=== PATIENT | male | born 1940 | race Caucasian/White ===

== ENCOUNTER → 2024-04-30 | Outpatient (CLI) | payer MEDICARE, BC, SELFPAY ==
[2024-04-30 11:44] LABS: Creatinine MALB Rnd Ur 122 mg/dL (30-125); Microalbumin, Random Urine < 3 mg/L (0-300)
[2024-04-30 11:44] LABS: Glucose Estimated Average 174 mg/dL (80-131); Hemoglobin A1C 7.7 % Hgb (4.8-6.0)
[2024-04-30 11:46] LABS: Alanine Aminotransferase 30 U/L (10-49); Albumin, Serum 4.1 gm/dL (3.4-4.8); Albumin/Globulin Ratio 1.6 (1.2-2.2); Alkaline Phosphatase 65 U/L (46-116); Anion Gap 7 (7-16); Aspartate Amino Transferase 18 U/L (0-34); BUN/Creatinine Ratio 16 Ratio (12-20); Bilirubin,Total 0.6 mg/dL (0.3-1.2); Blood Urea Nitrogen 18 mg/dL (9-23); Calcium 10.1 mg/dL (8.3-10.6); Calcium (Corrected) 10.1 mg/dL (8.5-10.1); Carbon Dioxide 28.7 mMol/L (20.0-31.0); Cardiac Risk Estimate 3.5 RATIO (4.0-6.7); Chloride 105 mMol/L (98-107); Cholesterol 153 mg/dL (132-200); Creatinine (Component) 1.1 mg/dL (0.6-1.3); Globulin 2.5 gm/dL (2.3-3.5); Glucose 181 mg/dL (74-106); HDL Cholesterol 44 mg/dL (40-60); LDL Cholesterol,Calculated 67 mg/dL (0-130); Osmolality,Calculated 288 (275-295); Potassium 4.1 mMol/L (3.4-5.1); Sodium 141 mMol/L (136-145); Total Protein 6.6 gm/dL (5.7-8.2); Triglycerides 211 mg/dL (30-150); eGFR > 60 See Note
== END | disposition home or self-care (01) ==
LOC: COPL 10:05
PROVIDERS: PCP Specialist; Referring Provider Specialist; Visit Provider Specialist
DX: E11.65 Type 2 diabetes mellitus with hyperglycemia (principal)
CPT/HCPCS: 36415; 80053; 80061; 82043; 82570; 83036

== ENCOUNTER → 2024-07-14 | Outpatient (CLI) | payer MEDICARE, BC, SELFPAY ==
[2024-07-14 13:30] LABS: Glucose Estimated Average 154 mg/dL (80-131)
[2024-07-14 13:36] LABS: B-Type Natriuretic Peptide 35 pg/mL (0-100)
[2024-07-14 13:40] LABS: Creatinine MALB Rnd Ur 156 mg/dL (30-125); Microalbumin Creat Ratio 7 mg/gCrea (<30); Microalbumin, Random Urine 11 mg/L (0-300)
[2024-07-14 13:40] LABS: Alanine Aminotransferase 28 U/L (10-49); Albumin, Serum 4.3 gm/dL (3.4-4.8); Albumin/Globulin Ratio 1.6 (1.2-2.2); Alkaline Phosphatase 100 U/L (46-116); Anion Gap 13 (7-16); Aspartate Amino Transferase 24 U/L (0-34); BUN/Creatinine Ratio 19 Ratio (12-20); Bilirubin,Total 0.7 mg/dL (0.3-1.2); Blood Urea Nitrogen 21 mg/dL (9-23); Calcium 10.1 mg/dL (8.3-10.6); Calcium (Corrected) 10.1 mg/dL (8.5-10.1); Carbon Dioxide 25.3 mMol/L (20.0-31.0); Cardiac Risk Estimate 3.3 RATIO (4.0-6.7); Chloride 104 mMol/L (98-107); Cholesterol 156 mg/dL (132-200); Creatinine (Component) 1.1 mg/dL (0.6-1.3); Globulin 2.7 gm/dL (2.3-3.5); Glucose 216 mg/dL (74-106); HDL Cholesterol 48 mg/dL (40-60); LDL Cholesterol,Calculated 50 mg/dL (0-130); Osmolality,Calculated 293 (275-295); Potassium 4.5 mMol/L (3.4-5.1); Sodium 142 mMol/L (136-145); Thyroid Stimulating Hormone 2.28 uIU/mL (0.55-4.78); Triglycerides 291 mg/dL (30-150); Troponin I < 0.002 ng/mL (0.0-0.045); eGFR > 60 See Note
== END | disposition home or self-care (01) ==
LOC: COPL 12:13
PROVIDERS: PCP Specialist; Referring Provider Specialist; Visit Provider Specialist
DX: E11.65 Type 2 diabetes mellitus with hyperglycemia (principal); E78.2 Mixed hyperlipidemia; I25.9 Chronic ischemic heart disease, unspecified
CPT/HCPCS: 36415; 80053; 80061; 82043; 82570; 83036; 83880; 84443; 84484

== ENCOUNTER → 2024-07-28 | Outpatient (CLI) | payer MEDICARE, BC, SELFPAY ==
[2024-07-28 15:57] LABS: Collection Type, Urine Clean Catch
[2024-07-28 16:29] LABS: Bilirubin,Urine Negative (Negative); Blood,Urine Negative (Negative); Clarity,Urine Clear (Clear/Hazy); Color,Urine Yellow (Lt Yel-Yel); Glucose, Urine Negative (Negative); Ketones,Urine Negative (Negative); Leukocyte Esterase,Urine Negative (Negative); Nitrite,Urine Negative (Negative); Protein,Urine Negative (Neg - Trace); RBC,Urine 6 /hpf (0-3); Specific Gravity,Urine 1.023 (1.001-1.035); Squamous Epithelial Cell,Urine < 1 /hpf (0-5); Urobilinogen,Urine Negative mg/dL (0.0-1.0); WBC,Urine 3 /hpf (0-5)
== END | disposition home or self-care (01) ==
LOC: SLDO 15:53
PROVIDERS: PCP Specialist; Referring Provider Specialist; Visit Provider Specialist
DX: R06.00 Dyspnea, unspecified (principal)
CPT/HCPCS: 81001; 87086

== ENCOUNTER → 2024-07-29 | Outpatient (CLI) | payer MEDICARE, BC, SELFPAY ==
[2024-07-29 13:51] LABS: Basophils % (Auto) 0 % (0-2.5); Eosinophils # (Auto) 0.1 Thou/mm3 (0.0-0.5); Eosinophils % (Auto) 2 % (0-10); Hematocrit 43.7 % (41.0-53.0); Hemoglobin 14.1 g/dL (13.5-16.0); Immature Granulocytes % (Auto) 1 % (0-0); Immature Granulocytes Auto 0.03 Thou/mm3 (0.00-0.00); Lymphocytes # (Auto) 1.6 Thou/mm3 (1.0-4.8); Lymphocytes % (Auto) 27 % (10-50); Mean Corpuscular HGB Conc 32.3 g/dl (31.0-37.0); Mean Corpuscular Hemoglobin 29.3 pg (25.0-35.0); Mean Corpuscular Volume 91 fL (80-100); Monocytes # (Auto) 0.6 Thou/mm3 (0.0-0.8); Monocytes % (Auto) 11 % (0-12); Neutrophils # (Auto) 3.6 Thou/mm3 (1.8-7.7); Neutrophils % (Auto) 59 % (37-80); Nucleated Red Blood Cell % 0 /100 WBC (0); Platelet Count 173 Thou/mm3 (140-440); RDW Standard Deviation 48.8 fL (35.1-43.9); Red Blood Count 4.81 Miln/mm3 (4.50-5.90)
[2024-07-29 14:06] LABS: Alanine Aminotransferase 20 U/L (10-49); Albumin, Serum 3.9 gm/dL (3.4-4.8); Albumin/Globulin Ratio 1.8 (1.2-2.2); Alkaline Phosphatase 60 U/L (46-116); Anion Gap 13 (7-16); Aspartate Amino Transferase 16 U/L (0-34); BUN/Creatinine Ratio 13 Ratio (12-20); Bilirubin,Total 0.7 mg/dL (0.3-1.2); Blood Urea Nitrogen 12 mg/dL (9-23); Calcium 9.5 mg/dL (8.3-10.6); Calcium (Corrected) 9.6 mg/dL (8.5-10.1); Carbon Dioxide 25.6 mMol/L (20.0-31.0); Chloride 105 mMol/L (98-107); Creatinine (Component) 0.9 mg/dL (0.6-1.3); Globulin 2.2 gm/dL (2.3-3.5); Glucose 120 mg/dL (74-106); Osmolality,Calculated 287 (275-295); Potassium 3.6 mMol/L (3.4-5.1); Sodium 144 mMol/L (136-145); Total Protein 6.1 gm/dL (5.7-8.2); Troponin I < 0.002 ng/mL (0.0-0.045); eGFR > 60 See Note
[2024-07-29 14:20] LABS: B-Type Natriuretic Peptide 25 pg/mL (0-100)
[2024-07-29 14:23] LABS: D-Dimer 478 ng/mL (<600)
== END | disposition home or self-care (01) ==
LOC: SLDO 13:11
PROVIDERS: PCP Specialist; Referring Provider Specialist; Visit Provider Specialist
DX: R06.00 Dyspnea, unspecified (principal)
CPT/HCPCS: 36415; 80053; 83880; 84484; 85025; 85379

== ENCOUNTER 2024-08-25 13:56 | Emergency (ER) | payer MEDICARE, BC, SELFPAY ==
[2024-08-25] VITALS (13 sets, daily range): BP systolic 142–192; BP diastolic 83–115; PULSE 59–80; RESP 14–23; TEMP 36.8–37; O2SAT 93–99; BMI 29.2
--- NOTE | 2024-08-25 14:08 | EKG_ITS ---
[facility] Test Date: 2024-08-25 Pat Name: URVASHI RAMSEY Department: Room: - Gender: Male Judicial Clerk: : 1940 Requested By: Ly Hernandez Order Number: [id number] Reading MD: Ly Hernandez Measurements Intervals [place] Rate: 75 P: [place]: QRS: 12 QRSD: 118 T: 90 QT: 365 QTc: 410 Interpretive Statements SUPRAVENTRICULAR RHYTHM MODERATE INTRAVENTRICULAR CONDUCTION DELAY [110+ ms QRS DURATION] NONSPECIFIC ST & T-WAVE ABNORMALITY ABNORMAL RHYTHM ECG Compared to ECG 03/13/2023 08:28:30 Supraventricular rhythm now present Sinus rhythm no longer present Ventricular premature complex(es) no longer present T-wave abnormality still present /store/S0/[id number].pdf
--- NOTE | 2024-08-25 14:56 | XR_ITS ---
Examination: AP chest single view Technique one AP portable semiupright chest single view Date and time: August 25, 2024, 1544 hours Comparison March 12, 2023 INDICATIONS: Chest pain and weakness onset today. FINDINGS: Normal heart size CABG. 19 mm pulmonary nodule right upper lobe, please see the CT chest report October 22, 2023 No interval pneumonia or pulmonary edema. Prominent osteopenia with old right-sided rib fractures Reverse left shoulder arthroplasty IMPRESSION: No interval pneumonia or pulmonary edema Stable 19 mm pulmonary nodule right upper lobe
--- NOTE | 2024-08-25 15:09 | EDNOTE_ITS ---
<Statement entered by Ly Mckeon MD - 09/03/24 19:18> As co-signing physician, I was present and available for consult prn. I concur with the plan and care as documented by the midlevel provider. ED Weakness RME/HPI General Chief complaint: Weakness Stated complaint: GENERAL WEAKNESS Time Seen by Provider: 08/25/24 18:00 Arrival date/time: 08/25/24 13:56 RME / HPI RME / HPI Narrative: 83 year old male with history of CAD s/p CABG, hypertension, diabetes, and BPH presents to the ED BIBA from home for evaluation of generalized weakness that began earlier today. Associated with feeling short of breath, which worsens with talking. Patient states over the past two days, he has noted elevated blood pressures with systolic readings between 180?200 and diastolic pressures in the 100s. Patient also reports a ground-level fall three days ago, during which he heard a ?crack? in his left shoulder followed by localized pain. Denies head trauma or loss of consciousness. The shoulder remains sore but the pain has improved since the fall. Denies fever, chills, sweating. Denies chest pain, cough, shortness of breath. Denies nausea, vomiting, diarrhea, constipation. Denies dysuria, urinary frequency and urgency. Patient mentioned history of vertigo following benign brain tumor resection many years ago. Reports chronic unsteadiness while ambulating with a walker, which he feels is worsened by his current generalized weakness. States this unsteadiness is unchanged from baseline. Related Data Home Medications ?Medication ?Instructions ?Recorded ?Confirmed folic acid 1 mg tablet 1 mg PO QPM #0 tabs 09/03/13 03/13/23 clopidogrel 75 mg tablet (Plavix) 75 mg PO QPM 8 03/13/23 sertraline 25 mg tablet 25 mg PO QDAY 02/10/1803/13 atorvastatin 40 mg tablet 40 mg PO HS 03/12/23 4 hydrocodone 7.5 mg-acetaminophen 1 tab PO Q6H PRN Pain 03/13/23 03/13/23 325 mg tablet lactulose 10 gram/15 mL oral syrup 10 g PO DAILY 03/1303/13/23 pantoprazole 20 mg tablet,delayed 40 mg PO QDAY 03/13/23 release Previous Rx's ?Medication ?Instructions ?Recorded ferrous sulfate 325 mg (65 mg 325 mg PO BID 30 days #6 0 tabs 09/17/22 iron) tablet,delayed release lidocaine 5 % topical patch 3 patch topical QDAY 30 da ys #30 ea 03/14/23 amlodipine 2.5 mg tablet 2.5 mg PO DAILY 30 days #30 tabs 03/17/23 labetalol 100 mg tablet 100 mg PO BID 30 days #60 ta bs 03/17/23 tamsulosin 0.4 mg capsule 0.4 mg PO DAILY 30 days #30 caps 03/17/23 clonidine HCl 0.1 mg tablet 0.1 mg PO Q12H #14 tabs Allergies Allergy/AdvReac Type Severity Reaction Status Date / Time hydrocodone AdvReac Intermediate Nausea Verified 09/01/22 16:51 oxycodone AdvReac Intermediate sedation Verified 09/01/22 16:51 and confusion tramadol AdvReac Unknown may lower Verified 09/01/22 16:51 blaine rosenbaum Review of Systems Review of Systems Systems Reviewed: All systems reviewed, normal except as documented Past Medical History Past Medical History NEUROLOGIC: Positive Neurological Disorders, Cerebrovascular Accident, Brain Tumor and Peripheral Neuropathy CARDIAC: Positive Cardiac Disorders, Cardiac Arrhythmia, Atrial Fibrillation, Coronary Artery Disease, Atherosclerotic Heart Disease, Hypercholesterolemia, Valvular Heart Disease and Hypertension RESPIRATORY: Positive Pneumonia GENITOURINARY: Positive Genitourinary Disorders, Renal Disease, Kidney Stones, Inguinal Hernia and Benign Prostatic Hyperplasia MUSCULOSKELETAL: Positive Musculoskeletal Disorders, Arthritis, Degenerative Disk Disease, Fractures and Degenerative Joint Disease ENT: Positive Cataracts ENDOCRINE: Positive Endocrine Disorders and Diabetes Mellitus Type 2 HEMATOLOGIC: Positive Anemia PSYCHO/SOCIAL: Positive Depression and Anxiety OTHER HISTORY: Positive Hospitalization, Falls and Blood Transfusions Family History FAMILY HISTORY: Positive Family Cardiac Disorders, Family Cancer and Family Surgery Surgical History SURGICAL: Positive Cardiac Surgery (open heart sx , pig valve), Open Heart Surgery, Coronary Artery Bypass Graft, Valve Replacement, Coronary Stent, Cardiac Catheterization, Ear Surgery, Tonsillectomy, Abdominal Surgery, Joint Replacement and Neurologic Surgery; Negative Endocrine Surgery or Vasectomy Social History SMOKING STATUS: Never smoker SECOND HAND EXPOSURE: No SUBSTANCE USE: does not use ED Exam Narrative Physical exam: GENERAL APPEARANCE: alert and oriented x 4, well-developed, well-nourished, no acute distress HEENT: Normocephalic, atraumatic; pupils equal, round, reactive to light; EOMI; mucous membranes pink, moist; oropharynx clear NECK: Supple LUNGS: CTABL; no wheezes, no rales, no rhonchi HEART: Regular rate, regular rhythm; normal S1, S2; no murmurs ABDOMEN: non distended; normal BS; soft, no tenderness, no guarding, no rebound; no masses, no organomegaly, no hernia BACK: no CVA tenderness EXTREMITIES: atraumatic; no edema NEUROLOGIC: awake; alert and oriented x4; cranial nerves II-XII grossly intact; no focal sensory or motor deficits PSYCHIATRIC: appropriate mood and affect SKIN: warm, dry, normal color; no rashes Course Quality Measures none Orders Category Date Time Status Windows Vmware Engineer NOW Care 08/25/24 14:56 Completed EKG (ED ONLY) *Do not use* NOW Care 08/25/24 14:08 Completed MRI Screening NOW Care 08/26/24 00:55 Completed MRI Screening NOW Care 08/26/24 01:[address] head/brain wo con Stat Exams 08/25/24 19:22 Completed EKG (ED Only) Stat Exams 08/25/24 14:08 Draft MR head/brain wo con Stat Exams 08/26/24 Completed XR chest 1V portable Stat Exams 08/25/24 14:56 Completed B-Type Natriuretic Peptide Stat Lab 08/25/24 14:20 Completed Blood Culture (Lab) Stat Lab 08/25/24 15:36 Results CBC Stat Lab 08/25/24 14:20 Completed Comprehensive Metabolic Panel Stat Lab 08/25/24 14:20 Completed Lactate (Lactic Acid) Stat Lab 08/25/24 14:20 Completed Lactic Acid [Lactate (Lactic Acid)] Stat Lab 08/25/24 18:00 Completed Lipase Stat Lab 08/25/24 14:20 Completed Magnesium Stat Lab 08/25/24 14:20 Completed Partial Thromboplastin Time Stat Lab 08/25/24 14:20 Completed Procalcitonin Stat Lab 08/25/24 14:20 Completed Prothrombin Time with INR Stat Lab 08/25/24 14:20 Completed Troponin I Stat Lab 08/25/24 14:20 Completed Troponin I Stat Lab 08/25/24 18:00 Completed UA, C/S IF [Urinalysis, C/S if Indicated] Stat Lab 08/25/24 17:34 Completed Acetaminophen Tab [Tylenol Tab] Med 08/25/24 20:44 Discontinued 650 mg PO X1 ONE HYDROmorphone INJ [Dilaudid Inj] Med 08/26/24 08:55 Discontinued 0.5 mg IVP X1 ONE HYDROmorphone INJ [Dilaudid Inj] Med 08/26/24 14:36 Discontinued 1 mg IVP X1 ONE Ketorolac Inj [Toradol Inj] Med 08/26/24 08:55 Discontinued 15 mg IVP X1 ONE Magnesium Sulfate 2 GM Ivpb [Magnesium Sulfate Ivpb] Med 08/25/24 17:06 Discontinued 2 gm in 50 ml IV X1 Ondansetron Inj [Zofran Inj] Med 08/26/24 08:55 Discontinued 4 mg IVP X1 ONE Ondansetron Inj [Zofran Inj] Med 08/26/24 14:36 Discontinued 4 mg IVP X1 ONE Sodium Chloride 0.9% 1000 ml [Ns] 1,000 ml Med 08/25/24 17:08 Discontinued IV 999 mls/hr cloNIDine HCL [Catapres] Med 08/26/24 08:55 Discontinued 0.1 mg PO X1 ONE hydrALAZINE INJ [Apresoline Inj] Med 08/25/24 20:33 Discontinued 10 mg IVP X1 ONE hydrALAZINE INJ [Apresoline Inj] Med 08/26/24 01:51 Discontinued 10 mg IVP X1 ONE Vital Signs Vital signs: Vital Signs Temperature 98.6 F 08/25/24 13:57 Pulse Rate 76 08/25/24 13:57 Respiratory Rate 17 08/25/24 13:57 Blood Pressure 142/83 H 08/25/24 13:57 Pulse Oximetry (%) 95 08/25/24 13:57 Oxygen Delivery Method Room Air 08/25/24 13:57 Pulse ox is 95% on room air which is adequate. Weakness MDM Narrative MDM Narrative:: Aisha Pang am scribing for and in the presence of Dr. Mckeon. 1800: Patient signed out to Dr. Horne pending UA and final disposition. Patient data External records reviewed:: [facility] previous records (I reviewed ED visit on 08/03/2023 for head injury ) and EMS form Clinical information provided by:: patient and EMS Social determinants that could affect healthcare access:: none Patient has the following chronic illnesses:: CAD s/p CABG, hypertension, diabetes, and BPH How is presenting disease/condition affected by chronic disease/condition?: exacerbated by Evaluation data The following diagnostics were reviewed and interpreted by me:: lab results, radiology exam(s) and EKG tracing(s) Lab and/or radiology exams considered but not ordered:: None Interpretation Summary: Ordering Physician: Ly Mckeon MD Date of Service: 08/25/24 Procedure(s): XR chest 1V portable Accession Number(s): [id number] cc: Edison Mojica; Joshua Harrison MD; Ly Mckeon MD~ Examination: AP chest single view Technique one AP portable semiupright chest single view Date and time: August 25, 2024, 1544 hours Comparison March 12, 2023 INDICATIONS: Chest pain and weakness onset today. FINDINGS: Normal heart size CABG. 19 mm pulmonary nodule right upper lobe, please see the CT chest report October 22, 2023 No interval pneumonia or pulmonary edema. Prominent osteopenia with old right-sided rib fractures Reverse left shoulder arthroplasty IMPRESSION: No interval pneumonia or pulmonary edema Stable 19 mm pulmonary nodule right upper lobe Dictated By: Joshua Harrison MD Signed By: <Electronically signed by Joshua Harrison MD in OV> 08/25/24 1552 Medications / Prescriptions Medications or Prescriptions considered but not ordered:: None Medication administrations:: Medication Administration History Discontinued Medications Acetaminophen (Acetaminophen 325 Mg Tablet) 650 mg PO X1 ONE Stop: 08/25/24 20:45 Last Admin: 08/25/24 20:52 Dose: 650 mg Documented By: DT Clonidine (Clonidine Hcl 0.1 Mg Tablet) 0.1 mg PO X1 ONE Stop: 08/26/24 08:56 Last Admin: 08/26/24 09:15 Dose: 0.1 mg Documented By: CG Hydralazine HCl (Hydralazine Inj 20 Mg/Ml Vial) 10 mg IVP X1 ONE Stop: 08/25/24 20:34 Last Admin: 08/25/24 20:50 Dose: Not Given Documented By: DT Non-Admin Reason: Cancelled by Provider Hydralazine HCl (Hydralazine Inj 20 Mg/Ml Vial) 10 mg IVP X1 ONE Stop: 08/26/24 01:52 Last Admin: 08/26/24 02:11 Dose: 10 mg Documented By: JOSUE Hydromorphone HCl (Hydromorphone Inj 2 Mg/Ml Vial) 0.5 mg IVP X1 ONE Stop: 08/26/24 08:56 Last Admin: 08/26/24 09:27 Dose: 0.5 mg Documented By: ROSY Hydromorphone HCl (Hydromorphone Inj 2 Mg/Ml Vial) 1 mg IVP X1 ONE Stop: 08/26/24 14:37 Last Admin: 08/26/24 15:10 Dose: 1 mg Documented By: ROSY Magnesium Sulfate (Magnesium Sulfate Ivpb) 2 gm in 50 mls @ 25 mls/hr IV X1 ONE Stop: 08/25/24 19:05 Last Infusion: 08/25/24 21:18 Dose: Infused Documented By: Admin: 08/25/24 19:03 Dose: 25 mls/hr Documented By: DARWIN Sodium Chloride (Ns) 1,000 mls @ 999 mls/hr IV .Q1H1M ONE Stop: 08/25/24 18:08 Last Infusion: 08/25/24 20:49 Dose: Infused Documented By: Admin: 08/25/24 19:00 Dose: 999 mls/hr Documented By: DARWIN Ketorolac Tromethamine (Ketorolac Inj 30 Mg/Ml Vial) 15 mg IVP X1 ONE Stop: 08/26/24 08:56 Last Admin: 08/26/24 09:14 Dose: 15 mg Documented By: ROSY Ondansetron HCl (Ondansetron Inj 2 Mg/Ml Inj 2 Ml) 4 mg IVP X1 ONE; Protocol Stop: 08/26/24 08:56 Last Admin: 08/26/24 09:15 Dose: 4 mg Documented By: ROSY Ondansetron HCl (Ondansetron Inj 2 Mg/Ml Inj 2 Ml) 4 mg IVP X1 ONE; Protocol Stop: 08/26/24 14:37 Last Admin: 08/26/24 15:10 Dose: 4 mg Documented By: ROSY See above Consultations Consultation(s) initiated? (list below): No Diagnosis Weakness Differential Diagnosis: anemia, rhabdomyolysis, sepsis and dehydration Most likely diagnosis given after review of the tests above:: Weakness Admission Indicated Admission indicated?: not indicated Explain why admission is indicated or not indicated:: Patient signed out to Dr. Horne pending final disposition. Admission Request Was there a request for admission?: No Disposition Plan Disposition Plan: other (specify) (Signed out to Dr. Horne pending UA and final disposition ) Discharge Plan Plan Patient Disposition: HOME (Self Care) Patient condition on transfer: Stable Prescriptions/Referrals Prescriptions/Med Rec: New clonidine HCl 0.1 mg tablet 0.1 mg PO Q12H Qty: 14 0RF Rx Instructions: Take twice daily if needed for systolic BP > 160, diastolic BP > 95. Continue your other usual medications. No Action folic acid 1 MG tablet 1 mg PO QPM Qty: 0 clopidogrel [Plavix] 75 mg Tablet 75 mg PO QPM sertraline 25 mg Tablet 25 mg PO QDAY ferrous sulfate 325 mg (65 mg iron) Tablet,Delayed Release (Dr/Ec) 325 mg PO BID 30 Days Qty: 60 3RF Rx Instructions: Must take with Vitamin C atorvastatin 40 mg tablet 40 mg PO HS lactulose 10 gram/15 mL Syrup 10 g PO DAILY hydrocodone-acetaminophen 7.5-325 mg Tablet 1 tab PO Q6H PRN (Reason: Pain) pantoprazole 20 mg tablet,delayed release (DR/EC) 40 mg PO QDAY lidocaine 5 % adhesive patch,medicated 3 patch topical QDAY 30 Days Qty: 30 1RF Rx Instructions: leave on most painful area for up to 12 hrs tamsulosin 0.4 mg Capsule 0.4 mg PO DAILY 30 Days Qty: 30 1RF labetalol 100 mg Tablet 100 mg PO BID 30 Days Qty: 60 1RF amlodipine 2.5 mg Tablet 2.5 mg PO DAILY 30 Days Qty: 30 1RF Referrals: Edison Mojica FNP [Primary Care Provider] - In 1 week Problem List Clinical Impression: Meningioma, Hypertension, Headache, Parkinson's disease Impression comment: Posterior right para falcine meningioma Patient/Caregiver Discharge Instructions Additional Instructions: Take Tylenol 500 mg 2 tabs every 6 hours PLUS Advil 200 mg gel 2 tablets as needed for pain. Please follow-up with your primary care physician within 2-3 days. Return to the Emergency Department as needed. Print Language: Luxembourgish Stand Alone Forms: Edith Award Info., Patient Portal Info Letter
[2024-08-25 15:51] LABS: Basophils # (Auto) 0.0 Thou/mm3 (0.0-0.2); Basophils % (Auto) 0 % (0-2.5); Eosinophils # (Auto) 0.1 Thou/mm3 (0.0-0.5); Eosinophils % (Auto) 2 % (0-10); Hematocrit 41.5 % (41.0-53.0); Hemoglobin 13.8 g/dL (13.5-16.0); Immature Granulocytes Auto 0.03 Thou/mm3 (0.00-0.00); Lymphocytes # (Auto) 2.0 Thou/mm3 (1.0-4.8); Lymphocytes % (Auto) 27 % (10-50); Mean Corpuscular HGB Conc 33.3 g/dl (31.0-37.0); Mean Corpuscular Hemoglobin 29.2 pg (25.0-35.0); Mean Corpuscular Volume 88 fL (80-100); Monocytes # (Auto) 0.5 Thou/mm3 (0.0-0.8); Monocytes % (Auto) 8 % (0-12); Neutrophils # (Auto) 4.5 Thou/mm3 (1.8-7.7); Neutrophils % (Auto) 63 % (37-80); Nucleated Red Blood Cell # 0.00 Thou/mm3 (0.00-0.00); Nucleated Red Blood Cell % 0 /100 WBC (0); Platelet Count 232 Thou/mm3 (140-440); RDW Standard Deviation 47.2 fL (35.1-43.9); Red Blood Count 4.73 Miln/mm3 (4.50-5.90); White Blood Count 7.2 Thou/mm3 (3.8-10.6)
[2024-08-25 15:53] LABS: Lactate (Lactic Acid) 4.3 mMol/L (0.4-2.0)
[2024-08-25 16:14] LABS: INR 1.1 (0.9-1.3); Partial Thromboplastin Time 25.9 Seconds (22.0-36.0); Prothrombin Time 11.9 Seconds (9.0-12.2)
[2024-08-25 16:17] LABS: Alanine Aminotransferase 21 U/L (10-49); Albumin, Serum 4.2 gm/dL (3.4-4.8); Albumin/Globulin Ratio 1.8 (1.2-2.2); Alkaline Phosphatase 60 U/L (46-116); Anion Gap 8 (7-16); Aspartate Amino Transferase 21 U/L (0-34); BUN/Creatinine Ratio 20 Ratio (12-20); Bilirubin,Total 0.6 mg/dL (0.3-1.2); Blood Urea Nitrogen 18 mg/dL (9-23); Calcium 9.9 mg/dL (8.3-10.6); Calcium (Corrected) 9.9 mg/dL (8.5-10.1); Carbon Dioxide 27.9 mMol/L (20.0-31.0); Chloride 110 mMol/L (98-107); Creatinine (Component) 0.9 mg/dL (0.6-1.3); Estimated Creatinine Clearance 65.9 mL/min (>60); Globulin 2.3 gm/dL (2.3-3.5); Glucose 175 mg/dL (74-106); Lipase 53 U/L (12-53); Magnesium 1.6 mg/dL (1.6-2.6); Osmolality,Calculated 296 (275-295); Potassium 3.8 mMol/L (3.4-5.1); Procalcitonin 0.04 ng/ml (0.0-0.49); Sodium 146 mMol/L (136-145); Total Protein 6.5 gm/dL (5.7-8.2); Troponin I < 0.020 ng/mL (0.0-0.045); eGFR > 60 See Note
[2024-08-25 16:23] LABS: B-Type Natriuretic Peptide 42 pg/mL (0-100)
[2024-08-25 17:43] LABS: Collection Type, Urine Clean Catch
[2024-08-25 17:52] LABS: Bilirubin,Urine Negative (Negative); Blood,Urine Negative (Negative); Clarity,Urine Clear (Clear/Hazy); Color,Urine Lt-Yellow (Lt Yel-Yel); Culture Indicated,Urine Not Indicated; Glucose, Urine Negative (Negative); Ketones,Urine Negative (Negative); Leukocyte Esterase,Urine Negative (Negative); Nitrite,Urine Negative (Negative); PH,Urine 5.5 (5.0-7.0); Protein,Urine Negative (Neg - Trace); RBC,Urine 3 /hpf (0-3); Specific Gravity,Urine 1.023 (1.001-1.035); Squamous Epithelial Cell,Urine < 1 /hpf (0-5); Urobilinogen,Urine Negative mg/dL (0.0-1.0); WBC,Urine 2 /hpf (0-5)
--- NOTE | 2024-08-25 18:01 | PD.EDADDENDU ---
Emergency Room Addendum <Evette Horne MD - Last Filed: 08/25/24 19:26> Addendum Narrative: 1800: Care assumed from Dr. Mckeon (emergency physician). Past medical, surgical, social and family history reviewed. Vitals and home medications reviewed. Results and treatment plan discussed. I will assume the care of the patient at this time and will follow the patient, pending Trop and re-evaluation. . Please refer to the emergency department record for history and examination from initial visit. Summary: the presents that the last few days his blood pressure is been elevated. She has talked to his doctor but his blood pressure has been elevated. The patient also uses a walker and a wheelchair and then the last few days with his elevated blood pressure he has been having trouble walking on his own. He went to physical therapy today and they sent him in because they did not like the way he looked. Physical exam In the emergency department the patient has blood pressure of 207/90. Motor 5 out of 5 upper extremity lower extremity Normal sensation of soft touch face arms and legs bilaterally Heart is regular without murmurs. Lungs are clear bilaterally. White count is normal at 7. Otherwise BUN/creatinine is normal, no hypertensive emergency, sodium is 146, creatinine otherwise is normal, Pro-Trevor is normal. Plan: Will check head CT. If the patient cannot ambulate he will need to be admitted and reevaluation for possible MRI in the morning. Plan to recheck blood pressure. If needed given his normal dose that includes amlodipine, and labetalol. <Jo-Ann Brooks - Last Filed: 08/25/24 21:27> Addendum Narrative: [address] Mckeon (emergency physician). Past medical, surgical, social and family history reviewed. Vitals and home medications reviewed. Results and treatment plan discussed. I will assume the care of the patient at this time and will follow the patient, pending UA and re-evaluation. Please refer to the emergency department record for history and examination from initial visit. Re-evaluation: Patient was signed out to me for continued evaluation of elevated blood pressure and new-onset functional decline. Per his , the patient has had consistently elevated blood pressure readings at home over the past several days. She reports that she has already contacted his primary care physician, but despite this, his blood pressure has remained elevated. In addition, she notes that the patient, who typically uses a walker and wheelchair, has had increasing difficulty ambulating independently over the last few days, which appears to coincide with the period of elevated blood pressure. Earlier today, he attended physical therapy, where staff expressed concern about his appearance and functional status and recommended ED evaluation. #Physical Exam: Vital Signs: BP elevated at 207/90 on arrival; other vitals stable. Neurologic: Motor strength 5/5 in bilateral upper and lower extremities Cardiovascular: Regular heart rate and rhythm; no murmurs. Respiratory: Lungs clear to auscultation bilaterally. No acute distress noted during exam. #Diagnostic Data: White count is normal at 7. Otherwise BUN/creatinine is normal, no hypertensive emergency, sodium is 146, creatinine otherwise is normal, Pro-Trevor is normal. #Plan: Will order Head CT. Monitor ambulation closely; if the patient is unable to ambulate safely, he will require hospital admission for further evaluation, with consideration for MRI brain in the morning if clinically indicated. Blood pressure will be closely monitored in the ED. If elevated persistently, will administer patient's usual antihypertensive medications (amlodipine and labetalol) as appropriate, with adjustments based on response and stability. Patient and updated regarding the plan of care and ongoing evaluation. <Anna Lucio - Last Filed: 08/26/24 00:44> Addendum Narrative: [address] Mckeon (emergency physician). Past medical, surgical, social and family history reviewed. Vitals and home medications reviewed. Results and treatment plan discussed. I will assume the care of the patient at this time and will follow the patient, pending UA and re-evaluation. Please refer to the emergency department record for history and examination from initial visit. Re-evaluation: Patient was signed out to me for continued evaluation of elevated blood pressure and new-onset functional decline. Per his , the patient has had consistently elevated blood pressure readings at home over the past several days. She reports that she has already contacted his primary care physician, but despite this, his blood pressure has remained elevated. In addition, she notes that the patient, who typically uses a walker and wheelchair, has had increasing difficulty ambulating independently over the last few days, which appears to coincide with the period of elevated blood pressure. Earlier today, he attended physical therapy, where staff expressed concern about his appearance and functional status and recommended ED evaluation. #Physical Exam: Vital Signs: BP elevated at 207/90 on arrival; other vitals stable. Neurologic: Motor strength 5/5 in bilateral upper and lower extremities Cardiovascular: Regular heart rate and rhythm; no murmurs. Respiratory: Lungs clear to auscultation bilaterally. No acute distress noted during exam. #Diagnostic Data: White count is normal at 7. Otherwise BUN/creatinine is normal, no hypertensive emergency, sodium is 146, creatinine otherwise is normal, Pro-Trevor is normal. #Plan: Will order Head CT. Monitor ambulation closely; if the patient is unable to ambulate safely, he will require hospital admission for further evaluation, with consideration for MRI brain in the morning if clinically indicated. Blood pressure will be closely monitored in the ED. If elevated persistently, will administer patient's usual antihypertensive medications (amlodipine and labetalol) as appropriate, with adjustments based on response and stability. Patient and updated regarding the plan of care and ongoing evaluation. 0038: Discussed case with Dr. Helder Gomes from neurosurgery at [facility] regarding transfer. Discussed patients ED course, exam findings, labs, and radiology results. States the patient does not need to be transferred because it is not a neurosurgical operative problem. Recommends MRI and admission here. <Yahir Valdes MD - Last Filed: 08/26/24 01:53> Addendum Narrative: [address] Mckeon (emergency physician). Past medical, surgical, social and family history reviewed. Vitals and home medications reviewed. Results and treatment plan discussed. I will assume the care of the patient at this time and will follow the patient, pending UA and re-evaluation. Please refer to the emergency department record for history and examination from initial visit. Re-evaluation: Patient was signed out to me for continued evaluation of elevated blood pressure and new-onset functional decline. Per his , the patient has had consistently elevated blood pressure readings at home over the past several days. She reports that she has already contacted his primary care physician, but despite this, his blood pressure has remained elevated. In addition, she notes that the patient, who typically uses a walker and wheelchair, has had increasing difficulty ambulating independently over the last few days, which appears to coincide with the period of elevated blood pressure. Earlier today, he attended physical therapy, where staff expressed concern about his appearance and functional status and recommended ED evaluation. #Physical Exam: Vital Signs: BP elevated at 207/90 on arrival; other vitals stable. Neurologic: Motor strength 5/5 in bilateral upper and lower extremities Cardiovascular: Regular heart rate and rhythm; no murmurs. Respiratory: Lungs clear to auscultation bilaterally. No acute distress noted during exam. #Diagnostic Data: White count is normal at 7. Otherwise BUN/creatinine is normal, no hypertensive emergency, sodium is 146, creatinine otherwise is normal, Pro-Trevor is normal. #Plan: Will order Head CT. Monitor ambulation closely; if the patient is unable to ambulate safely, he will require hospital admission for further evaluation, with consideration for MRI brain in the morning if clinically indicated. Blood pressure will be closely monitored in the ED. If elevated persistently, will administer patient's usual antihypertensive medications (amlodipine and labetalol) as appropriate, with adjustments based on response and stability. Patient and updated regarding the plan of care and ongoing evaluation. 0038: Discussed case with Dr. Helder Gomes from neurosurgery at [facility] regarding transfer. Discussed patients ED course, exam findings, labs, and radiology results. States the patient does not need to be transferred because it is not a neurosurgical operative problem. Recommends MRI and admission here. 0100: MRI ordered and will signout to Dr. Espinoza in the am. 0152: BP 196/115 HR 66, hydralazine 10mg IV x1 ordered Attestation <Jo-Ann Brooks - Last Filed: 08/25/24 21:27> Attestation Scribe Attestation: I, Sandy Brooks, am scribing for and in the presence of Dr. Horne. Provider Notation: Although this document has been carefully reviewed, there may still be some phonetic and other typographical errors. These errors are purely grammatical due to imperfections in the software program and should not be construed in any way to compromise the substance of the patient's medical care during this visit.
[2024-08-25 18:26] LABS: Lactate (Lactic Acid) 1.8 mMol/L (0.4-2.0)
[2024-08-25 18:43] LABS: Reflex Lactate? Y
[2024-08-25] MEDS: SODIUM CHLORIDE 0.9% 1000 ML 1,000 ML 999 ML IV (19:00)
[2024-08-25] MEDS: Magnesium Sulfate 2 GM Ivpb 2 GM/50 ML BAG IV (19:03)
--- NOTE | 2024-08-25 19:22 | XR_ITS ---
Examination: CT brain head without contrast. 2-D sagittal coronal reconstructions Date and time of exam:August 25, 2024 at 1941 hours Comparison August 03, 2023 INDICATIONS: Patient fell last week with injury and, head pain and dizziness CTDI: vol (mGy):50.5 DLP: (mGycm):1099 Technique: Multiple CT axial sections of the brain have been obtained, 5 mm slice thickness. Contrast has not been administered. 2-D sagittal, coronal reconstructions have been obtained Low dose protocols were performed. One or more of the following dose reduction techniques were used; automated exposure control, adjustment of the mA and/or KV according to patient size, use of iterative reconstruction technique. Findings: Again noted right parafalcine partially calcified meningioma, now measuring 24 mm compared to 18 mm on August 03, 2023 This meningioma is impinging upon the right lateral ventricle The ventricles are mildly enlarged There is depression of the right lateral ventricle on the coronal images 35 secondary to the meningioma No midline shift Fourth ventricle midline IMPRESSION: Enlarging right parafalcine meningioma compared to the August 03, 2023 exam Recommend MRI brain follow-up pre and postcontrast
[2024-08-25 20:13] LABS: Troponin I < 0.020 ng/mL (0.0-0.045)
--- NOTE | 2024-08-25 20:36 | PC.NURSE ---
RESIDENT JANELLE INFORMED OF PATINETS HIGH BLOOD PRESSURE. NO ORDERS RECIEVED.
[2024-08-25] MEDS: ACETAMINOPHEN 325 MG TABLET 650 MG PO (20:52)
[2024-08-26] VITALS (63 sets, daily range): BP systolic 108–210; BP diastolic 70–119; PULSE 56–90; RESP 6–23; TEMP 36.2–37; O2SAT 85–99
--- NOTE | 2024-08-26 | XR_ITS ---
Examination: MRI brain without intravenous contrast. 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 Siemens high-resolution 1.5 Nadja short bore scanners utilized. Sagittal sections, T1-weighted, TR 500, TE 14, are performed. Axial sections proton-density and T2-weighted have been obtained. Inversion recovery axial images, TR 9, 260, TE 111, TI 2500. Diffusion weighted images, axial sections, TR 4800, TE 128, B value 1000 Axial sections, ADC map, TR 4800, TE 128 Findings: Enlargement of the sella turcica is not present. The optic chiasm and infundibular are not remarkable. Prepontine and interpeduncular cisterns are not enlarged. There is no localized enlargement of the medulla or edie. Fourth ventricle and cerebellar tonsils appear normal in position. No subacute area of hemorrhage density is seen. Mass in the cerebellopontine angle region is not evident. Globes symmetrical. Orbital musculature including medial lateral rectus muscles do not exhibit abnormality. Diffusion-weighted images demonstrate no focus of restricted diffusion. Increased white matter signal significant 27 x 15 x 24 mm posterior right parafalcine meningioma without significant surrounding edema There is mass effect upon the posterior corpus callosum and posterior right lateral ventricle axial image 19 Mass effect upon the ventricular system is not identified. Impression: Enlarging posterior right para falcine meningioma, follow-up postcontrast images would be very helpful
--- NOTE | 2024-08-26 00:42 | PC.NURSE ---
FAXED PT INFORMATION TO JEAN ELLEN. [facility] CALLED AND TALKED TO DR. VILLAGOMEZ.
--- NOTE | 2024-08-26 00:43 | PC.NURSE ---
CALLED [facility] ALSO AND GAVE PT INFORMATION. TRANSFER NURSE LARRY CARLSON REQUESTING TO PUSH IMAGE.
--- NOTE | 2024-08-26 00:46 | PC.NURSE ---
DR. GRANGER SAID DR. STOLL FROM [facility] SAID THAT PT DOES NOT NEED TRANSFER , TO DO MRI AND ADMIT.
[2024-08-26] MEDS: hydrALAZINE INJ 20 MG/ML VIAL 10 MG IVP (02:11)
--- NOTE | 2024-08-26 02:34 | PC.NURSE ---
family contact- karen Masters [phone]
--- NOTE | 2024-08-26 06:28 | EDNOTE_ITS ---
Emergency Room Addendum Addendum Narrative: 0600: Care assumed from Dr. Horne the previous shift emergency physician. Past medical, surgical, social and family history reviewed. Vitals and home medications reviewed. I will assume the care of the patient at this time, pending MRI and final disposition. Please refer to the emergency department record for history and examination from initial visit.? Physical exam by me shows patient under no acute distress at this time. Diagnoses: - Posterior right para falcine meningioma - Hypertension - Headache - Parkinson's disease Results Objective Laboratory: Laboratory Last Values WBC 7.2 Thou/mm3 (3.8-10.6) 08/25/24 14:20 RBC 4.73 Miln/mm3 (4.50-5.90) 08/25/24 14:20 Hgb 13.8 g/dL (13.5-16.0) 08/25/24 14:20 Hct 41.5 % (41.0-53.0) 08/25/24 14:20 MCV 88 fL (80-100) 08/25/24 14:20 MCH 29.2 pg (25.0-35.0) 08/25/24 14:20 MCHC 33.3 g/dl (31.0-37.0) 08/25/24 14:20 RDW Std Deviation 47.2 fL (35.1-43.9) H 08/25/24 14:20 Plt Count 232 Thou/mm3 (140-440) D 08/25/24 14:20 Neut % (Auto) 63 % (37-80) 08/25/24 14:20 Lymph % (Auto) 27 % (10-50) 08/25/24 14:20 Tyrrell % (Auto) 8 % (0-12) 08/25/24 14:20 Eos % (Auto) 2 % (0-10) 08/25/24 14:20 Baso % (Auto) 0 % (0-2.5) 08/25/24 14:20 Neut # (Auto) 4.5 Thou/mm3 (1.8-7.7) 08/25/24 14:20 Lymph # (Auto) 2.0 Thou/mm3 (1.0-4.8) 08/25/24 14:20 Tyrrell # (Auto) 0.5 Thou/mm3 (0.0-0.8) 08/25/24 14:20 Eos # (Auto) 0.1 Thou/mm3 (0.0-0.5) 08/25/24 14:20 Baso # (Auto) 0.0 Thou/mm3 (0.0-0.2) 08/25/24 14:20 Immature Gran # (Auto) 0.03 Thou/mm3 (0.00-0.00) H 08/25/24 14:20 Absolute Nucleated RBC 0.00 Thou/mm3 (0.00-0.00) 08/25/24 14:20 Immature Gran % 0 % (0-0) 08/25/24 14:20 Nucleated RBC % 0 /100 WBC (0) 08/25/24 14:20 PT 11.9 Seconds (9.0-12.2) 08/25/24 14:20 INR 1.1 (0.9-1.3) 08/25/24 14:20 APTT 25.9 Seconds (22.0-36.0) 08/25/24 14:20 Sodium 146 mMol/L (136-145) H 08/25/24 14:20 Potassium 3.8 mMol/L (3.4-5.1) 08/25/24 14:20 Chloride 110 mMol/L (98-107) H 08/25/24 14:20 Carbon Dioxide 27.9 mMol/L (20.0-31.0) 08/25/24 14:20 Anion Gap 8 (7-16) 08/25/24 14:20 BUN 18 mg/dL (9-23) 08/25/24 14:20 Creatinine 0.9 mg/dL (0.6-1.3) 08/25/24 14:20 Estim Creat Clear Calc 65.9 mL/min (>60) 08/25/24 14:20 eGFR > 60 See Note (60-) 08/25/24 14:20 BUN/Creatinine Ratio 20 Ratio (12-20) 08/25/24 14:20 Glucose 175 mg/dL (74-106) H 08/25/24 14:20 Calculated Osmolality 296 (275-295) H 08/25/24 14:20 Lactic Acid 1.8 mMol/L (0.4-2.0) 08/25/24 18:00 Calcium 9.9 mg/dL (8.3-10.6) 08/25/24 14:20 Corrected Calcium 9.9 mg/dL (8.5-10.1) 08/25/24 14:20 Magnesium 1.6 mg/dL (1.6-2.6) 08/25/24 14:20 Total Bilirubin 0.6 mg/dL (0.3-1.2) 08/25/24 14:20 AST 21 U/L (0-34) 08/25/24 14:20 ALT 21 U/L (10-49) 08/25/24 14:20 Alkaline Phosphatase 60 U/L (46-116) 08/25/24 14:20 Troponin I < 0.020 ng/mL (0.0-0.045) 08/25/24 18:00 B-Natriuretic Peptide 42 pg/mL (0-100) 08/25/24 14:20 Total Protein 6.5 gm/dL (5.7-8.2) 08/25/24 14:20 Albumin 4.2 gm/dL (3.4-4.8) 08/25/24 14:20 Globulin 2.3 gm/dL (2.3-3.5) 08/25/24 14:20 Albumin/Globulin Ratio 1.8 (1.2-2.2) 08/25/24 14:20 Lipase 53 U/L (12-53) 08/25/24 14:20 Procalcitonin 0.04 ng/ml (0.0-0.49) 08/25/24 14:20 Ur Collection Type Clean Catch 08/25/24 17:34 Urine Color Lt-Yellow (Lt Yel-Yel) 08/25/24 17:34 Urine Clarity Clear (Clear/Hazy) 08/25/24 17:34 Urine pH 5.5 (5.0-7.0) 08/25/24 17:34 Ur Specific [place] 1.023 (1.001-1.035) 08/25/24 17:34 Urine Protein Negative (Neg - Trace) 08/25/24 17:34 Urine Glucose (UA) Negative (Negative) 08/25/24 17:34 Urine Ketones Negative (Negative) 08/25/24 17:34 Urine Blood Negative (Negative) 08/25/24 17:34 Urine Nitrite Negative (Negative) 08/25/24 17:34 Urine Bilirubin Negative (Negative) 08/25/24 17:34 Urine Urobilinogen (Auto) Negative mg/dL (0.0-1.0) 08/25/24 17:34 Ur Leukocyte Esterase Negative (Negative) 08/25/24 17:34 Urine RBC 3 /hpf (0-3) 08/25/24 17:34 Urine WBC 2 /hpf (0-5) 08/25/24 17:34 Ur Squamous Epith Cells < 1 /hpf (0-5) 08/25/24 17:34 Urine Bacteria None (None) 08/25/24 17:34 Ur Culture Indicated? Not Indicated 08/25/24 17:34 Imaging: Procedure(s): MR head/brain wo con Accession Number(s): [id number] cc: Edison Mojica; Joshua Harrison MD; Evette Horne MD~ Examination: MRI brain without intravenous contrast. 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 Siemens high-resolution 1.5 Nadja short bore scanners utilized. Sagittal sections, T1-weighted, TR 500, TE 14, are performed. Axial sections proton-density and T2-weighted have been obtained. Inversion recovery axial images, TR 9, 260, TE 111, TI 2500. Diffusion weighted images, axial sections, TR 4800, TE 128, B value 1000 Axial sections, ADC map, TR 4800, TE 128 Findings: Enlargement of the sella turcica is not present. The optic chiasm and infundibular are not remarkable. Prepontine and interpeduncular cisterns are not enlarged. There is no localized enlargement of the medulla or edie. Fourth ventricle and cerebellar tonsils appear normal in position. No subacute area of hemorrhage density is seen. Mass in the cerebellopontine angle region is not evident. Globes symmetrical. Orbital musculature including medial lateral rectus muscles do not exhibit abnormality. Diffusion-weighted images demonstrate no focus of restricted diffusion. Increased white matter signal significant 27 x 15 x 24 mm posterior right parafalcine meningioma without significant surrounding edema There is mass effect upon the posterior corpus callosum and posterior right lateral ventricle axial image 19 Mass effect upon the ventricular system is not identified. Impression: Enlarging posterior right para falcine meningioma, follow-up postcontrast images would be very helpful Dictated By: Joshua Harrison MD
[2024-08-26] MEDS: KETOROLAC INJ 30 MG/ML VIAL 15 MG IVP (09:14)
[2024-08-26] MEDS: ONDANSETRON INJ 2 MG/ML INJ 2 ML 4 MG IVP ×2 (09:15→15:10)
[2024-08-26] MEDS: HYDROmorphone INJ 2 MG/ML VIAL 0.5 MG IVP (09:27)
[2024-08-26] MEDS: HYDROmorphone INJ 2 MG/ML VIAL 1 MG IVP (15:10)
--- NOTE | 2024-08-26 16:13 | PC.CC ---
[employer] received an SS referral for Pt in regard to possible candidate for Home Health. [employer] met with Pt and introduced self and levels of confidentiality. Pt reported is currently receiving services from [facility] which include, OT/PT, Home Health, Meals and Wheels, and DME. [employer] reviewed information received from Pt with attending physician Dr. Espinoza.
--- NOTE | 2024-08-26 17:05 | PC.CC ---
ASW, was consulted by bedside RN Hakan regarding patient and sister, Dea wanted to speak to social psychologist regarding d/c plan. ASWAntonietta introduced self, role, and reason for visit to patient and sister who was at bedside. Patient provided verbal consent for sister to remain in the room. ASW explained limits of confidentiality. Patient and sister both report that they are concerned about the patient being discharged as initially they were under the impression the patient was being transferred to [facility] or [facility] for neurology. The patient and sister are concerned regarding patient's blood pressure being elevated and not being a safe discharge. ASW validated the patient and sister's concerns and inform them that this financial underwriter would bring their concerns up to Dr. Espinoza. ASW consulted with Dr. Espinoza regarding the patient and sister's concerns.
--- NOTE | 2024-08-26 17:31 | PC.CC ---
Antonietta NAVAS information regarding patient from Dr. Espinoza. Per Dr. Espinoza, he consulted with the hospitalist who reported he has no reason to admit and [facility] reported patient did not need to be transferred for neurology nothing new presenting in his images.
== END 2024-08-26 17:15 | disposition home or self-care (01) ==
PROVIDERS: Emergency Medicine; Emergency Provider Family Medicine; PCP Family Medicine
DX: D32.0 Benign neoplasm of cerebral meninges (principal); I10 Essential (primary) hypertension; R51.9 Headache, unspecified; R91.1 Solitary pulmonary nodule; R94.31 Abnormal electrocardiogram [ECG] [EKG]; G20.A1 Parkinson's disease without dyskinesia, without mention of fluctuations
CPT/HCPCS: 36415; 70450; 70551; 71045; 80053; 81001; 83605; 83690; 83735; 83880; 84145; 84484; 85025; 85610; 85730; 87040; 93005; 96365; 96366; 96375; 99284; J0360; J1171; J1885; J2405; J3475; J7030; A9270

== ENCOUNTER → 2024-09-01 | Outpatient (CLI) | payer MEDICARE, BC, SELFPAY ==
--- NOTE | 2024-09-01 13:30 | XR_ITS ---
Examination: MRI brain with intravenous contrast TECHNIQUE: Axial sagittal coronal brain MRI images post intravenous administration 16 cc gadolinium Date and time: September 01, 2024 1420 hours Comparison August 26, 2024 noncontrast study INDICATIONS: History meningioma FINDINGS: Mild ventricular enlargement Right posterior parafalcine meningioma, with prominent enhancement, 26 x 18 x 21 mm compared to 9 x 13 x 10 mm on 10/25/2016 There is mass effect upon the posterior corpus callosum IMPRESSION: Enlarging posterior right parafalcine meningioma compared to brain MRI 10/25/2016
== END | disposition home or self-care (01) ==
LOC: SMRI 13:13
PROVIDERS: PCP Specialist; Referring Provider Specialist; Visit Provider Specialist
DX: D32.9 Benign neoplasm of meninges, unspecified (principal)
CPT/HCPCS: 70552; A9579

== ENCOUNTER → 2024-11-03 | Outpatient (CLI) | payer MEDICARE, BC, SELFPAY ==
[2024-11-03 08:21] LABS: Collection Type, Urine Clean Catch
[2024-11-03 10:05] LABS: Bilirubin,Urine Negative (Negative); Blood,Urine Negative (Negative); Clarity,Urine Clear (Clear/Hazy); Color,Urine Yellow (Lt Yel-Yel); Glucose, Urine Negative (Negative); Ketones,Urine Negative (Negative); Leukocyte Esterase,Urine Negative (Negative); Nitrite,Urine Negative (Negative); PH,Urine 5.5 (5.0-7.0); Protein,Urine Negative (Neg - Trace); RBC,Urine 3 /hpf (0-3); Specific Gravity,Urine 1.026 (1.001-1.035); Squamous Epithelial Cell,Urine < 1 /hpf (0-5); Urobilinogen,Urine Negative mg/dL (0.0-1.0); WBC,Urine 2 /hpf (0-5)
== END | disposition home or self-care (01) ==
LOC: SLDO 08:12
PROVIDERS: Referring Provider Specialist; Visit Provider Specialist
DX: M62.81 Muscle weakness (generalized) (principal)
CPT/HCPCS: 81001; 87077; 87086; 87186

== ENCOUNTER 2024-11-04 12:06 | Emergency (ER) | payer MEDICARE, BC, SELFPAY ==
[2024-11-04] VITALS (8 sets, daily range): BP systolic 168–187; BP diastolic 75–93; PULSE 57–66; RESP 16–20; TEMP 36.7–36.8; O2SAT 95–100; BMI 27.8
--- NOTE | 2024-11-04 12:10 | XR_ITS ---
Examination: CT brain head without contrast. 2-D sagittal coronal reconstructions Date and time of exam:November 04, 2024 1339 hours, comparison August 25, 2024 INDICATIONS: Ground-level fall today with head pain CTDI: vol (mGy):54.7 DLP: (mGycm):1089 Technique: Multiple CT axial sections of the brain have been obtained, 5 mm slice thickness. Contrast has not been administered. 2-D sagittal, coronal reconstructions have been obtained Low dose protocols were performed. One or more of the following dose reduction techniques were used; automated exposure control, adjustment of the mA and/or KV according to patient size, use of iterative reconstruction technique. Findings: No significant ventricular enlargement. Stable 24 mm right parafalcine meningioma Intra-axial or extra-axial hemorrhage density is not seen. No mass effect or midline shift Basal cisterns are not remarkable. Fourth ventricle is midline. Cranial vault intact. Left frontal and bilateral ethmoid chronic sinusitis Impression: Negative for acute hemorrhage, mass effect or midline shift
--- NOTE | 2024-11-04 12:10 | XR_ITS ---
Examination: AP chest single view Technique one AP portable upright chest single view Date and time: November 04, 2024 1320 hours, comparison August 25, 2024 INDICATIONS: Altered mental status lethargy today. FINDINGS: Normal heart size. CABG. No aspiration pneumonia. Prominent osteopenia. Reversal shoulder arthroplasty IMPRESSION: Negative for aspiration pneumonia
--- NOTE | 2024-11-04 12:14 | EKG_ITS ---
[facility] Test Date: 2024-11-04 Pat Name: URVASHI RAMSEY Department: Room: - Gender: Male Children'S Author: : 1940 Requested By: Alia Kaur Order Number: [id number] Reading MD: Alia Kaur Measurements Intervals [place] Rate: 60 P: 36 WA: 226 QRS: -3 QRSD: 105 T: 68 QT: 390 QTc: 391 Interpretive Statements SINUS RHYTHM WITH FIRST DEGREE AV BLOCK NONSPECIFIC T-WAVE ABNORMALITY Compared to ECG 08/25/2024 14:08:20 First degree AV block now present Supraventricular rhythm no longer present Intraventricular conduction delay no longer present T-wave abnormality still present /store/[id number]
--- NOTE | 2024-11-04 12:15 | PD.EDADULT ---
ED General RME/HPI General Chief complaint: Weakness Stated complaint: LETHARGY Time Seen by Provider: 11/04/24 12:09 Arrival date/time: 11/04/24 12:06 RME / HPI RME / HPI narrative: 84-year-old male patient with significant history of hypertension diabetes mellitus, Parkinson disease, meningioma status post recent radiation therapy, about 2 weeks ago, on Plavix, was brought in by EMS for evaluation regarding lethargy. According to the EMS, patient was noted to be more lethargic than usual, for the last few days, few days ago patient sustained a ground-level fall. Patient currently is not having any headache. Patient denies any chest pain denies any abdominal pain denies any pelvic pain. Patient is ambulatory with assistance. Related Data Home Medications ?Medication ?Instructions ?Recorded ?Confirmed folic acid 1 mg tablet 1 mg PO QPM #0 tabs 09/03/13 03/13/23 clopidogrel 75 mg tablet (Plavix) 75 mg PO QPM 02/10/18 03/13/23 sertraline 25 mg tablet 25 mg PO QDAY 02/10/18 03/13/23 atorvastatin 40 mg tablet 40 mg PO HS 03/12/23 03/13/23 hydrocodone 7.5 mg-acetaminophen 1 tab PO Q6H PRN Pain 03/13/23 03/13/23 325 mg tablet lactulose 10 gram/15 mL oral syrup 10 g PO DAILY 03/13/23 03/13/23 pantoprazole 20 mg tablet,delayed 40 mg PO QDAY 03/13/23 03/13/23 release Previous Rx's ?Medication ?Instructions ?Recorded ferrous sulfate 325 mg (65 mg 325 mg PO BID 30 days #60 tabs 09/17/22 iron) tablet,delayed release lidocaine 5 % topical patch 3 patch topical QDAY 30 days #30 ea 03/14/23 amlodipine 2.5 mg tablet 2.5 mg PO DAILY 30 days #30 tabs 03/17/23 labetalol 100 mg tablet 100 mg PO BID 30 days #60 tabs 03/17/23 tamsulosin 0.4 mg capsule 0.4 mg PO DAILY 30 days #30 caps 03/17/23 clonidine HCl 0.1 mg tablet 0.1 mg PO Q12H #14 tabs 08/26/24 Allergies Allergy/AdvReac Type Severity Reaction Status Date / Time hydrocodone AdvReac Intermediate Nausea Verified 09/01/22 16:51 oxycodone AdvReac Intermediate sedation Verified 09/01/22 16:51 and confusion tramadol AdvReac Unknown may lower Verified 09/01/22 16:51 blaine rosenbaum Review of Systems Review of Systems Narrative Review of Systems: Review of system reviewed and within normal limits except mentioned in HPI ED Exam Narrative Physical exam: VITAL SIGNS: Reviewed. GENERAL APPEARANCE: Alert and interactive, follows commands, no acute distress, HEAD AND FACE: Non-traumatic. ENT: PERRL, pink conjunctivitis, eyelid no trauma, Mucous membrane moist. NECK: Supple, nontender, no nuchal rigidity. CHEST: No tenderness, no crepitus, no paradoxical movement, no retractions. LUNGS: Clear, well ventilated, symmetric, no rales, no wheezing, no ronchi, no stridor, good breath sounds bilaterally. HEART: Regular rate, regular rhythm, no murmur, no gallops. ABDOMEN: Soft, positive bowel sounds, nondistended, no guarding, nontender, no rebound, no masses, RECTAL: Deferred. GENITAL: Deferred. NEUROLOGICAL: Gross motor function intact sensory function intact, Appropriate for age. MUSCULOSKELETAL: low back nontender, full range of motion. EXTREMITIES: Nontender, full range of motion. SKIN: Color pink, dry, no rash, no lacerations, no abrasions, no contusions. LYMPHATICS: Deferred. Course Quality Measures none Orders Category Date Time Status Bedside COVID-19 Antigen Test NOW Care 11/04/24 12:10 Active Bedside Influenza A&B Antigen Test NOW Care 11/04/24 12:13 Completed EKG (ED ONLY) *Do not use* NOW Care 11/04/24 12:[address] head/brain wo con Stat Exams 11/04/24 12:10 Completed EKG (ED Only) Stat Exams 11/04/24 12:11 Ordered EKG (ED Only) Stat Exams 11/04/24 12:14 Draft XR chest 1V Stat Exams 11/04/24 12:10 Completed BNP [B-Type Natriuretic Peptide] Stat Lab 11/04/24 01:23 Completed CBC Stat Lab 11/04/24 01:23 Completed Comprehensive Metabolic Panel Stat Lab 11/04/24 01:23 Completed Partial Thromboplastin Time Stat Lab 11/04/24 01:23 Completed Prothrombin Time with INR Stat Lab 11/04/24 01:23 Completed UA, C/S IF [Urinalysis, C/S if Indicated] Stat Lab 11/04/24 17:50 Completed Labetalol Tab [Trandate Tab] Med 11/04/24 18:58 Discontinued 100 mg PO X1 ONE Ringers Lactated 1000 ml [Lactated Ringers] 1,000 ml Med 11/04/24 14:42 Discontinued IV 999 mls/hr Vital Signs Vital signs: Vital Signs Temperature 98.1 F 11/04/24 12:10 Pulse Rate 61 11/04/24 12:10 Respiratory Rate 19 11/04/24 12:10 Blood Pressure 168/84 H 11/04/24 12:10 Pulse Oximetry (%) 98 11/04/24 12:10 Oxygen Delivery Method Nasal Cannula 11/04/24 12:10 Oxygen Flow Rate 4 11/04/24 12:10 Discharge Plan Plan Patient Disposition: HOME (Self Care) Discharge Disposition comment: stable Prescriptions/Referrals Prescriptions/Med Rec: No Action folic acid 1 MG tablet 1 mg PO QPM Qty: 0 clopidogrel [Plavix] 75 mg Tablet 75 mg PO QPM sertraline 25 mg Tablet 25 mg PO QDAY ferrous sulfate 325 mg (65 mg iron) Tablet,Delayed Release (Dr/Ec) 325 mg PO BID 30 Days Qty: 60 3RF Rx Instructions: Must take with Vitamin C atorvastatin 40 mg tablet 40 mg PO HS lactulose 10 gram/15 mL Syrup 10 g PO DAILY hydrocodone-acetaminophen 7.5-325 mg Tablet 1 tab PO Q6H PRN (Reason: Pain) pantoprazole 20 mg tablet,delayed release (DR/EC) 40 mg PO QDAY lidocaine 5 % adhesive patch,medicated 3 patch topical QDAY 30 Days Qty: 30 1RF Rx Instructions: leave on most painful area for up to 12 hrs tamsulosin 0.4 mg Capsule 0.4 mg PO DAILY 30 Days Qty: 30 1RF labetalol 100 mg Tablet 100 mg PO BID 30 Days Qty: 60 1RF amlodipine 2.5 mg Tablet 2.5 mg PO DAILY 30 Days Qty: 30 1RF clonidine HCl 0.1 mg tablet 0.1 mg PO Q12H Qty: 14 0RF Rx Instructions: Take twice daily if needed for systolic BP > 160, diastolic BP > 95. Continue your other usual medications. Referrals: Damon Ann MD [Primary Care Provider, Family Practice] - In 1 week Problem List Clinical Impression: HTN (hypertension), benign, Weakness generalized Patient/Caregiver Discharge Instructions Discharge Activity: activity as tolerated Education Materials: ED Hypertension, Established Additional Instructions: Thank you for the opportunity for serving you today. You are stable for discharged . You are advised to: Follow-up with your PCP in 1 to 2 days Return to ED for worsening of symptoms Increase oral fluids Take your medication for blood pressure as prescribed by your PCP Print Language: Guinean Stand Alone Forms: Chat& (ChatAnd) Award Info., Patient Portal Info Letter PA/TOAN Supervising Physician PA/TOAN Supervising Physician: MD Clark [facility] Narrative [facility] hospital course: 84-year-old male patient with significant history of hypertension diabetes mellitus, Parkinson disease, meningioma status post recent radiation therapy, about 2 weeks ago, on Plavix, was brought in by EMS for evaluation regarding lethargy. According to the EMS, patient was noted to be more lethargic than usual, for the last few days, few days ago patient sustained a ground-level fall. Patient currently is not having any headache. Patient denies any chest pain denies any abdominal pain denies any pelvic pain. Patient is ambulatory with assistance. EKG showed sinus rhythm, ventricular rate of 60 bpm, no ST segment elevation or depression noted. Patient's laboratory workup all came back unremarkable urinalysis no UTI. CT scan of the abdomen pelvis showed No significant ventricular enlargement. Stable 24 mm right parafalcine meningioma Intra-axial or extra-axial hemorrhage density is not seen. No mass effect or midline shift Basal cisterns are not remarkable. Fourth ventricle is midline. Cranial vault intact. Left frontal and bilateral ethmoid chronic sinusitis Impression: Negative for acute hemorrhage, mass effect or midline shift I personally reviewed and interpreted the x-ray of this patient. There is no acute abnormalities found, no infiltrates no pneumothorax no hemothorax normal chest x-ray. Review of other structures was without significant abnormal findings also. I additionally reviewed the radiologist report and agree with the interpretation. Patient blood pressure was noted to be elevated, patient was given his dose of labetalol p.o. in the emergency room. Medication Administration(s) Medication Administration History Discontinued Medications Lactated Ringer's (Lactated Ringers) 1,000 mls @ 999 mls/hr IV .Q1H1M ONE Stop: 11/04/24 15:42 Last Infusion: 11/04/24 16:15 Dose: Infused Documented By: Admin: 11/04/24 14:54 Dose: 999 mls/hr Documented By: ER Labetalol HCl (Labetalol 100 Mg Tablet) 100 mg PO X1 ONE Stop: 11/04/24 18:59 Last Admin: 11/04/24 19:38 Dose: 100 mg Documented By: KALYANI
--- NOTE | 2024-11-04 12:32 | PC.NURSE ---
BIBA due to lethargy X4 days and weakness, from home, per family patient has had to use w/c instead of walker X4 days. Patient has had falls X2. Patient on blood thinners, and states he hit his head. Patient c/o SOB X6 weeks as well. Patient placed in room 4. A&O X4, POC updated.
[2024-11-04 12:40] LABS: Basophils # (Auto) 0.0 Thou/mm3 (0.0-0.2); Basophils % (Auto) 0 % (0-2.5); Eosinophils # (Auto) 0.2 Thou/mm3 (0.0-0.5); Eosinophils % (Auto) 3 % (0-10); Hematocrit 42.8 % (41.0-53.0); Hemoglobin 13.6 g/dL (13.5-16.0); Immature Granulocytes Auto 0.02 Thou/mm3 (0.00-0.00); Lymphocytes # (Auto) 2.0 Thou/mm3 (1.0-4.8); Lymphocytes % (Auto) 25 % (10-50); Mean Corpuscular HGB Conc 31.8 g/dl (31.0-37.0); Mean Corpuscular Hemoglobin 28.6 pg (25.0-35.0); Mean Corpuscular Volume 90 fL (80-100); Monocytes # (Auto) 0.7 Thou/mm3 (0.0-0.8); Monocytes % (Auto) 9 % (0-12); Neutrophils # (Auto) 5.1 Thou/mm3 (1.8-7.7); Neutrophils % (Auto) 63 % (37-80); Nucleated Red Blood Cell # 0.00 Thou/mm3 (0.00-0.00); Nucleated Red Blood Cell % 0 /100 WBC (0); Platelet Count 202 Thou/mm3 (140-440); RDW Standard Deviation 45.2 fL (35.1-43.9); Red Blood Count 4.76 Miln/mm3 (4.50-5.90); White Blood Count 8.0 Thou/mm3 (3.8-10.6)
[2024-11-04 12:56] LABS: INR 1.1 (0.9-1.3); Partial Thromboplastin Time 24.5 Seconds (22.0-36.0); Prothrombin Time 11.8 Seconds (9.0-12.2)
[2024-11-04 12:58] LABS: Alanine Aminotransferase 27 U/L (10-49); Albumin, Serum 4.2 gm/dL (3.4-4.8); Anion Gap 9 (7-16); Aspartate Amino Transferase 19 U/L (0-34); BUN/Creatinine Ratio 19 Ratio (12-20); Bilirubin,Total 0.6 mg/dL (0.3-1.2); Blood Urea Nitrogen 15 mg/dL (9-23); Calcium 10.4 mg/dL (8.3-10.6); Calcium (Corrected) 10.4 mg/dL (8.5-10.1); Carbon Dioxide 28.6 mMol/L (20.0-31.0); Chloride 105 mMol/L (98-107); Creatinine (Component) 0.8 mg/dL (0.6-1.3); Estimated Creatinine Clearance 71.2 mL/min (>60); Globulin 2.2 gm/dL (2.3-3.5); Glucose 176 mg/dL (74-106); Osmolality,Calculated 289 (275-295); Potassium 4.1 mMol/L (3.4-5.1); Sodium 143 mMol/L (136-145); Total Protein 6.4 gm/dL (5.7-8.2); eGFR > 60 See Note
[2024-11-04 12:59] LABS: Albumin/Globulin Ratio 1.9 (1.2-2.2); Alkaline Phosphatase 56 U/L (46-116)
[2024-11-04 13:02] LABS: B-Type Natriuretic Peptide 120 pg/mL (0-100)
[2024-11-04] MEDS: RINGERS LACTATED 1000 ML 1,000 ML 999 ML IV (14:54)
[2024-11-04 17:57] LABS: Collection Type, Urine Clean Catch; Squamous Epithelial Cell,Urine 0 /hpf (0-5)
[2024-11-04 18:10] LABS: Bilirubin,Urine Negative (Negative); Blood,Urine Negative (Negative); Clarity,Urine Clear (Clear/Hazy); Color,Urine Lt-Yellow (Lt Yel-Yel); Culture Indicated,Urine Not Indicated; Glucose, Urine Negative (Negative); Ketones,Urine Negative (Negative); Leukocyte Esterase,Urine Negative (Negative); Nitrite,Urine Negative (Negative); PH,Urine 6.0 (5.0-7.0); Protein,Urine Negative (Neg - Trace); RBC,Urine 3 /hpf (0-3); Specific Gravity,Urine 1.018 (1.001-1.035); Urobilinogen,Urine Negative mg/dL (0.0-1.0); WBC,Urine < 1 /hpf (0-5)
[2024-11-04] MEDS: LABETALOL 100 MG TABLET PO (19:38)
== END 2024-11-04 20:23 | disposition home or self-care (01) ==
PROVIDERS: Nurse Practitioner Family; Emergency Provider Family Medicine; PCP Specialist
DX: R53.1 Weakness (principal); I10 Essential (primary) hypertension; E11.9 Type 2 diabetes mellitus without complications; G20.A1 Parkinson's disease without dyskinesia, without mention of fluctuations; Z86.011 Personal history of benign neoplasm of the brain; J32.1 Chronic frontal sinusitis; J32.2 Chronic ethmoidal sinusitis
CPT/HCPCS: 36415; 70450; 71045; 80053; 81001; 83880; 85025; 85610; 85730; 87400; 87811; 93005; 96360; 99283; J7120; A9270

== ENCOUNTER 2024-11-05 17:41 | Inpatient (IN) | payer MEDICARE, BC, SELFPAY ==
[2024-11-05 17:43] VITALS: BP 133/86; PULSE 64; RESP 18; TEMP 36.6; O2SAT 95
[2024-11-05 17:55] VITALS: PULSE 67; O2SAT 94
--- NOTE | 2024-11-05 18:27 | PD.EDADULT ---
ED General RME/HPI General Chief complaint: General Adult/Misc Complain Stated complaint: HYPERTENSION Time Seen by Provider: 11/05/24 18:24 Arrival date/time: 11/05/24 17:41 RME / HPI RME / HPI narrative: DR. MORALES MAIN ED EVALUATION: Patient seen 2 days [facility] for labile bloop pressure presents via EMS with reported consistent spikes in blood pressure prior to both AM and PM meds. Patient also notes chronic intermittent bladder incontinence, ongoing Parkinsonian tremor/episodic vertigo leading to disequilibrium and occasional falls. 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 SHx includes CABG and aortic valve replacement. Social history, patient is a nondrinker, nonsmoker, and denies illicit drug abuse. Related Data Home Medications ?Medication ?Instructions ?Recorded ?Confirmed folic acid 1 mg tablet 1 mg PO QPM #0 tabs 09/03/13 03/13/23 clopidogrel 75 mg tablet (Plavix) 75 mg PO QPM 02/10/18 03/13/23 sertraline 25 mg tablet 25 mg PO QDAY 02/10/18 03/13/23 atorvastatin 40 mg tablet 40 mg PO HS 03/12/23 03/13/23 hydrocodone 7.5 mg-acetaminophen 1 tab PO Q6H PRN Pain 03/13/23 03/13/23 325 mg tablet lactulose 10 gram/15 mL oral syrup 10 g PO DAILY 03/13/23 03/13/23 pantoprazole 20 mg tablet,delayed 40 mg PO QDAY 03/13/23 03/13/23 release Previous Rx's ?Medication ?Instructions ?Recorded ferrous sulfate 325 mg (65 mg 325 mg PO BID 30 days #60 tabs 09/17/22 iron) tablet,delayed release lidocaine 5 % topical patch 3 patch topical QDAY 30 days #30 ea 03/14/23 amlodipine 2.5 mg tablet 2.5 mg PO DAILY 30 days #30 tabs 03/17/23 labetalol 100 mg tablet 100 mg PO BID 30 days #60 tabs 03/17/23 tamsulosin 0.4 mg capsule 0.4 mg PO DAILY 30 days #30 caps 03/17/23 clonidine HCl 0.1 mg tablet 0.1 mg PO Q12H #14 tabs 08/26/24 clonidine 0.2 mg/24 hr weekly 0.2 mg topical .WEEKLY htn #4 ea 11/05/24 transdermal patch ([id number]) Allergies Allergy/AdvReac Type Severity Reaction Status Date / Time hydrocodone AdvReac Intermediate Nausea Verified 09/01/22 16:51 oxycodone AdvReac Intermediate sedation Verified 09/01/22 16:51 and confusion tramadol AdvReac Unknown may lower Verified 09/01/22 16:51 blaine rosenbaum Review of Systems Review of Systems Systems Reviewed: All systems reviewed, normal except as documented Past Medical History Past Medical History NEUROLOGIC: Positive Cerebrovascular Accident, Brain Tumor and Peripheral Neuropathy CARDIAC: Positive Cardiac Disorders, Cardiac Arrhythmia, Atrial Fibrillation, Coronary Artery Disease, Atherosclerotic Heart Disease, Hypercholesterolemia, Valvular Heart Disease and Hypertension RESPIRATORY: Positive Pneumonia GENITOURINARY: Positive Renal Disease, Kidney Stones, Inguinal Hernia and Benign Prostatic Hyperplasia MUSCULOSKELETAL: Positive Arthritis, Degenerative Disk Disease, Fractures and Degenerative Joint Disease ENT: Positive Cataracts ENDOCRINE: Positive Diabetes Mellitus Type 2 HEMATOLOGIC: Positive Anemia PSYCHO/SOCIAL: Positive Depression and Anxiety OTHER HISTORY: Positive Hospitalization, Falls and Blood Transfusions Family History FAMILY HISTORY: Positive Family Cardiac Disorders, Family Cancer and Family Surgery Surgical History SURGICAL: Positive Cardiac Surgery, Open Heart Surgery, Coronary Artery Bypass Graft, Valve Replacement, Coronary Stent, Cardiac Catheterization, Ear Surgery, Tonsillectomy, Abdominal Surgery, Joint Replacement and Neurologic Surgery ED Exam Narrative Physical exam: GEN. APPEARANCE: The patient is alert awake oriented X-3 in n acute distress, lying down comfortably, chronically ill appearing, somewhat feeble with baseline resting tremor. Patient has good eye contact. Patient is cooperative. VITALS: All vitals were reviewed and the pulse ox is 95% on room air which is normal according to my interpretation. HEENT: Normocephalic, atraumatic. Pupils are equal and reactive, Nop niastagmus. Oral mucosa is moist. Patent Nares NECK: Supple, nontender, no thyromegaly, no meningismus, no JVD, no step offs CHEST: Symmetrical, atraumatic, and with equal expansion , Nontender on palpation no deformity and no crepitus. CARDIOVASCULAR: Heart regular rhythm no obvious murmur or gallop rub or extra beats. LUNGS: Clear to auscultation bilaterally with symmetrical chest rise. No laboring tachypnea or wheezing. No intercostal subcostal retraction. No rales and no rhonchi. ABDOMEN: Soft, flat, nontender to palpation, no guarding or rebound tenderness. There are no abnormal masses palpated. Active and normal bowel sounds. EXTREMITIES: Nontender. No edema. No cyanosis. Patient is able to move all 4 extremities well, with full ROM and good CSM. SKIN: Warm and dry, no jaundice or rashes noted. MUSCULOSKELETAL: No lubar or midline bony tenderness. There is no CVA tenderness. No paraspinal muscle spasm or tenderness. NEURO: Patient is BAER x 4, Cranial nerves II through XII grossly intact. There is no focal neurologic deficits noted. GCS is 15, PNS and [employer]OR [employer] EVENTS appear grossly intact. Gait not observed. Normal finger to nose. PSYCHIATRIC: Patient is in normal mood and affect, cooperative, no SI or HI or hallucinations. Course Course Course Narrative: CXR was ordered for determining the etiology of shortness of breath. Quality Measures none Orders Category Date Time Status EKG (ED ONLY) *Do not use* NOW Care 11/05/24 18:49 Completed EKG (ED Only) Stat Exams 11/05/24 18:48 Draft XR chest 1V portable Stat Exams 11/05/24 18:48 Completed CBC [CBC] Stat Lab 11/05/24 19:03 Completed CMP [Comprehensive Metabolic Panel] Stat Lab 11/05/24 19:03 Completed Troponin I Stat Lab 11/05/24 19:03 Completed Urinalysis, C/S if Indicated Stat Lab 11/05/24 18:48 Ordered Sodium Chloride 0.9% 500 ml [Ns] 500 ml Med 11/05/24 18:49 Active IV 250 mls/hr Vital Signs Vital signs: Vital Signs Temperature 97.8 F 11/05/24 17:43 Pulse Rate 64 11/05/24 17:43 Respiratory Rate 18 11/05/24 17:43 Blood Pressure 133/86 H 11/05/24 17:43 Pulse Oximetry (%) 95 11/05/24 17:43 Oxygen Delivery Method Room Air 11/05/24 17:43 Discharge Plan Plan Patient Disposition: Admit Acute Care w/in Hospital Discharge Disposition comment: STABLE Prescriptions/Referrals Prescriptions/Med Rec: New clonidine [[id number]] 0.2 mg/24 hr patch weekly 0.2 mg topical .WEEKLY Qty: 4 1RF No Action folic acid 1 MG tablet 1 mg PO QPM Qty: 0 clopidogrel [Plavix] 75 mg Tablet 75 mg PO QPM sertraline 25 mg Tablet 25 mg PO QDAY ferrous sulfate 325 mg (65 mg iron) Tablet,Delayed Release (Dr/Ec) 325 mg PO BID 30 Days Qty: 60 3RF Rx Instructions: Must take with Vitamin C atorvastatin 40 mg tablet 40 mg PO HS lactulose 10 gram/15 mL Syrup 10 g PO DAILY hydrocodone-acetaminophen 7.5-325 mg Tablet 1 tab PO Q6H PRN (Reason: Pain) pantoprazole 20 mg tablet,delayed release (DR/EC) 40 mg PO QDAY lidocaine 5 % adhesive patch,medicated 3 patch topical QDAY 30 Days Qty: 30 1RF Rx Instructions: leave on most painful area for up to 12 hrs tamsulosin 0.4 mg Capsule 0.4 mg PO DAILY 30 Days Qty: 30 1RF labetalol 100 mg Tablet 100 mg PO BID 30 Days Qty: 60 1RF amlodipine 2.5 mg Tablet 2.5 mg PO DAILY 30 Days Qty: 30 1RF clonidine HCl 0.1 mg tablet 0.1 mg PO Q12H Qty: 14 0RF Rx Instructions: Take twice daily if needed for systolic BP > 160, diastolic BP > 95. Continue your other usual medications. Referrals: Damon Ann MD [Primary Care Provider, Family Practice] - In 1 week Problem List Clinical Impression: Labile blood pressure Patient/Caregiver Discharge Instructions Print Language: Micronesian Stand Alone Forms: Edith Award Info., Patient Portal Info Letter MDM Narrative [facility] hospital course: Scribe Attestation: Dorothy Pang am scribing for and in the presence of Dr. Morales. Provider Notation: Although this document has been carefully reviewed, there may still be some phonetic and other typographical errors. These errors are purely grammatical due to imperfections in the software program and should not be construed in any way to compromise the substance of the patient's medical care during this visit. Patient seen 2 days [facility] for labile bloop pressure presents via EMS with reported consistent spikes in blood pressure prior to both AM and PM meds. Patient also notes chronic intermittent bladder incontinence, ongoing Parkinsonian tremor/episodic vertigo leading to disequilibrium and occasional falls. Please see PE findings. Laboratory markers, including CBC, serum chemistries, Triponin I, and UA were unremarkable. Patient was placed on cardiac technologist, underwent EKG analysis, which was without evidence of ischemia or infarction, remained nerurologically unchanged, hemodynamically stable. Primary physician contacted ED directly due patient's declining course. PMD has decided to admit for observation and possible neurological evaluation. Will consider Catapres to stabilize blood pressure. Patient will be admitted to primary care physician. Dr. Mojica to admit. Clinical Information Provided by patient and EMS Medical Records Reviewed [facility] and EMS Reviewed prior ED records from 11/04/24. Patient was seen for HTN (hypertension), benign. Meds/Rx Considered, not Ordered None Labs/Rad/Tests considered, not Ordered None Chronic Illness/Social Conditions which may negatively complicate care or outcome(s)-explain: CHF/CAD/Cardiac illness EKG Interpretation EKG #1: Date/time of EK11/05/24 6:53 pm EKG interpretation: EKG at 18:53 shows normal sinus rhythm at 62, normal axis, no ventricular ectopy, no signs of acute ischemia, axis leftward, per my interpretation. Lab Interpretation Labs: interpreted by me and see narrative above Imaging Imaging interpretation: interpreted by me and see narrative above Radiology reports / interpretation(s): RADIOLOGY Chest X-Ray: Findings: Normal heart size. CABG. No pneumonia or pulmonary edema Prominent osteopenia with old bilateral rib fractures Impression: No active disease Medication Administration(s) Medication Administration History Sodium Chloride (Ns) 500 mls @ 250 mls/hr IV .Q2H PORFIRIO Stop: 12/05/24 18:48 See above if any. Consultations/Discussions re: Management Consult #1: Date/time: 11/05/24 9:43 pm Physician, specialty, service, details: Dr. Mojica, patient's PMD called in stating they will admit patient for observation and possible neurological evaluation. Diagnosis Differential diagnosis: Hypertensive urgency vs emergency, Medication Non-compliant Most likely dx, and/or detailed dx discussion: Labile blood pressure Dispositon Disposition: Admit
--- NOTE | 2024-11-05 18:48 | XR_ITS ---
Examination: AP chest single view Technique: AP portable semiupright chest single view Date and time: November 05, 2024, 1912 hrs. Indications: High blood pressure today shortness of breath Findings: Normal heart size. CABG. No pneumonia or pulmonary edema Prominent osteopenia with old bilateral rib fractures Impression: No active disease
--- NOTE | 2024-11-05 18:48 | EKG_ITS ---
[facility] Test Date: 2024-11-05 Pat Name: URVASHI RAMSEY Department: Room: - Gender: Male [employer]: : 1940 Requested By: Navjot Troy Order Number: [id number] Reading MD: Navjot Troy Measurements Intervals [place] Rate: 62 P: 45 [place]: 215 QRS: 13 QRSD: 113 T: 68 QT: 386 QTc: 393 Interpretive Statements SINUS RHYTHM WITH FIRST DEGREE AV BLOCK MODERATE INTRAVENTRICULAR CONDUCTION DELAY [110+ ms QRS DURATION] NONSPECIFIC T-WAVE ABNORMALITY Compared to ECG 11/04/2024 12:31:14 Intraventricular conduction delay now present T-wave abnormality still present /store/S0/[id number]/ecg/[id number].pdf
--- NOTE | 2024-11-05 18:55 | PC.NURSE ---
Pt BIBA do to reporting that his BP gets high an hour- three hours prior to his next medication dose. Pt currently not hypertensive and showing no signs of distress
[2024-11-05 19:33] LABS: Basophils # (Auto) 0.0 Thou/mm3 (0.0-0.2); Basophils % (Auto) 0 % (0-2.5); Eosinophils # (Auto) 0.1 Thou/mm3 (0.0-0.5); Eosinophils % (Auto) 2 % (0-10); Hematocrit 39.9 % (41.0-53.0); Hemoglobin 13.0 g/dL (13.5-16.0); Immature Granulocytes Auto 0.03 Thou/mm3 (0.00-0.00); Lymphocytes # (Auto) 1.9 Thou/mm3 (1.0-4.8); Lymphocytes % (Auto) 24 % (10-50); Mean Corpuscular HGB Conc 32.6 g/dl (31.0-37.0); Mean Corpuscular Hemoglobin 29.2 pg (25.0-35.0); Mean Corpuscular Volume 90 fL (80-100); Monocytes # (Auto) 0.8 Thou/mm3 (0.0-0.8); Monocytes % (Auto) 11 % (0-12); Neutrophils # (Auto) 4.8 Thou/mm3 (1.8-7.7); Neutrophils % (Auto) 63 % (37-80); Nucleated Red Blood Cell # 0.00 Thou/mm3 (0.00-0.00); Nucleated Red Blood Cell % 0 /100 WBC (0); Platelet Count 199 Thou/mm3 (140-440); RDW Standard Deviation 44.8 fL (35.1-43.9); Red Blood Count 4.45 Miln/mm3 (4.50-5.90); White Blood Count 7.7 Thou/mm3 (3.8-10.6)
[2024-11-05 19:54] LABS: Alanine Aminotransferase 23 U/L (10-49); Albumin, Serum 4.2 gm/dL (3.4-4.8); Albumin/Globulin Ratio 2.2 (1.2-2.2); Alkaline Phosphatase 67 U/L (46-116); Anion Gap 10 (7-16); Aspartate Amino Transferase 20 U/L (0-34); BUN/Creatinine Ratio 16 Ratio (12-20); Bilirubin,Total 0.7 mg/dL (0.3-1.2); Blood Urea Nitrogen 13 mg/dL (9-23); Calcium 10.4 mg/dL (8.3-10.6); Calcium (Corrected) 10.4 mg/dL (8.5-10.1); Carbon Dioxide 26.2 mMol/L (20.0-31.0); Chloride 104 mMol/L (98-107); Creatinine (Component) 0.8 mg/dL (0.6-1.3); Globulin 1.9 gm/dL (2.3-3.5); Glucose 200 mg/dL (74-106); Osmolality,Calculated 285 (275-295); Potassium 3.8 mMol/L (3.4-5.1); Sodium 140 mMol/L (136-145); Total Protein 6.1 gm/dL (5.7-8.2); Troponin I < 0.020 ng/mL (0.0-0.045); eGFR > 60 See Note
[2024-11-05 23:08] VITALS: BP 179/99; PULSE 61; RESP 20; TEMP 36.9; O2SAT 95
[2024-11-06] VITALS (15 sets, daily range): BP systolic 115–220; BP diastolic 64–117; PULSE 57–95; RESP 15–29; TEMP 36.3–36.7; O2SAT 92–99; BMI 27.8; BMI 29.9
[2024-11-06] MEDS: DEXTROSE 5%-0.45% NS 1,000 ML 80 ML IV ×2 (02:04→17:01)
--- NOTE | 2024-11-06 02:14 | XR_ITS ---
Examination: MRI brain without intravenous contrast. Date and time of exam: November 12, 2024 1832 hrs., Comparison September 01, 2024 Indications: Diagnosis enlarging meningioma, July 2024, delirium one week, and Radiation therapy, also confusion and weakness one week, right posterior parafalcine meningioma 26 x 18 x 21 mm on brain MRI September 01, 2024 Technique: Multiple axial and sagittal images of the brain obtained. Siemens high-resolution 1.5 Nadja short bore scanners utilized. Sagittal sections, T1-weighted, TR 500, TE 14, are performed. Axial sections proton-density and T2-weighted have been obtained. Inversion recovery axial images, TR 9, 260, TE 111, TI 2500. Diffusion weighted images, axial sections, TR 4800, TE 128, B value 1000 Axial sections, ADC map, TR 4800, TE 128 Findings: Enlargement of the sella turcica is not present. The optic chiasm and infundibular are not remarkable. Prepontine and interpeduncular cisterns are not enlarged. There is no localized enlargement of the medulla or edie. Fourth ventricle and cerebellar tonsils appear normal in position. No subacute area of hemorrhage density is seen. Mass in the cerebellopontine angle region is not evident. Globes symmetrical. Orbital musculature including medial lateral rectus muscles do not exhibit abnormality. Diffusion-weighted images demonstrate no focus of restricted diffusion with matching signal deficit on the ADC map. Increased white matter signal moderate Right posterior parafalcine mass, 22 x 18 x 24 mm Mass effect upon the ventricular system is not identified. Impression: No acute mass or acute hemorrhage Right posterior parafalcine mass, measuring 22 x 18 x 24 mm compared to 26 x 18 x 21 mm on MRI September 01, 2024
[2024-11-06] MEDS: cloNIDine HCL (Patch) 0.1 MG/24 HR TDSY TOP (04:13)
--- NOTE | 2024-11-06 05:36 | PC.NURSE ---
Report received from ED RN, pt arrived to room 369 via gurney transferred to bed and placed on monitor, oriented to room call light placed within reach. Nursing care began at this time.
--- NOTE | 2024-11-06 06:00 | PC.NURSE ---
Rapid response called pt c/o FERNANDEZ 07/03, blood pressure elevated 208/97 HR 59, pt is alert/oriented.
--- NOTE | 2024-11-06 06:45 | PC.NURSE ---
Received call from Dr. Ann order to give Hydralzine 5mg IV x1, and call her back in thirty minutes with updated blood pressure.
[2024-11-06] MEDS: hydrALAZINE INJ 20 MG/ML VIAL 5 MG IVP (07:09)
--- NOTE | 2024-11-06 07:09 | PC.NURSE ---
Hydralazine 5mg IV given current blood pressure 220/96 HR 57, report given to Lina blood pressure to be rechecked in 30 min and provided to Dr[address] Ann
--- NOTE | 2024-11-06 07:16 | PD.FPHP ---
Documentation for date of: 11/05/24 [facility] History of Present Illness Chief complaint: hypertensive urgency, failure to thrive, dehydration, delirium,major depres History of present illness: 84 yr old with diabetes type 2, coronary artery disease, history of CABG and aorticvalve replacement. His daughter called me on 11/05/2024 that over the last week patient has become more confused with periods of confusion and other times not responding to them appropriately. He has lost his appetite and is not drinking fluids. And over the last week he has become urine and stool incontinence. He was seen in the emergency room yesterday and was discharged after normal CT without contrast and normal labs. His urine was normal. So he was sent home with his daughter who does not live with him. Patient was unable to assist in transfer or bearing weight without significant assistance. He has been weak and frail but over the last week has gotten worse. He also has started having very labile hypertension with extremes and systolic blood pressure in the 200s and other times blood pressures have gone down to the 120s or less. His heart rate has been between 55 and 75. He denies any chest pain but does feel some shortness of breath with elevated BPs. No headache. He has been severely depressed after his passed on in April. He he is showing signs of involuntary movement particularly head and hand tremors. He was evaluated in the far past by the neurologist and thought to have an essential tremor. However there is now a question as to whether he has Parkinson's disease. 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 He is very fragile. He did have dehydration but he did receive IV fluids in yesterday's admission and today. He has multiple health problems and has led to his failure to thrive and delirium. The cause of his new onset of hypertensive urgency has been going on for a months but getting worse over the last week to period of hypertensive emergency with SBP in 200s. I have admitted him under observation to see if we can control his hypertension and determine the cause of his altered mental status that is intermittent. His confusion and delirium may be due to major depression without psychosis or hallucinations. His daughter works full-time but prepares his meals and stays with him part of the day. But he is no longer able to care for himself and over the last week he has started to become urine and stool incontinence. This is new. He does have a history of lumbar disc disease and required steroid injections in the past. These have helped some. I will request Dr. Lubin, neurologist to consult and the comb tender to consult on his labile hypertension that is getting worse. Systolic pressures have gone up to 220/100s and unpredictably dropped down to 110/70 without a good explanation. I also will request social media campaign manager and discharge planning to help in transferring the patient to a rehab center or care home facility since he appears to need 24/7 assistance for his ADLs. Review of Systems Constitutional Comments: He is alert and knows that he is at [facility]. But does not have the strength or intention to give a good history or review of system comes. Most of this has been through his daughter and sister. He denies any chest pain but does have shortness of breath with any exertion. He denies any leg swelling but he has difficulty walking or supporting his weight for transfer. Cardiovascular Cardiovascular: Reports as per HPI, Reports chest pain (No chest pain with her severe hypertension or headache. But he does feel s), Reports chest pain at rest (no), Reports chest pain with activity (no), Reports claudication (no), Reports diaphoresis (yes with exertion), Reports dyspnea (Yes , when his blood pressure is extremely high.), Reports dyspnea on exertion, Reports edema (no) and Reports syncope (Yes when he tries to walk especially when his vertigo is more severe. ) Comments: When he was in the emergency room, his systolic blood pressure was in the 200s but his heart rate was in the 70s. Respiratory Respiratory: Reports dyspnea (Yes , when his blood pressure is extremely high.) and Reports dyspnea on exertion Comments: Shortness of breath with activity or when his blood pressure is excessively high Gastrointestinal Gastrointestinal: Reports system reviewed and no additional complaints, except as documented Genitourinary Genitourinary: Reports system reviewed and no additional complaints, except as documented Musculoskeletal Musculoskeletal: Reports abnormal gait, Reports atrophy, Reports back pain and Reports muscle weakness Comments: He is unable to assist and transfer or carry his weight to ambulate. Neurologic Neurologic: Reports abnormal gait and Reports syncope (Yes when he tries to walk especially when his vertigo is more severe. ) Comments: He does have a tremor of hands and head. Neurological consult in the past told him he had essential tremor and has been on primidone for this. It has not helped him very much. Psychiatric Comments: He appears severely depressed. I we will do a depression screen for severity. Endocrine Comments: His diabetes has been in good control and has used metformin occasionally but most the time he is diet controlled Past Medical History Past Medical History NEUROLOGIC: Positive Cerebrovascular Accident, Brain Tumor and Peripheral Neuropathy CARDIAC: Positive Cardiac Disorders, Cardiac Arrhythmia, Atrial Fibrillation, Coronary Artery Disease, Atherosclerotic Heart Disease, Hypercholesterolemia, Valvular Heart Disease and Hypertension RESPIRATORY: Positive Pneumonia GENITOURINARY: Positive Renal Disease, Kidney Stones, Inguinal Hernia and Benign Prostatic Hyperplasia MUSCULOSKELETAL: Positive Arthritis, Degenerative Disk Disease, Fractures and Degenerative Joint Disease ENT: Positive Cataracts ENDOCRINE: Positive Diabetes Mellitus Type 2 HEMATOLOGIC: Positive Anemia PSYCHO/SOCIAL: Positive Depression and Anxiety OTHER HISTORY: Positive Hospitalization, Falls and Blood Transfusions Family History FAMILY HISTORY: Positive Family Cardiac Disorders, Family Cancer and Family Surgery Surgical History SURGICAL: Positive Cardiac Surgery, Open Heart Surgery, Coronary Artery Bypass Graft, Valve Replacement, Coronary Stent, Cardiac Catheterization, Ear Surgery, Tonsillectomy, Abdominal Surgery, Joint Replacement and Neurologic Surgery Meds Home Medications and Allergies Home Medications ?Medication ?Instructions ?Recorded ?Confirmed ?Type folic acid 1 mg tablet 1 mg PO QPM #0 tabs 09/03/13 11/06/24 History clopidogrel 75 mg tablet (Plavix) 75 mg PO QPM 02/10/18 11/06/24 History sertraline 25 mg tablet 50 mg PO QPM 02/10/18 11/06/24 History atorvastatin 40 mg tablet 40 mg PO HS 03/12/23 11/06/24 History hydrocodone 7.5 mg-acetaminophen 1 tab PO Q6H PRN Pain 03/13/23 11/06/24 History 325 mg tablet lactulose 10 gram/15 mL oral syrup 10 g PO DAILY 03/13/23 11/06/24 History ascorbic acid (vitamin C) 1,000 mg 1,000 mg PO QPM 11/06/24 11/06/24 History tablet,extended release (C Complex) aspirin 81 mg tablet,delayed 81 mg PO QDAY 11/06/24 11/06/24 History release (Ecotrin Low Strength) clonidine HCl 0.1 mg tablet 0.1 mg PO QPM 11/06/24 11/06/24 History losartan 50 mg tablet 50 mg PO QPM 11/06/24 11/06/24 History meclizine 12.5 mg tablet 25 mg PO QAM 11/06/24 11/06/24 History metformin 500 mg tablet 500 mg PO BID 11/06/24 11/06/24 History metoprolol succinate 50 mg 50 mg PO QAM 11/06/24 11/06/24 History tablet,extended release 24 hr nitroglycerin 0.4 mg sublingual 0.4 mg buccal [id number] PRN chest 11/06/24 11/06/24 History tablet pain pantoprazole 40 mg tablet,delayed 40 mg PO QDAY 11/06/24 11/06/24 History release primidone 50 mg tablet 50 mg PO .q1300 11/06/24 11/06/24 History Allergies Allergy/AdvReac Type Severity Reaction Status Date / Time hydrocodone AdvReac Intermediate Nausea Verified 11/06/24 02:25 oxycodone AdvReac Intermediate sedation Verified 11/06/24 02:25 and confusion scopolamine (From AdvReac Intermediate Dizziness Verified 11/06/24 02:25 Transderm-Scop) tramadol AdvReac Unknown may lower Verified 11/06/24 02:25 sz threhold Exam Vital Signs Temp Pulse Resp BP Pulse Ox O2 Del Method 98.0 F 57 L 15 220/96 H 95 Room Air 11/06/24 02:09 11/06/24 07:09 11/06/24 04:35 11/06/24 07:09 11/06/24 04:35 11/05/24 17:43 Constitutional Comments: Exam completed on 11/06/2024 since he was in the ER after midnight and brought to med surg until after 3 am on 11/07/24 but history taken on 11/05/2024 from daughter Stephanie Detailed Head Exam Comments: bald with old fall scars and actinic keratosis Routine Neck Exam Neck: Present supple and full ROM Routine Chest/Breast/Axilla Exam Comments: scar mid chest over sternum where he had oped heart surgery Routine Respiratory Exam Respiratory: Present chest non-tender, lungs clear, normal breath sounds and no resp distress Routine Cardiovascular Exam Cardiovascular: Present RRR Routine Abdominal Exam Abdominal: Present soft Routine Extremities Exam Extremities: Present full ROM (but slow to move, deminished strength in all extremities) and pulses intact Routine Back/Spine/Pelvis Exam Back/Spine: Present vertebral tenderness (unable to stand or sit to get full exam) Routine Skin Exam Skin: Present dry Routine Psychiatric Exam Psychiatric: Present unable to assess Results: Labs 11/08/24 05:14 11/08/24 05:14 Labs: Short CBC 11/05/24 Range/Units 19:03 WBC 7.7 (3.8-10.6) Thou/mm3 Hgb 13.0 L (13.5-16.0) g/dL Hct 39.9 L (41.0-53.0) % Plt Count 199 (140-440) Thou/mm3 BMP 11/05/24 19:03 Sodium 140 Potassium 3.8 Chloride 104 Carbon Dioxide 26.2 BUN 13 Creatinine 0.8 Glucose 200 H Calcium 10.4 Cardiac Enzymes 11/05/24 Range/Units 19:03 Troponin I < 0.020 (0.0-0.045) ng/mL Liver Function 11/05/24 Range/Units 19:03 Total Bilirubin 0.7 (0.3-1.2) mg/dL AST 20 (0-34) U/L ALT 23 (10-49) U/L Alkaline Phosphatase 67 (46-116) U/L Albumin 4.2 (3.4-4.8) gm/dL A&P - Family Practice Assessment & plan (1) Hypertensive urgency, malignant: Status: Acute Assessment and plan: uncontrolled, currently requiring hydralazine for control (2) Dehydration: Status: Acute Assessment and plan: Encouraged PO water and IV fluids, resolving. (3) Hypertensive crisis without congestive heart failure: Status: Acute Assessment and plan: very labile and at times becoming hypertensive emergency with mild chest pain and increased SDOB with blood pressure in the 190s-210 SBP. I have request consult from his comb tender, Dr. Araiza (4) Anticoagulant long-term use: Status: Chronic Assessment and plan: stable, Patient recently had radiation treatment for increasing size of a menigioma in posterior fossa. MRI ordered and is pending (5) Other abnormal involuntary movements: Status: Chronic Assessment and plan: Patient has been diagnosed with essential tremor over 5 yrs ago. This may be causing increase in weakness and stool incontinence. I have requested consult from Dr. Thiagargian to r/o Parkinson's disease which could also give a labile BP. (6) Complete immobility due to severe physical disability or frailty: Status: Acute Assessment and plan: His weakness and failure to thrive has led to to increase mobility and stool incontinence that has being going on for 2 weeks. It is also complicated by fact his not to long ago. He has declined to increase the Zoloft but the depression may also be leading to increased depression, loss of appettite and poor fluid intake, as well as intermittent delirium or altered mental status. He will need to be in rehab center for increasing ADLs or he may not recover or have a new baseline requiring 24/7 care and supervision. I will await neurology consult. (7) Failure to thrive in adult: Status: Acute Assessment and plan: . This led to his severe generalized weakness and inability to ambulate. His chronic vertigo and tremor became worse which has led to further incapacitation and inability to ambulate and fragility.Over the last 1-2 weeks his fragility has gotten worse. He continued to do poorly so I admitted him because his blood pressure was very labile and difficult to control in spite of aggressive treatment. He was not able to do any of his ADLs. He has lost his appetite, and his mobility which has led to bed confinement. He slleps most of the day and his conjusion is getting worse. All these factors have led to hypertensive crisis. It is my hope to stabilize his blood pressure and request cardiac consultation to best control his BP. He is also complaining of shortness of breath when his BP goes up but no chest pain or cardiac related symptoms. He is high risk for DVT and for an acute cardio-cerebral vascular event. I will place him on telemetry monitoring. I will place him on observation and if unable to control his blood pressure or improve his medical status I will make him a full admit for further evaluation. So he does well with rehabilitation and occupational therapy, which I will start RICHARD. Currently he can not care for his own ADLs or administer his medication for himself. (8) Major depressive disorder, recurrent severe without psychotic features: Status: Acute Assessment and plan: getting worse. I will stabilize BP and then increase Zoloft. (9) Diabetes mellitus type 2, controlled, with complications: Status: Chronic Assessment and plan: Hold metformin since he is not eating well. His hgbAIC has been between 5-6. (10) Hyperlipidemia associated with type 2 diabetes mellitus: Status: Chronic Assessment and plan: controlled (11) Cerebral atherosclerosis: Status: Chronic Assessment and plan: No sign of TIA or acute cerebral event.\ on CT but I have requested MRI brain to ruleout mass effect from posterior fossa menigioma, for which he had radiation therapy September 2024 at [facility]. (12) Coronary arteriosclerosis: Status: Chronic Assessment and plan: angina with dyspnea with SBP 200s (13) Loss of appetite: Status: Acute Assessment and plan: Many causes. But will start by controlling BP and increase fluids and nourishment. (14) BPH (benign prostatic hypertrophy) with urinary obstruction: Status: Chronic Assessment and plan: Pt says his BPH is better after he had a procedure which has improved flow. But he still has nocturia (15) Vertigo: Status: Chronic Assessment and plan: Increased due to hypertension, loss of sleep, and anorexia. This was a result of menigioma removal and presence over 10 yrs ago. I will check MRI brain for any new ischemia (16) Frequent falls: Status: Chronic Assessment and plan: Start physical therapy [facility]ARD for rehabilitation, he is a good candidate. He has done well in the past. (17) Urine incontinence: Status: Acute Assessment and plan: May be due to Lumbar stenosis but I do not believe he has urine and stool incontinence from back injury, followed by pain specialist for steroid injection of epidura (18) DXT (radiotherapy): Status: Acute Assessment and plan: Patient has f/u with Pain specialist following his back. Pain seems to be adequately controlled for now (19) Stool incontinence: Status: Acute Assessment and plan: Likely neurological from spinall stenosis or Parkinson's disease (20) Meningioma, cerebral: Status: Acute Assessment and plan: 09/2024 patient had radiation treatment to decrese size of meningioma. (21) Weakness generalized: Status: Acute Assessment and plan: Multifactorial but I do believe he will benefit from physical rehab. But he will need to be pushed a little (22) Aortic valve disorder: Status: Chronic Assessment and plan: Stable followed by Dr. Araiza. Quality Measures Quality Measures VTE prophylaxis Advance care planning discussed with:: legal surragate (daughter, Sonam) (17) Urine incontinence Qualifiers: Urinary Incontinence type: urinary incontinence without sensory awareness Qualified Code(s): N39.42 - Incontinence without sensory awareness (19) Stool incontinence Qualifiers: Fecal incontinence type: full incontinence of feces Qualified Code(s): R15.9 - Full incontinence of feces
[2024-11-06] MEDS: PANTOPRAZOLE 20 MG TABLET 40 MG PO (08:23)
[2024-11-06] MEDS: TAMSULOSIN HCL 0.4 MG CAPSULE PO (08:23)
[2024-11-06] MEDS: LOSARTAN POTASSIUM 25 MG TABLET PO (08:24)
[2024-11-06] MEDS: ASPIRIN EC 81 MG TABEC PO (08:25)
[2024-11-06] MEDS: SERTRALINE HCL 25 MG TABLET PO (08:25)
[2024-11-06 08:32] LABS: Collection Type, Urine Clean Catch; Squamous Epithelial Cell,Urine 0 /hpf (0-5)
[2024-11-06 09:48] LABS: Bilirubin,Urine Negative (Negative); Blood,Urine Negative (Negative); Clarity,Urine Clear (Clear/Hazy); Color,Urine Lt-Yellow (Lt Yel-Yel); Culture Indicated,Urine Not Indicated; Glucose, Urine Negative (Negative); Ketones,Urine Negative (Negative); Leukocyte Esterase,Urine Negative (Negative); Nitrite,Urine Negative (Negative); PH,Urine 6.0 (5.0-7.0); Protein,Urine Negative (Neg - Trace); RBC,Urine 1 /hpf (0-3); Specific Gravity,Urine 1.011 (1.001-1.035); Urobilinogen,Urine Negative mg/dL (0.0-1.0); WBC,Urine 1 /hpf (0-5)
--- NOTE | 2024-11-06 12:38 | PC.SS ---
Addendum entered by Kathryn Hanson 11/07/24 11:17: Late entry for 11/06/24: Received call from Dr. Ann who explained patient is needing SNF placement and IN OBS status was to be changed to inpatient. PT eval needed. Original Note: 84YO White Male, reason for visit: HYPERTENSIVE URGENCY ?? SS met with patient, daughter Sonam, and patient?s sibling Dea at bedside. Role, and purpose of today?s contact was explained. Patient?s daughter, Sonam confirmed patient?s demographic information. Patient?s primary medical surrogate decisionmaker is his daughter, Sonam Huynh [phone]. As of 2 weeks ago since his fall, patient requires maximum assistance with ADLs and ambulation. Patient is transported/transferred by wheelchair. Patient was approved ?for oxygen (nightly) by PCP, 11/05/24. ?Sonam explained patient was previously connected with [facility] for Home Health. [facility] ?PCP: Damon Ann, last telehealth appt. was 11/05/24. Discharge plan discussed with patient?s family, they are requesting patient to discharge to a SNF. Sonam and Dea prefer patient discharge to SNF or [facility] SNF. Both have declined [facility], [facility], and [facility] SNFs. Next of kin: Daughter, Sonam Huynh [phone]. Discharge plan: SNF, transportation needed.
[2024-11-06] MEDS: METOPROLOL SUCCINATE XL 25 MG TABCR PO (17:01)
[2024-11-06] MEDS: CLOPIDOGREL BISULFATE 75 MG TABLET PO (20:12)
--- NOTE | 2024-11-06 22:25 | PC.NURSE ---
Patient alert and oriented x3. Instructed to press the call light when he needs anything. Attempted to get up in bed without calling or pressing the call light.Explained to him that he needs tele sitter monitoring to prevent possible risk for fall.Patient verbalized understanding and agreed for tele sitter monitoring.
[2024-11-07] VITALS (19 sets, daily range): BP systolic 116–176; BP diastolic 61–108; PULSE 60–88; RESP 16–93; TEMP 36.1–36.3; O2SAT 91–97
[2024-11-07] MEDS: hydrALAZINE INJ 20 MG/ML VIAL 5 MG IVP (01:43)
[2024-11-07] MEDS: DEXTROSE 5%-0.45% NS 1,000 ML 80 ML IV (06:12)
[2024-11-07] MEDS: LOSARTAN POTASSIUM 25 MG TABLET PO ×2 (08:26→17:03)
[2024-11-07] MEDS: PANTOPRAZOLE 20 MG TABLET 40 MG PO (08:26)
[2024-11-07] MEDS: TAMSULOSIN HCL 0.4 MG CAPSULE PO (08:26)
[2024-11-07] MEDS: ASPIRIN EC 81 MG TABEC PO (08:26)
[2024-11-07] MEDS: METOPROLOL SUCCINATE XL 25 MG TABCR PO (08:26)
[2024-11-07] MEDS: SERTRALINE HCL 25 MG TABLET PO (08:27)
--- NOTE | 2024-11-07 11:13 | PC.SS ---
PASRR level2 clearance needed. SNF referrals submitted. SNFs made aware patient is still IN OBS, may need 3MN stay, and PT eval.
--- NOTE | 2024-11-07 14:13 | XR_ITS ---
Examination: Carotid arterial duplex scan, ultrasound. Date and time of exam: November 07, 2024, 1541 hrs. Indications: Hypertensive emergency with dizziness severe vertigo beginning 3 months ago Technique: Multiple sonographic images have been obtained of the carotid arteries and vertebral arteries, B-mode/grayscale imaging and Doppler spectral analysis and color flow Peak systolic and diastolic velocities have been recorded. Systolic diastolic ratios have been calculated. Findings: Right peak systolic velocities: Distal internal carotid artery peak systolic velocity is 0.5 M/sec Proximal internal carotid artery peak systolic velocity is 0.8 M/sec Carotid bifurcation peak systolic velocity is 0.5 M/sec External carotid artery peak systolic velocity is 1.0 M/sec Vertebral artery flow is antegrade. Left peak systolic velocities: Distal internal carotid artery peak systolic velocity is 0.5 M/sec Proximal internal carotid artery peak systolic velocity is 0.9 M/sec Carotid bifurcation peak systolic velocity is 0.7 M/sec External carotid artery peak systolic velocity is 1.0 M/sec Vertebral artery flow is antegrade Doppler waveform analysis demonstrates no spectral broadening Impression: Right internal carotid artery demonstrates 0-10% stenosis. Left internal carotid artery demonstrates 0-10% stenosis.
--- NOTE | 2024-11-07 15:15 | PD.RESCONSUL ---
HPI Data of Consult Requesting Physician: Damon Ann MD Admitting Provider: Damon Ann MD Attending Provider: Damon Ann MD Primary Care Provider: Damon Ann MD Consult Narrative Reason for consult: Labile blood pressure History of present illness: HPI: An 84-year-old male patient with past medical history of CAD status post CABG 2010, aortic stenosis status post surgical aortic valve replacement 2010, persistent vertigo, diabetes mellitus type 2, hypertension, Parkinson's, meningioma s/p surgical intervention in 2013, followed by radiation 2 weeks ago at [facility], BPH status post surgical resection 7 years ago who was brought to the ED on 04 November 2024 after he was found to have severe lethargy. He also had ground-level fall?CT scan was done and was negative for any hemorrhage or mass effect. On 05 November 2024 patient return to the ED due to generalized weakness, and labile blood pressure. Patient reported that he has been taking his medications regularly and he reported that whenever his blood pressure increased he feels that he is sick and has some headache. As per the primary team note the daughter informed that the patient become confused whenever his blood pressure is increased. He reported that he still has control on his bladder and bowel movements however due to the decline of his mobility he was unable to get off the bed to his wheelchair to go to the restroom. On further questioning he reported that he has some episodes of vertigo especially when he moves Patient denied any chest pain however he reported mild shortness of breath with activity, denied any palpitation, cough, orthopnea, paroxysmal nocturnal dyspnea or lower extremity swelling. On review of the patient's chart it was noted that the patient on presentation blood pressure was 191/88 and increased to 219/100, and after 12 hours his blood pressure drops suddenly to 166/79 and then continued to drop over 6 hours to 115/78 after that his blood pressure increased to 167/103 after 6 hours. At the ED his CBC was significant for hemoglobin of 13.0, CMP was significant for potassium of 3.8, blood sugar of 200, calcium of 10.4, troponin was normal. EKG showed first-degree heart block with conduction delay. Chest x-ray was normal MRI was done showed only Right posterior parafalcine mass, measuring 22 x 18 x 24 mm compared to 26 x 18 x 21 mm on MRI September 01, 2024. There was no hemorrhage or mass effect. patient was given losartan 25 mg, tamsulosin 0.4, hydralazine 5 mg IV push x 1, amlodipine, clonidine patch 0.1 mg topical, metoprolol 25 mg p.o. daily PMH: As above PSX: Lives alone, his daughter assist him with his daily activities however not always available non-smoker, no alcohol use disorder, no drug use PFX: few months ago, Allergies: Hydrocodone, oxycodone, scopolamine, tramadol cc:: cc: Damon Ann MD Review of Systems Review of Systems Systems Reviewed: All systems reviewed, normal except as documented Exam Vital Signs Temp Pulse Resp BP Pulse Ox O2 Del Method 97.1 F 88 18 116/80 96 Room Air 11/07/24 12:00 11/07/24 12:00 11/07/24 12:11/07/24 12:11/07/24 12:11/07/24 12:00 Narrative Exam GEN: AOx3, lying in bed comfortably, on room air, able to speak full sentences HEENT: NC/AC, PERRLA, oral mucosa moist, neck supple CVS: RRR, S1-S2 present, no murmurs appreciated RESP: CTAB GI: soft, mildly distended, non tender, NBS MSK: Wearing compression socks, able to move all 4 limbs, no lower extremity edema SKIN: warm and dry [employer] COUNSEL[employer]: CN II-XII and Sensation grossly intact. Results Labs 11/08/24 13:42 11/08/24 13:42 Quality Measures Quality Measures VTE prophylaxis Advance care planning discussed with:: patient Medications Home Medications and Allergies Home Medications ?Medication ?Instructions ?Recorded ?Confirmed ?Type folic acid 1 mg tablet 1 mg PO QPM #0 tabs 09/03/13 11/06/24 History clopidogrel 75 mg tablet (Plavix) 75 mg PO QPM 02/10/18 11/06/24 History sertraline 25 mg tablet 50 mg PO QPM 02/10/18 11/06/24 History atorvastatin 40 mg tablet 40 mg PO HS 03/12/23 11/06/24 History hydrocodone 7.5 mg-acetaminophen 1 tab PO Q6H PRN Pain 03/13/23 11/06/24 History 325 mg tablet lactulose 10 gram/15 mL oral syrup 10 g PO DAILY 03/13/23 11/06/24 History ascorbic acid (vitamin C) 1,000 mg 1,000 mg PO QPM 11/06/24 11/06/24 History tablet,extended release (C Complex) aspirin 81 mg tablet,delayed 81 mg PO QDAY 11/06/24 11/06/24 History release (Ecotrin Low Strength) clonidine HCl 0.1 mg tablet 0.1 mg PO QPM 11/06/24 11/06/24 History losartan 50 mg tablet 50 mg PO QPM 11/06/24 11/06/24 History meclizine 12.5 mg tablet 25 mg PO QAM 11/06/24 11/06/24 History metformin 500 mg tablet 500 mg PO BID 11/06/24 11/06/24 History metoprolol succinate 50 mg 50 mg PO QAM 11/06/24 11/06/24 History tablet,extended release 24 hr nitroglycerin 0.4 mg sublingual 0.4 mg buccal [id number] PRN chest 11/06/24 11/06/24 History tablet pain pantoprazole 40 mg tablet,delayed 40 mg PO QDAY 11/06/24 11/06/24 History release primidone 50 mg tablet 50 mg PO .q1300 11/06/24 11/06/24 History Allergies Allergy/AdvReac Type Severity Reaction Status Date / Time hydrocodone AdvReac Intermediate Nausea Verified 11/06/24 02:25 oxycodone AdvReac Intermediate sedation Verified 11/06/24 02:25 and confusion scopolamine (From AdvReac Intermediate Dizziness Verified 11/06/24 02:25 Transderm-Scop) tramadol AdvReac Unknown may lower Verified 11/06/24 02:25 sz threhold Visit Medications Acetaminophen (Acetaminophen 325 Mg Tablet) 650 mg PO Q6H PRN PRN Reason: Fever >101.5 Stop: 12/07/24 13:42 Aspirin (Aspirin Ec 81 Mg Tabec) 81 mg PO DAILY PORFIRIO Stop: 12/06/24 08:59 Last Admin: 11/07/24 08:26 Dose: 81 mg Bisacodyl (Bisacodyl 5 Mg Tabec) 10 mg PO QDAY PRN PRN Reason: CONSTIPATION Stop: 12/07/24 13:42 Bisacodyl (Bisacodyl 10 Mg Supp) 10 mg SC QDAY PRN PRN Reason: CONSTIPATION Stop: 12/07/24 13:42 Cephalexin HCl (Cephalexin 250 Mg Capsule) 500 mg PO QID PORFIRIO Stop: 11/14/24 16:59 Clopidogrel Bisulfate (Clopidogrel Bisulfate 75 Mg Tablet) 75 mg PO QPM PORFIRIO Stop: 12/06/24 20:59 Last Admin: 11/06/24 20:12 Dose: 75 mg Famotidine (Famotidine 20 Mg Tablet) 20 mg PO BID PRN PRN Reason: HEARTBURN Stop: 12/07/24 14:06 Glucagon (Glucagon Inj 1 Mg Vial) 1 mg IM Q15MIN PRN PRN Reason: BG <70, and no IV access Hydralazine HCl (Hydralazine Hcl 25 Mg Tablet) 25 mg PO TID PRN PRN Reason: SBP > 190mmHg Stop: 12/07/24 15:14 Losartan Potassium (Losartan Potassium 25 Mg Tablet) 25 mg PO DAILY PORFIIRO Stop: 12/06/24 08:59 Last Admin: 11/07/24 08:26 Dose: 25 mg Metoprolol Tartrate (Metoprolol Tartrate 25 Mg Tablet) 12.5 mg PO BID PORFIRIO Stop: 12/07/24 20:59 Ondansetron HCl (Ondansetron Inj 2 Mg/Ml Inj 2 Ml) 4 mg IVP Q6H PRN PRN Reason: NAUSEA OR VOMITING Stop: 12/07/24 13:42 Pantoprazole Sodium (Pantoprazole 40 Mg Tablet) 40 mg PO QDAY PORFIRIO Stop: 12/08/24 08:59 Sertraline HCl (Sertraline Hcl 25 Mg Tablet) 25 mg PO QDAY PORFIRIO Stop: 12/06/24 08:59 Last Admin: 11/07/24 08:27 Dose: 25 mg Discontinued Medications Amlodipine Besylate (Amlodipine Besylate 2.5 Mg Tablet) 2.5 mg PO DAILY PORFIRIO Stop: 12/06/24 08:59 Amlodipine Besylate (Amlodipine Besylate 2.5 Mg Tablet) 2.5 mg PO X1 ONE Stop: 11/06/24 02:51 Last Admin: 11/06/24 06:19 Dose: 2.5 mg Amlodipine Besylate (Amlodipine Besylate 2.5 Mg Tablet) 2.5 mg PO BID PORFIRIO Stop: 12/06/24 20:59 Last Admin: 11/07/24 08:25 Dose: 2.5 mg Clonidine HCl (Clonidine Hcl (Patch) 0.1 Mg/24 Hr Tdsy) 0.1 mg TOP Q7D PORFIRIO Stop: 12/06/24 01:44 Last Admin: 11/06/24 04:13 Dose: 0.1 mg Famotidine (Famotidine 20 Mg Tablet) 20 mg PO BID PORFIRIO Stop: 12/07/24 20:59 Hydralazine HCl (Hydralazine Inj 20 Mg/Ml Vial) 5 mg IVP X1 ONE Stop: 11/06/24 06:46 Last Admin: 11/06/24 07:09 Dose: 5 mg Hydralazine HCl (Hydralazine Inj 20 Mg/Ml Vial) 5 mg IVP X1 ONE Stop: 11/07/24 01:20 Last Admin: 11/07/24 01:43 Dose: 5 mg Hydralazine HCl (Hydralazine Inj 20 Mg/Ml Vial) 5 mg IV X1 PRN PRN Reason: SBP > 190 Sodium Chloride (Ns) 500 mls @ 250 mls/hr IV .Q2H PORFIRIO Stop: 12/05/24 18:48 Last Admin: 11/06/24 07:37 Dose: Not Given Dextrose/Sodium Chloride (D5-1/2ns) 1,000 mls @ 80 mls/hr IV .[id number] [facility] Stop: 11/09/24 01:29 Last Admin: 11/07/24 06:12 Dose: 80 mls/hr Meclizine HCl (Meclizine Hcl 25 Mg Tablet) 12.5 mg PO 0900 [facility] Stop: 12/06/24 08:59 Meclizine HCl (Meclizine Hcl 25 Mg Tablet) 25 mg PO 1500 [facility] Stop: 12/06/24 14:59 Metoprolol Succinate (Metoprolol Succinate Xl 25 Mg Tabcr) 25 mg PO QDAY PORFIRIO Stop: 12/06/24 15:59 Last Admin: 11/07/24 08:26 Dose: 25 mg Metoprolol Succinate (Metoprolol Succinate Xl 25 Mg Tabcr) 50 mg PO QAM [facility] Stop: 12/08/24 08:59 Nitroglycerin (Nitroglycerin 0.4 Mg Subl Btl #25) 0.4 mg SL Q5MIN PRN PRN Reason: CHEST PAIN Nitroglycerin (Nitroglycerin 0.4 Mg Subl Btl #25) 0.4 mg SL [id number] PRN PRN Reason: CHEST PAIN Stop: 12/07/24 14:13 Pantoprazole Sodium (Pantoprazole 20 Mg Tablet) 40 mg PO QDAY PORFIRIO Stop: 12/06/24 08:59 Last Admin: 11/07/24 08:26 Dose: 40 mg Tamsulosin HCl (Tamsulosin Hcl 0.4 Mg Capsule) 0.4 mg PO DAILY PORFIRIO Stop: 12/06/24 08:59 Last Admin: 11/07/24 08:26 Dose: 0.4 mg Assessment & Plan Plan Summary:An 84-year-old male patient with past medical history of CAD status post CABG 2010, aortic stenosis status post surgical aortic valve replacement 2010, HFrEF with ejection fraction of 40 to 45% in February 2023 persistent vertigo, diabetes mellitus type 2, hypertension, Parkinson's, meningioma s/p surgical intervention in 2013, followed by radiation 2 weeks ago at [facility], BPH status post surgical resection 7 years ago who was brought to the ED on 04 November 2024 after he was found to have severe lethargy. Found to have emergency hypertension, however associated with labile blood pressure. 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 I took the blood pressure manually on the left upper extremity, there was auscultatory gap noted. First Korotkoff sounds appeared at 180 mmHg, then disappeared at 150 and reappeared at 140 mmHg and finally disappeared at 90 mmHg. It was confirmed by the palpatory method. So the patient's actual blood pressure at the time of examination is 180/90. EKG showed conduction delay, first-degree heart block. Plan - Continue metoprolol XL 25 mg once daily and continue to uptitrate to metoprolol XL 50 mg once daily as patient does have history of mild systolic congestive heart failure. If heart rate is low and the blood pressure is elevated then patient can be changed to Coreg - Change losartan to Entresto 24-26 mg twice daily as patient does have mild systolic congestive heart failure as well as elevated blood pressure and Entresto dose can continue to be increased to 49-51 mg tablets twice daily if the blood pressure continues to be elevated - Hold amlodipine for now as patient does have history of labile blood pressure and patient needs to be on beta-haydee as well as ARB or DALLAS or Entresto for systolic congestive heart failure. Repeat echo ordered. - Stop clonidine completely as there is increased risk of rebound hypertension with the clonidine and none of the regular antihypertensive medications have been maximized ? IV hydralazine prn as needed if SBP > 180 mm hg ? Nursing order to only measure blood pressure on the left arm using manual sphygmomanometer to avoid artifact and the auscultatory gap ? Continue compression socks -30 to 40 mmHg thigh length compression ? Orthostatic vitals daily for now ? Echocardiogram ordered for further evaluation of LV function RV function diastolic function as well to evaluate the aortic valve. ? Consider Holding tamsulosin, patient reported that he does not have any urinary bladder symptoms. Will do bladder scan every 6 hours with straight cath if needed ? Vital signs every 4 hours #History of CAD status post CABG 2010 #Aortic stenosis status post surgical aortic valve replacement 2010 #HFrEF with ejection fraction of 40 to 45% in February 2023 Patient has extensive cardiac history, his follow-up with the substation manager Dr. Tavarez however he was unavailable at this time. His last echo showed in February 2023 normal LV size. Mild systolic dysfunction. Hypokinesis septal wall. Estimated EF 40-45%. Patient on aspirin and Plavix at home, however he is not on any diuretics. Plan: ? Strict in and out ? Continue home medication aspirin 81 mg p.o. daily ? Continue Plavix 75 mg p.o. daily -Patient needs to be on goal-directed medical therapy if patient has systolic dysfunction with the low ejection fraction and will need to be on ARB or DALLAS inhibitors or Entresto and beta-haydee. Ideally prefer Entresto and beta-haydee and eventually needs to be on spironolactone if BP permissible. ? Echocardiogram ordered for further evaluation of the EF and also to evaluate the aortic valve ? Troponin and BNP was ordered, will follow-up on the results ? Upgrade patient to telemetry #UTI Urine culture from his previous visit on 04 November 2024 grew Proteus Mirabella's. Plan ? Patient was started on cephalexin 500 mg 3 times daily p.o. #History of Parkinson's disease #History of vertigo #History of meningioma status post radiation Patient was recently diagnosed with Parkinson's disease. Could play a role in his labile blood pressure Plan ? Follow-up with the neurologist recommendations #History of type 2 diabetes mellitus Plan ? A1c was ordered, insulin sliding scale is in place #History of BPH status post surgical resection Plan ? We will hold his tamsulosin due to the labile blood pressure, will do bladder scan every 4-6 hours, with straight cath if needed - Patient's plan and care discussed with my attending, Dr. Chanelle Benavidez MD Internal Medicine PGY-3 Attending Provider Attestation/Addendum I have personally seen and examined the patient separately on the above date of service and discussed the plan of care with the resident. I reviewed the resident Dr. Benavidez consultation progress note and agree with the resident findings and plan in the note above and have also edited the documentation to reflect my findings and plan. Clint Roca M.D. Interventional Cardiology
[2024-11-07 15:20] LABS: Glucose Estimated Average 151 mg/dL (80-131); Hemoglobin A1C 6.9 % Hgb (4.8-6.0)
[2024-11-07 15:41] LABS: Free T4 (Free Thyroxine) 1.36 ng/dL (0.89-1.76); Thyroid Stimulating Hormone 1.58 uIU/mL (0.55-4.78); Troponin I < 0.020 ng/mL (0.0-0.045)
[2024-11-07 15:47] LABS: B-Type Natriuretic Peptide 48 pg/mL (0-100)
--- NOTE | 2024-11-07 15:50 | ECHO_ITS ---
Transthoracic Echo Report Ht (in): 67 Wt (lb): 191 Exam Location: Echo Lab Status: Inpatient Home Office Claims Examiner: Joyce Conroy Indications: Procedure Performed: BP: 179 / 97 HR: 67 MEASUREMENTS (Male / Female) Normal Values 2D ECHO LV Diastolic Diameter PLAX 3.6 cm 4.2 - 5.9 / 3.9 - 5.3 cm LV Systolic Diameter PLAX 2.6 cm IVS Diastolic Thickness 1.2 cm 0.6 - 1.0 / 0.6 - 0.9 cm LVPW Diastolic Thickness 1.8 cm 0.6 - 1.0 / 0.6 - 0.9 cm LV Relative Wall Thickness 0.8 LVOT Diameter 2.0 cm Ascending Aorta Diameter 3.5 cm DOPPLER AV Peak Velocity 201.0 cm/s AV Peak Gradient 16.2 mmHg AV Mean Gradient 9.0 mmHg AV Velocity Time Integral 42.1 cm LVOT Peak Velocity 68.9 cm/s LVOT Peak Gradient 1.9 mmHg LVOT Velocity Time Integral 15.9 cm LVOT Cardiac Index 1633.9 cm?/min?m? AV Area Cont Eq vti 1.2 cm? AV Area Cont Eq pk 1.1 cm? MV Area PHT 3.7 cm? Mitral E Point Velocity 55.9 cm/s Mitral A Point Velocity 76.8 cm/s Mitral E to A Ratio 0.7 LV E' Lateral Velocity 11.7 cm/s Mitral E to LV E' Lateral Ratio 4.8 LV E' Septal Velocity 6.7 cm/s Mitral E to LV E' Septal Ratio 8.3 PV Peak Velocity 77.4 cm/s PV Peak Gradient 2.4 mmHg FINDINGS Left Ventricle Normal left ventricular size, wall thickness, systolic function with no obvious regional wall motion abnormalities. There is grade I diastolic dysfunction of the left ventricle (impaired relaxation pattern). The ejection fraction is visually estimated at 50-55%. Right Ventricle The right ventricle is normal in size and systolic function. Left Atrium The left atrium is normal by two-dimensional, color flow and Doppler imaging with no structural abnormalities, no thrombus formation present. Right Atrium The right atrium is normal by two-dimensional imaging, color flow and Doppler imaging with no structural abnormalities, no thrombus formation present. Atrial Septum The interatrial septum appears normal with no evidence of a shunt. Aorta The aortic annulus is normal. Mitral Valve The mitral valve is normal by two-dimensional, color flow and Doppler interrogation.trace to mild mitral regurgitation. Aortic Valve Aortic valve sclerosis without stenosis Tricuspid Valve The tricuspid valve is normal by two-dimensional, color flow and Doppler interrogation. There is trace tricuspid valve regurgitation. Pulmonic Valve The pulmonic valve is not well visualized. There is no significant pulmonic valve regurgitation. Vessels The pulmonary artery appears normal. The inferior vena cava pulmonary and hepatic veins appear normal. Pericardium The pericardium is normal by two-dimensional imaging. There is no significant pericardial effusion. CONCLUSIONS Indication Hypertension emergency, history of HFrEF Technical difficult study due to patient not able to lie on left side due to crack ribs Normal left ventricular size and function.Grade I diastolic dysfunction. Approximate ejection fraction is 50- 55%. The right ventricle is normal in size and systolic function. Aortic valve sclerosis without stenosis Normal AV bioprosthesis Trace mitral and trace tricuspid regurgitation Rosita Martínez (Electronically Signed) Final Date: 08 November 2024 18:12
[2024-11-07 15:57] LABS: Syphilis Nonreactive (Nonreactive)
[2024-11-07] MEDS: INSULIN LISPRO (AdmeLOG) 1 UNIT/0.01 ML UNIT SC (16:58)
[2024-11-07 19:58] LABS: Vitamin B12 256 pg/mL (211-911)
[2024-11-07] MEDS: METOPROLOL TARTRATE 25 MG TABLET 12.5 MG PO (21:33)
[2024-11-07] MEDS: CLOPIDOGREL BISULFATE 75 MG TABLET PO (21:33)
--- NOTE | 2024-11-07 22:13 | PD.FPPROG ---
Documentation for date of: 11/06/24 Exam Vital Signs Temp Pulse Resp BP Pulse Ox O2 Del Method O2 Flow Rate 97.0 F 84 18 150/100 H 92 L Nasal Cannula 2 11/07/24 20:00 11/07/24 21:33 11/07/24 20:00 11/07/24 21:33 11/07/24 20:00 11/07/24 20:00 11/07/24 20:00 Objective Labs 11/05/24 19:03 11/05/24 19:03 Labs: Laboratory Results - last 24 hr 11/07/24 14:[address] Glu mg/dL 151 H Hemoglobin A1c 6.9 H Troponin I < 0.020 B-Natriuretic Peptide 48 Vitamin B12 256 TSH 1.58 Free T4 1.36 Syphilis Serology Nonreactive Assessment & Plan Time Spent With Patient Time: Total time spent is greater than 50% in coordination of care (as documented) at patient's floor/unit and/or counseling patient:
[2024-11-08] VITALS (15 sets, daily range): BP systolic 150–183; BP diastolic 86–102; PULSE 61–103; RESP 17–93; TEMP 35.7–36.2; O2SAT 94–97; BMI 11.0
[2024-11-08 05:33] LABS: Basophils # (Auto) 0.0 Thou/mm3 (0.0-0.2); Basophils % (Auto) 0 % (0-2.5); Eosinophils # (Auto) 0.2 Thou/mm3 (0.0-0.5); Eosinophils % (Auto) 3 % (0-10); Hematocrit 42.1 % (41.0-53.0); Hemoglobin 13.6 g/dL (13.5-16.0); Immature Granulocytes Auto 0.04 Thou/mm3 (0.00-0.00); Lymphocytes # (Auto) 1.5 Thou/mm3 (1.0-4.8); Lymphocytes % (Auto) 20 % (10-50); Mean Corpuscular HGB Conc 32.3 g/dl (31.0-37.0); Mean Corpuscular Hemoglobin 29.2 pg (25.0-35.0); Mean Corpuscular Volume 90 fL (80-100); Monocytes # (Auto) 1.0 Thou/mm3 (0.0-0.8); Monocytes % (Auto) 13 % (0-12); Neutrophils # (Auto) 5.0 Thou/mm3 (1.8-7.7); Neutrophils % (Auto) 64 % (37-80); Nucleated Red Blood Cell # 0.00 Thou/mm3 (0.00-0.00); Nucleated Red Blood Cell % 0 /100 WBC (0); Platelet Count 209 Thou/mm3 (140-440); RDW Standard Deviation 45.7 fL (35.1-43.9); Red Blood Count 4.66 Miln/mm3 (4.50-5.90); White Blood Count 7.8 Thou/mm3 (3.8-10.6)
[2024-11-08 05:55] LABS: Alanine Aminotransferase 24 U/L (10-49); Albumin, Serum 3.9 gm/dL (3.4-4.8); Albumin/Globulin Ratio 1.7 (1.2-2.2); Alkaline Phosphatase 57 U/L (46-116); Anion Gap 8 (7-16); Aspartate Amino Transferase 14 U/L (0-34); BUN/Creatinine Ratio 13 Ratio (12-20); Bilirubin,Total 0.6 mg/dL (0.3-1.2); Blood Urea Nitrogen 9 mg/dL (9-23); Calcium 10.1 mg/dL (8.3-10.6); Calcium (Corrected) 10.2 mg/dL (8.5-10.1); Carbon Dioxide 28.3 mMol/L (20.0-31.0); Chloride 104 mMol/L (98-107); Creatinine (Component) 0.7 mg/dL (0.6-1.3); Estimated Creatinine Clearance 84.2 mL/min (>60); Globulin 2.3 gm/dL (2.3-3.5); Glucose 175 mg/dL (74-106); Magnesium 1.8 mg/dL (1.6-2.6); Osmolality,Calculated 282 (275-295); Phosphorous 2.9 mg/dL (2.4-5.1); Potassium 3.8 mMol/L (3.4-5.1); Sodium 140 mMol/L (136-145); Total Protein 6.2 gm/dL (5.7-8.2); eGFR > 60 See Note
[2024-11-08] MEDS: PANTOPRAZOLE 40 MG TABLET PO (08:51)
[2024-11-08] MEDS: METOPROLOL SUCCINATE XL 25 MG TABCR 50 MG PO ×2 (08:51→18:27)
[2024-11-08] MEDS: INSULIN LISPRO (AdmeLOG) 1 UNIT/0.01 ML UNIT SC ×3 (08:52→17:09)
[2024-11-08] MEDS: SERTRALINE HCL 25 MG TABLET PO (08:52)
[2024-11-08] MEDS: ASPIRIN EC 81 MG TABEC PO (08:52)
[2024-11-08] MEDS: TAMSULOSIN HCL 0.4 MG CAPSULE PO (09:07)
[2024-11-08] MEDS: Magnesium Sulfate 4 GM Ivpb 4 GM/50 ML BAG IV (09:07)
[2024-11-08 11:00] LABS: D-Dimer 438 ng/mL (<600)
[2024-11-08 14:02] LABS: Basophils # (Auto) 0.0 Thou/mm3 (0.0-0.2); Basophils % (Auto) 0 % (0-2.5); Eosinophils # (Auto) 0.2 Thou/mm3 (0.0-0.5); Eosinophils % (Auto) 3 % (0-10); Hematocrit 44.1 % (41.0-53.0); Hemoglobin 14.1 g/dL (13.5-16.0); Immature Granulocytes Auto 0.01 Thou/mm3 (0.00-0.00); Lymphocytes # (Auto) 1.2 Thou/mm3 (1.0-4.8); Lymphocytes % (Auto) 15 % (10-50); Mean Corpuscular HGB Conc 32.0 g/dl (31.0-37.0); Mean Corpuscular Hemoglobin 28.6 pg (25.0-35.0); Mean Corpuscular Volume 90 fL (80-100); Monocytes # (Auto) 0.9 Thou/mm3 (0.0-0.8); Monocytes % (Auto) 11 % (0-12); Neutrophils # (Auto) 5.7 Thou/mm3 (1.8-7.7); Neutrophils % (Auto) 71 % (37-80); Nucleated Red Blood Cell # 0.00 Thou/mm3 (0.00-0.00); Nucleated Red Blood Cell % 0 /100 WBC (0); Platelet Count 226 Thou/mm3 (140-440); RDW Standard Deviation 46.0 fL (35.1-43.9); Red Blood Count 4.93 Miln/mm3 (4.50-5.90); White Blood Count 8.1 Thou/mm3 (3.8-10.6)
--- NOTE | 2024-11-08 14:09 | XR_ITS ---
Examination: Renal arterial Doppler sonography, renal sonography Date and time: 09/07/2024 0759 hours INDICATIONS: Hypertensive emergency today technique and findings: TECHNIQUE AND FINDINGS: Right kidney 9.6 cm cortex 1.8 cm Left kidney 10.2 cm cortex 1.4 cm No bilateral elevation of peak systolic velocities. Normal resistive indices. Normal renal aortic ratios IMPRESSION: No Doppler sonographic findings of renal artery stenosis
[2024-11-08 14:22] LABS: INR 1.0 (0.9-1.3); Partial Thromboplastin Time 27.1 Seconds (22.0-36.0); Prothrombin Time 11.3 Seconds (9.0-12.2)
[2024-11-08 14:26] LABS: Alanine Aminotransferase 29 U/L (10-49); Albumin, Serum 4.0 gm/dL (3.4-4.8); Albumin/Globulin Ratio 1.7 (1.2-2.2); Alkaline Phosphatase 57 U/L (46-116); Anion Gap 9 (7-16); Aspartate Amino Transferase 26 U/L (0-34); BUN/Creatinine Ratio 13 Ratio (12-20); Bilirubin,Total 0.6 mg/dL (0.3-1.2); Blood Urea Nitrogen 10 mg/dL (9-23); Calcium 10.0 mg/dL (8.3-10.6); Calcium (Corrected) 10.0 mg/dL (8.5-10.1); Carbon Dioxide 29.4 mMol/L (20.0-31.0); Chloride 103 mMol/L (98-107); Creatinine (Component) 0.8 mg/dL (0.6-1.3); Estimated Creatinine Clearance 73.6 mL/min (>60); Globulin 2.4 gm/dL (2.3-3.5); Glucose 223 mg/dL (74-106); Magnesium 2.8 mg/dL (1.6-2.6); Osmolality,Calculated 287 (275-295); Phosphorous 2.4 mg/dL (2.4-5.1); Potassium 3.8 mMol/L (3.4-5.1); Sodium 141 mMol/L (136-145); Total Protein 6.4 gm/dL (5.7-8.2); eGFR > 60 See Note
--- NOTE | 2024-11-08 15:23 | ESCONSULT_ITS ---
HPI Data of Consult Requesting Physician: Damon Ann MD Admitting Provider: Damon Ann MD Attending Provider: Damon Ann MD Primary Care Provider: Damon Ann MD Consult Narrative History of present illness: 84-year-old male patient with past medical history of CAD s/p quadruple vessel bypass (2010), aortic stenosis s/p surgical aortic valve replacement (2010), persistent vertigo, diabetes mellitus type 2, hypertension, Parkinson's, meningioma s/p surgical intervention in 2013, followed by radiation 2 weeks ago at [facility], BPH status post surgical resection 7 years ago who comes in for an evaluation of elevated blood pressure. It was reported that patient was measuring his blood pressure at home and it was noticed that it was markedly elevated which prompted them to come to the emergency room. He notes that he was recently at [facility] about 2 weeks ago for radiation therapy for his meningioma after Dr Bowen, neurologist, had referred him to. Patient denies any history of seizures. He does note taking aspirin and Plavix for a long time and he has been taking it ever since his surgery. He says that his canceling and cutting control clerk is Dr. Araiza and that his bypass surgery was done in [place] years ago. He also says that he is unsure if he has a diagnosis of Parkinson's, however is not taking any medicine for it at this time. He does notice that he also has a resting tremor, however he is unsure if it is from Parkinson's and remembers having it for a long time. He says he is able to use a walker and a wheelchair to get around, however the past 2 weeks he has not been able to walk. He has no other complaints at this time. ED course: On review of the patient's chart it was noted that the patient on presentation blood pressure was 191/88 and increased to 219/100, and after 12 hours his blood pressure drops suddenly to 166/79 and then continued to drop over 6 hours to 115/78 after that his blood pressure increased to 167/103 after 6 hours. At the ED his CBC was significant for hemoglobin of 13.0, CMP was significant for potassium of 3.8, blood sugar of 200, calcium of 10.4, troponin was normal. EKG showed first-degree heart block with conduction delay. Chest x-ray was normal MRI was done showed only Right posterior parafalcine mass, measuring 22 x 18 x 24 mm compared to 26 x 18 x 21 mm on MRI September 01, 2024. There was no hemorrhage or mass effect. patient was given losartan 25 mg, tamsulosin 0.4, hydralazine 5 mg IV push x 1, amlodipine, clonidine patch 0.1 mg topical, metoprolol 25 mg p.o. daily PMH: As above PSX: Lives alone, his daughter assist him with his daily activities however not always available non-smoker, no alcohol use disorder, no drug use PFX: few months ago, Allergies: Hydrocodone, oxycodone, scopolamine, tramadol cc:: cc: Damon Ann MD Review of Systems Review of Systems Narrative Review of Systems: 12 point ROS reviewed and is otherwise negative unless stated directly in the HPI Exam Vital Signs Temp Pulse Resp BP Pulse Ox O2 Del Method O2 Flow Rate 97 F 87 24 H 158/92 H 95 Nasal Cannula 1 11/08/24 12:00 11/08/24 12:55 11/08/24 12:55 11/08/24 12:00 11/08/24 12:55 11/08/24 12:00 11/08/24 12:55 Narrative Exam General: AAOx3, NAD, elderly male HEENT: Moist mucous membranes, conjunctiva clear, EOMI, PERRLA, Cardiovascular: S1, S2, radial pulses +2 bilat, RRR Pulmonary: CTAB bilat no cough, no wheezing GI: No tenderness to light or deep palpitation, no guarding, rigidity, rebound tenderness or distension Extremities: No presence of trace or pitting edema in lower extremities bilaterally, dorsalis pedis pulses +2 bilaterally Neuro: AAOx3, strength in upper extremities and lower extremities 5 out of 5, resting tremor noted in both hands bilaterally Psych: Good judgement, thought and behavior Results Labs 11/09/24 04:20 11/09/24 04:20 Labs: Short CBC 11/08/24 11/08/24 Range/Units 05:14 13:42 WBC 7.8 8.1 (3.8-10.6) Thou/mm3 Hgb 13.6 14.1 (13.5-16.0) g/dL Hct 42.1 44.1 (41.0-53.0) % Plt Count 209 226 (140-440) Thou/mm3 BMP 11/08/24 11/08/24 05:14 13:42 Sodium 140 141 Potassium 3.8 3.8 Chloride 104 103 Carbon Dioxide 28.3 29.4 BUN 9 10 Creatinine 0.7 0.8 Glucose 175 H 223 H Calcium 10.1 10.0 Cardiac Enzymes 11/07/24 Range/Units 14:52 Troponin I < 0.020 (0.0-0.045) ng/mL Liver Function 11/08/24 11/08/24 Range/Units 05:14 13:42 Total Bilirubin 0.6 0.6 (0.3-1.2) mg/dL AST 14 26 (0-34) U/L ALT 24 29 (10-49) U/L Alkaline Phosphatase 57 57 (46-116) U/L Albumin 3.9 4.0 (3.4-4.8) gm/dL Quality Measures Quality Measures VTE prophylaxis Advance care planning discussed with:: patient and child Medications Home Medications and Allergies Home Medications ?Medication ?Instructions ?Recorded ?Confirmed ?Type folic acid 1 mg tablet 1 mg PO QPM #0 tabs 09/03/13 11/06/24 History clopidogrel 75 mg tablet (Plavix) 75 mg PO QPM 8 11/06/24 History sertraline 25 mg tablet 50 mg PO QPM 02/10/18 History atorvastatin 40 mg tablet 40 mg PO HS 03/12/23 5 History hydrocodone 7.5 mg-acetaminophen 1 tab PO Q6H PRN Pain 03/13/23 11/06/24 History 325 mg tablet lactulose 10 gram/15 mL oral syrup 10 g PO DAILY 03/1311/06/24 History ascorbic acid (vitamin C) 1,000 mg 1,000 mg PO QPM 11/06/24 History tablet,extended release (C Complex) aspirin 81 mg tablet,delayed 81 mg PO QDAY 11/06/24 History release (Ecotrin Low Strength) clonidine HCl 0.1 mg tablet 0.1 mg PO QPM 11/06/24 History losartan 50 mg tablet 50 mg PO QPM 11/06/24 History meclizine 12.5 mg tablet 25 mg PO QAM 11/06/24 History metformin 500 mg tablet 500 mg PO BID 11/06/2411/06 History metoprolol succinate 50 mg 50 mg PO QAM 11/06/2411/06 History tablet,extended release 24 hr nitroglycerin 0.4 mg sublingual 0.4 mg buccal [id number] PRN chest 11/06/24 11/06/24 History tablet pain pantoprazole 40 mg tablet,delayed 40 mg PO QDAY 11/06/24 History release primidone 50 mg tablet 50 mg PO .q1300 11/06/24 History Allergies Allergy/AdvReac Type Severity Reaction Status Date / Time hydrocodone AdvReac Intermediate Nausea Verified 11/06/24 02:25 oxycodone AdvReac Intermediate sedation Verified 11/06/24 02:25 and confusion scopolamine (From AdvReac Intermediate Dizziness Verified 11/06/24 02:25 Transderm-Scop) tramadol AdvReac Unknown may lower Verified 11/06/24 02:25 sz threhold Visit Medications Acetaminophen (Acetaminophen 325 Mg Tablet) 650 mg PO Q6H PRN PRN Reason: Fever >101.5 Stop: 12/07/24 13:42 Aspirin (Aspirin Ec 81 Mg Tabec) 81 mg PO DAILY PORFIRIO Stop: 12/06/24 08:59 Last Admin: 11/08/24 08:52 Dose: 81 mg Atorvastatin Calcium (Atorvastatin Calcium 20 Mg Tablet) 20 mg PO HS PORFIRIO Stop: 12/08/24 20:59 Bisacodyl (Bisacodyl 5 Mg Tabec) 10 mg PO QDAY PRN PRN Reason: CONSTIPATION Stop: 12/07/24 13:42 Bisacodyl (Bisacodyl 10 Mg Supp) 10 mg RI QDAY PRN PRN Reason: CONSTIPATION Stop: 12/07/24 13:42 Cephalexin HCl (Cephalexin 250 Mg Capsule) 500 mg PO QID PORFIRIO Stop: 11/14/24 16:59 Last Admin: 11/08/24 12:21 Dose: 500 mg Clopidogrel Bisulfate (Clopidogrel Bisulfate 75 Mg Tablet) 75 mg PO QPM PORFIRIO Stop: 12/06/24 20:59 Last Admin: 11/07/24 21:33 Dose: 75 mg Dextrose (Dextrose 50%-Water Inj 50 Ml Syringe) 25 ml IV Q15MIN PRN PRN Reason: BG 50-70 responsive npo pt Stop: 12/07/24 15:52 Dextrose (Dextrose 50%-Water Inj 50 Ml Syringe) 50 ml IV Q15MIN PRN PRN Reason: BG <50 OR BG <70 & pt unresponsive Stop: 12/07/24 15:52 Famotidine (Famotidine 20 Mg Tablet) 20 mg PO BID PRN PRN Reason: HEARTBURN Stop: 12/07/24 14:06 Glucagon (Glucagon Inj 1 Mg Vial) 1 mg IM Q15MIN PRN PRN Reason: BG <70, and no IV access Hydralazine HCl (Hydralazine Hcl 25 Mg Tablet) 25 mg PO TID PRN PRN Reason: SBP > 190mmHg Stop: 12/07/24 15:14 Insulin Human Lispro (Insulin Lispro (Admelog) 1 Unit/0.01 Ml Unit) 0 unit SC AC [facility]; Protocol Stop: 12/07/24 16:59 Last Admin: 11/08/24 12:21 Dose: 1 unit Metoprolol Succinate (Metoprolol Succinate Xl 25 Mg Tabcr) 50 mg PO QDAY [facility] Stop: 12/08/24 08:59 Last Admin: 11/08/24 08:51 Dose: 50 mg Ondansetron HCl (Ondansetron Inj 2 Mg/Ml Inj 2 Ml) 4 mg IVP Q6H PRN PRN Reason: NAUSEA OR VOMITING Stop: 12/07/24 13:42 Pantoprazole Sodium (Pantoprazole 40 Mg Tablet) 40 mg PO QDAY [facility] Stop: 12/08/24 08:59 Last Admin: 11/08/24 08:51 Dose: 40 mg Sacubitril/Valsartan (Sacubitril 24 Mg/Valsartan 26 Mg Tablet) 1 tab PO BID [facility] Stop: 12/08/24 08:59 Last Admin: 11/08/24 08:52 Dose: 1 tab Sertraline HCl (Sertraline Hcl 25 Mg Tablet) 25 mg PO QDAY [facility] Stop: 12/06/24 08:59 Last Admin: 11/08/24 08:52 Dose: 25 mg Tamsulosin HCl (Tamsulosin Hcl 0.4 Mg Capsule) 0.4 mg PO QDAY [facility] Stop: 12/08/24 08:49 Last Admin: 11/08/24 09:07 Dose: 0.4 mg Discontinued Medications Amlodipine Besylate (Amlodipine Besylate 2.5 Mg Tablet) 2.5 mg PO DAILY PORFIRIO Stop: 12/06/24 08:59 Amlodipine Besylate (Amlodipine Besylate 2.5 Mg Tablet) 2.5 mg PO X1 ONE Stop: 11/06/24 02:51 Last Admin: 11/06/24 06:19 Dose: 2.5 mg Amlodipine Besylate (Amlodipine Besylate 2.5 Mg Tablet) 2.5 mg PO BID PORFIRIO Stop: 12/06/24 20:59 Last Admin: 11/07/24 08:25 Dose: 2.5 mg Clonidine HCl (Clonidine Hcl (Patch) 0.1 Mg/24 Hr Tdsy) 0.1 mg TOP Q7D PORFIRIO Stop: 12/06/24 01:44 Last Admin: 11/06/24 04:13 Dose: 0.1 mg Famotidine (Famotidine 20 Mg Tablet) 20 mg PO BID PORFIRIO Stop: 12/07/24 20:59 Hydralazine HCl (Hydralazine Inj 20 Mg/Ml Vial) 5 mg IVP X1 ONE Stop: 11/06/24 06:46 Last Admin: 11/06/24 07:09 Dose: 5 mg Hydralazine HCl (Hydralazine Inj 20 Mg/Ml Vial) 5 mg IVP X1 ONE Stop: 11/07/24 01:20 Last Admin: 11/07/24 01:43 Dose: 5 mg Hydralazine HCl (Hydralazine Inj 20 Mg/Ml Vial) 5 mg IV X1 PRN PRN Reason: SBP > 190 Sodium Chloride (Ns) 500 mls @ 250 mls/hr IV .Q2H PORFIRIO Stop: 12/05/24 18:48 Last Admin: 11/06/24 07:37 Dose: Not Given Dextrose/Sodium Chloride (D5-1/2ns) 1,000 mls @ 80 mls/hr IV .[id number] PORFIRIO Stop: 11/09/24 01:29 Last Admin: 11/07/24 06:12 Dose: 80 mls/hr Magnesium Sulfate (Magnesium Sulfate Ivpb) 4 gm in 50 mls @ 12.5 mls/hr IV X1 ONE Stop: 11/08/24 12:14 Last Admin: 11/08/24 09:07 Dose: 12.5 mls/hr Losartan Potassium (Losartan Potassium 25 Mg Tablet) 25 mg PO DAILY PORFIRIO Stop: 12/06/24 08:59 Last Admin: 11/07/24 08:26 Dose: 25 mg Losartan Potassium (Losartan Potassium 25 Mg Tablet) 50 mg PO DAILY PORFIRIO Stop: 12/08/24 08:59 Losartan Potassium (Losartan Potassium 25 Mg Tablet) 25 mg PO X1 ONE Stop: 11/07/24 16:24 Last Admin: 11/07/24 17:03 Dose: 25 mg Meclizine HCl (Meclizine Hcl 25 Mg Tablet) 12.5 mg PO 0900 PORFIRIO Stop: 12/06/24 08:59 Meclizine HCl (Meclizine Hcl 25 Mg Tablet) 25 mg PO 1500 PORFIRIO Stop: 12/06/24 14:59 Metoprolol Succinate (Metoprolol Succinate Xl 25 Mg Tabcr) 25 mg PO QDAY PORFIRIO Stop: 12/06/24 15:59 Last Admin: 11/07/24 08:26 Dose: 25 mg Metoprolol Succinate (Metoprolol Succinate Xl 25 Mg Tabcr) 50 mg PO QAM PORFIRIO Stop: 12/08/24 08:59 Metoprolol Tartrate (Metoprolol Tartrate 25 Mg Tablet) 12.5 mg PO BID PORFIRIO Stop: 12/07/24 20:59 Last Admin: 11/07/24 21:33 Dose: 12.5 mg Nitroglycerin (Nitroglycerin 0.4 Mg Subl Btl #25) 0.4 mg SL Q5MIN PRN PRN Reason: CHEST PAIN Nitroglycerin (Nitroglycerin 0.4 Mg Subl Btl #25) 0.4 mg SL [id number] PRN PRN Reason: CHEST PAIN Stop: 12/07/24 14:13 Pantoprazole Sodium (Pantoprazole 20 Mg Tablet) 40 mg PO QDAY PORFIRIO Stop: 12/06/24 08:59 Last Admin: 11/07/24 08:26 Dose: 40 mg Potassium Chloride (Potassium Chloride 20 Meq Tabcr) 40 meq PO X1 ONE Stop: 11/08/24 08:15 Last Admin: 11/08/24 09:07 Dose: 40 meq Tamsulosin HCl (Tamsulosin Hcl 0.4 Mg Capsule) 0.4 mg PO DAILY PORFIRIO Stop: 12/06/24 08:59 Last Admin: 11/07/24 08:26 Dose: 0.4 mg Assessment & Plan Plan Assessment: Julio is a 84-year-old male patient with past medical history of CAD status post CABG 2010, aortic stenosis status post surgical aortic valve replacement 2010, HFrEF with ejection fraction of 40 to 45% in February 2023 persistent vertigo, diabetes mellitus type 2, hypertension, Parkinson's, meningioma s/p surgical intervention in 2013, followed by radiation 2 weeks ago at [facility], BPH status post surgical resection 7 years ago who was brought to the ED on 04 November 2024 after he was found to have severe lethargy. Found to have emergency hypertension, however associated with labile blood pressure. #Acute encephalopathy #Essential tremors #History of vertigo #History of meningioma status post radiation Patient's mentation could have been altered due to infectious source or hypertensive encephalopathy Patient at this time does not meet requirements for clinical diagnosis of Parkinson's, rather has diagnosis of essential tremors Patient seems to be back to baseline at this time Patient is not taking any steroids for meningioma and recently had radiation done Plan: ? Treat underlying urine infection ? Correct patient's blood pressure to normotensive ? Primidone 125 mg by mouth twice daily ? Continue with physical therapy #History of type 2 diabetes mellitus #History of BPH status post surgical resection #Hypertensive urgency #First-degree heart block #History of CAD status post CABG 2010 #Aortic stenosis status post surgical aortic valve replacement 2010 #HFrEF with ejection fraction of 40 to 45% in February 2023 #UTI Above handled by primary hospitalist team Patient seen and care discussed with my attending physician, Dr. Jessi Gonzales, PGY-2 Attending Provider Attestation/Addendum I personally have seen and examined the patient at the bedside and agree with resident's findings, assessment and plan of care. He is status post meningioma management with the gamma knife. Now with generalized weakness, will benefit from intense physical therapy. Will increase the dose of primidone 225 mg twice a day as he tolerates for essential tremor, reassurance given to the patient that he does not have Parkinson's in my opinion. He was seen by neurosurgery at [facility], not a candidate for focused ultrasound therapy.
--- NOTE | 2024-11-08 17:04 | PD.RESPRO ---
Documentation for date of: 11/08/24 Subjective Subjective Interval history: Patient was seen and examined at bedside. Denied any new symptoms. He denied any urinary retention. His blood pressure has been stable since yesterday night ranging systolic between 150 mmHg and 160 mmHg. Heart rate trending between 80 and 95 bpm denied any dizziness, palpitation, or shortness of breath. Neurology team to see the patient today. Exam Vital Signs Temp Pulse Resp BP Pulse Ox O2 Del Method O2 Flow Rate 96.3 F L 95 20 160/98 H 95 Nasal Cannula 1 11/08/24 16:00 11/08/24 16:00 11/08/24 16:00 11/08/24 16:00 11/08/24 16:00 11/08/24 16:00 11/08/24 16:00 Narrative Exam GEN: AOx3, lying in bed comfortably, on room air, able to speak full sentences HEENT: NC/AC, PERRLA, oral mucosa moist, neck supple CVS: RRR, S1-S2 present, no murmurs appreciated RESP: CTAB GI: soft, mildly distended, non tender, NBS MSK: Wearing compression socks, able to move all 4 limbs, no lower extremity edema SKIN: warm and dry INPATIENT PHARMACIST: CN II-XII and Sensation grossly intact. Objective Labs 11/08/24 13:42 11/08/24 13:42 Labs: Laboratory Results - last 24 hr 11/07/24 11/08/24 11/08/24 14:52 05:14 13:42 WBC 7.8 8.1 RBC 4.66 4.93 Hgb 13.6 14.1 Hct 42.1 44.1 MCV 90 90 MCH 29.2 28.6 MCHC 32.3 32.0 RDW Std Deviation 45.7 H 46.0 H Plt Count 209 226 Neut % (Auto) 64 71 Lymph % (Auto) 20 15 Greenlee % (Auto) 13 H 11 Eos % (Auto) 3 3 Baso % (Auto) 0 0 Neut # (Auto) 5.0 5.7 Lymph # (Auto) 1.5 1.2 Greenlee # (Auto) 1.0 H 0.9 H Eos # (Auto) 0.2 0.2 Baso # (Auto) 0.0 0.0 Immature Gran # (Auto) 0.04 H 0.01 H Absolute Nucleated RBC 0.00 0.00 Immature Gran % 1 H 0 Nucleated RBC % 0 0 PT 11.3 INR 1.0 APTT 27.1 D-Dimer 438 Sodium 140 141 Potassium 3.8 3.8 Chloride 104 103 Carbon Dioxide 28.3 29.4 Anion Gap 8 9 BUN 9 10 Creatinine 0.7 0.8 Estim Creat Clear Calc 84.2 73.6 eGFR > 60 > 60 BUN/Creatinine Ratio 13 13 Glucose 175 H 223 H Calculated Osmolality 282 287 Calcium 10.1 10.0 Corrected Calcium 10.2 H 10.0 Phosphorus 2.9 2.4 Magnesium 1.8 2.8 H Total Bilirubin 0.6 0.6 AST 14 26 ALT 24 29 Alkaline Phosphatase 57 57 Total Protein 6.2 6.4 Albumin 3.9 4.0 Globulin 2.3 2.4 Albumin/Globulin Ratio 1.7 1.7 Vitamin B12 256 Quality Measures Quality Measures VTE prophylaxis Advance care planning discussed with:: patient and child Assessment & Plan Assessment Current Active Medications: Generic Name Dose Route Start Last Admin Trade Name Freq PRN Reason Stop Dose Admin Acetaminophen 650 mg 11/07/24 13:43 Acetaminophen 325 Mg Tablet PO 12/07/24 13:42 Q6H PRN Fever >101.5 Aspirin 81 mg 11/06/24 09:00 11/08/24 08:52 Aspirin Ec 81 Mg Tabec PO 12/06/24 08:59 81 mg DAILY PORFIRIO Administration Atorvastatin Calcium 20 mg 11/08/24 21:00 Atorvastatin Calcium 20 Mg Tablet PO 12/08/24 20:59 HS PORFIRIO Bisacodyl 10 mg 11/07/24 13:43 Bisacodyl 5 Mg Tabec PO 12/07/24 13:42 QDAY PRN CONSTIPATION Bisacodyl 10 mg 11/07/24 13:43 Bisacodyl 10 Mg Supp MA 12/07/24 13:42 QDAY PRN CONSTIPATION Cephalexin HCl 500 mg 11/07/24 17:00 11/08/24 12:21 Cephalexin 250 Mg Capsule PO 11/14/24 16:59 500 mg QID PORFIRIO Administration Clopidogrel Bisulfate 75 mg 11/06/24 21:00 11/07/24 21:33 Clopidogrel Bisulfate 75 Mg Tablet PO 12/06/24 20:59 75 mg QPM PORFIRIO Administration Dextrose 25 ml 11/07/24 15:53 Dextrose 50%-Water Inj 50 Ml Syringe IV 12/07/24 15:52 Q15MIN PRN BG 50-70 responsive npo pt Dextrose 50 ml 11/07/24 15:53 Dextrose 50%-Water Inj 50 Ml Syringe IV 12/07/24 15:52 Q15MIN PRN BG <50 OR BG <70 & pt unresponsive Famotidine 20 mg 11/07/24 14:07 Famotidine 20 Mg Tablet PO 12/07/24 14:06 BID PRN HEARTBURN Glucagon 1 mg 11/07/24 14:29 Glucagon Inj 1 Mg Vial IM Q15MIN PRN BG <70, and no IV access Hydralazine HCl 25 mg 11/07/24 15:06 Hydralazine Hcl 25 Mg Tablet PO 12/07/24 15:14 TID PRN SBP > 190mmHg Insulin Human Lispro 0 unit 11/07/24 17:00 11/08/24 12:21 Insulin Lispro (Admelog) 1 Unit/0.01 Ml Unit SC 12/07/24 16:59 1 unit AC PORFIRIO Administration Protocol Metoprolol Succinate 50 mg 11/08/24 09:00 11/08/24 08:51 Metoprolol Succinate Xl 25 Mg Tabcr PO 12/08/24 08:59 50 mg QDAY PORFIRIO Administration Ondansetron HCl 4 mg 11/07/24 13:43 Ondansetron Inj 2 Mg/Ml Inj 2 Ml IVP 12/07/24 13:42 Q6H PRN NAUSEA OR VOMITING Pantoprazole Sodium 40 mg 11/08/24 09:00 11/08/24 08:51 Pantoprazole 40 Mg Tablet PO 12/08/24 08:59 40 mg QDAY PORFIRIO Administration Sacubitril/Valsartan 1 tab 11/08/24 09:00 11/08/24 08:52 Sacubitril 24 Mg/Valsartan 26 Mg Tablet PO 12/08/24 08:59 1 tab BID PORFIRIO Administration Sertraline HCl 25 mg 11/06/24 09:00 11/08/24 08:52 Sertraline Hcl 25 Mg Tablet PO 12/06/24 08:59 25 mg QDAY PORFIRIO Administration Tamsulosin HCl 0.4 mg 11/08/24 08:50 11/08/24 09:07 Tamsulosin Hcl 0.4 Mg Capsule PO 12/08/24 08:49 0.4 mg QDAY PORFIRIO Administration Plan Summary:An 84-year-old male patient with past medical history of CAD status post CABG 2010, aortic stenosis status post surgical aortic valve replacement 2010, HFrEF with ejection fraction of 40 to 45% in February 2023 persistent vertigo, diabetes mellitus type 2, hypertension, Parkinson's, meningioma s/p surgical intervention in 2013, followed by radiation 2 weeks ago at [facility], BPH status post surgical resection 7 years ago who was brought to the ED on 04 November 2024 after he was found to have severe lethargy. Found to have emergency hypertension, however associated with labile blood pressure. 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 I took the blood pressure manually on the left upper extremity, there was auscultatory gap noted. First Korotkoff sounds appeared at 180 mmHg, then disappeared at 150 and reappeared at 140 mmHg and finally disappeared at 90 mmHg. It was confirmed by the palpatory method. So the patient's actual blood pressure at the time of examination is 180/90. EKG showed conduction delay, first-degree heart block. Plan - Uptitrate to metoprolol XL 50 mg once daily as patient does have history of mild systolic congestive heart failure. If heart rate is low and the blood pressure is elevated then patient can be changed to Coreg - Continue Entresto 24-26 mg twice daily as patient does have mild systolic congestive heart failure as well as elevated blood pressure and Entresto dose can continue to be increased to 49-51 mg tablets twice daily tomorro if the blood pressure continues to be elevated - Hold amlodipine for now as patient does have history of labile blood pressure and patient needs to be on beta-haydee as well as ARB or DALLAS or Entresto for systolic congestive heart failure. Repeat echo ordered. - Stop clonidine completely as there is increased risk of rebound hypertension with the clonidine and none of the regular antihypertensive medications have been maximized ? IV hydralazine prn as needed if SBP > 180 mm hg ? Nursing order to only measure blood pressure on the left arm using manual sphygmomanometer to avoid artifact and the auscultatory gap ? Continue compression socks -30 to 40 mmHg thigh length compression ? Orthostatic vitals daily for now ? Echocardiogram ordered for further evaluation of LV function RV function diastolic function as well to evaluate the aortic valve. ? Consider Holding tamsulosin, patient reported that he does not have any urinary bladder symptoms. Will do bladder scan every 8 hours with straight cath if needed ? Vital signs every 4 hours #History of CAD status post CABG 2010 #Aortic stenosis status post surgical aortic valve replacement 2010 #HFrEF with ejection fraction of 40 to 45% in February 2023 Patient has extensive cardiac history, his follow-up with the group social worker Dr. Tavarez however he was unavailable at this time. His last echo showed in February 2023 normal LV size. Mild systolic dysfunction. Hypokinesis septal wall. Estimated EF 40-45%. Patient on aspirin and Plavix at home, however he is not on any diuretics. Plan: ? Strict in and out ? Continue home medication aspirin 81 mg p.o. daily ? Continue Plavix 75 mg p.o. daily -Patient needs to be on goal-directed medical therapy if patient has systolic dysfunction with the low ejection fraction and will need to be on ARB or DALLAS inhibitors or Entresto and beta-haydee. Ideally prefer Entresto and beta-haydee and eventually needs to be on spironolactone if BP permissible. ? Echocardiogram ordered for further evaluation of the EF and also to evaluate the aortic valve ? Troponin and BNP was ordered, will follow-up on the results ? Upgrade patient to telemetry #UTI Urine culture from his previous visit on 04 November 2024 grew Proteus Mirabella's. Plan ? Patient was started on cephalexin 500 mg 3 times daily p.o. #History of Parkinson's disease #History of vertigo #History of meningioma status post radiation Patient was recently diagnosed with Parkinson's disease. Could play a role in his labile blood pressure Plan ? Follow-up with the neurologist recommendations #History of type 2 diabetes mellitus Plan ? A1c was ordered, insulin sliding scale is in place #History of BPH status post surgical resection Plan ? We will hold his tamsulosin due to the labile blood pressure, will do bladder scan every 4-6 hours, with straight cath if needed - Patient's plan and care discussed with my attending, Dr. Chanelle Benavidez MD Internal Medicine PGY-3
--- NOTE | 2024-11-08 17:38 | ESPR_ITS ---
Documentation for date of: 11/08/24 Subjective Subjective Interval history: Patient seen and examined at bedside. Telemetry reviewed showing sinus rhythm rate 60 to 70s. Patient is feeling well today, denies shortness of breath, chest pain, chest pressure, lightheadedness, dizziness, palpitations or nausea vomiting. Per , patient has been suffering from multiple falls due to loss of coordination as well as new urinary incontinence with occasional fecal incontinence. Reports has been previously diagnosed with Parkinson's versus essential tremor awaiting neurologist recommendation. Blood pressure 150/90, ranges 130-170s over 80-100s. Potassium 3.8, BUN 9, creatinine 0.7, A1c 6.9, calcium 10.2, magnesium 1.8, troponins negative, BNP 48 Exam Vital Signs Temp Pulse Resp BP Pulse Ox O2 Del Method O2 Flow Rate 96.3 F L 95 20 160/98 H 95 Nasal Cannula 1 11/08/24 16:00 11/08/24 16:00 11/08/24 16:00 11/08/24 16:00 11/08/24 16:00 11/08/24 16:00 11/08/24 16:00 Narrative Exam GENERAL: AOx3, no acute distress, lying comfortably HEENT: NC/AT, mucous membranes moist, bilateral sclera anicteric CARDIOVASCULAR: regular rate and rhythm, S1/S2 present, 2/6 systolic murmur PULMONARY: clear to auscultation bilaterally, no rales/rhonchi/wheezes ABDOMINAL: soft, non-tender, non-distended, no rebound/guarding, bowel sounds present EXTREMITIES: no peripheral edema SKIN: warm and dry, intact, no rashes, +actinic keratoses on head with scab NEURO: CN II-XII grossly intact, no focal deficits, alert, following commands Objective Labs 11/08/24 13:42 11/08/24 13:42 Labs: Laboratory Results - last 24 hr 11/07/24 11/08/24 11/08/24 14:52 05:14 13:42 WBC 7.8 8.1 RBC 4.66 4.93 Hgb 13.6 14.1 Hct 42.1 44.1 MCV 90 90 MCH 29.2 28.6 MCHC 32.3 32.0 RDW Std Deviation 45.7 H 46.0 H Plt Count 209 226 Neut % (Auto) 64 71 Lymph % (Auto) 20 15 [place] % (Auto) 13 H 11 Eos % (Auto) 3 3 Baso % (Auto) 0 0 Neut # (Auto) 5.0 5.7 Lymph # (Auto) 1.5 1.2 [place] # (Auto) 1.0 H 0.9 H Eos # (Auto) 0.2 0.2 Baso # (Auto) 0.0 0.0 Immature Gran # (Auto) 0.04 H 0.01 H Absolute Nucleated RBC 0.00 0.00 Immature Gran % 1 H 0 Nucleated RBC % 0 0 PT 11.3 INR 1.0 APTT 27.1 D-Dimer 438 Sodium 140 141 Potassium 3.8 3.8 Chloride 104 103 Carbon Dioxide 28.3 29.4 Anion Gap 8 9 BUN 9 10 Creatinine 0.7 0.8 Estim Creat Clear Calc 84.2 73.6 eGFR > 60 > 60 BUN/Creatinine Ratio 13 13 Glucose 175 H 223 H Calculated Osmolality 282 287 Calcium 10.1 10.0 Corrected Calcium 10.2 H 10.0 Phosphorus 2.9 2.4 Magnesium 1.8 2.8 H Total Bilirubin 0.6 0.6 AST 14 26 ALT 24 29 Alkaline Phosphatase 57 57 Total Protein 6.2 6.4 Albumin 3.9 4.0 Globulin 2.3 2.4 Albumin/Globulin Ratio 1.7 1.7 Vitamin B12 256 Quality Measures Quality Measures VTE prophylaxis Advance care planning discussed with:: patient Assessment & Plan Assessment Current Active Medications: Generic Name Dose Route Start Last Admin Trade Name Freq PRN Reason Stop Dose Admin Acetaminophen 650 mg 11/07/24 13:43 Acetaminophen 325 Mg Tablet PO 12/07/24 13:42 Q6H PRN Fever >101.5 Aspirin 81 mg 11/06/24 09:00 11/08/24 08:52 Aspirin Ec 81 Mg Tabec PO 12/06/24 08:59 81 mg DAILY PORFIRIO Administration Atorvastatin Calcium 20 mg 11/08/24 21:00 Atorvastatin Calcium 20 Mg Tablet PO 12/08/24 20:59 HS PORFIRIO Bisacodyl 10 mg 11/07/24 13:43 Bisacodyl 5 Mg Tabec PO 12/07/24 13:42 QDAY PRN CONSTIPATION Bisacodyl 10 mg 11/07/24 13:43 Bisacodyl 10 Mg Supp ND 12/07/24 13:42 QDAY PRN CONSTIPATION Cephalexin HCl 500 mg 11/07/24 17:00 11/08/24 17:09 Cephalexin 250 Mg Capsule PO 11/14/24 16:59 500 mg QID PORFIRIO Administration Clopidogrel Bisulfate 75 mg 11/06/24 21:00 11/07/24 21:33 Clopidogrel Bisulfate 75 Mg Tablet PO 12/06/24 20:59 75 mg QPM PORFIRIO Administration Dextrose 25 ml 11/07/24 15:53 Dextrose 50%-Water Inj 50 Ml Syringe IV 12/07/24 15:52 Q15MIN PRN BG 50-70 responsive npo pt Dextrose 50 ml 11/07/24 15:53 Dextrose 50%-Water Inj 50 Ml Syringe IV 12/07/24 15:52 Q15MIN PRN BG <50 OR BG <70 & pt unresponsive Famotidine 20 mg 11/07/24 14:07 Famotidine 20 Mg Tablet PO 12/07/24 14:06 BID PRN HEARTBURN Glucagon 1 mg 11/07/24 14:29 Glucagon Inj 1 Mg Vial IM Q15MIN PRN BG <70, and no IV access Hydralazine HCl 25 mg 11/07/24 15:06 Hydralazine Hcl 25 Mg Tablet PO 12/07/24 15:14 TID PRN SBP > 190mmHg Insulin Human Lispro 0 unit 11/07/24 17:00 11/08/24 17:09 Insulin Lispro (Admelog) 1 Unit/0.01 Ml Unit SC 12/07/24 16:59 2 unit AC PORFIRIO Administration Protocol Metoprolol Succinate 50 mg 11/08/24 09:00 11/08/24 08:51 Metoprolol Succinate Xl 25 Mg Tabcr PO 12/08/24 08:59 50 mg QDAY PORFIRIO Administration Ondansetron HCl 4 mg 11/07/24 13:43 Ondansetron Inj 2 Mg/Ml Inj 2 Ml IVP 12/07/24 13:42 Q6H PRN NAUSEA OR VOMITING Pantoprazole Sodium 40 mg 11/08/24 09:00 11/08/24 08:51 Pantoprazole 40 Mg Tablet PO 12/08/24 08:59 40 mg QDAY PORFIRIO Administration Sacubitril/Valsartan 1 tab 11/08/24 09:00 11/08/24 08:52 Sacubitril 24 Mg/Valsartan 26 Mg Tablet PO 12/08/24 08:59 1 tab BID PORFIRIO Administration Sertraline HCl 25 mg 11/06/24 09:00 11/08/24 08:52 Sertraline Hcl 25 Mg Tablet PO 12/06/24 08:59 25 mg QDAY PORFIRIO Administration Tamsulosin HCl 0.4 mg 11/08/24 08:50 11/08/24 09:07 Tamsulosin Hcl 0.4 Mg Capsule PO 12/08/24 08:49 0.4 mg QDAY PORFIRIO Administration Plan Summary:An 84-year-old male patient with past medical history of CAD status post CABG 2010, aortic stenosis status post surgical aortic valve replacement 2010, HFrEF with ejection fraction of 40 to 45% in February 2023 persistent vertigo, diabetes mellitus type 2, hypertension, Parkinson's, meningioma s/p surgical intervention in 2013, followed by radiation 2 weeks ago at [facility], BPH status post surgical resection 7 years ago who was brought to the ED on 04 November 2024 after he was found to have severe lethargy. Found to have emergency hypertension, however associated with labile blood pressure. 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 I took the blood pressure manually on the left upper extremity, there was auscultatory gap noted. First Korotkoff sounds appeared at 180 mmHg, then disappeared at 150 and reappeared at 140 mmHg and finally disappeared at 90 mmHg. It was confirmed by the palpatory method. So the patient's actual blood pressure at the time of examination is 180/90. EKG showed conduction delay, first-degree heart block. Plan - Uptitrate from metoprolol XL 50 to metoprolol XL 100 mg once daily as patient does have history of mild systolic congestive heart failure. If heart rate is low and the blood pressure is elevated then patient can be changed to Coreg - Continue Entresto 24-26 mg twice daily as patient does have mild systolic congestive heart failure as well as elevated blood pressure and Entresto dose can continue to be increased to 49-51 mg tablets twice daily tomorrow if the blood pressure continues to be elevated - Hold amlodipine for now as patient does have history of labile blood pressure and patient needs to be on beta-haydee as well as ARB or DALLAS or Entresto for systolic congestive heart failure. Repeat echo ordered. - Stop clonidine completely as there is increased risk of rebound hypertension with the clonidine and none of the regular antihypertensive medications have been maximized ? IV hydralazine prn as needed if SBP > 180 mm hg ? Nursing order to only measure blood pressure on the left arm using manual sphygmomanometer to avoid artifact and the auscultatory gap ? Continue compression socks -30 to 40 mmHg thigh length compression ? Orthostatic vitals daily for now ? Echocardiogram ordered for further evaluation of LV function RV function diastolic function as well to evaluate the aortic valve. ? Consider Holding tamsulosin, patient reported that he does not have any urinary bladder symptoms. Will do bladder scan every 8 hours with straight cath if needed ? 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 Tavarez however he was unavailable at this time. His last echo showed in February 2023 normal LV size. Mild systolic dysfunction. Hypokinesis septal wall. Estimated EF 40-45%. Patient on aspirin and Plavix at home, however he is not on any diuretics. Plan: ? Strict in and out ? Continue home medication aspirin 81 mg p.o. daily ? Continue Plavix 75 mg p.o. daily -Patient needs to be on goal-directed medical therapy if patient has systolic dysfunction with the low ejection fraction and will need to be on ARB or DALLAS inhibitors or Entresto and beta-haydee. Ideally prefer Entresto and beta- haydee and eventually needs to be on spironolactone if BP permissible. ? Echocardiogram ordered for further evaluation of the EF and also to evaluate the aortic valve ? Troponin and BNP was ordered, will follow-up on the results ? Upgrade patient to telemetry #UTI Urine culture from his previous visit on 04 November 2024 grew Proteus Mirabella's. Plan ? Patient was started on cephalexin 500 mg 3 times daily p.o. #History of Parkinson's disease #History of vertigo #History of meningioma status post radiation Patient was recently diagnosed with Parkinson's disease. Could play a role in his labile blood pressure Plan ? Follow-up with the neurologist recommendations #History of type 2 diabetes mellitus 11/08/2024 A1c 6.9. Is on metformin 500 mg BID at home. Plan ? SSI in place #History of BPH status post surgical resection Plan ? We will hold his tamsulosin due to the labile blood pressure, will do bladder scan every 4-6 hours, with straight cath if needed Patient's plan and care discussed with my attending, Dr. Chanelle Quick, DO Internal Medicine PGY-1 Attending Provider Attestation/Addendum I have personally seen and examined the patient separately on the above date of service and discussed the plan of care with the resident. I reviewed the resident Dr. Zully Quick consultation progress note and agree with the resident findings and plan in the note above and have also edited the documentation to reflect my findings and plan. Clint Roca M.D. Interventional Cardiology
--- NOTE | 2024-11-08 19:54 | ESPR_ITS ---
Documentation for date of: 11/08/24 Exam Vital Signs Temp Pulse Resp BP Pulse Ox O2 Del Method O2 Flow Rate 96.3 F L 91 20 160/98 H 95 Nasal Cannula 1 11/08/24 16:00 11/08/24 18:45 11/08/24 18:45 11/08/24 18:27 11/08/24 18:45 11/08/24 16:00 11/08/24 18:45 Objective Labs 11/08/24 13:42 11/08/24 13:42 Labs: Laboratory Results - last 24 hr 11/07/24 11/08/24 11/08/24 14:52 05:14 13:42 WBC 7.8 8.1 RBC 4.66 4.93 Hgb 13.6 14.1 Hct 42.1 44.1 MCV 90 90 MCH 29.2 28.6 MCHC 32.3 32.0 RDW Std Deviation 45.7 H 46.0 H Plt Count 209 226 Neut % (Auto) 64 71 Lymph % (Auto) 20 15 [place] % (Auto) 13 H 11 Eos % (Auto) 3 3 Baso % (Auto) 0 0 Neut # (Auto) 5.0 5.7 Lymph # (Auto) 1.5 1.2 [place] # (Auto) 1.0 H 0.9 H Eos # (Auto) 0.2 0.2 Baso # (Auto) 0.0 0.0 Immature Gran # (Auto) 0.04 H 0.01 H Absolute Nucleated RBC 0.00 0.00 Immature Gran % 1 H 0 Nucleated RBC % 0 0 PT 11.3 INR 1.0 APTT 27.1 D-Dimer 438 Sodium 140 141 Potassium 3.8 3.8 Chloride 104 103 Carbon Dioxide 28.3 29.4 Anion Gap 8 9 BUN 9 10 Creatinine 0.7 0.8 Estim Creat Clear Calc 84.2 73.6 eGFR > 60 > 60 BUN/Creatinine Ratio 13 13 Glucose 175 H 223 H Calculated Osmolality 282 287 Calcium 10.1 10.0 Corrected Calcium 10.2 H 10.0 Phosphorus 2.9 2.4 Magnesium 1.8 2.8 H Total Bilirubin 0.6 0.6 AST 14 26 ALT 24 29 Alkaline Phosphatase 57 57 Total Protein 6.2 6.4 Albumin 3.9 4.0 Globulin 2.3 2.4 Albumin/Globulin Ratio 1.7 1.7 Vitamin B12 256 Assessment & Plan Time Spent With Patient Time: Total time spent is greater than 50% in coordination of care (as documented) at patient's floor/unit and/or counseling patient:
[2024-11-08] MEDS: CLOPIDOGREL BISULFATE 75 MG TABLET PO (21:10)
[2024-11-08] MEDS: ATORVASTATIN CALCIUM 20 MG TABLET PO (21:10)
[2024-11-08] MEDS: PRIMIDONE 50 MG TABLET 125 MG PO (21:11)
[2024-11-09] VITALS (14 sets, daily range): BP systolic 130–181; BP diastolic 79–101; PULSE 60–81; RESP 18–95; TEMP 35.9–36.7; O2SAT 94–96
[2024-11-09] MEDS: hydrALAZINE INJ 20 MG/ML VIAL 5 MG IVP (00:17)
[2024-11-09 05:21] LABS: Basophils # (Auto) 0.0 Thou/mm3 (0.0-0.2); Basophils % (Auto) 0 % (0-2.5); Eosinophils # (Auto) 0.3 Thou/mm3 (0.0-0.5); Eosinophils % (Auto) 3 % (0-10); Hematocrit 46.2 % (41.0-53.0); Hemoglobin 14.8 g/dL (13.5-16.0); Immature Granulocytes Auto 0.02 Thou/mm3 (0.00-0.00); Lymphocytes # (Auto) 1.5 Thou/mm3 (1.0-4.8); Lymphocytes % (Auto) 16 % (10-50); Mean Corpuscular HGB Conc 32.0 g/dl (31.0-37.0); Mean Corpuscular Hemoglobin 28.9 pg (25.0-35.0); Mean Corpuscular Volume 90 fL (80-100); Monocytes # (Auto) 1.2 Thou/mm3 (0.0-0.8); Monocytes % (Auto) 13 % (0-12); Neutrophils # (Auto) 6.2 Thou/mm3 (1.8-7.7); Neutrophils % (Auto) 68 % (37-80); Nucleated Red Blood Cell # 0.00 Thou/mm3 (0.00-0.00); Nucleated Red Blood Cell % 0 /100 WBC (0); Platelet Count 210 Thou/mm3 (140-440); RDW Standard Deviation 46.4 fL (35.1-43.9); Red Blood Count 5.12 Miln/mm3 (4.50-5.90); White Blood Count 9.2 Thou/mm3 (3.8-10.6)
[2024-11-09] MEDS: METOPROLOL SUCCINATE XL 25 MG TABCR 100 MG PO (05:48)
[2024-11-09 05:54] LABS: Alanine Aminotransferase 33 U/L (10-49); Albumin, Serum 4.1 gm/dL (3.4-4.8); Albumin/Globulin Ratio 1.5 (1.2-2.2); Alkaline Phosphatase 64 U/L (46-116); Anion Gap 8 (7-16); Aspartate Amino Transferase 29 U/L (0-34); BUN/Creatinine Ratio 13 Ratio (12-20); Bilirubin,Total 0.4 mg/dL (0.3-1.2); Blood Urea Nitrogen 10 mg/dL (9-23); Calcium 10.0 mg/dL (8.3-10.6); Calcium (Corrected) 10.0 mg/dL (8.5-10.1); Carbon Dioxide 26.7 mMol/L (20.0-31.0); Chloride 105 mMol/L (98-107); Creatinine (Component) 0.8 mg/dL (0.6-1.3); Estimated Creatinine Clearance 73.6 mL/min (>60); Globulin 2.8 gm/dL (2.3-3.5); Glucose 200 mg/dL (74-106); Magnesium 2.2 mg/dL (1.6-2.6); Osmolality,Calculated 284 (275-295); Phosphorous 2.2 mg/dL (2.4-5.1); Potassium 4.3 mMol/L (3.4-5.1); Sodium 140 mMol/L (136-145); Total Protein 6.9 gm/dL (5.7-8.2); eGFR > 60 See Note
[2024-11-09] MEDS: INSULIN LISPRO (AdmeLOG) 1 UNIT/0.01 ML UNIT SC ×2 (07:58→16:42)
[2024-11-09] MEDS: SERTRALINE HCL 25 MG TABLET PO (07:59)
[2024-11-09] MEDS: ASPIRIN EC 81 MG TABEC PO (07:59)
[2024-11-09] MEDS: TAMSULOSIN HCL 0.4 MG CAPSULE PO (07:59)
[2024-11-09] MEDS: PRIMIDONE 50 MG TABLET 125 MG PO (07:59)
[2024-11-09] MEDS: PANTOPRAZOLE 40 MG TABLET PO (07:59)
--- NOTE | 2024-11-09 10:43 | ESPR_ITS ---
Documentation for date of: 11/09/24 Subjective Subjective Interval history: Patient seen and examined at bedside. Telemetry reviewed, no arrhythmias noted. Vitals labs reviewed. Blood pressure ranges from 150-180/80 to 100s. Heart rate 60s to 70s. Patient saturating at 96% on 1 L. Patient endorses some baseline shortness of breath although saturating well 1 L O2. Patient denies chest pain, chest pressure, lightheadedness, dizziness, headache or palpitations. Potassium 4.3, creatinine 0.8, glucose 200, phosphorus low 2.2, magnesium 2.2. Exam Vital Signs Temp Pulse Resp BP Pulse Ox O2 Del Method O2 Flow Rate 96.7 F L 74 18 152/81 H 96 Nasal Cannula 1 11/09/24 08:00 11/09/24 08:18 11/09/24 08:18 11/09/24 08:00 11/09/24 08:18 11/09/24 08:00 11/09/24 08:18 Narrative Exam GENERAL: AOx3, no acute distress, lying comfortably HEENT: NC/AT, mucous membranes moist, bilateral sclera anicteric CARDIOVASCULAR: regular rate and rhythm, S1/S2 present, 2/6 systolic murmur PULMONARY: clear to auscultation bilaterally, no rales/rhonchi/wheezes ABDOMINAL: soft, non-tender, non-distended, no rebound/guarding, bowel sounds present EXTREMITIES: no peripheral edema SKIN: warm and dry, intact, no rashes, +actinic keratoses on head with scab NEURO: CN II-XII grossly intact, no focal deficits, alert, following commands Objective Labs 11/09/24 04:20 11/09/24 04:20 Labs: Laboratory Results - last 24 hr 11/08/24 11/08/24 11/09/24 05:14 13:42 04:20 WBC 8.1 9.2 RBC 4.93 5.12 Hgb 14.1 14.8 Hct 44.1 46.2 MCV 90 90 MCH 28.6 28.9 MCHC 32.0 32.0 RDW Std Deviation 46.0 H 46.4 H Plt Count 226 210 Neut % (Auto) 71 68 Lymph % (Auto) 15 16 [place] % (Auto) 11 13 H Eos % (Auto) 3 3 Baso % (Auto) 0 0 Neut # (Auto) 5.7 6.2 Lymph # (Auto) 1.2 1.5 [place] # (Auto) 0.9 H 1.2 H Eos # (Auto) 0.2 0.3 Baso # (Auto) 0.0 0.0 Immature Gran # (Auto) 0.01 H 0.02 H Absolute Nucleated RBC 0.00 0.00 Immature Gran % 0 0 Nucleated RBC % 0 0 PT 11.3 INR 1.0 APTT 27.1 D-Dimer 438 Sodium 141 140 Potassium 3.8 4.3 D Chloride 103 105 Carbon Dioxide 29.4 26.7 Anion Gap 9 8 BUN 10 10 Creatinine 0.8 0.8 Estim Creat Clear Calc 73.6 73.6 eGFR > 60 > 60 BUN/Creatinine Ratio 13 13 Glucose 223 H 200 H Calculated Osmolality 287 284 Calcium 10.0 10.0 Corrected Calcium 10.0 10.0 Phosphorus 2.4 2.2 L Magnesium 2.8 H 2.2 Total Bilirubin 0.6 0.4 AST 26 29 ALT 29 33 Alkaline Phosphatase 57 64 Total Protein 6.4 6.9 Albumin 4.0 4.1 Globulin 2.4 2.8 Albumin/Globulin Ratio 1.7 1.5 Quality Measures Quality Measures VTE prophylaxis Advance care planning discussed with:: patient Assessment & Plan Assessment Current Active Medications: Generic Name Dose Route Start Last Admin Trade Name Freq PRN Reason Stop Dose Admin Acetaminophen 650 mg 11/07/24 13:43 Acetaminophen 325 Mg Tablet PO 12/07/24 13:42 Q6H PRN Fever >101.5 Aspirin 81 mg 11/06/24 09:00 11/09/24 07:59 Aspirin Ec 81 Mg Tabec PO 12/06/24 08:59 81 mg DAILY PORFIRIO Administration Atorvastatin Calcium 20 mg 11/08/24 21:00 11/08/24 21:10 Atorvastatin Calcium 20 Mg Tablet PO 12/08/24 20:59 20 mg HS PORFIRIO Administration Bisacodyl 10 mg 11/07/24 13:43 Bisacodyl 5 Mg Tabec PO 12/07/24 13:42 QDAY PRN CONSTIPATION Bisacodyl 10 mg 11/07/24 13:43 Bisacodyl 10 Mg Supp [place] 12/07/24 13:42 QDAY PRN CONSTIPATION Cephalexin HCl 500 mg 11/07/24 17:00 11/09/24 05:09 Cephalexin 250 Mg Capsule PO 11/14/24 16:59 500 mg QID PORFIRIO Administration Clopidogrel Bisulfate 75 mg 11/06/24 21:00 11/08/24 21:10 Clopidogrel Bisulfate 75 Mg Tablet PO 12/06/24 20:59 75 mg QPM PORFIRIO Administration Dextrose 25 ml 11/07/24 15:53 Dextrose 50%-Water Inj 50 Ml Syringe IV 12/07/24 15:52 Q15MIN PRN BG 50-70 responsive npo pt Dextrose 50 ml 11/07/24 15:53 Dextrose 50%-Water Inj 50 Ml Syringe IV 12/07/24 15:52 Q15MIN PRN BG <50 OR BG <70 & pt unresponsive Famotidine 20 mg 11/07/24 14:07 Famotidine 20 Mg Tablet PO 12/07/24 14:06 BID PRN HEARTBURN Glucagon 1 mg 11/07/24 14:29 Glucagon Inj 1 Mg Vial IM Q15MIN PRN BG <70, and no IV access Hydralazine HCl 25 mg 11/07/24 15:06 Hydralazine Hcl 25 Mg Tablet PO 12/07/24 15:14 TID PRN SBP > 190mmHg Insulin Human Lispro 0 unit 11/07/24 17:00 11/09/24 07:58 Insulin Lispro (Admelog) 1 Unit/0.01 Ml Unit SC 12/07/24 16:59 1 unit AC PORFIRIO Administration Protocol Metformin HCl 500 mg 11/09/24 07:30 11/09/24 07:59 Metformin 500 Mg Tablet PO 12/09/24 07:29 500 mg BIDAC PORFIRIO Administration Metoprolol Succinate 100 mg 11/09/24 05:20 11/09/24 05:48 Metoprolol Succinate Xl 25 Mg Tabcr PO 12/09/24 05:19 100 mg QDAY PORFIRIO Administration Ondansetron HCl 4 mg 11/07/24 13:43 Ondansetron Inj 2 Mg/Ml Inj 2 Ml IVP 12/07/24 13:42 Q6H PRN NAUSEA OR VOMITING Pantoprazole Sodium 40 mg 11/08/24 09:00 11/09/24 07:59 Pantoprazole 40 Mg Tablet PO 12/08/24 08:59 40 mg QDAY PORFIRIO Administration Primidone 125 mg 11/08/24 21:00 11/09/24 07:59 Primidone 50 Mg Tablet PO 11/13/24 20:59 125 mg BID PORFIRIO Administration Sacubitril/Valsartan 1 tab 11/08/24 09:00 11/09/24 07:59 Sacubitril 24 Mg/Valsartan 26 Mg Tablet PO 12/08/24 08:59 1 tab BID PORFIRIO Administration Sertraline HCl 25 mg 11/06/24 09:00 11/09/24 07:59 Sertraline Hcl 25 Mg Tablet PO 12/06/24 08:59 25 mg QDAY PORFIRIO Administration Tamsulosin HCl 0.4 mg 11/08/24 08:50 11/09/24 07:59 Tamsulosin Hcl 0.4 Mg Capsule PO 12/08/24 08:49 0.4 mg QDAY PORFIRIO Administration Plan Summary:An 84-year-old male patient with past medical history of CAD status post CABG 2010, aortic stenosis status post surgical aortic valve replacement 2010, HFrEF with ejection fraction of 40 to 45% in February 2023 persistent vertigo, diabetes mellitus type 2, hypertension, Parkinson's, meningioma s/p surgical intervention in 2013, followed by radiation 2 weeks ago at [facility], BPH status post surgical resection 7 years ago who was brought to the ED on 04 November 2024 after he was found to have severe lethargy. Found to have emergency hypertension, however associated with labile blood pressure. 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 Blood pressure manually taken on the left upper extremity, there was auscultatory gap noted. First Korotkoff sounds appeared at 180 mmHg, then disappeared at 150 and reappeared at 140 mmHg and finally disappeared at 90 mmHg. It was confirmed by the palpatory method. So the patient's actual blood pressure at the time of examination is 180/90. EKG showed conduction delay, first-degree heart block. 11/08/24 renal artery duplex showed no sonographic findings of renal artery stenosis Plan - Continue metoprolol XL 100 mg once daily as patient does have history of mild systolic congestive heart failure. If heart rate is low and the blood pressure is elevated then patient can be changed to Coreg - Start Entresto 49/51 mg BID as patient does have mild systolic congestive heart failure as well as BP continues to be elevated - Hold amlodipine for now as patient does have history of labile blood pressure and patient needs to be on beta-haydee as well as ARB or DALLAS or Entresto for systolic congestive heart failure. Repeat echo ordered. - Stop clonidine completely as there is increased risk of rebound hypertension with the clonidine and none of the regular antihypertensive medications have been maximized ? IV hydralazine prn as needed if SBP > 180 mmhg ? Nursing order to only measure blood pressure on the left arm using manual sphygmomanometer to avoid artifact and the auscultatory gap ? Continue compression socks -30 to 40 mmHg thigh length compression ? Orthostatic vitals daily for now ? Consider Holding tamsulosin, patient reported that he does not have any urinary bladder symptoms. Will do bladder scan every 8 hours with straight cath if needed ? Vital signs every 4 hours #History of CAD status post CABG 2010 #Aortic stenosis status post surgical aortic valve replacement 2010 #HFpEF (50-55%, 10/2024) Patient has extensive cardiac history, his follow-up with the privacy specialist Dr. Tavarez however he was unavailable at this time. Patient on aspirin and Plavix at home, however he is not on any diuretics. BNP 48, troponins negative. 03/14/23 TTE showed normal LV size, mild systolic dysfunction, hypokinesis of the wall, estimated EF 40 to 45%, normal RV size, mild systolic dysfunction, normal AV bioprosthesis, mild MR 11/08/24 TTE showed technically difficult study due to patient not be able to lie on left side due to fractured ribs. Normal left ventricular size and function. Grade 1 diastolic dysfunction, approximate EF is 50 to 55%. Right ventricle normal in size and systolic function. Aortic valve sclerosis without stenosis. Normal AV bioprosthesis, trace mitral and trace tricuspid regurgitation Plan: ? Strict in and out ? Continue home medication aspirin 81 mg p.o. daily ? Continue Plavix 75 mg p.o. daily - Patient needs to be on goal-directed medical therapy if patient has systolic dysfunction with the low ejection fraction and will need to be on ARB or DALLAS inhibitors or Entresto and beta-haydee. Ideally prefer Entresto and beta- haydee and eventually needs to be on spironolactone if BP permissible. ? Telemetry for cardiac monitoring #UTI Urine culture from his previous visit on 04 November 2024 grew Proteus Mirabella's. Plan ? Patient was started on cephalexin 500 mg 3 times daily p.o. #History of Parkinson's disease #History of vertigo #History of meningioma status post radiation Patient was recently diagnosed with Parkinson's disease. Could play a role in his labile blood pressure Plan ? Follow-up with the neurologist recommendations #History of type 2 diabetes mellitus 11/08/2024 A1c 6.9. Is on metformin 500 mg BID at home. Plan ? SSI in place #History of BPH status post surgical resection Plan ? We will hold his tamsulosin due to the labile blood pressure, will do bladder scan every 4-6 hours, with straight cath if needed Patient's plan and care discussed with my attending, Dr. Chanelle Quick, DO Internal Medicine PGY-1 Attending Provider Attestation/Addendum I have personally seen and examined the patient separately on the above date of service and discussed the plan of care with the resident. I reviewed the resident Dr. Zully Quick consultation progress note and agree with the resident findings and plan in the note above and have also edited the documentation to reflect my findings and plan. Clint Roca M.D. Interventional Cardiology
[2024-11-09] MEDS: ONDANSETRON INJ 2 MG/ML INJ 2 ML 4 MG IVP (11:25)
[2024-11-09] MEDS: SODIUM CHLORIDE 0.45 % 1,000 ML 80 ML IV (12:26)
--- NOTE | 2024-11-09 14:32 | PD.RESPRO ---
Documentation for date of: 11/09/24 Subjective Subjective Interval history: Patient examined at bedside today. No acute overnight events. Patient reports that he is feeling a bit tired more than usual, and has been sleeping all day. He says that he had tried to primidone at an increased dose yesterday, however he woke up very nauseous today. He says that his primary doctor had wanted him to stay on the primidone 50 mg at that time. No other complaints at this time. Exam Vital Signs Temp Pulse Resp BP Pulse Ox O2 Del Method O2 Flow Rate 96.9 F 63 20 130/79 94 L Nasal Cannula 1 11/09/24 12:00 11/09/24 12:00 11/09/24 12:00 11/09/24 12:00 11/09/24 12:00 11/09/24 12:00 11/09/24 12:00 Narrative Exam General: AAOx3, NAD, elderly male HEENT: Moist mucous membranes, conjunctiva clear, EOMI, PERRLA, Cardiovascular: S1, S2, radial pulses +2 bilat, RRR Pulmonary: CTAB bilat no cough, no wheezing GI: No tenderness to light or deep palpitation, no guarding, rigidity, rebound tenderness or distension Extremities: No presence of trace or pitting edema in lower extremities bilaterally, dorsalis pedis pulses +2 bilaterally Neuro: AAOx3, strength in upper extremities and lower extremities 5 out of 5, resting tremor noted in both hands bilaterally Psych: Good judgement, thought and behavior Objective Labs 11/12/24 08:26 11/12/24 08:26 Labs: Laboratory Results - last 24 hr 11/09/24 04:20 WBC 9.2 RBC 5.12 Hgb 14.8 Hct 46.2 MCV 90 MCH 28.9 MCHC 32.0 RDW Std Deviation 46.4 H Plt Count 210 Neut % (Auto) 68 Lymph % (Auto) 16 Jenkins % (Auto) 13 H Eos % (Auto) 3 Baso % (Auto) 0 Neut # (Auto) 6.2 Lymph # (Auto) 1.5 Jenkins # (Auto) 1.2 H Eos # (Auto) 0.3 Baso # (Auto) 0.0 Immature Gran # (Auto) 0.02 H Absolute Nucleated RBC 0.00 Immature Gran % 0 Nucleated RBC % 0 Sodium 140 Potassium 4.3 D Chloride 105 Carbon Dioxide 26.7 Anion Gap 8 BUN 10 Creatinine 0.8 Estim Creat Clear Calc 73.6 eGFR > 60 BUN/Creatinine Ratio 13 Glucose 200 H Calculated Osmolality 284 Calcium 10.0 Corrected Calcium 10.0 Phosphorus 2.2 L Magnesium 2.2 Total Bilirubin 0.4 AST 29 ALT 33 Alkaline Phosphatase 64 Total Protein 6.9 Albumin 4.1 Globulin 2.8 Albumin/Globulin Ratio 1.5 Quality Measures Quality Measures VTE prophylaxis Advance care planning discussed with:: patient Assessment & Plan Assessment Current Active Medications: Generic Name Dose Route Start Last Admin Trade Name Freq PRN Reason Stop Dose Admin Acetaminophen 650 mg 11/07/24 13:43 Acetaminophen 325 Mg Tablet PO 12/07/24 13:42 Q6H PRN Fever >101.5 Aspirin 81 mg 11/06/24 09:00 11/09/24 07:59 Aspirin Ec 81 Mg Tabec PO 12/06/24 08:59 81 mg DAILY PORFIRIO Administration Atorvastatin Calcium 20 mg 11/08/24 21:00 11/08/24 21:10 Atorvastatin Calcium 20 Mg Tablet PO 12/08/24 20:59 20 mg HS PORFIRIO Administration Bisacodyl 10 mg 11/07/24 13:43 11/09/24 13:33 Bisacodyl 5 Mg Tabec PO 12/07/24 13:42 10 mg QDAY PRN Administration CONSTIPATION Bisacodyl 10 mg 11/07/24 13:43 Bisacodyl 10 Mg Supp CA 12/07/24 13:42 QDAY PRN CONSTIPATION Cephalexin HCl 500 mg 11/07/24 17:00 11/09/24 11:14 Cephalexin 250 Mg Capsule PO 11/14/24 16:59 500 mg QID PORFIRIO Administration Clopidogrel Bisulfate 75 mg 11/06/24 21:00 11/08/24 21:10 Clopidogrel Bisulfate 75 Mg Tablet PO 12/06/24 20:59 75 mg QPM PORFIRIO Administration Dextrose 25 ml 11/07/24 15:53 Dextrose 50%-Water Inj 50 Ml Syringe IV 12/07/24 15:52 Q15MIN PRN BG 50-70 responsive npo pt Dextrose 50 ml 11/07/24 15:53 Dextrose 50%-Water Inj 50 Ml Syringe IV 12/07/24 15:52 Q15MIN PRN BG <50 OR BG <70 & pt unresponsive Famotidine 20 mg 11/07/24 14:07 Famotidine 20 Mg Tablet PO 12/07/24 14:06 BID PRN HEARTBURN Glucagon 1 mg 11/07/24 14:29 Glucagon Inj 1 Mg Vial IM Q15MIN PRN BG <70, and no IV access Hydralazine HCl 25 mg 11/07/24 15:06 Hydralazine Hcl 25 Mg Tablet PO 12/07/24 15:14 TID PRN SBP > 190mmHg Sodium Chloride 1,000 mls @ 80 mls/hr 11/09/24 11:20 11/09/24 12:26 Ns 0.45% IV 12/09/24 11:19 80 mls/hr .[id number] PORFIRIO Administration Insulin Human Lispro 0 unit 11/07/24 17:00 11/09/24 11:16 Insulin Lispro (Admelog) 1 Unit/0.01 Ml Unit SC 12/07/24 16:59 Not Given AC [facility] Protocol Metformin HCl 500 mg 11/09/24 07:30 11/09/24 07:59 Metformin 500 Mg Tablet PO 12/09/24 07:29 500 mg BIDAC PORFIRIO Administration Metoprolol Succinate 100 mg 11/09/24 05:20 11/09/24 05:48 Metoprolol Succinate Xl 25 Mg Tabcr PO 12/09/24 05:19 100 mg QDAY PORFIRIO Administration Ondansetron HCl 4 mg 11/07/24 13:43 11/09/24 11:25 Ondansetron Inj 2 Mg/Ml Inj 2 Ml IVP 12/07/24 13:42 4 mg Q6H PRN Administration NAUSEA OR VOMITING Pantoprazole Sodium 40 mg 11/08/24 09:00 11/09/24 07:59 Pantoprazole 40 Mg Tablet PO 12/08/24 08:59 40 mg QDAY PORFIRIO Administration Primidone 50 mg 11/10/24 09:00 Primidone 50 Mg Tablet PO 11/15/24 08:59 QDAY PORFIRIO Sacubitril/Valsartan 2 tab 11/09/24 21:00 Sacubitril 24 Mg/Valsartan 26 Mg Tablet PO 12/09/24 20:59 BID PORFIRIO Sertraline HCl 25 mg 11/06/24 09:00 11/09/24 07:59 Sertraline Hcl 25 Mg Tablet PO 12/06/24 08:59 25 mg QDAY PORFIRIO Administration Tamsulosin HCl 0.4 mg 11/08/24 08:50 11/09/24 07:59 Tamsulosin Hcl 0.4 Mg Capsule PO 12/08/24 08:49 0.4 mg QDAY PORFIRIO Administration Plan Assessment: Julio is a 84-year-old male patient with past medical history of CAD status post CABG 2010, aortic stenosis status post surgical aortic valve replacement 2010, HFrEF with ejection fraction of 40 to 45% in February 2023 persistent vertigo, diabetes mellitus type 2, hypertension, Parkinson's, meningioma s/p surgical intervention in 2013, followed by radiation 2 weeks ago at [facility], BPH status post surgical resection 7 years ago who was brought to the ED on 04 November 2024 after he was found to have severe lethargy. Found to have emergency hypertension, however associated with labile blood pressure. #Acute encephalopathy #Essential tremors #History of vertigo #History of meningioma status post radiation Patient's mentation could have been altered due to infectious source or hypertensive encephalopathy Patient at this time does not meet requirements for clinical diagnosis of Parkinson's, rather has diagnosis of essential tremors Patient seems to be back to baseline at this time Patient is not taking any steroids for meningioma and recently had radiation done Plan: ? Treat underlying urine infection ? Correct patient's blood pressure to normotensive ? Recommend Primidone 125 mg by mouth twice daily ? Continue with physical therapy #History of type 2 diabetes mellitus #History of BPH status post surgical resection #Hypertensive urgency #First-degree heart block #History of CAD status post CABG 2010 #Aortic stenosis status post surgical aortic valve replacement 2010 #HFrEF with ejection fraction of 40 to 45% in February 2023 #UTI Above handled by primary hospitalist team Patient seen and care discussed with my attending physician, Dr. Jessi Gonzales, PGY-2 This document was transcribed using voice recognition technology. Minor inaccuracies may be present. Attending Provider Attestation/Addendum I personally have seen and examined the patient at the bedside and agree with resident's findings, assessment and plan of care. Patient is neurologically stable with exception of generalized weakness and persistent essential tremor. Patient is advised to try primidone 50 mg x 1 or 2 at night to prevent the side effects of somnolence in the daytime. See him back in 1 to 2 weeks after discharge from [facility].
--- NOTE | 2024-11-09 15:22 | PC.SS ---
Dr. Ann contacted , addressing the discharge plan. SS updated Dr. Ann and informed her that the patient can be discharged tomorrow, 11/10/2024, after three midnights. Dr. Ann verbalized understanding. SS contacted the patient's sister, Sonam, to provide her with a list of accepting SNFs. Per Sonam, she prefers [facility]. SS completed the [facility] booking process and verified with Amelia that the patient has been accepted to their facility. Discharge plan: [facility]
--- NOTE | 2024-11-09 15:48 | PC.NURSE ---
Called Dr. Olson and made aware of pt. manual BP 145/82. aware pt. reports pain with urination and dark urine. orders UA with C/S
[2024-11-09 16:51] LABS: Collection Type, Urine Clean Catch
[2024-11-09 17:38] LABS: Bacteria,Urine Rare; Bilirubin,Urine Negative (Negative); Blood,Urine Negative (Negative); Clarity,Urine Clear (Clear/Hazy); Color,Urine Yellow (Lt Yel-Yel); Culture Indicated,Urine Not Indicated; Glucose, Urine Negative (Negative); Hyaline Casts,Urine < 1 /hpf (0-1); Ketones,Urine Negative (Negative); Leukocyte Esterase,Urine Negative (Negative); Nitrite,Urine Negative (Negative); PH,Urine 5.5 (5.0-7.0); Protein,Urine Trace (Neg - Trace); RBC,Urine 1 /hpf (0-3); Specific Gravity,Urine 1.024 (1.001-1.035); Squamous Epithelial Cell,Urine 1 /hpf (0-5); Urobilinogen,Urine 2.0 mg/dL (0.0-1.0); WBC,Urine 2 /hpf (0-5)
[2024-11-09] MEDS: ATORVASTATIN CALCIUM 20 MG TABLET PO (21:08)
[2024-11-09] MEDS: CLOPIDOGREL BISULFATE 75 MG TABLET PO (21:08)
[2024-11-09] MEDS: PRIMIDONE 50 MG TABLET 75 MG PO (22:53)
[2024-11-10] VITALS (15 sets, daily range): BP systolic 116–146; BP diastolic 72–86; PULSE 65–95; RESP 15–20; TEMP 35.9–36.6; O2SAT 91–97; BMI 28.5; BMI 11.0
[2024-11-10] MEDS: SODIUM CHLORIDE 0.45 % 1,000 ML 80 ML IV (00:47)
[2024-11-10 06:00] LABS: Basophils # (Auto) 0.0 Thou/mm3 (0.0-0.2); Basophils % (Auto) 0 % (0-2.5); Eosinophils # (Auto) 0.2 Thou/mm3 (0.0-0.5); Eosinophils % (Auto) 3 % (0-10); Hematocrit 45.4 % (41.0-53.0); Hemoglobin 14.2 g/dL (13.5-16.0); Immature Granulocytes Auto 0.02 Thou/mm3 (0.00-0.00); Lymphocytes # (Auto) 1.5 Thou/mm3 (1.0-4.8); Lymphocytes % (Auto) 16 % (10-50); Mean Corpuscular HGB Conc 31.3 g/dl (31.0-37.0); Mean Corpuscular Hemoglobin 28.3 pg (25.0-35.0); Mean Corpuscular Volume 90 fL (80-100); Monocytes # (Auto) 1.1 Thou/mm3 (0.0-0.8); Monocytes % (Auto) 12 % (0-12); Neutrophils # (Auto) 6.1 Thou/mm3 (1.8-7.7); Neutrophils % (Auto) 69 % (37-80); Nucleated Red Blood Cell # 0.00 Thou/mm3 (0.00-0.00); Nucleated Red Blood Cell % 0 /100 WBC (0); Platelet Count 231 Thou/mm3 (140-440); RDW Standard Deviation 46.1 fL (35.1-43.9); Red Blood Count 5.02 Miln/mm3 (4.50-5.90); White Blood Count 8.9 Thou/mm3 (3.8-10.6)
[2024-11-10 06:47] LABS: Alanine Aminotransferase 27 U/L (10-49); Albumin, Serum 3.8 gm/dL (3.4-4.8); Albumin/Globulin Ratio 1.5 (1.2-2.2); Alkaline Phosphatase 54 U/L (46-116); Anion Gap 8 (7-16); Aspartate Amino Transferase 18 U/L (0-34); BUN/Creatinine Ratio 13 Ratio (12-20); Bilirubin,Total 0.9 mg/dL (0.3-1.2); Blood Urea Nitrogen 12 mg/dL (9-23); Calcium 10.1 mg/dL (8.3-10.6); Calcium (Corrected) 10.3 mg/dL (8.5-10.1); Carbon Dioxide 27.9 mMol/L (20.0-31.0); Chloride 102 mMol/L (98-107); Creatinine (Component) 0.9 mg/dL (0.6-1.3); Estimated Creatinine Clearance 63.9 mL/min (>60); Globulin 2.5 gm/dL (2.3-3.5); Glucose 139 mg/dL (74-106); Magnesium 1.7 mg/dL (1.6-2.6); Osmolality,Calculated 277 (275-295); Phosphorous 3.2 mg/dL (2.4-5.1); Potassium 4.7 mMol/L (3.4-5.1); Sodium 138 mMol/L (136-145); Total Protein 6.3 gm/dL (5.7-8.2); eGFR > 60 See Note
[2024-11-10] MEDS: INSULIN LISPRO (AdmeLOG) 1 UNIT/0.01 ML UNIT SC (07:45)
--- NOTE | 2024-11-10 09:20 | PD.RESPRO ---
Documentation for date of: 11/10/24 Subjective Subjective Interval history: Patient seen examined at bedside. Telemetry reviewed, no arrhythmias noted. Patient's blood pressure is currently 141/72, ranges 130-140 over 80s. Heart rate 70s. Patient is feeling extremely fatigued and weak today however per at bedside this is patient's baseline. Patient still endorses baseline shortness of breath although saturating 96% on 1 L. Trial of room air done, patient saturated 90 to 94%. Per , has been recently approved for home oxygen at night. Patient is to be discharged to rehab. Patient denies chest pain, chest pressure, dizziness or palpitations. Potassium 4.7, creatinine 0.5, calcium 10.3. Magnesium 1.7 and repleted with 4 g IV. Exam Vital Signs Temp Pulse Resp BP Pulse Ox O2 Del Method O2 Flow Rate 97.0 F 68 16 141/72 H 93 L Nasal Cannula 1 11/10/24 08:00 11/10/24 08:00 11/10/24 08:00 11/10/24 08:00 11/10/24 08:00 11/10/24 08:00 11/10/24 08:00 Narrative Exam GENERAL: AOx3, no acute distress, lying comfortably HEENT: NC/AT, mucous membranes moist, bilateral sclera anicteric CARDIOVASCULAR: regular rate and rhythm, S1/S2 present, 2/6 systolic murmur PULMONARY: clear to auscultation bilaterally, no rales/rhonchi/wheezes ABDOMINAL: soft, non-tender, non-distended, no rebound/guarding, bowel sounds present EXTREMITIES: no peripheral edema SKIN: warm and dry, intact, no rashes, +actinic keratoses on head with scab NEURO: CN II-XII grossly intact, no focal deficits, alert, following commands Objective Labs 11/10/24 05:15 11/10/24 05:15 Labs: Laboratory Results - last 24 hr 11/09/24 11/10/24 15:41 05:15 WBC 8.9 RBC 5.02 Hgb 14.2 Hct 45.4 MCV 90 MCH 28.3 MCHC 31.3 RDW Std Deviation 46.1 H Plt Count 231 Neut % (Auto) 69 Lymph % (Auto) 16 Parker % (Auto) 12 Eos % (Auto) 3 Baso % (Auto) 0 Neut # (Auto) 6.1 Lymph # (Auto) 1.5 Parker # (Auto) 1.1 H Eos # (Auto) 0.2 Baso # (Auto) 0.0 Immature Gran # (Auto) 0.02 H Absolute Nucleated RBC 0.00 Immature Gran % 0 Nucleated RBC % 0 Sodium 138 Potassium 4.7 Chloride 102 Carbon Dioxide 27.9 Anion Gap 8 BUN 12 Creatinine 0.9 Estim Creat Clear Calc 63.9 eGFR > 60 BUN/Creatinine Ratio 13 Glucose 139 H D Calculated Osmolality 277 Calcium 10.1 Corrected Calcium 10.3 H Phosphorus 3.2 Magnesium 1.7 Total Bilirubin 0.9 D AST 18 ALT 27 Alkaline Phosphatase 54 Total Protein 6.3 Albumin 3.8 Globulin 2.5 Albumin/Globulin Ratio 1.5 Ur Collection Type Clean Catch Urine Color Yellow Urine Clarity Clear Urine pH 5.5 Ur Specific [place] 1.024 Urine Protein Trace Urine Glucose (UA) Negative Urine Ketones Negative Urine Blood Negative Urine Nitrite Negative Urine Bilirubin Negative Urine Urobilinogen (Auto) 2.0 Ur Leukocyte Esterase Negative Urine RBC 1 Urine WBC 2 Ur Squamous Epith Cells 1 Urine Bacteria Rare Hyaline Casts < 1 Ur Culture Indicated? Not Indicated Quality Measures Quality Measures VTE prophylaxis Advance care planning discussed with:: patient Assessment & Plan Assessment Current Active Medications: Generic Name Dose Route Start Last Admin Trade Name Freq PRN Reason Stop Dose Admin Acetaminophen 650 mg 11/07/24 13:43 Acetaminophen 325 Mg Tablet PO 12/07/24 13:42 Q6H PRN Fever >101.5 Aspirin 81 mg 11/06/24 09:00 11/09/24 07:59 Aspirin Ec 81 Mg Tabec PO 12/06/24 08:59 81 mg DAILY PORFIRIO Administration Atorvastatin Calcium 20 mg 11/08/24 21:00 11/09/24 21:08 Atorvastatin Calcium 20 Mg Tablet PO 12/08/24 20:59 20 mg HS PORFRIIO Administration Bisacodyl 10 mg 11/07/24 13:43 11/09/24 13:33 Bisacodyl 5 Mg Tabec PO 12/07/24 13:42 10 mg QDAY PRN Administration CONSTIPATION Bisacodyl 10 mg 11/07/24 13:43 Bisacodyl 10 Mg Supp PA 12/07/24 13:42 QDAY PRN CONSTIPATION Cephalexin HCl 500 mg 11/07/24 17:00 11/10/24 06:00 Cephalexin 250 Mg Capsule PO 11/14/24 16:59 500 mg QID PORFIRIO Administration Clopidogrel Bisulfate 75 mg 11/06/24 21:00 11/09/24 21:08 Clopidogrel Bisulfate 75 Mg Tablet PO 12/06/24 20:59 75 mg QPM PORFIRIO Administration Dextrose 25 ml 11/07/24 15:53 Dextrose 50%-Water Inj 50 Ml Syringe IV 12/07/24 15:52 Q15MIN PRN BG 50-70 responsive npo pt Dextrose 50 ml 11/07/24 15:53 Dextrose 50%-Water Inj 50 Ml Syringe IV 12/07/24 15:52 Q15MIN PRN BG <50 OR BG <70 & pt unresponsive Famotidine 20 mg 11/07/24 14:07 Famotidine 20 Mg Tablet PO 12/07/24 14:06 BID PRN HEARTBURN Glucagon 1 mg 11/07/24 14:29 Glucagon Inj 1 Mg Vial IM Q15MIN PRN BG <70, and no IV access Hydralazine HCl 25 mg 11/07/24 15:06 Hydralazine Hcl 25 Mg Tablet PO 12/07/24 15:14 TID PRN SBP > 190mmHg Sodium Chloride 1,000 mls @ 80 mls/hr 11/09/24 11:20 11/10/24 00:47 Ns 0.45% IV 12/09/24 11:19 80 mls/hr .[id number] PORFIRIO Administration Magnesium Sulfate 4 gm in 50 mls @ 12.5 mls/hr 11/10/24 08:10 Magnesium Sulfate Ivpb IV 11/10/24 12:09 X1 ONE Insulin Human Lispro 0 unit 11/07/24 17:00 11/10/24 07:45 Insulin Lispro (Admelog) 1 Unit/0.01 Ml Unit SC 12/07/24 16:59 1 unit AC PORFIRIO Administration Protocol Metformin HCl 500 mg 11/09/24 07:30 11/10/24 07:46 Metformin 500 Mg Tablet PO 12/09/24 07:29 500 mg BIDAC PORFIRIO Administration Metoprolol Succinate 100 mg 11/09/24 05:20 11/09/24 05:48 Metoprolol Succinate Xl 25 Mg Tabcr PO 12/09/24 05:19 100 mg QDAY PORFIRIO Administration Ondansetron HCl 4 mg 11/07/24 13:43 11/09/24 11:25 Ondansetron Inj 2 Mg/Ml Inj 2 Ml IVP 12/07/24 13:42 4 mg Q6H PRN Administration NAUSEA OR VOMITING Pantoprazole Sodium 40 mg 11/08/24 09:00 11/09/24 07:59 Pantoprazole 40 Mg Tablet PO 12/08/24 08:59 40 mg QDAY PORFIRIO Administration Primidone 75 mg 11/09/24 22:03 11/09/24 22:53 Primidone 50 Mg Tablet PO 11/10/24 21:00 75 mg QDAY PORFIRIO Administration Sacubitril/Valsartan 2 tab 11/09/24 21:00 11/09/24 21:08 Sacubitril 24 Mg/Valsartan 26 Mg Tablet PO 12/09/24 20:59 2 tab BID PORFIRIO Administration Sertraline HCl 25 mg 11/06/24 09:00 11/09/24 07:59 Sertraline Hcl 25 Mg Tablet PO 12/06/24 08:59 25 mg QDAY PORFIRIO Administration Tamsulosin HCl 0.4 mg 11/08/24 08:50 11/09/24 07:59 Tamsulosin Hcl 0.4 Mg Capsule PO 12/08/24 08:49 0.4 mg QDAY PORFIRIO Administration Plan Summary:An 84-year-old male patient with past medical history of CAD status post CABG 2010, aortic stenosis status post surgical aortic valve replacement 2010, HFrEF with ejection fraction of 40 to 45% in February 2023 persistent vertigo, diabetes mellitus type 2, hypertension, Parkinson's, meningioma s/p surgical intervention in 2013, followed by radiation 2 weeks ago at [facility], BPH status post surgical resection 7 years ago who was brought to the ED on 04 November 2024 after he was found to have severe lethargy. Found to have emergency hypertension, however associated with labile blood pressure. 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 Blood pressure manually taken on the left upper extremity, there was auscultatory gap noted. First Korotkoff sounds appeared at 180 mmHg, then disappeared at 150 and reappeared at 140 mmHg and finally disappeared at 90 mmHg. It was confirmed by the palpatory method. So the patient's actual blood pressure at the time of examination is 180/90. EKG showed conduction delay, first-degree heart block. 11/08/24 renal artery duplex showed no sonographic findings of renal artery stenosis Plan - Continue metoprolol XL 100 mg once daily as patient does have history of mild systolic congestive heart failure. If heart rate is low and the blood pressure is elevated then patient can be changed to Coreg - Continue Entresto 49/51 mg BID as patient does have mild systolic congestive heart failure - Hold amlodipine for now as patient does have history of labile blood pressure and patient needs to be on beta-haydee as well as ARB or DALLAS or Entresto for systolic congestive heart failure. - Stop clonidine completely as there is increased risk of rebound hypertension with the clonidine and none of the regular antihypertensive medications have been maximized ? IV hydralazine prn as needed if SBP > 180 mmhg ? Nursing order to only measure blood pressure on the left arm using manual sphygmomanometer to avoid artifact and the auscultatory gap ? Continue compression socks -30 to 40 mmHg thigh length compression ? Orthostatic vitals daily for now ? Consider Holding tamsulosin, patient reported that he does not have any urinary bladder symptoms. Will do bladder scan every 8 hours with straight cath if needed ? Vital signs every 4 hours - Patient cleared from cardiology perspective as BP is now under control on current medication regimen #History of CAD status post CABG 2010 #Aortic stenosis status post surgical aortic valve replacement 2010 #HFpEF (50-55%, 10/2024) Patient has extensive cardiac history, his follow-up with the [facility] intern Dr. Tavarez however he was unavailable at this time. Patient on aspirin and Plavix at home, however he is not on any diuretics. BNP 48, troponins negative. 03/14/23 TTE showed normal LV size, mild systolic dysfunction, hypokinesis of the wall, estimated EF 40 to 45%, normal RV size, mild systolic dysfunction, normal AV bioprosthesis, mild MR 11/08/24 TTE showed technically difficult study due to patient not be able to lie on left side due to fractured ribs. Normal left ventricular size and function. Grade 1 diastolic dysfunction, approximate EF is 50 to 55%. Right ventricle normal in size and systolic function. Aortic valve sclerosis without stenosis. Normal AV bioprosthesis, trace mitral and trace tricuspid regurgitation Plan: ? Strict in and out ? Continue home medication aspirin 81 mg p.o. daily ? Continue Plavix 75 mg p.o. daily - Patient needs to be on goal-directed medical therapy if patient has systolic dysfunction with the low ejection fraction and will need to be on ARB or DALLAS inhibitors or Entresto and beta-haydee. Ideally prefer Entresto and beta-haydee and eventually needs to be on spironolactone if BP permissible. ? Telemetry for cardiac monitoring #UTI, Proteus mirabilis Urine culture from his previous visit on 04 November 2024 grew Proteus mirabilis Plan ? Patient was started on cephalexin 500 mg 3 times daily p.o. #History of Parkinson's disease #History of vertigo #History of meningioma status post radiation Patient was recently diagnosed with Parkinson's disease. Could play a role in his labile blood pressure Plan ? Follow-up with the neurologist recommendations #History of type 2 diabetes mellitus 11/08/2024 A1c 6.9. Is on metformin 500 mg BID at home. Plan ? SSI in place #History of BPH status post surgical resection Plan ? Continue tamsulosin Patient's plan and care discussed with my attending, Dr. Chanelle Quick, DO Internal Medicine PGY-1 Attending Provider Attestation/Addendum I have personally seen and examined the patient separately on the above date of service and discussed the plan of care with the resident. I reviewed the resident Dr. Benavidez consultation progress note and agree with the resident findings and plan in the note above and have also edited the documentation to reflect my findings and plan. Clint Roca M.D. Interventional Cardiology
--- NOTE | 2024-11-10 09:39 | PC.SS ---
PASSR closed online. Submitted PASSR on file exchange to [facility].
[2024-11-10] MEDS: METOPROLOL SUCCINATE XL 25 MG TABCR 100 MG PO (09:40)
[2024-11-10] MEDS: Magnesium Sulfate 4 GM Ivpb 4 GM/50 ML BAG IV (09:41)
[2024-11-10] MEDS: TAMSULOSIN HCL 0.4 MG CAPSULE PO (09:41)
[2024-11-10] MEDS: ASPIRIN EC 81 MG TABEC PO (09:41)
[2024-11-10] MEDS: PANTOPRAZOLE 40 MG TABLET PO (09:41)
[2024-11-10] MEDS: SERTRALINE HCL 25 MG TABLET PO (09:41)
[2024-11-10] MEDS: PRIMIDONE 50 MG TABLET 75 MG PO (09:43)
--- NOTE | 2024-11-10 11:16 | PD.RESPRO ---
Documentation for date of: 11/10/24 Subjective Subjective Interval history: Pt examined at bedside today. No acute overnight events. Patient reports his tremors are the same at this point. He is wondering when to go home. He says that he is going to work with physical therapy today. No other complaints at this time. Exam Vital Signs Temp Pulse Resp BP Pulse Ox O2 Del Method O2 Flow Rate 97.0 F 68 16 141/72 H 93 L Nasal Cannula 1 11/10/24 08:00 11/10/24 09:40 11/10/24 08:00 11/10/24 09:40 11/10/24 08:00 11/10/24 08:00 11/10/24 08:00 Narrative Exam General: AAOx3, NAD, elderly male HEENT: Moist mucous membranes, conjunctiva clear, EOMI, PERRLA, Cardiovascular: S1, S2, radial pulses +2 bilat, RRR Pulmonary: CTAB bilat no cough, no wheezing GI: No tenderness to light or deep palpitation, no guarding, rigidity, rebound tenderness or distension Extremities: No presence of trace or pitting edema in lower extremities bilaterally, dorsalis pedis pulses +2 bilaterally Neuro: AAOx3, strength in upper extremities and lower extremities 5 out of 5, resting tremor noted in both hands bilaterally Psych: Good judgement, thought and behavior Objective Labs 11/11/24 04:35 11/11/24 04:35 Labs: Laboratory Results - last 24 hr 11/09/24 11/10/24 15:41 05:15 WBC 8.9 RBC 5.02 Hgb 14.2 Hct 45.4 MCV 90 MCH 28.3 MCHC 31.3 RDW Std Deviation 46.1 H Plt Count 231 Neut % (Auto) 69 Lymph % (Auto) 16 [place] % (Auto) 12 Eos % (Auto) 3 Baso % (Auto) 0 Neut # (Auto) 6.1 Lymph # (Auto) 1.5 [place] # (Auto) 1.1 H Eos # (Auto) 0.2 Baso # (Auto) 0.0 Immature Gran # (Auto) 0.02 H Absolute Nucleated RBC 0.00 Immature Gran % 0 Nucleated RBC % 0 Sodium 138 Potassium 4.7 Chloride 102 Carbon Dioxide 27.9 Anion Gap 8 BUN 12 Creatinine 0.9 Estim Creat Clear Calc 63.9 eGFR > 60 BUN/Creatinine Ratio 13 Glucose 139 H D Calculated Osmolality 277 Calcium 10.1 Corrected Calcium 10.3 H Phosphorus 3.2 Magnesium 1.7 Total Bilirubin 0.9 D AST 18 ALT 27 Alkaline Phosphatase 54 Total Protein 6.3 Albumin 3.8 Globulin 2.5 Albumin/Globulin Ratio 1.5 Ur Collection Type Clean Catch Urine Color Yellow Urine Clarity Clear Urine pH 5.5 Ur Specific [place] 1.024 Urine Protein Trace Urine Glucose (UA) Negative Urine Ketones Negative Urine Blood Negative Urine Nitrite Negative Urine Bilirubin Negative Urine Urobilinogen (Auto) 2.0 Ur Leukocyte Esterase Negative Urine RBC 1 Urine WBC 2 Ur Squamous Epith Cells 1 Urine Bacteria Rare Hyaline Casts < 1 Ur Culture Indicated? Not Indicated Quality Measures Quality Measures VTE prophylaxis Advance care planning discussed with:: patient Assessment & Plan Assessment Current Active Medications: Generic Name Dose Route Start Last Admin Trade Name Freq PRN Reason Stop Dose Admin Acetaminophen 650 mg 11/07/24 13:43 Acetaminophen 325 Mg Tablet PO 12/07/24 13:42 Q6H PRN Fever >101.5 Aspirin 81 mg 11/06/24 09:00 11/10/24 09:41 Aspirin Ec 81 Mg Tabec PO 12/06/24 08:59 81 mg DAILY PORFIRIO Administration Atorvastatin Calcium 20 mg 11/08/24 21:00 11/09/24 21:08 Atorvastatin Calcium 20 Mg Tablet PO 12/08/24 20:59 20 mg HS PORFIRIO Administration Bisacodyl 10 mg 11/07/24 13:43 11/09/24 13:33 Bisacodyl 5 Mg Tabec PO 12/07/24 13:42 10 mg QDAY PRN Administration CONSTIPATION Bisacodyl 10 mg 11/07/24 13:43 Bisacodyl 10 Mg Supp [place] 12/07/24 13:42 QDAY PRN CONSTIPATION Cephalexin HCl 500 mg 11/07/24 17:00 11/10/24 06:00 Cephalexin 250 Mg Capsule PO 11/14/24 16:59 500 mg QID PORFIRIO Administration Clopidogrel Bisulfate 75 mg 11/06/24 21:00 11/09/24 21:08 Clopidogrel Bisulfate 75 Mg Tablet PO 12/06/24 20:59 75 mg QPM PORFIRIO Administration Dextrose 25 ml 11/07/24 15:53 Dextrose 50%-Water Inj 50 Ml Syringe IV 12/07/24 15:52 Q15MIN PRN BG 50-70 responsive npo pt Dextrose 50 ml 11/07/24 15:53 Dextrose 50%-Water Inj 50 Ml Syringe IV 12/07/24 15:52 Q15MIN PRN BG <50 OR BG <70 & pt unresponsive Famotidine 20 mg 11/07/24 14:07 Famotidine 20 Mg Tablet PO 12/07/24 14:06 BID PRN HEARTBURN Glucagon 1 mg 11/07/24 14:29 Glucagon Inj 1 Mg Vial IM Q15MIN PRN BG <70, and no IV access Hydralazine HCl 25 mg 11/07/24 15:06 Hydralazine Hcl 25 Mg Tablet PO 12/07/24 15:14 TID PRN SBP > 190mmHg Magnesium Sulfate 4 gm in 50 mls @ 12.5 mls/hr 11/10/24 08:10 11/10/24 09:41 Magnesium Sulfate Ivpb IV 11/10/24 12:09 12.5 mls/hr X1 ONE Administration Insulin Human Lispro 0 unit 11/07/24 17:00 11/10/24 07:45 Insulin Lispro (Admelog) 1 Unit/0.01 Ml Unit SC 12/07/24 16:59 1 unit AC PORFIRIO Administration Protocol Metformin HCl 500 mg 11/09/24 07:30 11/10/24 07:46 Metformin 500 Mg Tablet PO 12/09/24 07:29 500 mg BIDAC PORFIRIO Administration Metoprolol Succinate 100 mg 11/09/24 05:20 11/10/24 09:40 Metoprolol Succinate Xl 25 Mg Tabcr PO 12/09/24 05:19 100 mg QDAY PORFIRIO Administration Ondansetron HCl 4 mg 11/07/24 13:43 11/09/24 11:25 Ondansetron Inj 2 Mg/Ml Inj 2 Ml IVP 12/07/24 13:42 4 mg Q6H PRN Administration NAUSEA OR VOMITING Pantoprazole Sodium 40 mg 11/08/24 09:00 11/10/24 09:41 Pantoprazole 40 Mg Tablet PO 12/08/24 08:59 40 mg QDAY PORFIRIO Administration Primidone 75 mg 11/09/24 22:03 11/10/24 09:43 Primidone 50 Mg Tablet PO 11/10/24 21:00 75 mg QDAY PORFIRIO Administration Sacubitril/Valsartan 2 tab 11/09/24 21:00 11/10/24 09:40 Sacubitril 24 Mg/Valsartan 26 Mg Tablet PO 12/09/24 20:59 2 tab BID PORFIRIO Administration Sertraline HCl 25 mg 11/06/24 09:00 11/10/24 09:41 Sertraline Hcl 25 Mg Tablet PO 12/06/24 08:59 25 mg QDAY PORFIRIO Administration Tamsulosin HCl 0.4 mg 11/08/24 08:50 11/10/24 09:41 Tamsulosin Hcl 0.4 Mg Capsule PO 12/08/24 08:49 0.4 mg QDAY PORFIRIO Administration Plan Assessment: Julio is a 84-year-old male patient with past medical history of CAD status post CABG 2010, aortic stenosis status post surgical aortic valve replacement 2010, HFrEF with ejection fraction of 40 to 45% in February 2023 persistent vertigo, diabetes mellitus type 2, hypertension, Parkinson's, meningioma s/p surgical intervention in 2013, followed by radiation 2 weeks ago at [facility], BPH status post surgical resection 7 years ago who was brought to the ED on 04 November 2024 after he was found to have severe lethargy. Found to have emergency hypertension, however associated with labile blood pressure. #Acute encephalopathy #Essential tremors #History of vertigo #History of meningioma status post radiation Patient's mentation could have been altered due to infectious source or hypertensive encephalopathy Patient at this time does not meet requirements for clinical diagnosis of Parkinson's, rather has diagnosis of essential tremors Patient seems to be back to baseline at this time Patient is not taking any steroids for meningioma and recently had radiation done Plan: ? Treat underlying urine infection ? Correct patient's blood pressure to normotensive ? Will increase primidone outpatient ? Continue with physical therapy #History of type 2 diabetes mellitus #History of BPH status post surgical resection #Hypertensive urgency #First-degree heart block #History of CAD status post CABG 2010 #Aortic stenosis status post surgical aortic valve replacement 2010 #HFrEF with ejection fraction of 40 to 45% in February 2023 #UTI Above handled by primary hospitalist team Patient seen and care discussed with my attending physician, Dr. Jessi Gonzales, PGY-2 This document was transcribed using voice recognition technology. Minor inaccuracies may be present. Attending Provider Attestation/Addendum I personally have seen and examined the patient at the bedside and agreed with resident's findings, assessment and plan of care. As the patient could not tolerate higher dose of primidone we will keep him on 50 mg twice a day for now. Reassurance given to the patient that he does not have Parkinson's but will manage his essential tremor with slow titration of the medication as he tolerates as an outpatient. Patient is waiting for physical therapy inpatient approval from his insurance.
[2024-11-10 11:48] LABS: Calcium, Ionized 5.1 mg/dL (4.6-5.6)
[2024-11-10 12:28] LABS: Vitamin D 25 Hydroxy Total 15.6 ng/mL (7.3-40.2)
[2024-11-10 12:36] LABS: Parathyroid Hormone Intact 86.2 pg/ml (18.5-88.0)
--- NOTE | 2024-11-10 14:01 | PC.NURSE ---
Notified Dr Covington that patient had finished physical therapy as requested. stated she will put in DC orders today.
[2024-11-10] MEDS: CLOPIDOGREL BISULFATE 75 MG TABLET PO (20:17)
[2024-11-10] MEDS: ATORVASTATIN CALCIUM 20 MG TABLET PO (20:17)
--- NOTE | 2024-11-10 23:00 | PC.NURSE ---
Dr. Ann at bedside to assess patient, mentioned that patient's oxygen on room air was around 89-91, per doctor wants O2 above 92%, patient currently on 1L NC, no c/o SOB, difficulty breathing. per doctor will add oxygen to what patient needs for discharge.
[2024-11-11] VITALS (10 sets, daily range): BP systolic 104–144; BP diastolic 68–95; PULSE 63–78; RESP 16–29; TEMP 36–36.4; O2SAT 93–97; BMI 11.0
[2024-11-11 05:09] LABS: Basophils # (Auto) 0.0 Thou/mm3 (0.0-0.2); Basophils % (Auto) 0 % (0-2.5); Eosinophils # (Auto) 0.2 Thou/mm3 (0.0-0.5); Eosinophils % (Auto) 2 % (0-10); Hematocrit 44.5 % (41.0-53.0); Hemoglobin 14.1 g/dL (13.5-16.0); Immature Granulocytes Auto 0.03 Thou/mm3 (0.00-0.00); Lymphocytes # (Auto) 1.6 Thou/mm3 (1.0-4.8); Lymphocytes % (Auto) 18 % (10-50); Mean Corpuscular HGB Conc 31.7 g/dl (31.0-37.0); Mean Corpuscular Hemoglobin 28.5 pg (25.0-35.0); Mean Corpuscular Volume 90 fL (80-100); Monocytes # (Auto) 1.0 Thou/mm3 (0.0-0.8); Monocytes % (Auto) 12 % (0-12); Neutrophils # (Auto) 5.9 Thou/mm3 (1.8-7.7); Neutrophils % (Auto) 67 % (37-80); Nucleated Red Blood Cell # 0.00 Thou/mm3 (0.00-0.00); Nucleated Red Blood Cell % 0 /100 WBC (0); Platelet Count 255 Thou/mm3 (140-440); RDW Standard Deviation 45.3 fL (35.1-43.9); Red Blood Count 4.95 Miln/mm3 (4.50-5.90); White Blood Count 8.8 Thou/mm3 (3.8-10.6)
[2024-11-11 05:34] LABS: Alanine Aminotransferase 25 U/L (10-49); Albumin, Serum 3.8 gm/dL (3.4-4.8); Albumin/Globulin Ratio 1.5 (1.2-2.2); Alkaline Phosphatase 59 U/L (46-116); Anion Gap 8 (7-16); Aspartate Amino Transferase 17 U/L (0-34); BUN/Creatinine Ratio 20 Ratio (12-20); Bilirubin,Total 0.6 mg/dL (0.3-1.2); Blood Urea Nitrogen 18 mg/dL (9-23); Calcium 10.0 mg/dL (8.3-10.6); Calcium (Corrected) 10.2 mg/dL (8.5-10.1); Carbon Dioxide 28.7 mMol/L (20.0-31.0); Chloride 102 mMol/L (98-107); Creatinine (Component) 0.9 mg/dL (0.6-1.3); Estimated Creatinine Clearance 62.7 mL/min (>60); Globulin 2.5 gm/dL (2.3-3.5); Glucose 150 mg/dL (74-106); Magnesium 1.7 mg/dL (1.6-2.6); Osmolality,Calculated 282 (275-295); Phosphorous 2.8 mg/dL (2.4-5.1); Potassium 4.6 mMol/L (3.4-5.1); Sodium 139 mMol/L (136-145); Total Protein 6.3 gm/dL (5.7-8.2); eGFR > 60 See Note
[2024-11-11] MEDS: METOPROLOL SUCCINATE XL 25 MG TABCR 100 MG PO (08:10)
[2024-11-11] MEDS: Magnesium Sulfate 4 GM Ivpb 4 GM/50 ML BAG IV (08:10)
[2024-11-11] MEDS: PANTOPRAZOLE 40 MG TABLET PO (08:11)
[2024-11-11] MEDS: TAMSULOSIN HCL 0.4 MG CAPSULE PO (08:11)
[2024-11-11] MEDS: ASPIRIN EC 81 MG TABEC PO (08:12)
[2024-11-11] MEDS: SERTRALINE HCL 25 MG TABLET PO (08:12)
--- NOTE | 2024-11-11 09:31 | ESPR_ITS ---
Documentation for date of: 11/11/24 Subjective Subjective Interval history: Patient was seen and examined at bedside. Telemetry reviewed, no arrhythmias noted. BP 130-140/80s. HR 60-70s. Patient is less tired today, but still short of breath which he reports is his baseline. Satting at 93-95% on 1L O2. Denies chest pain, chest pressure, lightheadedness or palpitations. K 4.6, Cr 0.9. Mg 1.7, repleted 4g IV. Exam Vital Signs Temp Pulse Resp BP Pulse Ox O2 Del Method O2 Flow Rate 97.5 F 63 17 144/95 H 93 L Nasal Cannula 1 11/11/24 08:00 11/11/24 08:10 11/11/24 08:00 11/11/24 08:10 11/11/24 08:00 11/11/24 08:00 11/11/24 08:00 Narrative Exam GENERAL: AOx3, no acute distress, lying comfortably HEENT: NC/AT, mucous membranes moist, bilateral sclera anicteric CARDIOVASCULAR: regular rate and rhythm, S1/S2 present, 2/6 systolic murmur PULMONARY: clear to auscultation bilaterally, no rales/rhonchi/wheezes ABDOMINAL: soft, non-tender, non-distended, no rebound/guarding, bowel sounds present EXTREMITIES: no peripheral edema SKIN: warm and dry, intact, no rashes, +actinic keratoses on head with scab NEURO: CN II-XII grossly intact, no focal deficits, alert, following commands Objective Labs 11/12/24 08:26 11/12/24 08:26 Labs: Laboratory Results - last 24 hr 11/10/24 11/10/24 11/11/24 11:15 Unknown 04:35 WBC 8.8 RBC 4.95 Hgb 14.1 Hct 44.5 MCV 90 MCH 28.5 MCHC 31.7 RDW Std Deviation 45.3 H Plt Count 255 Neut % (Auto) 67 Lymph % (Auto) 18 [place] % (Auto) 12 Eos % (Auto) 2 Baso % (Auto) 0 Neut # (Auto) 5.9 Lymph # (Auto) 1.6 [place] # (Auto) 1.0 H Eos # (Auto) 0.2 Baso # (Auto) 0.0 Immature Gran # (Auto) 0.03 H Absolute Nucleated RBC 0.00 Immature Gran % 0 Nucleated RBC % 0 Sodium 139 Potassium 4.6 Chloride 102 Carbon Dioxide 28.7 Anion Gap 8 BUN 18 Creatinine 0.9 Estim Creat Clear Calc 62.7 eGFR > 60 BUN/Creatinine Ratio 20 Glucose 150 H Calculated Osmolality 282 Calcium 10.0 Corrected Calcium 10.2 H Ionized Calcium 5.1 Phosphorus 2.8 Magnesium 1.7 Total Bilirubin 0.6 AST 17 ALT 25 Alkaline Phosphatase 59 Total Protein 6.3 Albumin 3.8 Globulin 2.5 Albumin/Globulin Ratio 1.5 25-OH Vitamin D Total 15.6 PTH Intact 86.2 Quality Measures Quality Measures VTE prophylaxis Advance care planning discussed with:: patient Assessment & Plan Assessment Current Active Medications: Generic Name Dose Route Start Last Admin Trade Name Freq PRN Reason Stop Dose Admin Acetaminophen 650 mg 11/07/24 13:43 Acetaminophen 325 Mg Tablet PO 12/07/24 13:42 Q6H PRN Fever >101.5 Aspirin 81 mg 11/06/24 09:00 11/11/24 08:12 Aspirin Ec 81 Mg Tabec PO 12/06/24 08:59 81 mg DAILY PORFIRIO Administration Atorvastatin Calcium 20 mg 11/08/24 21:00 11/10/24 20:17 Atorvastatin Calcium 20 Mg Tablet PO 12/08/24 20:59 20 mg HS PORFIRIO Administration Bisacodyl 10 mg 11/07/24 13:43 11/11/24 05:40 Bisacodyl 5 Mg Tabec PO 12/07/24 13:42 10 mg QDAY PRN Administration CONSTIPATION Bisacodyl 10 mg 11/07/24 13:43 Bisacodyl 10 Mg Supp OR 12/07/24 13:42 QDAY PRN CONSTIPATION Cephalexin HCl 500 mg 11/07/24 17:00 11/11/24 05:41 Cephalexin 250 Mg Capsule PO 11/14/24 16:59 500 mg QID PORFIRIO Administration Clopidogrel Bisulfate 75 mg 11/06/24 21:00 11/10/24 20:17 Clopidogrel Bisulfate 75 Mg Tablet PO 12/06/24 20:59 75 mg QPM PORFIRIO Administration Dextrose 25 ml 11/07/24 15:53 Dextrose 50%-Water Inj 50 Ml Syringe IV 12/07/24 15:52 Q15MIN PRN BG 50-70 responsive npo pt Dextrose 50 ml 11/07/24 15:53 Dextrose 50%-Water Inj 50 Ml Syringe IV 12/07/24 15:52 Q15MIN PRN BG <50 OR BG <70 & pt unresponsive Famotidine 20 mg 11/07/24 14:07 Famotidine 20 Mg Tablet PO 12/07/24 14:06 BID PRN HEARTBURN Glucagon 1 mg 11/07/24 14:29 Glucagon Inj 1 Mg Vial IM Q15MIN PRN BG <70, and no IV access Magnesium Sulfate 4 gm in 50 mls @ 12.5 mls/hr 11/11/24 07:57 11/11/24 08:10 Magnesium Sulfate Ivpb IV 11/11/24 11:56 12.5 mls/hr X1 ONE Administration Insulin Human Lispro 0 unit 11/07/24 17:00 11/11/24 07:36 Insulin Lispro (Admelog) 1 Unit/0.01 Ml Unit SC 12/07/24 16:59 Not Given AC [facility] Protocol Metformin HCl 500 mg 11/09/24 07:30 11/11/24 08:11 Metformin 500 Mg Tablet PO 12/09/24 07:29 500 mg BIDAC PORFIRIO Administration Metoprolol Succinate 100 mg 11/09/24 05:20 11/11/24 08:10 Metoprolol Succinate Xl 25 Mg Tabcr PO 12/09/24 05:19 100 mg QDAY PORFIRIO Administration Ondansetron HCl 4 mg 11/07/24 13:43 11/09/24 11:25 Ondansetron Inj 2 Mg/Ml Inj 2 Ml IVP 12/07/24 13:42 4 mg Q6H PRN Administration NAUSEA OR VOMITING Pantoprazole Sodium 40 mg 11/08/24 09:00 11/11/24 08:11 Pantoprazole 40 Mg Tablet PO 12/08/24 08:59 40 mg QDAY PORFIRIO Administration Sacubitril/Valsartan 2 tab 11/09/24 21:00 11/11/24 08:12 Sacubitril 24 Mg/Valsartan 26 Mg Tablet PO 12/09/24 20:59 2 tab BID PORFIRIO Administration Sertraline HCl 25 mg 11/06/24 09:00 11/11/24 08:12 Sertraline Hcl 25 Mg Tablet PO 12/06/24 08:59 25 mg QDAY PORFIRIO Administration Tamsulosin HCl 0.4 mg 11/08/24 08:50 11/11/24 08:11 Tamsulosin Hcl 0.4 Mg Capsule PO 12/08/24 08:49 0.4 mg QDAY [facility] Administration Plan Summary:An 84-year-old male patient with past medical history of CAD status post CABG 2010, aortic stenosis status post surgical aortic valve replacement 2010, HFrEF with ejection fraction of 40 to 45% in February 2023 persistent vertigo, diabetes mellitus type 2, hypertension, Parkinson's, meningioma s/p surgical intervention in 2013, followed by radiation 2 weeks ago at [facility], BPH status post surgical resection 7 years ago who was brought to the ED on 04 November 2024 after he was found to have severe lethargy. Found to have emergency hypertension, however associated with labile blood pressure. 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 Blood pressure manually taken on the left upper extremity, there was auscultatory gap noted. First [place] sounds appeared at 180 mmHg, then disappeared at 150 and reappeared at 140 mmHg and finally disappeared at 90 mmHg. It was confirmed by the palpatory method. So the patient's actual blood pressure at the time of examination is 180/90. EKG showed conduction delay, first-degree heart block. 11/08/24 renal artery duplex showed no sonographic findings of renal artery stenosis Plan - Continue metoprolol XL 100 mg once daily as patient does have history of mild systolic congestive heart failure. If heart rate is low and the blood pressure is elevated then patient can be changed to Coreg - Continue Entresto 49/51 mg BID as patient does have mild systolic congestive heart failure - Hold amlodipine for now as patient does have history of labile blood pressure and patient needs to be on beta-haydee as well as ARB or DALLAS or Entresto for systolic congestive heart failure. - Stop clonidine completely as there is increased risk of rebound hypertension with the clonidine and none of the regular antihypertensive medications have been maximized ? IV hydralazine prn as needed if SBP > 180 mmhg ? Nursing order to only measure blood pressure on the left arm using manual sphygmomanometer to avoid artifact and the auscultatory gap ? Continue compression socks -30 to 40 mmHg thigh length compression ? Orthostatic vitals daily for now ? Consider Holding tamsulosin, patient reported that he does not have any urinary bladder symptoms. Will do bladder scan every 8 hours with straight cath if needed ? Vital signs every 4 hours - Patient cleared from cardiology perspective as BP is now under control on current medication regimen #History of CAD status post CABG 2010 #Aortic stenosis status post surgical aortic valve replacement 2010 #HFpEF (50-55%, 10/2024) Patient has extensive cardiac history, his follow-up with the occupational health specialist Dr. Tavarez however he was unavailable at this time. Patient on aspirin and Plavix at home, however he is not on any diuretics. BNP 48, troponins negative. 03/14/23 TTE showed normal LV size, mild systolic dysfunction, hypokinesis of the wall, estimated EF 40 to 45%, normal RV size, mild systolic dysfunction, normal AV bioprosthesis, mild MR 11/08/24 TTE showed technically difficult study due to patient not be able to lie on left side due to fractured ribs. Normal left ventricular size and function. Grade 1 diastolic dysfunction, approximate EF is 50 to 55%. Right ventricle normal in size and systolic function. Aortic valve sclerosis without stenosis. Normal AV bioprosthesis, trace mitral and trace tricuspid regurgitation Plan: ? Strict in and out ? Continue home medication aspirin 81 mg p.o. daily ? Continue Plavix 75 mg p.o. daily - Patient needs to be on goal-directed medical therapy if patient has systolic dysfunction with the low ejection fraction and will need to be on ARB or DALLAS inhibitors or Entresto and beta-haydee. Ideally prefer Entresto and beta- haydee and eventually needs to be on spironolactone if BP permissible. ? Telemetry for cardiac monitoring #UTI, Proteus mirabilis Urine culture from his previous visit on 04 November 2024 grew Proteus mirabilis Plan ? Patient was started on cephalexin 500 mg 3 times daily p.o. #History of Parkinson's disease #History of vertigo #History of meningioma status post radiation Patient was recently diagnosed with Parkinson's disease. Could play a role in his labile blood pressure Plan ? Follow-up with the neurologist recommendations #History of type 2 diabetes mellitus 11/08/2024 A1c 6.9. Is on metformin 500 mg BID at home. Plan ? SSI in place #History of BPH status post surgical resection Plan ? Continue tamsulosin Patient's plan and care discussed with my attending, Dr. Chanelle Quick, DO Internal Medicine PGY-1 Attending Provider Attestation/Addendum I have personally seen and examined the patient separately on the above date of service and discussed the plan of care with the resident. I reviewed the resident Dr. Zully Quick consultation progress note and agree with the resident findings and plan in the note above and have also edited the documentation to reflect my findings and plan. Clint Roca M.D. Interventional Cardiology
--- NOTE | 2024-11-11 09:55 | PC.NURSE ---
MD Ann made aware of patient complaints of nausea and general feeling of unwell. No new orders.
--- NOTE | 2024-11-11 10:37 | PC.SS ---
HYDROCHLORIC ACID OPERATOR informed by bedside nurse that Dr. Ann is holding discharge at this time due to the patient's nausea and dizziness. In addition, magnesium on hold. Patient will be re-evaluated later today to determine if cleared for discharge. Patient to discharge to [facility].
--- NOTE | 2024-11-11 11:37 | PD.RESPRO ---
Documentation for date of: 11/11/24 Subjective Subjective Interval history: Patient examined at bedside today. No acute overnight events. Patient is currently eating at this time. Patient reports that he did not sleep much. He says that he did not get his primidone last time. No other complaints at this time. Exam Vital Signs Temp Pulse Resp BP Pulse Ox O2 Del Method O2 Flow Rate 97.5 F 63 17 144/95 H 93 L Nasal Cannula 1 11/11/24 08:00 11/11/24 08:10 11/11/24 08:00 11/11/24 08:10 11/11/24 08:00 11/11/24 08:00 11/11/24 08:00 Narrative Exam General: AAOx3, NAD, elderly male HEENT: Moist mucous membranes, conjunctiva clear, EOMI, PERRLA, Cardiovascular: S1, S2, radial pulses +2 bilat, RRR Pulmonary: CTAB bilat no cough, no wheezing GI: No tenderness to light or deep palpitation, no guarding, rigidity, rebound tenderness or distension Extremities: No presence of trace or pitting edema in lower extremities bilaterally, dorsalis pedis pulses +2 bilaterally Neuro: AAOx3, strength in upper extremities and lower extremities 5 out of 5, resting tremor noted in both hands bilaterally Psych: Good judgement, thought and behavior Objective Labs 11/12/24 08:26 11/12/24 08:26 Labs: Laboratory Results - last 24 hr 11/10/24 11/10/24 11/11/24 11:15 Unknown 04:35 WBC 8.8 RBC 4.95 Hgb 14.1 Hct 44.5 MCV 90 MCH 28.5 MCHC 31.7 RDW Std Deviation 45.3 H Plt Count 255 Neut % (Auto) 67 Lymph % (Auto) 18 [place] % (Auto) 12 Eos % (Auto) 2 Baso % (Auto) 0 Neut # (Auto) 5.9 Lymph # (Auto) 1.6 [place] # (Auto) 1.0 H Eos # (Auto) 0.2 Baso # (Auto) 0.0 Immature Gran # (Auto) 0.03 H Absolute Nucleated RBC 0.00 Immature Gran % 0 Nucleated RBC % 0 Sodium 139 Potassium 4.6 Chloride 102 Carbon Dioxide 28.7 Anion Gap 8 BUN 18 Creatinine 0.9 Estim Creat Clear Calc 62.7 eGFR > 60 BUN/Creatinine Ratio 20 Glucose 150 H Calculated Osmolality 282 Calcium 10.0 Corrected Calcium 10.2 H Ionized Calcium 5.1 Phosphorus 2.8 Magnesium 1.7 Total Bilirubin 0.6 AST 17 ALT 25 Alkaline Phosphatase 59 Total Protein 6.3 Albumin 3.8 Globulin 2.5 Albumin/Globulin Ratio 1.5 25-OH Vitamin D Total 15.6 PTH Intact 86.2 Quality Measures Quality Measures VTE prophylaxis Advance care planning discussed with:: patient Assessment & Plan Assessment Current Active Medications: Generic Name Dose Route Start Last Admin Trade Name Freq PRN Reason Stop Dose Admin Acetaminophen 650 mg 11/07/24 13:43 Acetaminophen 325 Mg Tablet PO 12/07/24 13:42 Q6H PRN Fever >101.5 Aspirin 81 mg 11/06/24 09:00 11/11/24 08:12 Aspirin Ec 81 Mg Tabec PO 12/06/24 08:59 81 mg DAILY PORFIRIO Administration Atorvastatin Calcium 20 mg 11/08/24 21:00 11/10/24 20:17 Atorvastatin Calcium 20 Mg Tablet PO 12/08/24 20:59 20 mg HS PORFIRIO Administration Bisacodyl 10 mg 11/07/24 13:43 11/11/24 05:40 Bisacodyl 5 Mg Tabec PO 12/07/24 13:42 10 mg QDAY PRN Administration CONSTIPATION Bisacodyl 10 mg 11/07/24 13:43 Bisacodyl 10 Mg Supp ND 12/07/24 13:42 QDAY PRN CONSTIPATION Cephalexin HCl 500 mg 11/07/24 17:00 11/11/24 05:41 Cephalexin 250 Mg Capsule PO 11/14/24 16:59 500 mg QID PORFIRIO Administration Clopidogrel Bisulfate 75 mg 11/06/24 21:00 11/10/24 20:17 Clopidogrel Bisulfate 75 Mg Tablet PO 12/06/24 20:59 75 mg QPM PORFIRIO Administration Dextrose 25 ml 11/07/24 15:53 Dextrose 50%-Water Inj 50 Ml Syringe IV 12/07/24 15:52 Q15MIN PRN BG 50-70 responsive npo pt Dextrose 50 ml 11/07/24 15:53 Dextrose 50%-Water Inj 50 Ml Syringe IV 12/07/24 15:52 Q15MIN PRN BG <50 OR BG <70 & pt unresponsive Famotidine 20 mg 11/07/24 14:07 Famotidine 20 Mg Tablet PO 12/07/24 14:06 BID PRN HEARTBURN Glucagon 1 mg 11/07/24 14:29 Glucagon Inj 1 Mg Vial IM Q15MIN PRN BG <70, and no IV access Magnesium Sulfate 4 gm in 50 mls @ 12.5 mls/hr 11/11/24 07:57 11/11/24 10:19 Magnesium Sulfate Ivpb IV 11/11/24 11:56 0 mls/hr X1 ONE Infusion Insulin Human Lispro 0 unit 11/07/24 17:00 11/11/24 07:36 Insulin Lispro (Admelog) 1 Unit/0.01 Ml Unit SC 12/07/24 16:59 Not Given AC [facility] Protocol Metformin HCl 500 mg 11/09/24 07:30 11/11/24 08:11 Metformin 500 Mg Tablet PO 12/09/24 07:29 500 mg BIDAC PORFIRIO Administration Metoprolol Succinate 100 mg 11/09/24 05:20 11/11/24 08:10 Metoprolol Succinate Xl 25 Mg Tabcr PO 12/09/24 05:19 100 mg QDAY PORFIRIO Administration Ondansetron HCl 4 mg 11/07/24 13:43 11/09/24 11:25 Ondansetron Inj 2 Mg/Ml Inj 2 Ml IVP 12/07/24 13:42 4 mg Q6H PRN Administration NAUSEA OR VOMITING Pantoprazole Sodium 40 mg 11/08/24 09:00 11/11/24 08:11 Pantoprazole 40 Mg Tablet PO 12/08/24 08:59 40 mg QDAY PORFIRIO Administration Sacubitril/Valsartan 2 tab 11/09/24 21:00 11/11/24 08:12 Sacubitril 24 Mg/Valsartan 26 Mg Tablet PO 12/09/24 20:59 2 tab BID PORFIRIO Administration Sertraline HCl 25 mg 11/06/24 09:00 11/11/24 08:12 Sertraline Hcl 25 Mg Tablet PO 12/06/24 08:59 25 mg QDAY PORFIRIO Administration Tamsulosin HCl 0.4 mg 11/08/24 08:50 11/11/24 08:11 Tamsulosin Hcl 0.4 Mg Capsule PO 12/08/24 08:49 0.4 mg QDAY PORFIRIO Administration Plan Assessment: Julio is a 84-year-old male patient with past medical history of CAD status post CABG 2010, aortic stenosis status post surgical aortic valve replacement 2010, HFrEF with ejection fraction of 40 to 45% in February 2023 persistent vertigo, diabetes mellitus type 2, hypertension, Parkinson's, meningioma s/p surgical intervention in 2013, followed by radiation 2 weeks ago at [facility], BPH status post surgical resection 7 years ago who was brought to the ED on 04 November 2024 after he was found to have severe lethargy. Found to have emergency hypertension, however associated with labile blood pressure. #Acute encephalopathy #Essential tremors #History of vertigo #History of meningioma status post radiation Patient's mentation could have been altered due to infectious source or hypertensive encephalopathy Patient at this time does not meet requirements for clinical diagnosis of Parkinson's, rather has diagnosis of essential tremors Patient seems to be back to baseline at this time Patient is not taking any steroids for meningioma and recently had radiation done Plan: ? Treat underlying urine infection ? Correct patient's blood pressure to normotensive ? Will increase primidone outpatient, will stay at 75 mg at night for now ? Continue with physical therapy #History of type 2 diabetes mellitus #History of BPH status post surgical resection #Hypertensive urgency #First-degree heart block #History of CAD status post CABG 2010 #Aortic stenosis status post surgical aortic valve replacement 2010 #HFrEF with ejection fraction of 40 to 45% in February 2023 #UTI Above handled by primary hospitalist team Patient seen and care discussed with my attending physician, Dr. Jessi Gonzales, PGY-2 This document was transcribed using voice recognition technology. Minor inaccuracies may be present. Attending Provider Attestation/Addendum I have seen and examined the patient at the bedside and I agreed with the resident's findings, assessment and plan of care. Patient presented with generalized weakness and worsening tremors and could not tolerate primidone at current doses. However neurologically stable for discharge to rehab facility for intense physical therapy. Will consider restarting primidone at 50 mg with slow titration only at night. Will see him back when he gets discharged from the rehab.
[2024-11-11] MEDS: INSULIN LISPRO (AdmeLOG) 1 UNIT/0.01 ML UNIT SC (11:45)
--- NOTE | 2024-11-11 12:07 | EKG_ITS ---
[facility] Test Date: 2024-11-11 Pat Name: URVASHI RAMSEY Department: Room: S263A Gender: Male Margin Clerk: JACQUELINE : 1940 Requested By: Damon Ann Order Number: [id number] Reading MD: Damon Ann Measurements Intervals [place] Rate: 71 P: 12 WI: 232 QRS: -9 QRSD: 107 T: 47 QT: 370 QTc: 404 Interpretive Statements SINUS RHYTHM WITH FIRST DEGREE AV BLOCK INFERIOR MYOCARDIAL INFARCTION , PROBABLY OLD Compared to ECG 11/05/2024 18:53:00 Myocardial infarct finding now present Intraventricular conduction delay no longer present T-wave abnormality no longer present /store/S0/[id number]/ecg/[id number].pdf
[2024-11-11 12:56] LABS: Base Excess 0 (-3-3); HCO3 26 mEq/L (20-26); Inspired Oxygen, FIO2 21 %; O2 Saturation 97 % (91-98); PCO2 44 mmHg (32.0-48.0); PO2 81 mmHg (83-108); pH, Arterial 7.38 (7.35-7.45)
[2024-11-11 12:58] LABS: Allen Test Performed/OK; Puncture Site Right Radial
[2024-11-11 13:23] LABS: Basophils # (Auto) 0.0 Thou/mm3 (0.0-0.2); Basophils % (Auto) 0 % (0-2.5); Eosinophils # (Auto) 0.2 Thou/mm3 (0.0-0.5); Eosinophils % (Auto) 2 % (0-10); Hematocrit 46.1 % (41.0-53.0); Hemoglobin 14.6 g/dL (13.5-16.0); Immature Granulocytes Auto 0.03 Thou/mm3 (0.00-0.00); Lymphocytes # (Auto) 1.3 Thou/mm3 (1.0-4.8); Lymphocytes % (Auto) 14 % (10-50); Mean Corpuscular HGB Conc 31.7 g/dl (31.0-37.0); Mean Corpuscular Hemoglobin 28.5 pg (25.0-35.0); Mean Corpuscular Volume 90 fL (80-100); Monocytes # (Auto) 0.9 Thou/mm3 (0.0-0.8); Monocytes % (Auto) 10 % (0-12); Neutrophils # (Auto) 7.0 Thou/mm3 (1.8-7.7); Neutrophils % (Auto) 74 % (37-80); Nucleated Red Blood Cell # 0.00 Thou/mm3 (0.00-0.00); Nucleated Red Blood Cell % 0 /100 WBC (0); Platelet Count 252 Thou/mm3 (140-440); RDW Standard Deviation 44.6 fL (35.1-43.9); Red Blood Count 5.12 Miln/mm3 (4.50-5.90); White Blood Count 9.6 Thou/mm3 (3.8-10.6)
[2024-11-11 13:43] LABS: Alanine Aminotransferase 26 U/L (10-49); Albumin, Serum 4.1 gm/dL (3.4-4.8); Albumin/Globulin Ratio 1.6 (1.2-2.2); Alkaline Phosphatase 60 U/L (46-116); Anion Gap 7 (7-16); Aspartate Amino Transferase 15 U/L (0-34); BUN/Creatinine Ratio 20 Ratio (12-20); Bilirubin,Total 0.6 mg/dL (0.3-1.2); Blood Urea Nitrogen 18 mg/dL (9-23); Calcium 10.4 mg/dL (8.3-10.6); Calcium (Corrected) 10.4 mg/dL (8.5-10.1); Carbon Dioxide 29.2 mMol/L (20.0-31.0); Chloride 101 mMol/L (98-107); Creatinine (Component) 0.9 mg/dL (0.6-1.3); Estimated Creatinine Clearance 62.7 mL/min (>60); Globulin 2.5 gm/dL (2.3-3.5); Glucose 194 mg/dL (74-106); Magnesium 2.1 mg/dL (1.6-2.6); Osmolality,Calculated 280 (275-295); Phosphorous 2.6 mg/dL (2.4-5.1); Potassium 4.3 mMol/L (3.4-5.1); Sodium 137 mMol/L (136-145); Total Protein 6.6 gm/dL (5.7-8.2); Troponin I < 0.020 ng/mL (0.0-0.045); eGFR > 60 See Note
[2024-11-11 13:51] LABS: D-Dimer 516 ng/mL (<600)
--- NOTE | 2024-11-11 15:42 | PC.NURSE ---
Per Dr. Ann due to change in patient condition Patient will not discharge today.
--- NOTE | 2024-11-11 16:53 | PD.FPPROG ---
Documentation for date of: 11/11/24 Exam Vital Signs Temp Pulse Resp BP Pulse Ox O2 Del Method O2 Flow Rate 97.2 F 70 18 143/83 H 97 Nasal Cannula 2 11/11/24 12:00 11/11/24 16:09 11/11/24 16:09 11/11/24 12:00 11/11/24 16:09 11/11/24 12:00 11/11/24 12:00 Objective Labs 11/11/24 13:02 11/11/24 13:02 Labs: Laboratory Results - last 24 hr 11/11/24 11/11/24 11/11/24 04:35 12:46 13:02 WBC 8.8 9.6 RBC 4.95 5.12 Hgb 14.1 14.6 Hct 44.5 46.1 MCV 90 90 MCH 28.5 28.5 MCHC 31.7 31.7 RDW Std Deviation 45.3 H 44.6 H Plt Count 255 252 Neut % (Auto) 67 74 Lymph % (Auto) 18 14 [place] % (Auto) 12 10 Eos % (Auto) 2 2 Baso % (Auto) 0 0 Neut # (Auto) 5.9 7.0 Lymph # (Auto) 1.6 1.3 [place] # (Auto) 1.0 H 0.9 H Eos # (Auto) 0.2 0.2 Baso # (Auto) 0.0 0.0 Immature Gran # (Auto) 0.03 H 0.03 H Absolute Nucleated RBC 0.00 0.00 Immature Gran % 0 0 Nucleated RBC % 0 0 D-Dimer 516 Puncture Site Right Radial ABG pH 7.38 ABG pCO2 44 ABG pO2 81 L ABG HCO3 26 ABG O2 Saturation 97 ABG Base Excess 0 FiO2 21 Sodium 139 137 Potassium 4.6 4.3 Chloride 102 101 Carbon Dioxide 28.7 29.2 Anion Gap 8 7 BUN 18 18 Creatinine 0.9 0.9 Estim Creat Clear Calc 62.7 62.7 eGFR > 60 > 60 BUN/Creatinine Ratio 20 20 Glucose 150 H 194 H Calculated Osmolality 282 280 Calcium 10.0 10.4 Corrected Calcium 10.2 H 10.4 H Phosphorus 2.8 2.6 Magnesium 1.7 2.1 Total Bilirubin 0.6 0.6 AST 17 15 ALT 25 26 Alkaline Phosphatase 59 60 Troponin I < 0.020 Total Protein 6.3 6.6 Albumin 3.8 4.1 Globulin 2.5 2.5 Albumin/Globulin Ratio 1.5 1.6 ABG Interpretation ABG results: 11/11/24 12:46 ABG pH 7.38 ABG pCO2 44 ABG pO2 81 L ABG HCO3 26 ABG O2 Saturation 97 ABG Base Excess 0 Assessment & Plan Time Spent With Patient Time: Total time spent is greater than 50% in coordination of care (as documented) at patient's floor/unit and/or counseling patient:
[2024-11-11] MEDS: PRIMIDONE 50 MG TABLET 75 MG PO (20:01)
[2024-11-11] MEDS: CLOPIDOGREL BISULFATE 75 MG TABLET PO (20:02)
[2024-11-11] MEDS: ATORVASTATIN CALCIUM 20 MG TABLET PO (20:02)
[2024-11-12] VITALS (7 sets, daily range): BP systolic 118–145; BP diastolic 77–92; PULSE 62–77; RESP 12–23; TEMP 35.9–36.2; O2SAT 92–96; BMI 12.0
[2024-11-12] MEDS: INSULIN LISPRO (AdmeLOG) 1 UNIT/0.01 ML UNIT SC ×2 (07:58→17:29)
[2024-11-12] MEDS: PANTOPRAZOLE 40 MG TABLET PO (08:01)
[2024-11-12] MEDS: SERTRALINE HCL 25 MG TABLET PO (08:02)
[2024-11-12] MEDS: TAMSULOSIN HCL 0.4 MG CAPSULE PO (08:02)
[2024-11-12] MEDS: METOPROLOL SUCCINATE XL 25 MG TABCR 100 MG PO (08:06)
[2024-11-12] MEDS: ASPIRIN EC 81 MG TABEC PO (08:07)
[2024-11-12 08:52] LABS: Basophils # (Auto) 0.0 Thou/mm3 (0.0-0.2); Basophils % (Auto) 0 % (0-2.5); Eosinophils # (Auto) 0.2 Thou/mm3 (0.0-0.5); Eosinophils % (Auto) 3 % (0-10); Hematocrit 45.6 % (41.0-53.0); Hemoglobin 14.6 g/dL (13.5-16.0); Immature Granulocytes Auto 0.02 Thou/mm3 (0.00-0.00); Lymphocytes # (Auto) 1.8 Thou/mm3 (1.0-4.8); Lymphocytes % (Auto) 23 % (10-50); Mean Corpuscular HGB Conc 32.0 g/dl (31.0-37.0); Mean Corpuscular Hemoglobin 28.7 pg (25.0-35.0); Mean Corpuscular Volume 90 fL (80-100); Monocytes # (Auto) 0.9 Thou/mm3 (0.0-0.8); Monocytes % (Auto) 11 % (0-12); Neutrophils # (Auto) 4.9 Thou/mm3 (1.8-7.7); Neutrophils % (Auto) 62 % (37-80); Nucleated Red Blood Cell # 0.00 Thou/mm3 (0.00-0.00); Nucleated Red Blood Cell % 0 /100 WBC (0); Platelet Count 233 Thou/mm3 (140-440); RDW Standard Deviation 44.3 fL (35.1-43.9); Red Blood Count 5.08 Miln/mm3 (4.50-5.90); White Blood Count 7.9 Thou/mm3 (3.8-10.6)
[2024-11-12 09:27] LABS: Alanine Aminotransferase 23 U/L (10-49); Albumin, Serum 4.2 gm/dL (3.4-4.8); Albumin/Globulin Ratio 1.7 (1.2-2.2); Alkaline Phosphatase 63 U/L (46-116); Anion Gap 9 (7-16); Aspartate Amino Transferase 17 U/L (0-34); BUN/Creatinine Ratio 26 Ratio (12-20); Bilirubin,Total 0.6 mg/dL (0.3-1.2); Blood Urea Nitrogen 21 mg/dL (9-23); Calcium 10.3 mg/dL (8.3-10.6); Calcium (Corrected) 10.3 mg/dL (8.5-10.1); Carbon Dioxide 28.5 mMol/L (20.0-31.0); Chloride 100 mMol/L (98-107); Creatinine (Component) 0.8 mg/dL (0.6-1.3); Estimated Creatinine Clearance 70.6 mL/min (>60); Globulin 2.5 gm/dL (2.3-3.5); Glucose 180 mg/dL (74-106); Magnesium 1.9 mg/dL (1.6-2.6); Osmolality,Calculated 281 (275-295); Potassium 4.4 mMol/L (3.4-5.1); Sodium 137 mMol/L (136-145); Total Protein 6.7 gm/dL (5.7-8.2); eGFR > 60 See Note
--- NOTE | 2024-11-12 09:49 | ESPR_ITS ---
Documentation for date of: 11/12/24 Subjective Subjective Interval history: Patient seen and examined at bedside. Telemetry reviewed, no arrhythmias noted, HR average 60-70s. BP 115-140/80-90. Patient feels less short of breath today and is saturating 92-94% on RA. Patient feels well and is ready to go to rehab, and he was contacted last night by his PCP who told him he will be discharged today. Patient denies chest pain, chest pressure, or palpitations. K 4.4, BUN 21, Cr 0.8, Ca 10.3, Mg 1.9 and repleted with 2g IV. Exam Vital Signs Temp Pulse Resp BP Pulse Ox O2 Del Method O2 Flow Rate 97.0 F 64 23 H 145/83 H 94 L Nasal Cannula 2 11/12/24 04:00 11/12/24 08:06 11/12/24 04:00 11/12/24 08:06 11/12/24 04:00 11/12/24 04:00 11/12/24 04:00 Narrative Exam GENERAL: AOx3, no acute distress, lying comfortably HEENT: NC/AT, mucous membranes moist, bilateral sclera anicteric CARDIOVASCULAR: regular rate and rhythm, S1/S2 present, 2/6 systolic murmur PULMONARY: clear to auscultation bilaterally, no rales/rhonchi/wheezes ABDOMINAL: soft, non-tender, non-distended, no rebound/guarding, bowel sounds present EXTREMITIES: no peripheral edema SKIN: warm and dry, intact, no rashes, +actinic keratoses on head with scab NEURO: CN II-XII grossly intact, no focal deficits, alert, following commands Objective Labs 11/12/24 08:26 11/12/24 08:26 Labs: Laboratory Results - last 24 hr 11/11/24 11/11/24 11/12/24 12:46 13:02 08:26 WBC 9.6 7.9 RBC 5.12 5.08 Hgb 14.6 14.6 Hct 46.1 45.6 MCV 90 90 MCH 28.5 28.7 MCHC 31.7 32.0 RDW Std Deviation 44.6 H 44.3 H Plt Count 252 233 Neut % (Auto) 74 62 Lymph % (Auto) 14 23 [place] % (Auto) 10 11 Eos % (Auto) 2 3 Baso % (Auto) 0 0 Neut # (Auto) 7.0 4.9 Lymph # (Auto) 1.3 1.8 [place] # (Auto) 0.9 H 0.9 H Eos # (Auto) 0.2 0.2 Baso # (Auto) 0.0 0.0 Immature Gran # (Auto) 0.03 H 0.02 H Absolute Nucleated RBC 0.00 0.00 Immature Gran % 0 0 Nucleated RBC % 0 0 D-Dimer 516 Puncture Site Right Radial ABG pH 7.38 ABG pCO2 44 ABG pO2 81 L ABG HCO3 26 ABG O2 Saturation 97 ABG Base Excess 0 FiO2 21 Sodium 137 137 Potassium 4.3 4.4 Chloride 101 100 Carbon Dioxide 29.2 28.5 Anion Gap 7 9 BUN 18 21 Creatinine 0.9 0.8 Estim Creat Clear Calc 62.7 70.6 eGFR > 60 > 60 BUN/Creatinine Ratio 20 26 H Glucose 194 H 180 H Calculated Osmolality 280 281 Calcium 10.4 10.3 Corrected Calcium 10.4 H 10.3 H Phosphorus 2.6 Magnesium 2.1 1.9 Total Bilirubin 0.6 0.6 AST 15 17 ALT 26 23 Alkaline Phosphatase 60 63 Troponin I < 0.020 Total Protein 6.6 6.7 Albumin 4.1 4.2 Globulin 2.5 2.5 Albumin/Globulin Ratio 1.6 1.7 ABG Interpretation ABG results: 11/11/24 12:46 ABG pH 7.38 ABG pCO2 44 ABG pO2 81 L ABG HCO3 26 ABG O2 Saturation 97 ABG Base Excess 0 Quality Measures Quality Measures VTE prophylaxis Advance care planning discussed with:: patient Assessment & Plan Assessment Current Active Medications: Generic Name Dose Route Start Last Admin Trade Name Freq PRN Reason Stop Dose Admin Acetaminophen 650 mg 11/07/24 13:43 Acetaminophen 325 Mg Tablet PO 12/07/24 13:42 Q6H PRN Fever >101.5 Aspirin 81 mg 11/06/24 09:00 11/12/24 08:07 Aspirin Ec 81 Mg Tabec PO 12/06/24 08:59 81 mg DAILY PORFIRIO Administration Atorvastatin Calcium 20 mg 11/08/24 21:00 11/11/24 20:02 Atorvastatin Calcium 20 Mg Tablet PO 12/08/24 20:59 20 mg HS PORFIRIO Administration Bisacodyl 10 mg 11/07/24 13:43 11/11/24 05:40 Bisacodyl 5 Mg Tabec PO 12/07/24 13:42 10 mg QDAY PRN Administration CONSTIPATION Bisacodyl 10 mg 11/07/24 13:43 Bisacodyl 10 Mg Supp MD 12/07/24 13:42 QDAY PRN CONSTIPATION Cephalexin HCl 500 mg 11/07/24 17:00 11/12/24 05:07 Cephalexin 250 Mg Capsule PO 11/14/24 16:59 Not Given QID PORFIRIO Clopidogrel Bisulfate 75 mg 11/06/24 21:00 11/11/24 20:02 Clopidogrel Bisulfate 75 Mg Tablet PO 12/06/24 20:59 75 mg QPM PORFIRIO Administration Dextrose 25 ml 11/07/24 15:53 Dextrose 50%-Water Inj 50 Ml Syringe IV 12/07/24 15:52 Q15MIN PRN BG 50-70 responsive npo pt Dextrose 50 ml 11/07/24 15:53 Dextrose 50%-Water Inj 50 Ml Syringe IV 12/07/24 15:52 Q15MIN PRN BG <50 OR BG <70 & pt unresponsive Famotidine 20 mg 11/07/24 14:07 Famotidine 20 Mg Tablet PO 12/07/24 14:06 BID PRN HEARTBURN Glucagon 1 mg 11/07/24 14:29 Glucagon Inj 1 Mg Vial IM Q15MIN PRN BG <70, and no IV access Insulin Human Lispro 0 unit 11/07/24 17:00 11/12/24 07:58 Insulin Lispro (Admelog) 1 Unit/0.01 Ml Unit SC 12/07/24 16:59 1 unit AC PORFIRIO Administration Protocol Metformin HCl 500 mg 11/09/24 07:30 11/12/24 08:01 Metformin 500 Mg Tablet PO 12/09/24 07:29 500 mg BIDAC PORFIRIO Administration Metoprolol Succinate 100 mg 11/09/24 05:20 11/12/24 08:06 Metoprolol Succinate Xl 25 Mg Tabcr PO 12/09/24 05:19 100 mg QDAY PORFIRIO Administration Ondansetron HCl 4 mg 11/07/24 13:43 11/09/24 11:25 Ondansetron Inj 2 Mg/Ml Inj 2 Ml IVP 12/07/24 13:42 4 mg Q6H PRN Administration NAUSEA OR VOMITING Pantoprazole Sodium 40 mg 11/08/24 09:00 11/12/24 08:01 Pantoprazole 40 Mg Tablet PO 12/08/24 08:59 40 mg QDAY PORFIRIO Administration Primidone 75 mg 11/11/24 21:00 11/11/24 20:01 Primidone 50 Mg Tablet PO 11/16/24 20:59 75 mg HS PORFIRIO Administration Sacubitril/Valsartan 2 tab 11/09/24 21:00 11/12/24 08:01 Sacubitril 24 Mg/Valsartan 26 Mg Tablet PO 12/09/24 20:59 2 tab BID PORFIRIO Administration Sertraline HCl 25 mg 11/06/24 09:00 11/12/24 08:02 Sertraline Hcl 25 Mg Tablet PO 12/06/24 08:59 25 mg QDAY PORFIRIO Administration Tamsulosin HCl 0.4 mg 11/08/24 08:50 11/12/24 08:02 Tamsulosin Hcl 0.4 Mg Capsule PO 12/08/24 08:49 0.4 mg QDAY PORFIRIO Administration Plan Summary:An 84-year-old male patient with past medical history of CAD status post CABG 2010, aortic stenosis status post surgical aortic valve replacement 2010, HFrEF with ejection fraction of 40 to 45% in February 2023 persistent vertigo, diabetes mellitus type 2, hypertension, Parkinson's, meningioma s/p surgical intervention in 2013, followed by radiation at [facility], BPH status post surgical resection 7 years ago who was brought to the ED on 04 November 2024 after he was found to have severe lethargy. Found to have emergency hypertension, however associated with labile blood pressure. 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 Blood pressure manually taken on the left upper extremity, there was auscultatory gap noted. First Korotkoff sounds appeared at 180 mmHg, then disappeared at 150 and reappeared at 140 mmHg and finally disappeared at 90 mmHg. It was confirmed by the palpatory method. So the patient's actual blood pressure at the time of examination is 180/90. EKG showed conduction delay, first-degree heart block. 11/08/24 renal artery duplex showed no sonographic findings of renal artery stenosis Plan - Continue metoprolol XL 100 mg once daily as patient does have history of mild systolic congestive heart failure. If heart rate is low and the blood pressure is elevated then patient can be changed to Coreg - Continue Entresto 49/51 mg BID as patient does have mild systolic congestive heart failure - Hold amlodipine for now as patient does have history of labile blood pressure and patient needs to be on beta-haydee as well as ARB or DALLAS or Entresto for systolic congestive heart failure. - Avoid clonidine as there is increased risk of rebound hypertension with the clonidine and none of the regular antihypertensive medications have been maximized ? IV hydralazine prn as needed if SBP > 180 mmhg ? Nursing order to only measure blood pressure on the left arm using manual sphygmomanometer to avoid artifact and the auscultatory gap ? Continue compression socks -30 to 40 mmHg thigh length compression ? Orthostatic vitals daily for now ? Vital signs every 4 hours - Patient cleared from cardiology perspective as BP is now under control on current medication regimen #History of CAD status post CABG 2010 #Aortic stenosis status post surgical aortic valve replacement 2010 #HFpEF (50-55%, 10/2024) Patient has extensive cardiac history, his follow-up with the doctor of naprapathic medicine Dr. Tavarez however he was unavailable at this time. Patient on aspirin and Plavix at home, however he is not on any diuretics. BNP 48, troponins negative. 03/14/23 TTE showed normal LV size, mild systolic dysfunction, hypokinesis of the wall, estimated EF 40 to 45%, normal RV size, mild systolic dysfunction, normal AV bioprosthesis, mild MR 11/08/24 TTE showed technically difficult study due to patient not be able to lie on left side due to fractured ribs. Normal left ventricular size and function. Grade 1 diastolic dysfunction, approximate EF is 50 to 55%. Right ventricle normal in size and systolic function. Aortic valve sclerosis without stenosis. Normal AV bioprosthesis, trace mitral and trace tricuspid regurgitation Plan: ? Strict in and out ? Continue home medication aspirin 81 mg p.o. daily ? Continue Plavix 75 mg p.o. daily - Patient needs to be on goal-directed medical therapy if patient has systolic dysfunction with the low ejection fraction and will need to be on ARB or DALLAS inhibitors or Entresto and beta-haydee. Ideally prefer Entresto and beta- haydee and eventually needs to be on spironolactone if BP permissible. ? Telemetry for cardiac monitoring #UTI, Proteus mirabilis Urine culture from his previous visit on 04 November 2024 grew Proteus mirabilis Plan ? Patient was started on cephalexin 500 mg 3 times daily p.o. #History of Parkinson's disease #History of vertigo #History of meningioma status post radiation Patient was recently diagnosed with Parkinson's disease. Could play a role in his labile blood pressure Plan ? Follow-up with the neurologist recommendations #History of type 2 diabetes mellitus 11/08/2024 A1c 6.9. Is on metformin 500 mg BID at home. Plan ? SSI in place #History of BPH status post surgical resection Plan ? Continue tamsulosin Patient's plan and care discussed with my attending, Dr. Chanelle Quick, DO Internal Medicine PGY-1 Attending Provider Attestation/Addendum I have personally seen and examined the patient separately on the above date of service and discussed the plan of care with the resident. I reviewed the resident Dr. Zully Quick consultation progress note and agree with the resident findings and plan in the note above and have also edited the documentation to reflect my findings and plan. Clint Roca M.D. Interventional Cardiology
--- NOTE | 2024-11-12 13:41 | CHAP ---
Patient was visited by the Spiritual Care Volunteer who prayed with them. (Volunteer was in the hospital 11:05-1:41)
--- NOTE | 2024-11-12 14:00 | XR_ITS ---
Examination: CT chest, without intravenous contrast. Sagittal and coronal 2-D reconstructions. Exam date and time: November 12, 2024 1425 hours, comparison October 14, 2023 INDICATIONS: History 19 or pulmonary nodule right lung on CT chest October 22, 2023 CTDI:vol (mGy) 16.5 DLP: (mGycm) 605 Technique: Multiple 3.0 mm axial sections of the chest to been obtained. Bone and lung density settings are obtained. Sagittal and coronal 2-D reconstructions have been obtained. Low dose protocols were performed. One or more of the following dose reduction techniques were used; automated exposure control, adjustment of the mA and/or KV according to patient size, use of iterative reconstruction technique. Findings: AP dimension ascending thoracic aorta 3.9 cm Heavy calcification left main left anterior descending left circumflex right coronary arteries No paratracheal tracheobronchial or bronchopulmonary adenopathy Stable 19 mm pulmonary nodule anterior right lung No new pulmonary nodules Pneumonia or pulmonary edema No gallstones No liver splenic or pancreatic lesion IMPRESSION: Stable 19 mm pulmonary nodule anterior right lung, no new pulmonary nodules
--- NOTE | 2024-11-12 14:21 | PC.NURSE ---
Pt in Ct at this time
--- NOTE | 2024-11-12 16:41 | PC.SS ---
Ambulance transport for 08:30 pm. Patient to transition to [facility]. SNF, bedside staff and patient's family provided update.
--- NOTE | 2024-11-12 19:59 | PC.NURSE ---
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 BP 133/79 belonging sent with pt. IV removed. 1934 Report given to Nurse Chi from [facility].
--- NOTE | 2024-11-12 23:06 | PD.NEUROPROG ---
Documentation for date of: 11/12/24 Subjective Subjective Interval history: Patient was seen in telemetry today. No new symptoms reported other than feeling sleepy with primidone and still having tremors Exam - Neurology Vital Signs Temp Pulse Resp BP Pulse Ox O2 Del Method O2 Flow Rate 97.1 F 70 18 133/79 H 93 L Room Air 2 11/12/24 19:20 11/12/24 19:20 11/12/24 19:20 11/12/24 19:20 11/12/24 19:20 11/12/24 19:20 11/12/24 04:00 Narrative Exam General: AAOx3, NAD, elderly male HEENT: Moist mucous membranes, conjunctiva clear, EOMI, PERRLA, Cardiovascular: S1, S2, radial pulses +2 bilat, RRR Pulmonary: CTAB bilat no cough, no wheezing GI: No tenderness to light or deep palpitation, no guarding, rigidity, rebound tenderness or distension Extremities: No presence of trace or pitting edema in lower extremities bilaterally, dorsalis pedis pulses +2 bilaterally Neuro: AAOx3, strength in upper extremities and lower extremities 5 out of 5, resting tremor noted in both hands bilaterally Gait: Not tested as he feels generally weak Psych: Good judgement, thought and behavior Objective Labs 11/12/24 08:26 11/12/24 08:26 Labs: Laboratory Results - last 24 hr 11/12/24 08:26 WBC 7.9 RBC 5.08 Hgb 14.6 Hct 45.6 MCV 90 MCH 28.7 MCHC 32.0 RDW Std Deviation 44.3 H Plt Count 233 Neut % (Auto) 62 Lymph % (Auto) 23 [place] % (Auto) 11 Eos % (Auto) 3 Baso % (Auto) 0 Neut # (Auto) 4.9 Lymph # (Auto) 1.8 [place] # (Auto) 0.9 H Eos # (Auto) 0.2 Baso # (Auto) 0.0 Immature Gran # (Auto) 0.02 H Absolute Nucleated RBC 0.00 Immature Gran % 0 Nucleated RBC % 0 Sodium 137 Potassium 4.4 Chloride 100 Carbon Dioxide 28.5 Anion Gap 9 BUN 21 Creatinine 0.8 Estim Creat Clear Calc 70.6 eGFR > 60 BUN/Creatinine Ratio 26 H Glucose 180 H Calculated Osmolality 281 Calcium 10.3 Corrected Calcium 10.3 H Magnesium 1.9 Total Bilirubin 0.6 AST 17 ALT 23 Alkaline Phosphatase 63 Total Protein 6.7 Albumin 4.2 Globulin 2.5 Albumin/Globulin Ratio 1.7 ABG Interpretation ABG results: 11/11/24 12:46 ABG pH 7.38 ABG pCO2 44 ABG pO2 81 L ABG HCO3 26 ABG O2 Saturation 97 ABG Base Excess 0 Assessment & Plan Assessment and plan (1) Hypertensive urgency, malignant: Status: Acute (2) Dehydration: Status: Acute (3) Hypertensive crisis without congestive heart failure: Status: Acute (4) Anticoagulant long-term use: Status: Chronic (5) Other abnormal involuntary movements: Status: Chronic (6) Complete immobility due to severe physical disability or frailty: Status: Acute (7) Failure to thrive in adult: Status: Acute (8) Major depressive disorder, recurrent severe without psychotic features: Status: Acute (9) Diabetes mellitus type 2, controlled, with complications: Status: Chronic (10) Hyperlipidemia associated with type 2 diabetes mellitus: Status: Chronic (11) Cerebral atherosclerosis: Status: Chronic (12) Coronary arteriosclerosis: Status: Chronic (13) Loss of appetite: Status: Acute (14) BPH (benign prostatic hypertrophy) with urinary obstruction: Status: Chronic (15) Vertigo: Status: Chronic (16) Frequent falls: Status: Chronic (17) Urine incontinence: Qualifiers: Urinary Incontinence type: urinary incontinence without sensory awareness Qualified Code(s): N39.42 - Incontinence without sensory awareness Status: Acute (18) DXT (radiotherapy): Status: Acute (19) Stool incontinence: Qualifiers: Fecal incontinence type: full incontinence of feces Qualified Code(s): R15.9 - Full incontinence of feces Status: Acute (20) Meningioma, cerebral: Status: Acute (21) Weakness generalized: Status: Inactive (22) Aortic valve disorder: Status: Chronic Additional Assessment & Plan Additional Plan: Julio is a 84-year-old male patient with past medical history of CAD status post CABG 2010, aortic stenosis status post surgical aortic valve replacement 2010, HFrEF with ejection fraction of 40 to 45% in February 2023 persistent vertigo, diabetes mellitus type 2, hypertension, Parkinson's, meningioma s/p surgical intervention in 2013, followed by radiation 2 weeks ago at [facility], BPH status post surgical resection 7 years ago who was brought to the ED on 04 November 2024 after he was found to have severe lethargy. Found to have emergency hypertension, however associated with labile blood pressure. #Acute encephalopathy #Essential tremors #History of vertigo #History of meningioma status post radiation Patient's mentation could have been altered due to infectious source or hypertensive encephalopathy Patient at this time does not meet requirements for clinical diagnosis of Parkinson's, rather has diagnosis of essential tremors Patient seems to be back to baseline at this time Patient is not taking any steroids for meningioma and recently had radiation done Plan: ? Treat UTI ? Correct patient's blood pressure to normotensive ? Will increase primidone outpatient 50 mg x2 at night if tolerated. ? Continue with physical therapy, accepted to [facility]. Will see him after his discharge. #History of type 2 diabetes mellitus #History of BPH status post surgical resection #Hypertensive urgency: treated #First-degree heart block #History of CAD status post CABG 2010 #Aortic stenosis status post surgical aortic valve replacement 2010 #HFrEF with ejection fraction of 40 to 45% in February 2023 #UTI Above handled by primary hospitalist team
== END 2024-11-12 19:29 | DRG 305 ==
LOC: SERX 21:49 → SERHOLD 11-06 01:56 → S3SX 11-06 05:38 → S2NX 11-07 16:38
PROVIDERS: Student in an Organized Health Care Education/Training Program; Admitting Provider Specialist; Emergency Provider Emergency Medicine; PCP Specialist; Visit Provider Specialist
DX: I16.0 Hypertensive urgency (principal); F33.2 Major depressive disorder, recurrent severe without psychotic features; N13.8 Other obstructive and reflux uropathy; I50.22 Chronic systolic (congestive) heart failure; N39.0 Urinary tract infection, site not specified; I25.119 Atherosclerotic heart disease of native coronary artery with unspecified angina pectoris; E86.0 Dehydration; Z79.01 Long term (current) use of anticoagulants; R54 Age-related physical debility; I11.0 Hypertensive heart disease with heart failure; R62.7 Adult failure to thrive; E11.69 Type 2 diabetes mellitus with other specified complication; E78.5 Hyperlipidemia, unspecified; I67.2 Cerebral atherosclerosis; R29.6 Repeated falls; I44.0 Atrioventricular block, first degree; G25.0 Essential tremor; N40.1 Benign prostatic hyperplasia with lower urinary tract symptoms; D32.0 Benign neoplasm of cerebral meninges; Z95.1 Presence of aortocoronary bypass graft; Z88.5 Allergy status to narcotic agent; N39.42 Incontinence without sensory awareness; Z63.4 Disappearance and death of family member; Z79.02 Long term (current) use of antithrombotics/antiplatelets; Z79.82 Long term (current) use of aspirin; R15.9 Full incontinence of feces; I35.0 Nonrheumatic aortic (valve) stenosis; Z79.84 Long term (current) use of oral hypoglycemic drugs; Z79.899 Other long term (current) drug therapy; Z92.3 Personal history of irradiation; Z95.2 Presence of prosthetic heart valve; W18.30XA Fall on same level, unspecified, initial encounter
CPT/HCPCS: 36415; 36600; 70551; 71045; 71250; 80053; 81001; 82306; 82330; 82607; 82803; 83036; 83735; 83880; 83970; 84100; 84439; 84443; 84484; 85025; 85379; 85610; 85730; 86780; 92526; 92610; 93005; 93306; 93880; 93975; 94762; 97163; 99285; G0378; J0360; J1815; J2405; J3475; J7030; J7042; A9270

== ENCOUNTER 2025-01-04 09:20 | Inpatient (IN) | payer MEDICARE, BC, SELFPAY ==
[2025-01-04] VITALS (25 sets, daily range): BP systolic 94–167; BP diastolic 59–98; PULSE 82–117; RESP 19–33; TEMP 36.1–38.6; O2SAT 90–96; BMI 29.7
--- NOTE | 2025-01-04 09:51 | PC.NURSE ---
Patient DEBRA from [facility] for cough and diarrhea x2 days which he is now weak and lethargic. Pt is GCS 15, slow speech and drifts off to sleep during conversation. Pt stated he does have some discomfort to his epigastric area, stated he feels constipated the last yesterday and today but had episodes of diarrhea 2 days ago, he was given medication to hold diarrhea. On assessment patients's abdomen is soft non tender, no n/v at this time, answers questions appropriately but falls back asleep. Call light within reach, bed lowest position, DTR at bedside.
--- NOTE | 2025-01-04 11:01 | EKG_ITS ---
[facility] Test Date: 2025-01-04 Pat Name: URVASHI RAMSEY Department: Room: - Gender: Male Modeling Analyst: : 1940 Requested By: Ozzy Wakefield Order Number: [id number] Reading MD: Ozzy Wakefield Measurements Intervals [place] Rate: 77 P: 17 AR: 180 QRS: -9 QRSD: 114 T: 53 QT: 371 QTc: 421 Interpretive Statements SINUS RHYTHM LOW QRS VOLTAGE IN PRECORDIAL LEADS [QRS DEFLECTION < 1.0 mV IN CHEST LEADS] MODERATE INTRAVENTRICULAR CONDUCTION DELAY [110+ ms QRS DURATION] NONSPECIFIC T-WAVE ABNORMALITY Compared to ECG 11/11/2024 12:43:47 Low QRS voltage now present Intraventricular conduction delay now present T-wave abnormality now present First degree AV block no longer present Myocardial infarct finding no longer present /store/S0/[id number].pdf
--- NOTE | 2025-01-04 11:04 | EDNOTE_ITS ---
ED General RME/HPI General Chief complaint: Weakness Stated complaint: WEAKNESS Time Seen by Provider: 01/04/25 10:58 Arrival date/time: 01/04/25 09:20 CC: Weakness, constipation HPI patient presents to the ER from [facility] for rehab. Patient states he is not feeling withdrawn, but nonspecific daughter at bedside states the patient had diarrhea was given medicine and now has been constipated for 3 days with overall generalized weakness. Patient is complaining of mild abdominal pain with palpation denies fever chills chest pain shortness of breath or difficulty breathing. Related Data Home Medications ?Medication ?Instructions ?Recorded ?Confirmed ascorbic acid (vitamin C) 500 mg 1,000 mg PO QDAY 12/2501/06/25 tablet (C-500) bisacodyl 10 mg rectal suppository 10 mg RI QDAY PRN c onstipation 01/06/25 01/06/25 (Dulcolax (bisacodyl)) magnesium hydroxide 400 mg/5 mL 30 ml PO QDAY PRN cons tipation 01/06/25 01/06/25 oral suspension (Milk of Magnesia) metoprolol succinate 100 mg 100 mg PO QDAY 01/06/25 tablet,extended release 24 hr ondansetron 4 mg disintegrating 4 mg PO Q8H PRN nausea and vomiting 01/06/25 01/06/25 tablet primidone 50 mg tablet 50 mg PO QPM 01/06/25 sacubitril 24 mg-valsartan 26 mg 2 tab PO BID 01/06/25 01/06/25 tablet (Entresto) Previous Rx's ?Medication ?Instructions ?Recorded acetaminophen 325 mg tablet 650 mg (2 x 325 mg) PO Q6H PRN 11/10/24 fever or pain 90 days #90 tabs ascorbic acid (vitamin C) 1,000 mg 1,000 mg PO QDAY 90 days #90 tabs 11/10/24 tablet,extended release (C Complex) aspirin 81 mg tablet,delayed 81 mg PO QDAY 90 days #90 tabs 11/10/24 release (Ecotrin Low Strength) atorvastatin 20 mg tablet 20 mg PO HS 90 days #90 tabs 11/10/24 bisacodyl 5 mg tablet,delayed 10 mg (2 x 5 mg) PO QDAY PRN 11/10/24 release Constipation 90 days #90 tab s famotidine 20 mg tablet 20 mg PO QPM Heartburn #90 t abs 11/10/24 ferrous sulfate 325 mg (65 mg 325 mg PO QDAY 90 days # 90 tabs 11/10/24 iron) tablet,delayed release folic acid 1 mg tablet 1 mg PO QPM 90 days #90 tabs 11/10/24 lidocaine 5 % topical patch 1 patch topical QDAY 30 da ys #30 ea 11/10/24 sertraline 50 mg tablet 50 mg PO QAM depression #90 tabs 11/10/24 clopidogrel 75 mg tablet 75 mg PO QPM 90 days #90 tab s 11/12/24 metformin 500 mg tablet 500 mg PO BID diabetes 90 da ys 11/12/24 #180 tabs tamsulosin 0.4 mg capsule 0.4 mg PO QDAY 90 days #90 c aps 11/12/24 Allergies Allergy/AdvReac Type Severity Reaction Status Date / Time hydrocodone AdvReac Intermediate Nausea Verified 11/06/24 02:25 oxycodone AdvReac Intermediate sedation Verified 11/06/24 02:25 and confusion scopolamine (From AdvReac Intermediate Dizziness Verified 11/06/24 02:25 Transderm-Scop) tramadol AdvReac Unknown may lower Verified 11/06/24 02:25 blaine rosenbaum Review of Systems Review of Systems Narrative Review of Systems: GEN: No fever, no chills, no weight loss EYES: No discharge, no visual changes, no pain HEENT: No ear pain, no congestion, no sore throat PULM: No shortness of breath, no cough, no congestion CV: No chest pain, no dyspnea on exertion, no palpitations GI: No nausea, no vomiting, no diarrhea, + pain, no constipation : No frequency, no urgency, no dysuria MUSC/SKEL: No joint pain, no back pain SKIN: No rash PSYCH: No hallucinations, no depression HEME/LYMPH: No easy bleeding or bruising tendencies NEURO: No weakness, no headache Past Medical History Past Medical History NEUROLOGIC: Positive Neurological Disorders (tremors non parkinsons) and Brain Tumor; Negative Cerebrovascular Accident, Transient Ischemic Attacks (TIA), Parkinson's Disease, Peripheral Neuropathy, Subdural Hematoma or Head Trauma CARDIAC: Positive Cardiac Disorders, Cardiac Arrhythmia, Atrial Fibrillation, Coronary Artery Disease, Atherosclerotic Heart Disease, Hypercholesterolemia, Valvular Heart Disease and Hypertension; Negative Myocardial Infarction, Angina, Heart Murmur, Congestive Heart Failure, Edema or Hypotension RESPIRATORY: Positive Pneumonia; Negative Chronic Obstructive Pulmonary Disease (COPD) or Asthma GASTROINTESTINAL: Negative Gastrointestinal Disorders, Hepatitis, Gall Bladder Disease, Ulcer, Colorectal Cancer, Hemorrhoids or Gastroesophageal Reflux Disease GENITOURINARY: Positive Genitourinary Disorders, Kidney Stones and Inguinal Hernia; Negative Renal Disease, Prostate Cancer or Benign Prostatic Hyperplasia MUSCULOSKELETAL: Positive Musculoskeletal Disorders, Arthritis, Degenerative Disk Disease, Fractures and Degenerative Joint Disease ENT: Positive Cataracts; Negative Macular Degeneration or Head Trauma ENDOCRINE: Positive Endocrine Disorders and Diabetes Mellitus Type 2; Negative Diabetes Mellitus Type 1, Hypoglycemia, Hyperthyroidism or Hypothyroidism HEMATOLOGIC: Negative Blood Disorders, Anemia or Sickle Cell Disease PSYCHO/SOCIAL: Positive Depression and Anxiety; Negative Post Traumatic Stress Disorder OTHER HISTORY: Positive Hospitalization, Falls and Blood Transfusions; Negative Autoimmune Disease, Shingles, Blood Transfusion Reaction, Anesthesia Reactions, Organ Transplant, Chemotherapy, Radiation Therapy, MRSA, VRSA, Vancomycin-Resistant Enterococci, Chicken Pox, Clostridium Difficile, Cancer, Colorectal Cancer or Prostate Cancer Family History FAMILY HISTORY: Positive Family Cardiac Disorders, Family Cancer and Family Surgery; Negative Family Psychiatric Problems, Family Respiratory Disorders, Family Gastrointestinal Problems or Family Anesthesia Reaction Surgical History SURGICAL: Positive Cardiac Surgery, Open Heart Surgery, Coronary Artery Bypass Graft, Valve Replacement, Coronary Stent, Cardiac Catheterization, Ear Surgery, Tonsillectomy, Abdominal Surgery, Joint Replacement and Neurologic Surgery; Negative Endocrine Surgery, Nephrectomy, Vasectomy or Organ Transplant Social History SMOKING STATUS: Former smoker SECOND HAND EXPOSURE: No SUBSTANCE USE: does not use ED Exam Narrative Physical exam: [General: Obese not in any acute distress Head normocephalic HEENT: Within acceptable limits Neck is supple nontender Chest equal chest rise nontender to palpation Respiratory: Clear to auscultation no wheezes crackles or rubs CV: Rate rhythm is regular no murmurs rubs or clicks Abdomen is distended secondary to body habitus soft, right lower quadrant tenderness, no masses positive bowel sounds all 4 quadrants Back: No CVA tenderness no spinous process tenderness from cervical spine thoracic and lumbar spine Skin: Intact no petechiae rash induration ulceration or crepitus Extremities: Moving all extremity against resistance cap refill less than 2 seconds neurosensory intact Neuro: Awake alert oriented x3 Glascow coma 15 no focal deficits] Course Course Course Narrative: At 1628 patient became tachypneic tachycardic and febrile this time patient's sepsis protocol was initiated. I was informed that there is no MRI today after 4 PM, the patient will need an MRCP in the morning. 2100 patient's case discussed with Dr. Kiki Contreras, who agrees the patient is a DNR, and most likely needs the MRCP completed here before potential transfer if there is a requirement for an ERCP. If the MRCP is negative patient can get cholecystectomy done in this facility. In the meantime the patient will be alberto cr on maintenance fluids, as needed nausea and pain medication as well as Q8 Zosyn. As noted lactic acid is has slightly increased from 2.5-2.6 after 30 mg/kg of LR, leukocytosis is remain unchanged. If fever is moderated with IV Tylenol. Will be handing this patient off to Dr. Kiki Contreras at shift change for monitoring. MRCP order has been placed. Daughter at bedside is aware. Quality Measures none Orders Category Date Time Status Admit to Inpatient Status Routine Admission 01/05/25 16:48 Active Patient Condition Routine Admission 01/05/25 16:48 Ordered Bedside Blood Glucose ACHS Care 01/05/25 16:55 Active Catheter [Urinary Catheter] QS Care 01/05/25 05:39 Active Continuous Pulse Oximetry NOW Care 01/05/25 16:48 Completed EKG (ED ONLY) *Do not use* NOW Care 01/04/25 11:01 Completed MRI Screening NOW Care 01/04/25 16:14 Completed Notify provider NEEDED Care 01/05/25 16:48 Active Obtain weight NOW Care 01/05/25 16:48 Active Saline [Insert IV] QSHIFT Care 01/04/25 11:00 Active Sequential Compression Device QSHIFT Care 01/05/25 16:48 Active Vital Signs, Non-Routine [id number] Care 01/05/25 19:[address] abdomen pelvis wo con Stat Exams 01/04/25 12:38 Completed EKG (ED Only) Stat Exams 01/04/25 11:01 Draft MR MRCP Stat Exams 01/05/25 Completed US gall bladder Stat Exams 01/04/25 14:31 Completed B-Type Natriuretic Peptide Stat Lab 01/04/25 11:12 Completed Blood Culture (Lab) Stat Lab 01/04/25 16:40 Results CBC AM DRAW Lab 01/06/25 03:29 Completed CBC AM DRAW Lab 01/07/25 05:58 Completed CBC AM DRAW Lab 01/08/25 05:11 Completed CBC AM DRAW Lab 01/09/25 04:46 Completed CBC AM DRAW Lab 01/10/25 05:00 Ordered CBC AM DRAW Lab 01/11/25 05:00 Ordered CBC Stat Lab 01/04/25 11:12 Completed CBC Stat Lab 01/04/25 19:04 Completed CBC Stat Lab 01/05/25 04:40 Completed CMP [Comprehensive Metabolic Panel] AM DRAW Lab 01/06/25 03:29 Completed CMP [Comprehensive Metabolic Panel] AM DRAW Lab 01/07/25 05:58 Completed CMP [Comprehensive Metabolic Panel] AM DRAW Lab 01/08/25 05:11 Completed CMP [Comprehensive Metabolic Panel] AM DRAW Lab 01/09/25 04:46 Completed CMP [Comprehensive Metabolic Panel] AM DRAW Lab 01/10/25 05:00 Ordered CMP [Comprehensive Metabolic Panel] AM DRAW Lab 01/11/25 05:00 Ordered CMP [Comprehensive Metabolic Panel] Stat Lab 01/04/25 19:04 Completed CMP [Comprehensive Metabolic Panel] Stat Lab 01/05/25 04:40 Completed Comprehensive Metabolic Panel Stat Lab 01/04/25 11:12 Completed Drug Screen,Urine Stat Lab 01/04/25 12:05 Completed LDH (Lactate Dehydrogenase) Stat Lab 01/04/25 11:12 Completed Lactate (Lactic Acid) Stat Lab 01/05/25 04:40 Completed Lactic Acid [Lactate (Lactic Acid)] Stat Lab 01/04/25 16:34 Completed Lactic Acid [Lactate (Lactic Acid)] Stat Lab 01/04/25 19:04 Completed Lactic Acid, 3 HR Stat Lab 01/04/25 22:28 Completed Lactic Acid, 3 HR Stat Lab 01/05/25 08:20 Completed Magnesium AM DRAW Lab 01/06/25 03:29 Completed Magnesium AM DRAW Lab 01/07/25 05:58 Completed Magnesium AM DRAW Lab 01/08/25 05:11 Completed Magnesium AM DRAW Lab 01/09/25 04:46 Completed Magnesium AM DRAW Lab 01/10/25 05:00 Ordered Magnesium AM DRAW Lab 01/11/25 05:00 Ordered Magnesium Stat Lab 01/04/25 11:12 Completed Partial Thromboplastin Time Stat Lab 01/04/25 11:12 Completed Phosphorous AM DRAW Lab 01/06/25 03:29 Completed Phosphorous AM DRAW Lab 01/07/25 05:58 Completed Phosphorous AM DRAW Lab 01/08/25 05:11 Completed Phosphorous AM DRAW Lab 01/09/25 04:46 Completed Phosphorous AM DRAW Lab 01/10/25 05:00 Ordered Phosphorous AM DRAW Lab 01/11/25 05:00 Ordered Procalcitonin Stat Lab 01/04/25 16:34 Completed Procalcitonin Stat Lab 01/05/25 04:40 Completed Prothrombin Time with INR Stat Lab 01/04/25 11:12 Completed Troponin I Stat Lab 01/04/25 11:12 Completed Urinalysis, C/S if Indicated Stat Lab 01/04/25 12:05 Completed Urine Culture Stat Lab 01/04/25 12:05 Completed Acetaminophen Ivpb [Ofirmev Inj] Med 01/04/25 16:28 Discontinued 1,000 mg in 100 ml IV Q6HR Acetaminophen Tab [Tylenol Tab] Med 01/05/25 16:48 Hold 650 mg PO Q6H PRN Dextrose 50% Syr [D50w Syringe Abboject] Med 01/05/25 16:55 Active 25 ml IV Q15MIN PRN Dextrose 50% Syr [D50w Syringe Abboject] Med 01/05/25 16:55 Active 50 ml IV Q15MIN PRN Glucagon Inj Med 01/05/25 16:55 Active 1 mg IM Q15MIN PRN INSULIN LISPRO (AdmeLOG) [HumaLOG] Med 01/05/25 17:00 Discontinued See Protocol SC AC Magnesium Sulfate 2 GM Ivpb [Magnesium Sulfate Ivpb] Med 01/04/25 11:52 Discontinued 2 gm in 50 ml IV X1 Morphine* Inj Med 01/05/25 16:48 Discontinued 1 mg IVP Q4HR PRN Morphine* Inj Med 01/04/25 13:59 Discontinued 2 mg IVP X1 ONE Morphine* Inj Med 01/04/25 20:58 Discontinued 4 mg IVP Q4HR PRN Morphine* Inj Med 01/05/25 16:57 Discontinued 4 mg IVP Q4HR PRN Morphine* Inj Med 01/04/25 16:09 Discontinued 4 mg IVP X1 ONE Morphine* Inj Med 01/04/25 19:33 Discontinued 4 mg IVP X1 ONE Ondansetron Inj [Zofran Inj] Med 01/05/25 16:48 Active 4 mg IVP Q6H PRN Ondansetron Inj [Zofran Inj] Med 01/04/25 13:59 Discontinued 4 mg IVP X1 ONE Ondansetron Inj [Zofran Inj] Med 01/04/25 20:58 Discontinued 4 mg IVP X1 PRN Pantoprazole [Protonix] Med 01/06/25 09:00 Discontinued 40 mg PO QDAY Piper/Tazo 3.375 gm Premix [Zosyn] Med 01/04/25 14:00 Discontinued 3.375 gm in 50 ml IV Q8HR Piper/Tazo 3.375 gm Premix [Zosyn] Med 01/04/25 22:00 Discontinued 3.375 gm in 50 ml IV Q8HR Piper/Tazo 3.375 gm Premix [Zosyn] Med 01/04/25 14:02 Discontinued 3.375 gm in 50 ml IV X1 Ringers Lactated 1000 ml [Lactated Ringers] 1,000 ml Med 01/05/25 09:09 Discontinued IV 125 mls/hr Ringers Lactated 1000 ml [Lactated Ringers] 1,000 ml Med 01/04/25 16:25 Discontinued IV 999 mls/hr Ringers Lactated 1000 ml [Lactated Ringers] 1,000 ml Med 01/04/25 16:26 Discontinued IV 999 mls/hr Ringers Lactated 1000 ml [Lactated Ringers] 500 ml Med 01/04/25 18:30 Discontinued IV 125 mls/hr Ringers Lactated 500 ml [Lactated Ringers] 500 ml Med 01/04/25 16:26 Discontinued IV 125 mls/hr Sodium Chloride 0.9% 1000 ml [Ns] 1,000 ml Med 01/04/25 16:10 Discontinued IV 85 mls/hr Sodium Chloride 0.9% 500 ml [Ns] 500 ml Med 01/04/25 11:01 Discontinued IV 999 mls/hr Code Status Routine Oth 01/05/25 16:48 Ordered Oxygen Delivery DAILY RT 01/05/25 16:50 Active Oxygen Delivery NOW RT 01/05/25 16:50 Completed Vital Signs Vital signs: Vital Signs Temperature 97.7 F 01/04/25 09:21 Pulse Rate 86 01/04/25 09:21 Respiratory Rate 20 01/04/25 09:21 Blood Pressure 99/62 01/04/25 09:21 Pulse Oximetry (%) 95 01/04/25 09:21 Oxygen Delivery Method Nasal Cannula 01/04/25 09:21 Oxygen Flow Rate 2 01/04/25 09:21 Discharge Plan Plan Patient Disposition: Admit Acute Care w/in Hospital Problem List Clinical Impression: Hypomagnesemia, Acalculous cholecystitis, Sepsis, Common bile duct dilatation, Abdominal pain MDM Clinical Information Provided by: patient and EMS Medical Records reviewed [facility] and EMS Meds/Rx considered, not ordered None Labs/Rad/Tests considered, not ordered None Chronic Illness/Social Conditions Explain: Meningioma diabetes Medication Administration(s) Medication Administration History Acetaminophen (Acetaminophen 325 Mg Tablet) 650 mg PO Q6H PRN On Hold: 01/09/25 09:41 Comment: IV APAP ORDER PLACED PRN Reason: PAIN SCALE 1-3 (mild Stop: 02/04/25 16:47 Hydrocodone Bitart/Acetaminophen (Hydrocodone/Apap 5/325 Tablet) 1 tab PO Q6HR PRN On Hold: 01/09/25 09:41 Comment: IV APAP ORDER PLACED PRN Reason: PAIN SCALE 6-7 Stop: 01/11/25 15:56 Amiodarone HCl (Amiodarone Hcl 200 Mg Tablet) 200 mg PO BID PORFIRIO Stop: 02/07/25 08:59 Last Admin: 01/09/25 08:54 Dose: 200 mg Documented By: Admin: 01/08/25 20:31 Dose: 200 mg Documented By: Admin: 01/08/25 09:02 Dose: 200 mg Documented By: TEA(2) Dextrose (Dextrose 50%-Water Inj 50 Ml Syringe) 25 ml IV Q15MIN PRN PRN Reason: BG 50-70 responsive npo pt Stop: 02/04/25 16:54 Dextrose (Dextrose 50%-Water Inj 50 Ml Syringe) 50 ml IV Q15MIN PRN PRN Reason: BG <50 OR BG <70 & pt unresponsive Stop: 02/04/25 16:54 Famotidine (Famotidine 20 Mg Tablet) 20 mg PO HS PORFIRIO Stop: 02/04/25 20:59 Last Admin: 01/08/25 20:34 Dose: 20 mg Documented By: Admin: 01/07/25 20:30 Dose: 20 mg Documented By: Admin: 01/06/25 21:07 Dose: 20 mg Documented By: Admin: 01/05/25 21:25 Dose: Not Given Documented By: KL Non-Admin Reason: NPO Glucagon (Glucagon Inj 1 Mg Vial) 1 mg IM Q15MIN PRN PRN Reason: BG <70, and no IV access Ciprofloxacin/Dextrose (Cipro Ivpb) 400 mg in 200 mls @ 200 mls/hr IV Q12HR [facility] Stop: 01/15/25 08:59 Last Admin: 01/09/25 08:53 Dose: 200 mls/hr Documented By: Infusion: 01/08/25 21:34 Dose: Infused Documented By: Admin: 01/08/25 20:34 Dose: 200 mls/hr Documented By: Infusion: 01/08/25 10:03 Dose: Infused Documented By: Admin: 01/08/25 09:03 Dose: 200 mls/hr Documented By: TEA(2) Acetaminophen (Ofirmev Inj) 1,000 mg in 100 mls @ 250 mls/hr IV Q6HR [facility] Stop: 01/09/25 18:23 Last Admin: 01/09/25 10:11 Dose: 250 mls/hr Documented By: TEA Insulin Human Lispro (Insulin Lispro (Admelog) 1 Unit/0.01 Ml Unit) 0 unit SC [facility]; Protocol Stop: 02/05/25 16:59 Last Admin: 01/09/25 07:30 Dose: Not Given Documented By: TEA Non-Admin Reason: Per Protocol Admin: 01/08/25 20:34 Dose: Not Given Documented By: HENRIK Non-Admin Reason: Per Protocol Admin: 01/08/25 17:24 Dose: Not Given Documented By: TEA(2) Non-Admin Reason: Per Protocol Admin: 01/08/25 12:23 Dose: 1 unit Documented By: TEA(2) Co-signed By: KAMERON Admin: 01/08/25 08:16 Dose: Not Given Documented By: TEA(2) Non-Admin Reason: Per Protocol Admin: 01/07/25 20:31 Dose: Not Given Documented By: HENRIK Non-Admin Reason: Per Protocol Admin: 01/07/25 17:18 Dose: 1 unit Documented By: RAGINI Co-signed By: BRYANT Admin: 01/07/25 11:59 Dose: 1 unit Documented By: RAGINI Co-signed By: TEA Admin: 01/07/25 07:40 Dose: Not Given Documented By: RAGINI Non-Admin Reason: Per Protocol Admin: 01/06/25 21:01 Dose: Not Given Documented By: IG Non-Admin Reason: Per Protocol Admin: 01/06/25 18:12 Dose: Not Given Documented By: JB Non-Admin Reason: Per Protocol Ketorolac Tromethamine (Ketorolac Inj 30 Mg/Ml Vial) 15 mg IVP Q6HR PRN PRN Reason: pain 4-5 Stop: 01/11/25 17:00 Last Admin: 01/08/25 20:58 Dose: 15 mg Documented By: Admin: 01/08/25 14:40 Dose: 15 mg Documented By: Admin: 01/07/25 17:15 Dose: 15 mg Documented By: Admin: 01/06/25 17:26 Dose: 15 mg Documented By: FLORENCIO Morphine Sulfate (Morphine Sulf Inj 4 Mg/Ml Vial) 0.5 mg IV Q4HR PRN PRN Reason: Pain Scale 8-10 Stop: 01/11/25 08:37 Mupirocin (Mupirocin Oint 2% 15 Gm Tube) 0 gm TOP TID [facility] Stop: 01/15/25 08:14 Last Admin: 01/09/25 05:18 Dose: 1 applicatio Documented By: Admin: 01/08/25 22:09 Dose: 1 applicatio Documented By: Admin: 01/08/25 13:17 Dose: 1 applicatio Documented By: TEA(2) Admin: 01/08/25 09:55 Dose: 1 applicatio Documented By: TEA(2) Ondansetron HCl (Ondansetron Inj 2 Mg/Ml Inj 2 Ml) 4 mg IVP Q6H PRN; Protocol PRN Reason: NAUSEA OR VOMITING Stop: 02/04/25 16:47 Pantoprazole Sodium (Pantoprazole Inj 40 Mg Vial) 40 mg IVP QDAY [facility] Stop: 02/05/25 08:59 Last Admin: 01/09/25 08:54 Dose: 40 mg Documented By: Admin: 01/08/25 09:02 Dose: 40 mg Documented By: TEA(2) Admin: 01/07/25 09:04 Dose: 40 mg Documented By: Admin: 01/06/25 09:39 Dose: 40 mg Documented By: JB Discontinued Medications Acetaminophen (Acetaminophen 325 Mg Tablet) 650 mg PO X1 ONE Stop: 01/07/25 10:36 Last Admin: 01/07/25 12:00 Dose: 650 mg Documented By: RAGINI Hydrocodone Bitart/Acetaminophen (Hydrocodone/Apap 5/325 Tablet) 1 tab PO Q6HR PRN PRN Reason: PAIN SCALE 4-6 (Moderate Stop: 01/11/25 15:56 Last Admin: 01/06/25 16:05 Dose: 1 tab Documented By: JB Hydrocodone Bitart/Acetaminophen (Hydrocodone/Apap 5/325 Tablet) 1 tab PO Q6HR PRN PRN Reason: PAIN SCALE 6 Stop: 01/11/25 15:56 Fentanyl Citrate (Fentanyl Cit Inj 50 Mcg/Ml Amp 2ml) Confirm Administered Dose 200 mcg .ROUTE .STK-MED ONE Stop: 01/06/25 14:42 Last Admin: 01/06/25 16:19 Dose: Not Given Documented By: JERSEY Non-Admin Reason: Duplicate Medication on eMAR Sodium Chloride (Ns) 500 mls @ 999 mls/hr IV .Q31M ONE Stop: 01/04/25 11:31 Last Infusion: 01/04/25 11:52 Dose: Infused Documented By: Admin: 01/04/25 11:05 Dose: 999 mls/hr Documented By: KAYLEE Magnesium Sulfate (Magnesium Sulfate Ivpb) 2 gm in 50 mls @ 25 mls/hr IV X1 ONE Stop: 01/04/25 13:51 Last Infusion: 01/04/25 13:42 Dose: Infused Documented By: Admin: 01/04/25 11:57 Dose: 25 mls/hr Documented By: KAYLEE Piperacillin/Tazobactam/Dextrose (Zosyn) 3.375 gm in 50 mls @ 100 mls/hr IV X1 ONE; Protocol Stop: 01/04/25 14:31 Last Infusion: 01/04/25 14:48 Dose: Infused Documented By: Admin: 01/04/25 14:14 Dose: 100 mls/hr Documented By: KAYLEE Sodium Chloride (Ns) 1,000 mls @ 85 mls/hr IV .[id number] PORFIRIO Stop: 02/03/25 16:09 Last Admin: 01/04/25 16:37 Dose: Not Given Documented By: ANASTASIA Non-Admin Reason: Cancelled by Provider Lactated Ringer's (Lactated Ringers) 1,000 mls @ 999 mls/hr IV .Q1H1M ONE Stop: 01/04/25 17:25 Last Infusion: 01/04/25 18:39 Dose: Infused Documented By: Admin: 01/04/25 16:33 Dose: 999 mls/hr Documented By: ANASTASIA Lactated Ringer's (Lactated Ringers) 1,000 mls @ 999 mls/hr IV .Q1H1M ONE Stop: 01/04/25 17:26 Last Infusion: 01/04/25 18:39 Dose: Infused Documented By: Admin: 01/04/25 16:30 Dose: 999 mls/hr Documented By: KAYLEE Lactated Ringer's (Lactated Ringers) 500 mls @ 125 mls/hr IV .Q4H ONE Stop: 01/04/25 20:25 Last Admin: 01/04/25 18:27 Dose: Not Given Documented By: WL Non-Admin Reason: Discontinued Acetaminophen (Ofirmev Inj) 1,000 mg in 100 mls @ 250 mls/hr IV Q6HR [facility] Stop: 01/05/25 06:23 Last Infusion: 01/05/25 05:52 Dose: Infused Documented By: Admin: 01/05/25 05:20 Dose: 250 mls/hr Documented By: Infusion: 01/05/25 00:40 Dose: Infused Documented By: Admin: 01/04/25 23:40 Dose: 250 mls/hr Documented By: Infusion: 01/04/25 18:39 Dose: Infused Documented By: Admin: 01/04/25 18:31 Dose: Not Given Documented By: WL Non-Admin Reason: too close time per [facility] pharm Admin: 01/04/25 16:37 Dose: 250 mls/hr Documented By: ANASTASIA Lactated Ringer's (Lactated Ringers) 500 mls @ 125 mls/hr IV .Q4H ONE Stop: 01/04/25 22:29 Last Infusion: 01/05/25 02:54 Dose: Infused Documented By: Admin: 01/04/25 18:28 Dose: 125 mls/hr Documented By: KAYLEE Piperacillin/Tazobactam/Dextrose (Zosyn) 3.375 gm in 50 mls @ 100 mls/hr IV Q8HR PORFIRIO; Protocol Stop: 01/11/25 13:59 Last Admin: 01/08/25 05:13 Dose: 100 mls/hr Documented By: [email or web address] Infusion: 01/07/25 22:28 Dose: Infused Documented By: [email or web address] Admin: 01/07/25 21:58 Dose: 100 mls/hr Documented By: [email or web address] Infusion: 01/07/25 15:09 Dose: Infused Documented By: [email or web address] Admin: 01/07/25 14:39 Dose: 100 mls/hr Documented By: Infusion: 01/07/25 06:23 Dose: Infused Documented By: Admin: 01/07/25 05:53 Dose: 100 mls/hr Documented By: Infusion: 01/06/25 21:37 Dose: Infused Documented By: Admin: 01/06/25 21:07 Dose: 100 mls/hr Documented By: Infusion: 01/06/25 14:01 Dose: Infused Documented By: Admin: 01/06/25 13:31 Dose: 100 mls/hr Documented By: Infusion: 01/06/25 05:37 Dose: Infused Documented By: Admin: 01/06/25 05:07 Dose: 100 mls/hr Documented By: Infusion: 01/05/25 21:55 Dose: Infused Documented By: Admin: 01/05/25 21:25 Dose: 100 mls/hr Documented By: Infusion: 01/05/25 15:01 Dose: Infused Documented By: Admin: 01/05/25 14:31 Dose: 100 mls/hr Documented By: Admin: 01/05/25 09:41 Dose: Not Given Documented By: WILFRID Non-Admin Reason: Duplicate Medication on eMAR Admin: 01/05/25 09:41 Dose: Not Given Documented By: WILFRID Non-Admin Reason: Duplicate Medication on eMAR Admin: 01/05/25 09:40 Dose: Not Given Documented By: WILFRID Non-Admin Reason: Duplicate Medication on eMAR Piperacillin/Tazobactam/Dextrose (Zosyn) 3.375 gm in 50 mls @ 100 mls/hr IV Q8HR PORFIRIO; Protocol Stop: 01/05/25 06:29 Last Infusion: 01/05/25 07:00 Dose: Infused Documented By: Admin: 01/05/25 05:42 Dose: 100 mls/hr Documented By: Infusion: 01/04/25 22:48 Dose: Infused Documented By: Admin: 01/04/25 22:16 Dose: 100 mls/hr Documented By: YOAN Lactated Ringer's (Lactated Ringers) 1,000 mls @ 125 mls/hr IV .Q8H [facility] Stop: 02/04/25 09:08 Last Admin: 01/05/25 17:08 Dose: 125 mls/hr Documented By: Infusion: 01/05/25 17:08 Dose: Infused Documented By: Admin: 01/05/25 09:17 Dose: 125 mls/hr Documented By: MI Lactated Ringer's (Lactated Ringers) 1,000 mls @ 85 mls/hr IV .[id number] [facility] Stop: 02/04/25 17:46 Last Admin: 01/06/25 05:43 Dose: 85 mls/hr Documented By: Infusion: 01/06/25 05:43 Dose: Infused Documented By: Admin: 01/05/25 19:30 Dose: 85 mls/hr Documented By: BENJAMIN Lactated Ringer's (Lactated Ringers) 500 mls @ 500 mls/hr IV .Q1H ONE Stop: 01/05/25 19:33 Last Admin: 01/05/25 19:24 Dose: Not Given Documented By: BENJAMIN Non-Admin Reason: Discontinued Lactated Ringer's (Lactated Ringers) 1,000 mls @ 999 mls/hr IV .Q1H1M ONE Stop: 01/05/25 19:37 Last Admin: 01/05/25 18:39 Dose: 999 mls/hr Documented By: WILMER Vancomycin HCl/Dextrose (Vancomycin/D5w 1500 Mg Ivpb) 300 mls @ 120 mls/hr IV X1 ONE Stop: 01/05/25 22:44 Last Admin: 01/05/25 22:00 Dose: 120 mls/hr Documented By: BENJAMIN Magnesium Sulfate (Magnesium Sulfate Ivpb) 4 gm in 50 mls @ 12.5 mls/hr IV X1 ONE Stop: 01/06/25 08:46 Last Admin: 01/06/25 05:43 Dose: 12.5 mls/hr Documented By: KL Vancomycin HCl (Vancomycin/Water 1250 Mg Ivpb) 250 mls @ 120 mls/hr IV QDAY@1000 PORFIRIO Stop: 01/13/25 09:59 Last Admin: 01/07/25 10:24 Dose: 120 mls/hr Documented By: Infusion: 01/07/25 10:24 Dose: Infused Documented By: Admin: 01/06/25 09:39 Dose: 120 mls/hr Documented By: CB Lactated Ringer's (Lactated Ringers) 500 mls @ 999 mls/hr IV .Q31M ONE Stop: 01/06/25 22:02 Last Admin: 01/06/25 21:36 Dose: 999 mls/hr Documented By: IG Amiodarone HCl/Dextrose (Nexterone Ivpb) 150 mg in 100 mls @ 600 mls/hr IV .Q10M ONE Stop: 01/06/25 21:45 Last Admin: 01/06/25 22:24 Dose: 600 mls/hr Documented By: ANDERSON Amiodarone HCl/Dextrose (Nexterone Ivpb) 360 mg in 200 mls @ 33.333 mls/hr IV .Q6H ONE Stop: 01/07/25 03:35 Last Admin: 01/06/25 22:42 Dose: 33.333 mls/hr Documented By: ANDERSON Amiodarone HCl/Dextrose (Nexterone Ivpb) 360 mg in 200 mls @ 16.667 mls/hr IV .Q12H PORFIRIO Stop: 01/07/25 21:36 Last Admin: 01/07/25 17:16 Dose: 16.667 mls/hr Documented By: Infusion: 01/07/25 16:48 Dose: Infused Documented By: Admin: 01/07/25 04:48 Dose: 16.667 mls/hr Documented By: ANDERSON Potassium Phosphate (Pot Phos 15 Mmol In Ns 250 Ml) 15 mmol in 250 mls @ 62.5 mls/hr IV Q4H PORFIRIO Stop: 01/08/25 16:13 Last Admin: 01/08/25 13:17 Dose: 62.5 mls/hr Documented By: R(2) Infusion: 01/08/25 13:03 Dose: Infused Documented By: TEA(2) Admin: 01/08/25 09:03 Dose: 62.5 mls/hr Documented By: TEA(2) Potassium Phosphate (Pot Phos 15 Mmol In Ns 250 Ml) 15 mmol in 250 mls @ 62.5 mls/hr IV Q4H PORFIRIO Stop: 01/09/25 00:59 Last Admin: 01/08/25 21:06 Dose: 62.5 mls/hr Documented By: Infusion: 01/08/25 21:06 Dose: Infused Documented By: Admin: 01/08/25 17:29 Dose: 62.5 mls/hr Documented By: TEA(2) Insulin Human Lispro (Insulin Lispro (Admelog) 1 Unit/0.01 Ml Unit) 0 unit SC AC PORFIRIO; Protocol Stop: 02/04/25 16:59 Last Admin: 01/05/25 17:06 Dose: Not Given Documented By: NITIN Non-Admin Reason: Per Protocol Insulin Human Lispro (Insulin Lispro (Admelog) 1 Unit/0.01 Ml Unit) 0 unit SC Q6HR PORFIRIO; Protocol Stop: 02/05/25 00:00 Last Admin: 01/06/25 13:11 Dose: Not Given Documented By: JB Non-Admin Reason: Per Protocol Admin: 01/06/25 05:09 Dose: Not Given Documented By: BENJAMIN Non-Admin Reason: Per Protocol Admin: 01/05/25 23:54 Dose: Not Given Documented By: BENJAMIN Non-Admin Reason: Per Protocol Lactulose (Lactulose Syrup 20 Gm/30 Ml Udc) 30 gm PO X1 ONE; Protocol Stop: 01/07/25 10:34 Last Admin: 01/07/25 12:00 Dose: 30 gm Documented By: RAGINI Lactulose (Lactulose Syrup 20 Gm/30 Ml Udc) 20 gm PO DAILY PORFIRIO; Protocol Stop: 02/07/25 08:59 Last Admin: 01/09/25 09:08 Dose: Not Given Documented By: TEA Non-Admin Reason: held per ,loose stool Admin: 01/08/25 09:10 Dose: Not Given Documented By: TEA(2) Non-Admin Reason: patient had multiple BM Lidocaine HCl (Lidocaine Inj Pf 1% 30 Ml Vial) Confirm Administered Dose 30 ml .ROUTE .STK-MED ONE Stop: 01/06/25 14:41 Last Admin: 01/06/25 16:19 Dose: Not Given Documented By: EC Non-Admin Reason: Duplicate Medication on eMAR Lidocaine HCl (Lidocaine Inj Pf 1% 30 Ml Vial) 6 ml INFL X1 ONE Stop: 01/06/25 14:51 Last Admin: 01/06/25 14:50 Dose: 6 ml Documented By: EC Comments: PLACED ON STERILE FIELD Morphine Sulfate (Morphine Sulf Inj 4 Mg/Ml Vial) 2 mg IVP X1 ONE Stop: 01/04/25 14:00 Last Admin: 01/04/25 14:08 Dose: 2 mg Documented By: WL Morphine Sulfate (Morphine Sulf Inj 4 Mg/Ml Vial) 4 mg IVP X1 ONE Stop: 01/04/25 16:10 Last Admin: 01/04/25 16:32 Dose: 4 mg Documented By: VL Morphine Sulfate (Morphine Sulf Inj 4 Mg/Ml Vial) 4 mg IVP X1 ONE Stop: 01/04/25 19:34 Last Admin: 01/04/25 22:17 Dose: 4 mg Documented By: AM Morphine Sulfate (Morphine Sulf Inj 4 Mg/Ml Vial) 4 mg IVP Q4HR PRN PRN Reason: PAIN 1-6 (mild-mod Stop: 01/09/25 20:57 Last Admin: 01/05/25 03:01 Dose: 4 mg Documented By: AM Morphine Sulfate (Morphine Sulf Inj 4 Mg/Ml Vial) 1 mg IVP Q4HR PRN PRN Reason: PAIN SCALE 7-10 (Severe Stop: 01/10/25 16:47 Morphine Sulfate (Morphine Sulf Inj 4 Mg/Ml Vial) 4 mg IVP Q4HR PRN PRN Reason: PAIN 4-6 (mild-mod Stop: 01/09/25 20:57 Morphine Sulfate (Morphine Sulf Inj 4 Mg/Ml Vial) 2 mg IV Q6HR PRN PRN Reason: PAIN SCALE 4-6 (Moderate Stop: 01/11/25 08:37 Morphine Sulfate (Morphine Sulf Inj 4 Mg/Ml Vial) 2 mg IV Q4HR PRN PRN Reason: PAIN SCALE 7-10 (Severe Stop: 01/11/25 08:38 Morphine Sulfate (Morphine Sulf Inj 4 Mg/Ml Vial) 1 mg IV Q2HR PRN PRN Reason: BREAKTHROUGH PAIN Stop: 01/11/25 08:38 Morphine Sulfate (Morphine Sulf Inj 4 Mg/Ml Vial) 0.5 mg IV Q4HR PRN PRN Reason: Pain Scale 5-10 Stop: 01/11/25 08:37 Morphine Sulfate (Morphine Sulf Inj 4 Mg/Ml Vial) 0.5 mg IV Q4HR PRN PRN Reason: Pain Scale 7-10 Stop: 01/11/25 08:37 Morphine Sulfate (Morphine Sulf Inj 4 Mg/Ml Vial) 0.5 mg IVP X1 ONE Stop: 01/06/25 21:26 Last Admin: 01/06/25 21:31 Dose: 0.5 mg Documented By: IG Naloxone HCl (Naloxone Inj 0.4 Mg/Ml Vial) Confirm Administered Dose 0.4 mg .ROUTE .STK-MED ONE Stop: 01/06/25 14:42 Last Admin: 01/06/25 16:20 Dose: Not Given Documented By: EC Non-Admin Reason: Duplicate Medication on eMAR Ondansetron HCl (Ondansetron Inj 2 Mg/Ml Inj 2 Ml) 4 mg IVP X1 ONE; Protocol Stop: 01/04/25 14:00 Last Admin: 01/04/25 14:07 Dose: 4 mg Documented By: KAYLEE Ondansetron HCl (Ondansetron Inj 2 Mg/Ml Inj 2 Ml) 4 mg IVP X1 PRN; Protocol PRN Reason: nausea Stop: 02/03/25 20:57 Ondansetron HCl (Ondansetron Inj 2 Mg/Ml Inj 2 Ml) Confirm Administered Dose 4 mg .ROUTE .STK-MED ONE Stop: 01/06/25 14:42 Last Admin: 01/06/25 16:20 Dose: Not Given Documented By: EC Non-Admin Reason: Duplicate Medication on eMAR Pantoprazole Sodium (Pantoprazole 40 Mg Tablet) 40 mg PO QDAY PORFIRIO Stop: 02/05/25 08:59 Pantoprazole Sodium (Pantoprazole Inj 40 Mg Vial) 40 mg IVP X1 ONE Stop: 01/05/25 19:53 Last Admin: 01/05/25 21:24 Dose: 40 mg Documented By: BENJAMIN Pharmacy Consult (Vancomycin Pharmacy To Dose 1 Each Each) 1 each IV QDAY PORFIRIO Stop: 02/04/25 19:59 Last Admin: 01/07/25 10:25 Dose: Not Given Documented By: GE Non-Admin Reason: Duplicate Medication on eMAR Admin: 01/06/25 08:45 Dose: Not Given Documented By: JB Non-Admin Reason: Pharmacy Dosing Order Admin: 01/05/25 22:02 Dose: Not Given Documented By: BENJAMIN Non-Admin Reason: Duplicate Medication on eMAR Potassium Chloride (Potassium Chloride 20 Meq Tabcr) 40 meq PO X1 ONE Stop: 01/07/25 08:35 Last Admin: 01/07/25 08:58 Dose: Not Given Documented By: GE Non-Admin Reason: Duplicate Medication on eMAR Potassium Chloride (Potassium Chloride 20 Meq Tabcr) 20 meq PO X1 ONE Stop: 01/07/25 08:35 Last Admin: 01/07/25 08:58 Dose: Not Given Documented By: GE Non-Admin Reason: Duplicate Medication on eMAR Potassium Chloride (Potassium Chloride 10% 20 Meq/15 Ml Udc) 40 meq PO X1 ONE Stop: 01/07/25 09:01 Last Admin: 01/07/25 09:05 Dose: 40 meq Documented By: GE Potassium Chloride (Potassium Chloride 10% 20 Meq/15 Ml Udc) 20 meq PO X1 ONE Stop: 01/07/25 10:01 Last Admin: 01/07/25 10:25 Dose: 20 meq Documented By: GE Potassium Chloride (Potassium Chloride 10% 20 Meq/15 Ml Udc) 40 meq PO X1 ONE Stop: 01/09/25 07:41 Last Admin: 01/09/25 08:55 Dose: 40 meq Documented By: TEA
[2025-01-04] MEDS: SODIUM CHLORIDE 0.9% 500 ML 500 ML 999 ML IV (11:05)
[2025-01-04 11:19] LABS: Basophils # (Auto) 0.0 Thou/mm3 (0.0-0.2); Basophils % (Auto) 0 % (0-2.5); Eosinophils # (Auto) 0.0 Thou/mm3 (0.0-0.5); Eosinophils % (Auto) 0 % (0-10); Hematocrit 41.4 % (41.0-53.0); Hemoglobin 13.3 g/dL (13.5-16.0); Immature Granulocytes Auto 0.08 Thou/mm3 (0.00-0.00); Lymphocytes # (Auto) 1.2 Thou/mm3 (1.0-4.8); Lymphocytes % (Auto) 8 % (10-50); Mean Corpuscular HGB Conc 32.1 g/dl (31.0-37.0); Mean Corpuscular Hemoglobin 28.5 pg (25.0-35.0); Mean Corpuscular Volume 89 fL (80-100); Monocytes # (Auto) 1.4 Thou/mm3 (0.0-0.8); Monocytes % (Auto) 9 % (0-12); Neutrophils # (Auto) 13.5 Thou/mm3 (1.8-7.7); Neutrophils % (Auto) 83 % (37-80); Nucleated Red Blood Cell # 0.00 Thou/mm3 (0.00-0.00); Nucleated Red Blood Cell % 0 /100 WBC (0); Platelet Count 170 Thou/mm3 (140-440); RDW Standard Deviation 47.3 fL (35.1-43.9); Red Blood Count 4.66 Miln/mm3 (4.50-5.90); White Blood Count 16.2 Thou/mm3 (3.8-10.6)
[2025-01-04 11:34] LABS: INR 1.2 (0.9-1.3); Partial Thromboplastin Time 31.7 Seconds (22.0-36.0); Prothrombin Time 12.3 Seconds (9.0-12.2)
[2025-01-04 11:35] LABS: B-Type Natriuretic Peptide 78 pg/mL (0-100)
[2025-01-04 11:48] LABS: Alanine Aminotransferase 8 U/L (10-49); Albumin, Serum 3.9 gm/dL (3.4-4.8); Albumin/Globulin Ratio 1.7 (1.2-2.2); Alkaline Phosphatase 38 U/L (46-116); Anion Gap 8 (7-16); Aspartate Amino Transferase < 10 U/L (0-34); BUN/Creatinine Ratio 16 Ratio (12-20); Bilirubin,Total 1.4 mg/dL (0.3-1.2); Blood Urea Nitrogen 16 mg/dL (9-23); Calcium 9.8 mg/dL (8.3-10.6); Calcium (Corrected) 9.9 mg/dL (8.5-10.1); Carbon Dioxide 29.6 mMol/L (20.0-31.0); Chloride 100 mMol/L (98-107); Creatinine (Component) 1.0 mg/dL (0.6-1.3); Estimated Creatinine Clearance 58.7 mL/min (>60); Globulin 2.3 gm/dL (2.3-3.5); Glucose 157 mg/dL (74-106); LDH (Lactate Dehydrogenase) 132 U/L (120-246); Magnesium 1.3 mg/dL (1.6-2.6); Osmolality,Calculated 279 (275-295); Potassium 4.2 mMol/L (3.4-5.1); Sodium 138 mMol/L (136-145); Total Protein 6.2 gm/dL (5.7-8.2); Troponin I < 0.020 ng/mL (0.0-0.045); eGFR > 60 See Note
[2025-01-04] MEDS: Magnesium Sulfate 2 GM Ivpb 2 GM/50 ML BAG IV (11:57)
[2025-01-04 12:13] LABS: Collection Type, Urine Clean Catch
--- NOTE | 2025-01-04 12:38 | XR_ITS ---
Examination: CT abdomen and pelvis without contrast. Coronal 3-D reconstructions. Sagittal 2-D reconstructions. Date and time of exam: January 04, 2025 12:50 p.m. INDICATIONS: Onset right lower abdominal pain today CTDI: vol (mGy): 11.3 DLP: (mGycm): 747 Technique: Axial images of the abdomen have been obtained, 3 mm slice thickness Intravenous contrast material has not been administered. Low dose protocols were performed. One or more of the following dose reduction techniques were used; automated exposure control, adjustment of the mA and/or KV according to patient size, use of iterative reconstruction technique. Findings: Atelectasis versus mild pneumonia at the lung bases Minimal pleural fluid No visualized liver lesion Marked wall thickening and inflammation involving the gallbladder Spleen is not enlarged There also is edema involving the duodenum which may be from the cholecystitis Mild perinephric stranding Multiple subcentimeter renal calculi, no hydronephrosis or ureteral calculi Colonic diverticulosis, no definite diverticulitis Bladder detail is obscured by the orthopedic hip hardware IMPRESSION: Atelectasis versus mild pneumonia at the lung bases Acute acalculous cholecystitis, recommend hepatobiliary sonography follow-up
[2025-01-04 12:43] LABS: Bilirubin,Urine 1+ (Negative); Blood,Urine 1+ (Negative); Clarity,Urine Turbid (Clear/Hazy); Color,Urine Yellow (Lt Yel-Yel); Glucose, Urine Negative (Negative); Hyaline Casts,Urine 1 /hpf (0-1); Ketones,Urine Negative (Negative); Leukocyte Esterase,Urine Positive (Negative); Nitrite,Urine Negative (Negative); PH,Urine 5.0 (5.0-7.0); Protein,Urine Trace (Neg - Trace); RBC,Urine 10 /hpf (0-3); Specific Gravity,Urine 1.026 (1.001-1.035); Squamous Epithelial Cell,Urine 4 /hpf (0-5); Urobilinogen,Urine 3.0 mg/dL (0.0-1.0); WBC,Urine 31 /hpf (0-5)
[2025-01-04 12:50] LABS: Culture Indicated,Urine Yes
--- NOTE | 2025-01-04 13:04 | PC.NURSE ---
PATIENT TO CT VIA [place] WITH SENIOR ENVIRONMENTAL SCIENTIST
[2025-01-04 13:22] LABS: Amphetamine/Methamp Scrn,U Negative (Negative); Barbiturate Screen,Urine Negative (Negative); Benzodiazepines Screen,Urine Negative (Negative); Benzoylecgonine Screen, Ur Negative (Negative); Fentanyl Screen,Urine Negative (Negative); Opiate Screen,Urine Negative (Negative); THC Screen,Urine Negative (Negative)
[2025-01-04] MEDS: ONDANSETRON INJ 2 MG/ML INJ 2 ML 4 MG IVP (14:07)
[2025-01-04] MEDS: MORPHINE SULF INJ 4 MG/ML VIAL 2 MG IVP (14:08)
[2025-01-04] MEDS: PIPER/TAZO 3.375 GM PREMIX 3.375 GM/50 ML BAG IV ×2 (14:14→22:16)
--- NOTE | 2025-01-04 14:25 | PC.NURSE ---
Patient c/o pain to left arm, from shoulder down to hand, 10/10 on pain scale, Ozzy HAT MEASURER made aware. New order for pain medication received.
--- NOTE | 2025-01-04 14:31 | XR_ITS ---
Examination: Abdomen sonogram, Limited Date and time of exam: January 04, 2025, 1507 hours INDICATIONS: Right upper abdominal pain beginning 5 days ago Technique: Real-time jose scale transabdominal sonographic images of the upper abdomen obtained. Findings: Sludge ball versus mass in the gallbladder, 4.1 x 3.9 cm, Technologist measures the gallbladder wall 0.2 cm however on the CT examination today there appears to be obvious thickening and edema involving the gallbladder wall Common bile duct is enlarged 0.9 cm no stones Pancreatic head is enlarged 3.8 cm Liver 17.6 cm fatty infiltration Normal hepatopetal portal venous flow Patent IVC IMPRESSION: Consider MRCP follow-up to confirm acute cholecystitis and assess the enlarged common bile duct 0.9 cm
[2025-01-04] MEDS: RINGERS LACTATED 1000 ML 1,000 ML 999 ML IV ×2 (16:30→16:33)
[2025-01-04] MEDS: MORPHINE SULF INJ 4 MG/ML VIAL IVP ×2 (16:32→22:17)
[2025-01-04] MEDS: ACETAMINOPHEN IVPB 1,000 MG/100 ML VIAL 250 MG IV ×2 (16:37→23:40)
[2025-01-04 16:41] LABS: Lactate (Lactic Acid) 2.5 mMol/L (0.4-2.0)
[2025-01-04 17:12] LABS: Procalcitonin 1.19 ng/ml (0.0-0.49)
[2025-01-04] MEDS: RINGERS LACTATED 1000 ML 500 ML 125 ML IV (18:28)
[2025-01-04 19:12] LABS: Lactate (Lactic Acid) 2.6 mMol/L (0.4-2.0)
[2025-01-04 19:40] LABS: Reflex Lactate? Y
[2025-01-04 20:39] LABS: Basophils # (Auto) 0.0 Thou/mm3 (0.0-0.2); Basophils % (Auto) 0 % (0-2.5); Eosinophils # (Auto) 0.0 Thou/mm3 (0.0-0.5); Eosinophils % (Auto) 0 % (0-10); Hematocrit 39.4 % (41.0-53.0); Hemoglobin 12.7 g/dL (13.5-16.0); Immature Granulocytes Auto 0.13 Thou/mm3 (0.00-0.00); Lymphocytes # (Auto) 0.8 Thou/mm3 (1.0-4.8); Lymphocytes % (Auto) 5 % (10-50); Mean Corpuscular HGB Conc 32.2 g/dl (31.0-37.0); Mean Corpuscular Hemoglobin 28.5 pg (25.0-35.0); Mean Corpuscular Volume 88 fL (80-100); Monocytes # (Auto) 1.5 Thou/mm3 (0.0-0.8); Monocytes % (Auto) 9 % (0-12); Neutrophils # (Auto) 13.6 Thou/mm3 (1.8-7.7); Neutrophils % (Auto) 85 % (37-80); Nucleated Red Blood Cell # 0.00 Thou/mm3 (0.00-0.00); Nucleated Red Blood Cell % 0 /100 WBC (0); Platelet Count 161 Thou/mm3 (140-440); RDW Standard Deviation 47.1 fL (35.1-43.9); Red Blood Count 4.46 Miln/mm3 (4.50-5.90); White Blood Count 16.0 Thou/mm3 (3.8-10.6)
[2025-01-04 21:06] LABS: Alanine Aminotransferase < 7 U/L (10-49); Albumin, Serum 3.5 gm/dL (3.4-4.8); Albumin/Globulin Ratio 1.6 (1.2-2.2); Alkaline Phosphatase 38 U/L (46-116); Anion Gap 12 (7-16); Aspartate Amino Transferase 10 U/L (0-34); BUN/Creatinine Ratio 13 Ratio (12-20); Bilirubin,Total 1.1 mg/dL (0.3-1.2); Blood Urea Nitrogen 12 mg/dL (9-23); Calcium 9.4 mg/dL (8.3-10.6); Calcium (Corrected) 9.8 mg/dL (8.5-10.1); Carbon Dioxide 21.3 mMol/L (20.0-31.0); Chloride 103 mMol/L (98-107); Creatinine (Component) 0.9 mg/dL (0.6-1.3); Estimated Creatinine Clearance 65.3 mL/min (>60); Globulin 2.2 gm/dL (2.3-3.5); Glucose 135 mg/dL (74-106); Osmolality,Calculated 273 (275-295); Potassium 3.9 mMol/L (3.4-5.1); Sodium 136 mMol/L (136-145); Total Protein 5.7 gm/dL (5.7-8.2); eGFR > 60 See Note
[2025-01-04 22:08] LABS: Reflex Lactate? Y
[2025-01-04 22:32] LABS: Lactic Acid, 3 HR 2.0 mMol/L (0.4-2.0)
--- NOTE | 2025-01-04 23:14 | PD.EDADDENDU ---
Emergency Room Addendum Addendum Narrative: 2300: Care assumed from Ozzy March NP. Past medical, surgical, social and family history reviewed. Vitals and home medications reviewed. Results and treatment plan discussed. I will assume the care of the patient at this time and will follow the patient, pending MRCP. Please refer to the emergency department record for history and examination from initial visit. 84yo male who was found to be septic with evidence of cholecystitis, on Zosyn. Patient remained persistently tachycardic, although remained normaltensive. Patient noted to have minimal output throughout the night. Informal bedside US was performed and demonstrated distended urinary bladder, paredes catheter was placed. Patient is pending MRCP and final disposition will be formulated at that time by the oncoming provider, Dr. Sweeney.
[2025-01-05] VITALS (29 sets, daily range): BP systolic 81–142; BP diastolic 54–92; PULSE 99–127; RESP 16–33; TEMP 36.2–37.4; O2SAT 89–97
--- NOTE | 2025-01-05 | XR_ITS ---
MRI abdomen, without contrast. MRCP Date and time of exam: January 05, 2025, 0656 hours INDICATIONS: Sepsis alert, sludge ball versus mass in the gallbladder on ultrasound study yesterday, CT abdomen/pelvis yesterday marked wall thickening and inflammation involving the gallbladder wall Technique: Multiple axial and coronal images of the abdomen have been obtained with the Siemens 1.5T MRI scanner. Images obtained included T1 weighted transverse images, T2-weighted transverse images, T2-weighted transverse images fat-suppressed, T2 weighted haste fat suppressed transverse images, T1 weighted images, in and out of phase images, T2-weighted coronal images, breath hold, T2 weighted haze coronal images as well as T2 weighted coronal thick slab images, MRCP. Findings: Sludge ball versus gallstones Gallbladder wall is thickened, axial image 16 Common hepatic duct 9 mm, mild intrahepatic biliary tract dilatation No common hepatic or common bile duct stones Pancreatic duct dilated 4 mm Mild edema surrounding the pancreas Cystic changes in the pancreatic head, the largest of this cystic area 17 mm Spleen is not enlarged There is fluid surrounding the spleen Atrophic scarred kidneys with perinephric stranding Aorta normal size IMPRESSION: Cholecystitis pattern, gallbladder sludge ball versus stone Extrahepatic biliary tract dilatation without definite common hepatic or common bile duct stones, consider ERCP follow-up Mild acute pancreatitis with benign-appearing cystic change in the pancreatic head
[2025-01-05] MEDS: MORPHINE SULF INJ 4 MG/ML VIAL IVP (03:01)
[2025-01-05 04:44] LABS: Basophils # (Auto) 0.0 Thou/mm3 (0.0-0.2); Basophils % (Auto) 0 % (0-2.5); Eosinophils # (Auto) 0.0 Thou/mm3 (0.0-0.5); Eosinophils % (Auto) 0 % (0-10); Hematocrit 43.2 % (41.0-53.0); Hemoglobin 13.9 g/dL (13.5-16.0); Immature Granulocytes Auto 0.03 Thou/mm3 (0.00-0.00); Lactate (Lactic Acid) 2.3 mMol/L (0.4-2.0); Lymphocytes # (Auto) 0.4 Thou/mm3 (1.0-4.8); Lymphocytes % (Auto) 5 % (10-50); Mean Corpuscular HGB Conc 32.2 g/dl (31.0-37.0); Mean Corpuscular Hemoglobin 28.4 pg (25.0-35.0); Mean Corpuscular Volume 88 fL (80-100); Monocytes # (Auto) 0.8 Thou/mm3 (0.0-0.8); Monocytes % (Auto) 9 % (0-12); Neutrophils # (Auto) 7.5 Thou/mm3 (1.8-7.7); Neutrophils % (Auto) 86 % (37-80); Nucleated Red Blood Cell # 0.00 Thou/mm3 (0.00-0.00); Nucleated Red Blood Cell % 0 /100 WBC (0); Platelet Count 186 Thou/mm3 (140-440); RDW Standard Deviation 47.9 fL (35.1-43.9); Red Blood Count 4.89 Miln/mm3 (4.50-5.90); White Blood Count 8.7 Thou/mm3 (3.8-10.6)
[2025-01-05 05:15] LABS: Alanine Aminotransferase 9 U/L (10-49); Albumin, Serum 3.7 gm/dL (3.4-4.8); Albumin/Globulin Ratio 1.6 (1.2-2.2); Alkaline Phosphatase 38 U/L (46-116); Anion Gap 11 (7-16); Aspartate Amino Transferase 13 U/L (0-34); BUN/Creatinine Ratio 23 Ratio (12-20); Bilirubin,Total 1.1 mg/dL (0.3-1.2); Blood Urea Nitrogen 21 mg/dL (9-23); Calcium 9.7 mg/dL (8.3-10.6); Calcium (Corrected) 9.9 mg/dL (8.5-10.1); Carbon Dioxide 23.9 mMol/L (20.0-31.0); Chloride 104 mMol/L (98-107); Creatinine (Component) 0.9 mg/dL (0.6-1.3); Estimated Creatinine Clearance 65.3 mL/min (>60); Globulin 2.3 gm/dL (2.3-3.5); Glucose 152 mg/dL (74-106); Osmolality,Calculated 283 (275-295); Potassium 3.8 mMol/L (3.4-5.1); Procalcitonin 11.98 ng/ml (0.0-0.49); Sodium 139 mMol/L (136-145); Total Protein 6.0 gm/dL (5.7-8.2); eGFR > 60 See Note
[2025-01-05] MEDS: ACETAMINOPHEN IVPB 1,000 MG/100 ML VIAL 250 MG IV (05:20)
[2025-01-05] MEDS: PIPER/TAZO 3.375 GM PREMIX 3.375 GM/50 ML BAG IV ×3 (05:42→21:25)
[2025-01-05 07:42] LABS: Reflex Lactate? Y
--- NOTE | 2025-01-05 08:05 | PC.SS ---
Patient Julio Johnson is a 84 Year old male admitted for Weakness. SS met with patient's daughter, Sonam Huynh at bedside. Sonam reports patient resides at [facility] and has been there Since October. Patient's sister reports she is patient's surrogate decision maker, . Patient needs assistance completing all ADL's. Patient utilizes a wheel chair to assist with ambulation. Patient's daughter reports patient has been declining and has not been able to ambulate. At time of discharge patient's daughter Sonam reports patient will discharge back to [facility]. SS will need to assist with transportation. Discharge plan: [facility] Next of Kin: Daughter, Sonam Huynh
[2025-01-05 08:27] LABS: Lactic Acid, 3 HR 2.9 mMol/L (0.4-2.0)
--- NOTE | 2025-01-05 09:10 | PD.EDADDENDU ---
Emergency Room Addendum <Deepika Sweeney MD - Last Filed: 01/05/25 18:08> Addendum Narrative: 0600h: Patient was signed out to me by Dr. Rodas pending MRCP this morning and determination if patient would be admitted at this facility versus need transfer. Has been diagnosed with cholecystitis. 0910h: Patient's MRCP is back showing cholecystitis pattern, gallbladder sludge ball versus stone, extrahepatic biliary tract dilatation without definite common hepatic or common bile duct stones. Consider ERCP follow-up. Mild acute pancreatitis with benign-appearing cystic change in the pancreatic head. His repeat lactate this morning has increased to 2.9. He did receive 3 L of fluids yesterday evening and was given maintenance fluids which were continued up until completing it just before 3 AM. Has not received fluids since that time. Additional maintenance fluids added - LR at 125 mL an hour. Order was placed for transfer for further management at facility with ERCP capabilities. Checked on patient and he is resting comfortably in bed at this time. Vitally stable. Patient's family members at bedside and she was updated. She notes that he had been doing well at rehab facility up until about 1 week ago when he started to decline with worsening of symptoms about 4 days ago. 1030h: Spoke with [facility] transfer center regarding patient's presentation and ED course for transfer. They will discuss with GI they are to see if he can be accepted for transfer. 1208h: [facility]. Discussed patient's presentation and ED course thus far. They will review with their doctors to see if he is a candidate for transfer to their facility. 1305h: D/w GI at [facility] Dr. Coffey who notes that pt does not require ERCP, just needs surg and not GI. Spoke w Dr. Burt here for eval of pt, discussed pts presentation and ED course thus far, will eval pt in ED. 1433h: Surgeon Dr. Burt has evaluated the patient in the ED and agrees to perform surgery here. He agrees to consult. Discussed with hospitalist team for admit. <Aisha Cantrell - Last Filed: 01/05/25 14:59> Addendum Narrative: 0600h: Patient was signed out to me by Dr. Rodas pending MRCP this morning and determination if patient would be admitted at this facility versus need transfer. Has been diagnosed with cholecystitis. 0910h: Patient's MRCP is back showing cholecystitis pattern, gallbladder sludge ball versus stone, extrahepatic biliary tract dilatation without definite common hepatic or common bile duct stones. Consider ERCP follow-up. Mild acute pancreatitis with benign-appearing cystic change in the pancreatic head. His repeat lactate this morning has increased to 2.9. He did receive 3 L of fluids yesterday evening and was given maintenance fluids which were continued up until completing it just before 3 AM. Has not received fluids since that time. Additional maintenance fluids added - LR at 125 mL an hour. Order was placed for transfer for further management at facility with ERCP capabilities. Checked on patient and he is resting comfortably in bed at this time. Vitally stable. Patient's family members at bedside and she was updated. She notes that he had been doing well at rehab facility up until about 1 week ago when he started to decline with worsening of symptoms about 4 days ago. 1030h: Spoke with [facility] transfer center regarding patient's presentation and ED course for transfer. They will discuss with GI they are to see if he can be accepted for transfer. 1208h: [facility] regarding patient's. Discussed patient's presentation and ED course thus far. They will review with their doctors to see if he is a candidate for transfer to their facility. 1305h: D/w GI at [facility] Dr. Coffey who notes that pt does not require ERCP, just needs surg and not GI. Spoke w Dr. Burt here for eval of pt, discussed pts presentation and ED course thus far, will eval pt in ED. 1433h: Surgeon Dr. Burt has evaluated the patient in the ED and agrees to perform surgery here. He agrees to consult.
[2025-01-05] MEDS: RINGERS LACTATED 1000 ML 1,000 ML 125 ML IV ×2 (09:17→17:08)
--- NOTE | 2025-01-05 09:39 | PC.CM ---
Addendum entered by Suzi Moss RN 01/05/25 13:47: [address] Sweeney and I asked if she wanted me to cancel with [facility] and she said yes. I called [facility] to let them know I wanted to cancel the transfer request. They let me know that their doctor reviewed information and he agreed with [facility] that patient does not need to be transferred. [address] back [address]. Patel spoke to Dr. Sweeney. He let her know patient does not need to be transferred and patient should get a surgery consult. Patient was declined. Addendum entered by Suzi Moss RN 01/05/25 12:13: 1155 Transfer nurse Linda with [facility] wanted to speak to Dr. Sweeney so I connected Dr. Sweeney with Linda. 1145 I contacted [facility] and initiated a transfer because [facility] had not called me back. I faxed over paperwork and I pushed over images. Addendum entered by Suzi Moss RN 01/05/25 10:49: 1015 I spoke to Ynes at [facility] and I connected her with Dr. Sweeney. Ynes trying to get a hold of their GI doctor but she was not able to get a hold of him. She was going to try and get a hold of him and get back to us. [id number] I spoke to Ynes with [facility] and she states she got the MRCP report that I sent but it did it was cut off and did not show the impression. I had to go on [employer] and download the report again. Original Note: 7420 I received a referral to transfer patient for ERCP. I faxed over information to [facility] and I initiated a transfer.
--- NOTE | 2025-01-05 14:35 | ESCONSULT_ITS ---
HPI Consult details Consult date: 01/05/25 Reason for consultation narrative: The patient was seen in consultation because of acute cholecystitis and cholelithiasis or sludge History of present illness: History of present illness revealed that the patient was in [facility] recuperating from multiple medical problems for which he was treated in the hospital in October. Then they started noticing abdominal pain and some vomiting. Patient has numerous medical problem including coronary artery disease hypertension and possible Parkinson's disease and neurological problems secondary to excision of intracranial tumor. Patient also has been diagnosed as having disability and failure to thrive. Some of the information was obtained from his sister. Patient is on anticoagulation with aspirin and Plavix following heart surgery Past Medical History Past Medical History NEUROLOGIC: Positive Neurological Disorders (tremors non parkinsons) and Brain Tumor; Negative Cerebrovascular Accident, Transient Ischemic Attacks (TIA), Parkinson's Disease, Peripheral Neuropathy, Subdural Hematoma or Head Trauma CARDIAC: Positive Cardiac Disorders, Cardiac Arrhythmia, Atrial Fibrillation, Coronary Artery Disease, Atherosclerotic Heart Disease, Hypercholesterolemia, Valvular Heart Disease and Hypertension; Negative Myocardial Infarction, Angina, Heart Murmur, Congestive Heart Failure, Edema or Hypotension RESPIRATORY: Positive Pneumonia; Negative Respiratory Disorders, Chronic Obstructive Pulmonary Disease (COPD) or Asthma GASTROINTESTINAL: Negative Gastrointestinal Disorders, Hepatitis, Gall Bladder Disease, Ulcer, Colorectal Cancer, Hemorrhoids or Gastroesophageal Reflux Disease GENITOURINARY: Positive Genitourinary Disorders, Kidney Stones and Inguinal Hernia; Negative Renal Disease, Prostate Cancer or Benign Prostatic Hyperplasia MUSCULOSKELETAL: Positive Musculoskeletal Disorders, Arthritis, Degenerative Disk Disease, Fractures and Degenerative Joint Disease ENT: Positive Cataracts; Negative Macular Degeneration or Head Trauma ENDOCRINE: Positive Endocrine Disorders and Diabetes Mellitus Type 2; Negative Diabetes Mellitus Type 1, Hypoglycemia, Hyperthyroidism or Hypothyroidism HEMATOLOGIC: Negative Blood Disorders, Anemia or Sickle Cell Disease PSYCHO/SOCIAL: Positive Depression and Anxiety; Negative Post Traumatic Stress Disorder OTHER HISTORY: Positive Hospitalization, Falls and Blood Transfusions; Negative Autoimmune Disease, Shingles, Blood Transfusion Reaction, Anesthesia Reactions, Organ Transplant, Chemotherapy, Radiation Therapy, MRSA, VRSA, Vancomycin-Resistant Enterococci, Chicken Pox, Clostridium Difficile, Cancer, Colorectal Cancer or Prostate Cancer Family History FAMILY HISTORY: Positive Family Cardiac Disorders, Family Cancer and Family Surgery; Negative Family Psychiatric Problems, Family Respiratory Disorders, Family Gastrointestinal Problems or Family Anesthesia Reaction Surgical History SURGICAL: Positive Cardiac Surgery, Open Heart Surgery, Coronary Artery Bypass Graft, Valve Replacement, Coronary Stent, Cardiac Catheterization, Ear Surgery, Tonsillectomy, Abdominal Surgery, Joint Replacement and Neurologic Surgery; Negative Endocrine Surgery, Nephrectomy, Vasectomy or Organ Transplant Social History SMOKING STATUS: Former smoker SECOND HAND EXPOSURE: No SUBSTANCE USE: does not use Meds Home Medications and Allergies Allergies Allergy/AdvReac Type Severity Reaction Status Date / Time hydrocodone AdvReac Intermediate Nausea Verified 11/06/24 02:25 oxycodone AdvReac Intermediate sedation Verified 11/06/24 02:25 and confusion scopolamine (From AdvReac Intermediate Dizziness Verified 11/06/24 02:25 Transderm-Scop) tramadol AdvReac Unknown may lower Verified 11/06/24 02:25 sz threhold Exam Vital Signs Temp Pulse Resp BP Pulse Ox O2 Del Method O2 Flow Rate 98.0 F 108 H 24 H 111/71 94 L Nasal Cannula 2 01/05/25 13:57 01/05/25 13:57 01/05/25 13:57 01/05/25 13:57 01/05/25 13:57 01/05/25 13:57 01/05/25 13:57 Narrative Exam Physical examination revealed an elderly 84-year-old white male who is not able to speak and give history. He is slightly obese weighing 190 pounds. His vital signs are normal except heart rate of 108 Constitutional Constitutional: moderate distress Routine Abdominal Exam Comments: Examination abdomen showed tenderness in the right upper quadrant but no palpable gallbladder. Routine Neurological Exam Comments: Could not perform neurological examination because he is bedbound Results Results: Laboratory Laboratory Narrative: Laboratory results are within normal limits Results: Imaging Imaging narrative: Gallbladder ultrasound showed sludge or gallstone. MRCP showed acute cholecystitis with a dilated common bile duct but no stone Assessment & Plan Additional Assessment Additional comments: Impression: Cholecystitis with possible cholelithiasis or sludge ASHD Diabetes Hypertension History of neurological problem not diagnosed at but most likely Parkinson's Anticoagulation with Plavix Plan Plan: Patient is not a good candidate for any surgical intervention due to his age and associated medical problem. However he can be treated with antibiotics and if needed a percutaneous cholecystostomy by the interventional radiologist. Even if he had a percutaneous cholecystotomy drainage it is only temporary and he will eventually need cholecystectomy. But it may help in the situation of sepsis. Thank you very much
--- NOTE | 2025-01-05 16:56 | PD.RESHP ---
Documentation for date of: 01/05/25 HPI History of Present Illness Chief complaint: RUQ tenderness, n/v/d and dysuria History of present illness: Mr. Johnson is a 84-year-old gentleman with history of CAD with hx of CABG (on asa and plavix) hypertension,? Parkinson's, neurological problems status post benign intracranial tumor, renal stones, who presented with 3 days of nausea, vomiting and diarrhea. He is a resident at a rehab facility and he was given some kind of medication to stop the diarrrhea, which then made him constipated. He presented to the ed on 01/05 with RUQ tenderness, increased fatigued and weakness. per his daughter Sonam, he has been doing well with rehab, able to feed himself, and engage with PT utilizing the stationary bike. after he began to feel ill, he had notable regression in his strength and ability to engage with PT. Surgical hx : CABG, L shoulder repair, Hip replacement, benign intracranial tumor removed. Initial work up raised concern for cholecystitis on CTAP, subsequent MRCP Cholecystitis pattern, gallbladder sludge ball versus stone Extrahepatic biliary tract dilatation without definite common hepatic or common bile duct stones and Mild acute pancreatitis with benign-appearing cystic change in the pancreatic head. ED initiated transfer given concern for potential ERCP, however pt was denied transfer by torin who recomended surgical consultation rather than GI. Dr. Ponce was consulted who recommended against surgical intervention given the patients comorbidities, and recommended IV antibiotics, and possible percutaneous drain of GB. , according to daughter he was noted to be retaining urine so paredes catheter was placed and draining dark yellow urine. VSS on 2L NC satting 95% Labs notable for wbc 16 on presntation-->8, UA turbid with leuk esterase +, 31 WBC. Imaging notable for: - CTAP with Atelectasis versus mild pneumonia at the lung bases Acute acalculous cholecystitis, - GB US with obvious thickening and edema involving the gallbladder wall Common bile duct is enlarged 0.9 cm no stones Pancreatic head is enlarged 3.8 cm - MRCP Cholecystitis pattern, gallbladder sludge ball versus stone Extrahepatic biliary tract dilatation without definite common hepatic or common bile duct stones and Mild acute pancreatitis with benign-appearing cystic change in the pancreatic head Tx - NS - Zofran - Morphine - IV APAP - Zosyn Review of Systems Review of Systems ROS Unobtainable: unobtainable due to medical condition Narrative Review of Systems: pt very fatigued and unable to respond to all the questions Exam Vital Signs Temp Pulse Resp BP Pulse Ox O2 Del Method O2 Flow Rate 97.9 F 117 H 29 H 118/72 94 L Nasal Cannula 2 01/05/25 16:31 01/05/25 16:31 01/05/25 16:31 01/05/25 16:31 01/05/25 13:57 01/05/25 16:31 01/05/25 16:31 Narrative Exam GENERAL: no acute distress, A&Ox2 (unable to fully assess orientation 2/2 fatigue), fatigued HEENT: Head AT/ NC. Mucous membranes dry. PERRL. mouth open NECK: Supple, no lymphadenopathy, no carotid bruits. CARDIOVASCULAR: RRR. Normal S1/S2, No m/r/g. No pitting edema of bilateral LEs. RESPIRATORY: trace bilateral lung base crackles GASTROINTESTINAL: Abdomen soft, non tender no palpable masses. Bowel sounds present, mildly tender in the suprapubic and RUQ, no rebound no guarding. MUSCULOSKELETAL:? No cyanosis or edema, no visible joint swelling. NEUROLOGICAL: unable to assess CN 2/2 patient fatigue . No focal deficits. Sensation intact, symmetric. PSYCHIATRIC: Awake and alert, not agitated, normal mood and affect. SKIN: No obvious rashes, no jaundice, poor turgor. Results: Labs 01/05/25 04:40 01/05/25 04:40 Labs: Short CBC 01/04/25 01/05/25 Range/Units 19:04 04:40 WBC 16.0 H 8.7 D (3.8-10.6) Thou/mm3 Hgb 12.7 L 13.9 (13.5-16.0) g/dL Hct 39.4 L 43.2 (41.0-53.0) % Plt Count 161 186 (140-440) Thou/mm3 BMP 01/04/25 01/05/25 19:04 04:40 Sodium 136 139 Potassium 3.9 3.8 Chloride 103 104 Carbon Dioxide 21.3 23.9 BUN 12 21 Creatinine 0.9 0.9 Glucose 135 H 152 H Calcium 9.4 9.7 Liver Function 01/04/25 01/05/25 Range/Units 19:04 04:40 Total Bilirubin 1.1 1.1 (0.3-1.2) mg/dL AST 10 13 (0-34) U/L ALT < 7 L 9 L (10-49) U/L Alkaline Phosphatase 38 L 38 L (46-116) U/L Albumin 3.5 3.7 (3.4-4.8) gm/dL Quality Measures Quality Measures VTE prophylaxis Advance care planning discussed with:: patient and child (Sonam) Medications Home Medications and Allergies Allergies Allergy/AdvReac Type Severity Reaction Status Date / Time hydrocodone AdvReac Intermediate Nausea Verified 11/06/24 02:25 oxycodone AdvReac Intermediate sedation Verified 11/06/24 02:25 and confusion scopolamine (From AdvReac Intermediate Dizziness Verified 11/06/24 02:25 Transderm-Scop) tramadol AdvReac Unknown may lower Verified 11/06/24 02:25 sz threhold Visit Medications Acetaminophen (Acetaminophen 325 Mg Tablet) 650 mg PO Q6H PRN PRN Reason: PAIN SCALE 1-3 (mild Stop: 02/04/25 16:47 Piperacillin/Tazobactam/Dextrose (Zosyn) 3.375 gm in 50 mls @ 100 mls/hr IV Q8HR PORFIRIO; Protocol Stop: 01/11/25 13:59 Last Admin: 01/05/25 14:31 Dose: 100 mls/hr Lactated Ringer's (Lactated Ringers) 1,000 mls @ 125 mls/hr IV .Q8H PORFIRIO Stop: 02/04/25 09:08 Last Admin: 01/05/25 09:17 Dose: 125 mls/hr Morphine Sulfate (Morphine Sulf Inj 4 Mg/Ml Vial) 4 mg IVP Q4HR PRN PRN Reason: PAIN 1-6 (mild-mod Stop: 01/09/25 20:57 Last Admin: 01/05/25 03:01 Dose: 4 mg Morphine Sulfate (Morphine Sulf Inj 4 Mg/Ml Vial) 1 mg IVP Q4HR PRN PRN Reason: PAIN SCALE 7-10 (Severe Stop: 01/10/25 16:47 Ondansetron HCl (Ondansetron Inj 2 Mg/Ml Inj 2 Ml) 4 mg IVP X1 PRN; Protocol PRN Reason: nausea Stop: 02/03/25 20:57 Ondansetron HCl (Ondansetron Inj 2 Mg/Ml Inj 2 Ml) 4 mg IVP Q6H PRN; Protocol PRN Reason: NAUSEA OR VOMITING Stop: 02/04/25 16:47 Pantoprazole Sodium (Pantoprazole 40 Mg Tablet) 40 mg PO QDAY [facility] Stop: 02/05/25 08:59 Discontinued Medications Sodium Chloride (Ns) 500 mls @ 999 mls/hr IV .Q31M ONE Stop: 01/04/25 11:31 Last Infusion: 01/04/25 11:52 Dose: Infused Magnesium Sulfate (Magnesium Sulfate Ivpb) 2 gm in 50 mls @ 25 mls/hr IV X1 ONE Stop: 01/04/25 13:51 Last Infusion: 01/04/25 13:42 Dose: Infused Piperacillin/Tazobactam/Dextrose (Zosyn) 3.375 gm in 50 mls @ 100 mls/hr IV X1 ONE; Protocol Stop: 01/04/25 14:31 Last Infusion: 01/04/25 14:48 Dose: Infused Sodium Chloride (Ns) 1,000 mls @ 85 mls/hr IV .[id number] [facility] Stop: 02/03/25 16:09 Last Admin: 01/04/25 16:37 Dose: Not Given Lactated Ringer's (Lactated Ringers) 1,000 mls @ 999 mls/hr IV .Q1H1M ONE Stop: 01/04/25 17:25 Last Infusion: 01/04/25 18:39 Dose: Infused Lactated Ringer's (Lactated Ringers) 1,000 mls @ 999 mls/hr IV .Q1H1M ONE Stop: 01/04/25 17:26 Last Infusion: 01/04/25 18:39 Dose: Infused Lactated Ringer's (Lactated Ringers) 500 mls @ 125 mls/hr IV .Q4H ONE Stop: 01/04/25 20:25 Last Admin: 01/04/25 18:27 Dose: Not Given Acetaminophen (Ofirmev Inj) 1,000 mg in 100 mls @ 250 mls/hr IV Q6HR [facility] Stop: 01/05/25 06:23 Last Infusion: 01/05/25 05:52 Dose: Infused Lactated Ringer's (Lactated Ringers) 500 mls @ 125 mls/hr IV .Q4H ONE Stop: 01/04/25 22:29 Last Infusion: 01/05/25 02:54 Dose: Infused Piperacillin/Tazobactam/Dextrose (Zosyn) 3.375 gm in 50 mls @ 100 mls/hr IV Q8HR PORFIRIO; Protocol Stop: 01/05/25 06:29 Last Infusion: 01/05/25 07:00 Dose: Infused Morphine Sulfate (Morphine Sulf Inj 4 Mg/Ml Vial) 2 mg IVP X1 ONE Stop: 01/04/25 14:00 Last Admin: 01/04/25 14:08 Dose: 2 mg Morphine Sulfate (Morphine Sulf Inj 4 Mg/Ml Vial) 4 mg IVP X1 ONE Stop: 01/04/25 16:10 Last Admin: 01/04/25 16:32 Dose: 4 mg Morphine Sulfate (Morphine Sulf Inj 4 Mg/Ml Vial) 4 mg IVP X1 ONE Stop: 01/04/25 19:34 Last Admin: 01/04/25 22:17 Dose: 4 mg Ondansetron HCl (Ondansetron Inj 2 Mg/Ml Inj 2 Ml) 4 mg IVP X1 ONE; Protocol Stop: 01/04/25 14:00 Last Admin: 01/04/25 14:07 Dose: 4 mg Assessment & Plan Plan Mr. Johnson is a 84-year-old gentleman with history of CAD with hx of CABG (on asa and plavix) hypertension,? 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 Sepsis 2/2 Acalculous Cholecystitis Malaise and fatigue Dx - CTAP with Atelectasis versus mild pneumonia at the lung bases Acute acalculous cholecystitis, - GB US with obvious thickening and edema involving the gallbladder wall Common bile duct is enlarged 0.9 cm no stones Pancreatic head is enlarged 3.8 cm - MRCP Cholecystitis pattern, gallbladder sludge ball versus stone Extrahepatic biliary tract dilatation without definite common hepatic or common bile duct stones and Mild acute pancreatitis with benign-appearing cystic change in the pancreatic head - Surgery consulted, appreciate recs, no surgery indicated at this time, IV Tx - pending percutaneous GB drain - IV Zosyn 3.375 q8hr (01/05- - IV Fluids, LR 85 cc/hr - Zofran 4 mg IV PRN - Morphine 1 mg q4hrs prn - APAP 650 mg PO prn - consider head ct or narcan if pt becomes more obtunded/encephalopathic Acute hypoxic respiratory failure pt with labored belly breathing, pt had rapid response for hypotension, appears dry to euvolemic on exam. was tachycardic Plan - highflow o2 PRN - ABG - CXR Mild Pancreatitis pt presented with hx of nausea and vomiting. no stones on imaging, no dilation of CBD, noted to have some enlargement of the pancreatic head Plan - IV Fluids LR 85 cc/hr - IV Morphine 1mg q4hr - APAP 650 for mild pain PRN - clear liquid diet, advance as tolerated UTI Acute Urinary Retention BPH per patient daughter, pt is typically able to void without difficulty, he typically wears a diaper Dx - UA with Leukesterase + - Ucx pending Plan - cont tamsulosin 0.4 mg qd - paredes catheter placed at 0500 11/ in the ED T2DM - well controlled A1c 6.9 (2024) Home Meds - Metformin 500 mg BID Plan - ISS step one ACHS - Bedside Glucose Checks ACHS CAD w hx CABG HFpEF (EF 50-55%- 10/2024) HTN Grade I diastolic dysfunction Plan - metoprolol 100 mg qd - sacubitril-valsartan 2 tab PO BID - hold ASA 81 in setting of perc drain placement tomorrow for gb - hold Plavix 75 mg PO qd in setting of perc drain placement tomorrow for gb GERD Plan - famotidine 20 mg qhs Anxiety Depression Plan - cont home sertraline 50 mg po QAM Unspecified symptoms and signs involving the nervous system ?Parkinson's s/p benign intracranial tumor excision Plan pt will continue rehab at facility PT Consult Dispo: Med tele, pending perc IR drain of GB, on IV abx, and iv vluids Diet: clears advance as tolerated (pt uses weighted utensils, Daughter sonam has some at home that she can bring for when pt is able to feed himself) Typically eats chopped diet , mech 2 at the rehab facility Bowel Reg: colace qd VTE ppx: SCD, GI ppx: famotidine 20 mg qd Code status: dnr/dni Plan discussed with my attending Dr. Hargrove and my senior resident Dr. Torsten Duncan MD PGY1 Attending Provider Attestation/Addendum I reviewed labs, imaging, EKG, home medications and prior available records. Face to face evaluation was performed by me. I have personally examined the patient and discussed assessment and plan with the IM team. I reviewed the resident note and agree with the plan with exceptions as below. RUQ pain Nausea and vomiting Sepsis secondary to acute cholecystitis Type 2 diabetes mellitus Essential hypertension MRCP showed no definitive choledocholithiasis Surgery consulted in the ED: Recommended no cholecystectomy given the high risk and comorbidities Consulted IR for gallbladder tube insertion IV Zosyn IV fluids Management of vomiting/pain as needed
--- NOTE | 2025-01-05 18:35 | XR_ITS ---
EXAMINATION: AP chest single view TECHNIQUE: AP portable semiupright chest single view Date and time: January 05, 2025, 1916 hours INDICATIONS: Hypoxic respiratory failure difficulty breathing today. FINDINGS: Bilateral perihilar basilar opacity consistent with pneumonia Mild enlargement cardiac contour prominent vascular congestion CABG Prominent osteopenia Reverse left shoulder arthroplasty IMPRESSION: Mild heart failure Mild bibasilar pneumonia greater at the left base
[2025-01-05] MEDS: RINGERS LACTATED 1000 ML 1,000 ML 999 ML IV (18:39)
[2025-01-05 18:58] LABS: Lactate (Lactic Acid) 2.9 mMol/L (0.4-2.0)
--- NOTE | 2025-01-05 19:00 | PD.RESEVENT ---
Documentation for date of: 01/05/25 Event Note Event Note: rapid response called at 1844 vs: afebrile, RR 33, satting 92L on 4L NC, BP 81/60, HR 119 vs improved with BP 102/69 with MAP 81, pt is awake , opening eyes, pupils are equal and responsive to light, Lungs without diffuse crackles on auscultation, LE without edema, appears euvolemic/dry on exam, no LE mottling. He has belly breathing and did not have any wincing on abdominal exam, paredes catheter draining appropriately Mr Johnson is an 84 year old gentleman with hx of hfpef 50-55%, cad w cabg, htn, and benign brain tumor resection who presented to the ed yesterday with RUQ pain and n/v/d. patient received iv fluids, pain management with morphine and iv antibiotics. Ordered: abg, cxr, lactic acid (2.9, persists despite IV fluids) Given: 1L LR bolus wide open, and cont IV maintenence fluids after
[2025-01-05] MEDS: RINGERS LACTATED 1000 ML 1,000 ML 85 ML IV (19:30)
[2025-01-05 20:10] LABS: Base Excess 0 (-3-3); HCO3 26 mEq/L (20-26); Inspired Oxygen, FIO2 21 %; O2 Saturation 95 % (91-98); PCO2 44 mmHg (32.0-48.0); PO2 73 mmHg (83-108); pH, Arterial 7.38 (7.35-7.45)
[2025-01-05 20:12] LABS: Allen Test Performed/OK; Puncture Site Right Radial
[2025-01-05 21:12] LABS: Lactate (Lactic Acid) 3.0 mMol/L (0.4-2.0)
[2025-01-05 21:35] LABS: Albumin, Serum 3.2 gm/dL (3.4-4.8); Anion Gap 11 (7-16); BUN/Creatinine Ratio 20 Ratio (12-20); Blood Urea Nitrogen 22 mg/dL (9-23); Calcium 9.6 mg/dL (8.3-10.6); Calcium (Corrected) 10.2 mg/dL (8.5-10.1); Carbon Dioxide 25.3 mMol/L (20.0-31.0); Chloride 103 mMol/L (98-107); Creatinine (Component) 1.1 mg/dL (0.6-1.3); Estimated Creatinine Clearance 53.4 mL/min (>60); Glucose 115 mg/dL (74-106); Osmolality,Calculated 281 (275-295); Phosphorous 3.4 mg/dL (2.4-5.1); Potassium 4.3 mMol/L (3.4-5.1); Sodium 139 mMol/L (136-145); eGFR > 60 See Note
[2025-01-05 21:57] LABS: Reflex Lactate? Y
[2025-01-05] MEDS: VANCOMYCIN/D5W 1500 MG IVPB 300 ML 120 MG IV (22:00)
[2025-01-05 22:45] LABS: Strep A Rapid Negative (Negative)
[2025-01-05 22:46] LABS: Influenza A Ag Negative; Influenza B Ag Negative
[2025-01-06] VITALS (22 sets, daily range): BP systolic 94–152; BP diastolic 62–98; PULSE 90–167; RESP 20–37; TEMP 35.7–37.6; O2SAT 93–98; BMI 30.3
[2025-01-06 00:11] LABS: Reflex Lactate? Y
[2025-01-06 00:51] LABS: Lactic Acid, 3 HR 2.0 mMol/L (0.4-2.0)
[2025-01-06 03:42] LABS: Basophils # (Auto) 0.0 Thou/mm3 (0.0-0.2); Basophils % (Auto) 0 % (0-2.5); Eosinophils # (Auto) 0.0 Thou/mm3 (0.0-0.5); Eosinophils % (Auto) 0 % (0-10); Hematocrit 39.6 % (41.0-53.0); Hemoglobin 12.7 g/dL (13.5-16.0); Immature Granulocytes Auto 0.03 Thou/mm3 (0.00-0.00); Lymphocytes # (Auto) 0.8 Thou/mm3 (1.0-4.8); Lymphocytes % (Auto) 7 % (10-50); Mean Corpuscular HGB Conc 32.1 g/dl (31.0-37.0); Mean Corpuscular Hemoglobin 28.5 pg (25.0-35.0); Mean Corpuscular Volume 89 fL (80-100); Monocytes # (Auto) 1.0 Thou/mm3 (0.0-0.8); Monocytes % (Auto) 8 % (0-12); Neutrophils # (Auto) 10.2 Thou/mm3 (1.8-7.7); Neutrophils % (Auto) 85 % (37-80); Nucleated Red Blood Cell # 0.00 Thou/mm3 (0.00-0.00); Nucleated Red Blood Cell % 0 /100 WBC (0); Platelet Count 201 Thou/mm3 (140-440); RDW Standard Deviation 47.3 fL (35.1-43.9); Red Blood Count 4.46 Miln/mm3 (4.50-5.90); White Blood Count 12.1 Thou/mm3 (3.8-10.6)
[2025-01-06 03:43] LABS: Lactate (Lactic Acid) 2.1 mMol/L (0.4-2.0)
[2025-01-06 04:17] LABS: Alanine Aminotransferase < 7 U/L (10-49); Albumin, Serum 3.2 gm/dL (3.4-4.8); Albumin/Globulin Ratio 1.4 (1.2-2.2); Alkaline Phosphatase 28 U/L (46-116); Anion Gap 8 (7-16); Aspartate Amino Transferase 11 U/L (0-34); BUN/Creatinine Ratio 23 Ratio (12-20); Bilirubin,Total 0.6 mg/dL (0.3-1.2); Blood Urea Nitrogen 23 mg/dL (9-23); Calcium 9.6 mg/dL (8.3-10.6); Calcium (Corrected) 10.2 mg/dL (8.5-10.1); Carbon Dioxide 29.0 mMol/L (20.0-31.0); Chloride 103 mMol/L (98-107); Creatinine (Component) 1.0 mg/dL (0.6-1.3); Estimated Creatinine Clearance 58.7 mL/min (>60); Globulin 2.3 gm/dL (2.3-3.5); Glucose 137 mg/dL (74-106); Magnesium 1.5 mg/dL (1.6-2.6); Osmolality,Calculated 285 (275-295); Phosphorous 2.6 mg/dL (2.4-5.1); Potassium 3.7 mMol/L (3.4-5.1); Sodium 140 mMol/L (136-145); Total Protein 5.5 gm/dL (5.7-8.2); eGFR > 60 See Note
[2025-01-06] MEDS: PIPER/TAZO 3.375 GM PREMIX 3.375 GM/50 ML BAG IV ×3 (05:07→21:07)
[2025-01-06] MEDS: RINGERS LACTATED 1000 ML 1,000 ML 85 ML IV (05:43)
[2025-01-06] MEDS: Magnesium Sulfate 4 GM Ivpb 4 GM/50 ML BAG IV (05:43)
[2025-01-06 06:37] LABS: Lactate (Lactic Acid) 1.6 mMol/L (0.4-2.0)
[2025-01-06 06:40] LABS: Reflex Lactate? Y
--- NOTE | 2025-01-06 09:18 | ESPR_ITS ---
Documentation for date of: 01/06/25 Subjective Subjective Interval history: Rapid response called 01/05 for hypotension (BP 81/60), HR 119, RR 33. Given 1L LR bolus followed by maintenance fluids. Patient continued to be fatigued, unable to have meaningful conversation at bedside. Placed back on HFNC this AM 2/2 tachycardia and tachypnea Exam Vital Signs Temp Pulse Resp BP Pulse Ox O2 Del Method O2 Flow Rate 96.2 F L 106 H 28 H 111/76 94 L High Flow Nasal Cannula 2 01/06/25 07:55 01/06/25 08:00 01/06/25 07:55 01/06/25 07:55 01/06/25 07:55 01/06/25 07:55 01/06/25 07:11 FiO2 60 01/06/25 02:43 Narrative Exam GENERAL: no acute distress, A&Ox2 (unable to fully assess orientation 2/2 fatigue), fatigued HEENT: Head AT/ NC. Mucous membranes dry. PERRL. mouth open NECK: Supple, no lymphadenopathy, no carotid bruits. CARDIOVASCULAR: RRR. Normal S1/S2, No m/r/g. No pitting edema of bilateral LEs. RESPIRATORY: trace bilateral lung base crackles GASTROINTESTINAL: Abdomen soft, non tender no palpable masses. Bowel sounds present, mildly tender in the suprapubic and RUQ, no rebound no guarding. MUSCULOSKELETAL:? No cyanosis or edema, no visible joint swelling. NEUROLOGICAL: unable to assess CN 2/2 patient fatigue . No focal deficits. Sensation intact, symmetric. PSYCHIATRIC: Awake and alert, not agitated, normal mood and affect. SKIN: No obvious rashes, no jaundice, poor turgor. Objective Labs 01/06/25 03:29 01/06/25 03:29 Labs: Laboratory Results - last 24 hr 01/05/25 01/05/25 01/05/25 18:34 20:02 20:56 WBC RBC Hgb Hct MCV MCH MCHC RDW Std Deviation Plt Count Neut % (Auto) Lymph % (Auto) [place] % (Auto) Eos % (Auto) Baso % (Auto) Neut # (Auto) Lymph # (Auto) [place] # (Auto) Eos # (Auto) Baso # (Auto) Immature Gran # (Auto) Absolute Nucleated RBC Immature Gran % Nucleated RBC % Puncture Site Right Radial ABG pH 7.38 ABG pCO2 44 ABG pO2 73 L ABG HCO3 26 ABG O2 Saturation 95 ABG Base Excess 0 FiO2 21 Sodium 139 Potassium 4.3 D Chloride 103 Carbon Dioxide 25.3 Anion Gap 11 BUN 22 Creatinine 1.1 Estim Creat Clear Calc 53.4 L eGFR > 60 BUN/Creatinine Ratio 20 Glucose 115 H Calculated Osmolality 281 Lactic Acid 2.9 H 3.0 H Calcium 9.6 Corrected Calcium 10.2 H Phosphorus 3.4 Magnesium Total Bilirubin AST ALT Alkaline Phosphatase Total Protein Albumin 3.2 L D Globulin Albumin/Globulin Ratio Influenza A (Rapid) Influenza B (Rapid) Group A Strep Rapid 01/05/25 01/05/25 01/06/25 21:25 21:50 00:28 WBC RBC Hgb Hct MCV MCH MCHC RDW Std Deviation Plt Count Neut % (Auto) Lymph % (Auto) [place] % (Auto) Eos % (Auto) Baso % (Auto) Neut # (Auto) Lymph # (Auto) [place] # (Auto) Eos # (Auto) Baso # (Auto) Immature Gran # (Auto) Absolute Nucleated RBC Immature Gran % Nucleated RBC % Puncture Site ABG pH ABG pCO2 ABG pO2 ABG HCO3 ABG O2 Saturation ABG Base Excess FiO2 Sodium Potassium Chloride Carbon Dioxide Anion Gap BUN Creatinine Estim Creat Clear Calc eGFR BUN/Creatinine Ratio Glucose Calculated Osmolality Lactic Acid 2.0 Calcium Corrected Calcium Phosphorus Magnesium Total Bilirubin AST ALT Alkaline Phosphatase Total Protein Albumin Globulin Albumin/Globulin Ratio Influenza A (Rapid) Negative Influenza B (Rapid) Negative Group A Strep Rapid Negative 01/06/25 01/06/25 03:29 06:27 WBC 12.1 H RBC 4.46 L Hgb 12.7 L Hct 39.6 L MCV 89 MCH 28.5 MCHC 32.1 RDW Std Deviation 47.3 H Plt Count 201 Neut % (Auto) 85 H Lymph % (Auto) 7 L [place] % (Auto) 8 Eos % (Auto) 0 Baso % (Auto) 0 Neut # (Auto) 10.2 H Lymph # (Auto) 0.8 L [place] # (Auto) 1.0 H Eos # (Auto) 0.0 Baso # (Auto) 0.0 Immature Gran # (Auto) 0.03 H Absolute Nucleated RBC 0.00 Immature Gran % 0 Nucleated RBC % 0 Puncture Site ABG pH ABG pCO2 ABG pO2 ABG HCO3 ABG O2 Saturation ABG Base Excess FiO2 Sodium 140 Potassium 3.7 D Chloride 103 Carbon Dioxide 29.0 Anion Gap 8 BUN 23 Creatinine 1.0 Estim Creat Clear Calc 58.7 L eGFR > 60 BUN/Creatinine Ratio 23 H Glucose 137 H Calculated Osmolality 285 Lactic Acid 2.1 H 1.6 Calcium 9.6 Corrected Calcium 10.2 H Phosphorus 2.6 Magnesium 1.5 L Total Bilirubin 0.6 D AST 11 ALT < 7 L Alkaline Phosphatase 28 L D Total Protein 5.5 L Albumin 3.2 L Globulin 2.3 Albumin/Globulin Ratio 1.4 Influenza A (Rapid) Influenza B (Rapid) Group A Strep Rapid ABG Interpretation ABG results: 01/05/25 20:02 ABG pH 7.38 ABG pCO2 44 ABG pO2 73 L ABG HCO3 26 ABG O2 Saturation 95 ABG Base Excess 0 Quality Measures Quality Measures VTE prophylaxis Advance care planning discussed with:: patient Assessment & Plan Assessment Current Active Medications: Generic Name Dose Route Start Last Admin Trade Name Freq PRN Reason Stop Dose Admin Acetaminophen 650 mg 01/05/25 16:48 Acetaminophen 325 Mg Tablet PO 02/04/25 16:47 Q6H PRN PAIN SCALE 1-3 (mild Dextrose 25 ml 01/05/25 16:55 Dextrose 50%-Water Inj 50 Ml Syringe IV 02/04/25 16:54 Q15MIN PRN BG 50-70 responsive npo pt Dextrose 50 ml 01/05/25 16:55 Dextrose 50%-Water Inj 50 Ml Syringe IV 02/04/25 16:54 Q15MIN PRN BG <50 OR BG <70 & pt unresponsive Famotidine 20 mg 01/05/25 21:00 01/05/25 21:25 Famotidine 20 Mg Tablet PO 02/04/25 20:59 Not Given HS PORFIRIO Glucagon 1 mg 01/05/25 16:55 Glucagon Inj 1 Mg Vial IM Q15MIN PRN BG <70, and no IV access Piperacillin/Tazobactam/Dextrose 3.375 gm in 50 mls @ 100 mls/hr 01/04/25 14:00 01/06/25 05:37 Zosyn IV 01/11/25 13:59 Infused Q8HR PORFIRIO Infusion Protocol Lactated Ringer's 1,000 mls @ 85 mls/hr 01/05/25 17:47 01/06/25 05:43 Lactated Ringers IV 02/04/25 17:46 85 mls/hr .[id number] PORFIRIO Administration Vancomycin HCl 250 mls @ 120 mls/hr 01/06/25 10:00 Vancomycin/Water 1250 Mg Ivpb IV 01/13/25 09:59 QDAY@1000 [facility] Insulin Human Lispro 0 unit 01/06/25 00:00 01/06/25 05:09 Insulin Lispro (Admelog) 1 Unit/0.01 Ml Unit SC 02/05/25 00:00 Not Given Q6HR [facility] Protocol Morphine Sulfate 2 mg 01/06/25 08:38 Morphine Sulf Inj 4 Mg/Ml Vial IV 01/11/25 08:37 Q6HR PRN PAIN SCALE 4-6 (Moderate Morphine Sulfate 2 mg 01/06/25 08:39 Morphine Sulf Inj 4 Mg/Ml Vial IV 01/11/25 08:38 Q4HR PRN PAIN SCALE 7-10 (Severe Morphine Sulfate 1 mg 01/06/25 08:39 Morphine Sulf Inj 4 Mg/Ml Vial IV 01/11/25 08:38 Q2HR PRN BREAKTHROUGH PAIN Ondansetron HCl 4 mg 01/05/25 16:48 Ondansetron Inj 2 Mg/Ml Inj 2 Ml IVP 02/04/25 16:47 Q6H PRN NAUSEA OR VOMITING Protocol Pantoprazole Sodium 40 mg 01/06/25 09:00 Pantoprazole Inj 40 Mg Vial IVP 02/05/25 08:59 QDAY [facility] Pharmacy Consult 1 each 01/05/25 20:00 01/06/25 08:45 Vancomycin Pharmacy To Dose 1 Each Each IV 02/04/25 19:59 Not Given QDAY [facility] Plan Mr. Johnson is a 84-year-old gentleman with history of CAD with hx of CABG (on asa and plavix) hypertension,? 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 Sepsis 2/2 Acute Cholecystitis Malaise and fatigue Dx - CTAP with Atelectasis versus mild pneumonia at the lung bases Acute acalculous cholecystitis, - GB US with obvious thickening and edema involving the gallbladder wall Common bile duct is enlarged 0.9 cm no stones Pancreatic head is enlarged 3.8 cm - MRCP Cholecystitis pattern, gallbladder sludge ball versus stone Extrahepatic biliary tract dilatation without definite common hepatic or common bile duct stones and Mild acute pancreatitis with benign-appearing cystic change in the pancreatic head - Surgery consulted (Dr. Ponce), appreciate recs, no surgery indicated at this time, IV Tx - pending percutaneous GB drain - IV Zosyn 3.375 q8hr (01/05- - IV Fluids, LR 85 cc/hr - held 2/2 increased O2 requirements - Zofran 4 mg IV PRN - Morphine 0.5 mg q4h PRN - APAP 650 mg PO prn - consider head ct or narcan if pt becomes more obtunded/encephalopathic - IR biliary drainage, planned for 01/06 Acute hypoxic respiratory failure pt with labored belly breathing, pt had rapid response for hypotension, appears dry to euvolemic on exam. was tachycardic Plan - highflow o2 PRN - ABG - CXR - See abx as above Mild Pancreatitis pt presented with hx of nausea and vomiting. no stones on imaging, no dilation of CBD, noted to have some enlargement of the pancreatic head Plan - IV Fluids LR 85 cc/hr - held 2/2 increased O2 requirements - IV Morphine 0.5 mg q4hr - APAP 650 for mild pain PRN - clear liquid diet, advance as tolerated UTI Acute Urinary Retention BPH per patient daughter, pt is typically able to void without difficulty, he typically wears a diaper Dx - UA with Leukesterase + - Ucx pending Plan - cont tamsulosin 0.4 mg qd - paredes catheter placed at 0500 01/05 in the ED T2DM - well controlled A1c 6.9 (2024) Home Meds - Metformin 500 mg BID Plan - ISS step one ACHS - Bedside Glucose Checks ACHS CAD w hx CABG HFpEF (EF 50-55%- 10/2024) HTN Grade I diastolic dysfunction Plan - metoprolol 100 mg qd - held 2/2 hypotension - sacubitril-valsartan 2 tab PO BID - held 2/2 hypotension - hold ASA 81 in setting of perc drain placement - hold Plavix 75 mg PO qd in setting of perc drain placement GERD Plan - famotidine 20 mg qhs Anxiety Depression Plan - cont home sertraline 50 mg po QAM Unspecified symptoms and signs involving the nervous system ?Parkinson's s/p benign intracranial tumor excision Plan pt will continue rehab at facility PT Consult Checklist: Dispo: Med tele, pending perc IR drain of GB, on IV abx, and iv vluids Diet: clears advance as tolerated (pt uses weighted utensils, Daughter rc has some at home that she can bring for when pt is able to feed himself) Typically eats chopped diet , mech 2 at the rehab facility Bowel Reg: colace qd VTE ppx: SCD GI ppx: famotidine 20 mg qd Code status: dnr/dni Plan discussed with my attending Dr. Beena Roldan MD PGY1 Attending Provider Attestation/Addendum I reviewed labs, imaging, EKG, home medications and prior available records. Face to face evaluation was performed by me. I have personally examined the patient and discussed assessment and plan with the IM team. I reviewed the resident note and agree with the plan with exceptions as below. Acute hypoxic respiratory failure RUQ pain Nausea and vomiting Sepsis secondary to acute cholecystitis Type 2 diabetes mellitus Essential hypertension CAD status post CABG HFpEF Chest x-ray showed atelectasis versus pulmonary infiltrates Continue oxygen as needed MRCP showed no definitive choledocholithiasis Surgery consulted in the ED: Recommended no cholecystectomy given the high risk and comorbidities Consulted IR for gallbladder tube insertion IV Zosyn which can cover both cholecystitis and possible pneumonia Management of vomiting/pain as needed Started aspirin, Plavix, and atorvastatin Discussed with general surgery Dr. Ponce: Will obtain cardiology consultation for preop clearance in case he needs cholecystectomy over the next few days
[2025-01-06] MEDS: VANCOMYCIN/WATER 1250 MG IVPB 250 ML 120 MG IV (09:39)
--- NOTE | 2025-01-06 11:44 | PC.PT ---
PT approached patient for PT eval at 1125. Patient was on 25L high flow O2 which per RN was for work of breathing and not for desaturation. Patient is very weak and had difficulty lifting his B UE or LE at this time. PT is unsure if patient is confused at this time due to patient had difficulty speaking and was unable to speak loudly to answer questions. Will hold PT eval for today and re-attempt tomorrow. RN made aware.
--- NOTE | 2025-01-06 14:42 | PCS.ST ---
NPO for procedure today. Swallow Evaluation in AM.
[2025-01-06] MEDS: LIDOCAINE INJ PF 1% 30 ML VIAL 6 ML INFL (14:50)
--- NOTE | 2025-01-06 15:01 | XR_ITS ---
Examination: CT-guided percutaneous placement gallbladder drainage catheter CT abdomen without intravenous contrast Date and time of procedure: January 06, 2025, 1507 hours INDICATIONS: Upper abdominal pain this week, acute cholecystitis on MRCP January 05, 2025 Informed consent provided. A timeout was completed verifying correct patient, procedure, site and positioning. Technique: Axial 3 mm sections were obtained for localization of the gallbladder Appropriate area is marked. The patient's site was prepped and draped in sterile fashion Maximal sterile barrier technique utilized, including hand hygiene Local anesthesia was obtained with 1% lidocaine. Low dose protocols were performed. One or more of the following dose reduction techniques were used; automated exposure control, adjustment of the mA and/or KV according to patient size, use of iterative reconstruction technique. Utilizing CT fluoroscopic guidance 5 [place] catheter percutaneously placed in the gallbladder 0.35 wire guide placed through the catheter followed by dilators and a 6 [place] pigtail abscess drainage catheter in proper position under fluoroscopic guidance Patient appears in stable condition during this procedure. At completion of the procedure, the patient is in satisfactory condition. Estimated blood loss 2 cc Complete culture and sensitivity to report to follow. Impression: Successful CT-guided percutaneous placement gallbladder drainage catheter
--- NOTE | 2025-01-06 15:59 | PC.SS ---
Rounding Note: Cardiology consulting. Plan to have IR provide drainage.
[2025-01-06] MEDS: HYDROcodone/APAP 5/325 TABLET 1 TAB PO (16:05)
[2025-01-06] MEDS: KETOROLAC INJ 30 MG/ML VIAL 15 MG IVP (17:26)
[2025-01-06] MEDS: FAMOTIDINE 20 MG TABLET PO (21:07)
--- NOTE | 2025-01-06 21:22 | EKG_ITS ---
[facility] Test Date: 2025-01-06 Pat Name: URVASHI RAMSEY [facility] Figure Clerk: CHRIS : 1940 Requested By: Rey Chen Order Number: [id number] Reading MD: Rey Chen Measurements Intervals [place] Rate: 130 P: RI: QRS: -6 QRSD: 116 T: 40 QT: 330 QTc: 486 Interpretive Statements ATRIAL FIBRILLATION WITH RAPID VENTRICULAR RESPONSE INFERIOR MYOCARDIAL INFARCTION , POSSIBLY ACUTE WITH POSTERIOR EXTENSION ACUTE PR Compared to ECG 01/04/2025 11:38:49 Myocardial infarct finding now present Sinus rhythm no longer present Intraventricular conduction delay no longer present T-wave abnormality no longer present /store/S0/[id number]/[id number].pdf
[2025-01-06] MEDS: MORPHINE SULF INJ 4 MG/ML VIAL 0.5 MG IVP (21:31)
[2025-01-06] MEDS: RINGERS LACTATED 500 ML 500 ML 999 ML IV (21:36)
[2025-01-06] MEDS: AMIODARONE 150 MG IVPB 150 MG/100 ML BAG 600 MG IV (22:24)
[2025-01-06] MEDS: AMIODARONE 360 MG IVPB 360 MG/200 ML BAG 33.333 MG IV (22:42)
[2025-01-06 23:46] LABS: Anion Gap 12 (7-16); BUN/Creatinine Ratio 26 Ratio (12-20); Blood Urea Nitrogen 21 mg/dL (9-23); Calcium 9.7 mg/dL (8.3-10.6); Carbon Dioxide 23.2 mMol/L (20.0-31.0); Chloride 104 mMol/L (98-107); Creatinine (Component) 0.8 mg/dL (0.6-1.3); Estimated Creatinine Clearance 72.6 mL/min (>60); Glucose 129 mg/dL (74-106); Magnesium 2.3 mg/dL (1.6-2.6); Osmolality,Calculated 282 (275-295); Potassium 3.3 mMol/L (3.4-5.1); Sodium 139 mMol/L (136-145); Troponin I < 0.020 ng/mL (0.0-0.045); eGFR > 60 See Note
[2025-01-07] VITALS (13 sets, daily range): BP systolic 107–133; BP diastolic 66–82; PULSE 74–142; RESP 17–27; TEMP 35.9–36.3; O2SAT 93–95
--- NOTE | 2025-01-07 02:38 | PD.RESEVENT ---
Documentation for date of: 01/07/25 Event Note Event Note: Rapid response at 9:20 PM due to tachycardia Patient was lying in bed, no significant distress, oriented to self, confused. Had biliary drainage by IR done yesterday. Nursing staff reported he has not received much pain medication as he is unable to verbalize pain. Rate 160, blood pressure 111/72, MAP 85, respiratory rate 24 SpO2 95% on HFNC 25 L at 40% FiO2. EKG obtained showed atrial fibrillation with RVR rate 130. Started amiodarone drip for rate control, avoiding beta-blockers due to his rapid response for hypotension yesterday. Patient was transferred to telemetry for ongoing monitoring.
[2025-01-07] MEDS: AMIODARONE 360 MG IVPB 360 MG/200 ML BAG 16.667 MG IV ×2 (04:48→17:16)
[2025-01-07] MEDS: PIPER/TAZO 3.375 GM PREMIX 3.375 GM/50 ML BAG IV ×3 (05:53→21:58)
[2025-01-07 06:30] LABS: Basophils # (Auto) 0.0 Thou/mm3 (0.0-0.2); Basophils % (Auto) 0 % (0-2.5); Eosinophils # (Auto) 0.0 Thou/mm3 (0.0-0.5); Eosinophils % (Auto) 0 % (0-10); Hematocrit 41.5 % (41.0-53.0); Hemoglobin 13.5 g/dL (13.5-16.0); Immature Granulocytes Auto 0.04 Thou/mm3 (0.00-0.00); Lymphocytes # (Auto) 0.5 Thou/mm3 (1.0-4.8); Lymphocytes % (Auto) 6 % (10-50); Mean Corpuscular HGB Conc 32.5 g/dl (31.0-37.0); Mean Corpuscular Hemoglobin 28.5 pg (25.0-35.0); Mean Corpuscular Volume 88 fL (80-100); Monocytes # (Auto) 0.6 Thou/mm3 (0.0-0.8); Monocytes % (Auto) 7 % (0-12); Neutrophils # (Auto) 7.3 Thou/mm3 (1.8-7.7); Neutrophils % (Auto) 86 % (37-80); Nucleated Red Blood Cell # 0.00 Thou/mm3 (0.00-0.00); Nucleated Red Blood Cell % 0 /100 WBC (0); Platelet Count 221 Thou/mm3 (140-440); RDW Standard Deviation 48.5 fL (35.1-43.9); Red Blood Count 4.73 Miln/mm3 (4.50-5.90); White Blood Count 8.5 Thou/mm3 (3.8-10.6)
[2025-01-07 06:56] LABS: Alanine Aminotransferase 10 U/L (10-49); Albumin, Serum 3.1 gm/dL (3.4-4.8); Albumin/Globulin Ratio 1.2 (1.2-2.2); Alkaline Phosphatase 32 U/L (46-116); Anion Gap 14 (7-16); Aspartate Amino Transferase < 8 U/L (0-34); BUN/Creatinine Ratio 29 Ratio (12-20); Bilirubin,Total 0.5 mg/dL (0.3-1.2); Blood Urea Nitrogen 26 mg/dL (9-23); Calcium 9.9 mg/dL (8.3-10.6); Calcium (Corrected) 10.6 mg/dL (8.5-10.1); Carbon Dioxide 23.0 mMol/L (20.0-31.0); Chloride 103 mMol/L (98-107); Creatinine (Component) 0.9 mg/dL (0.6-1.3); Estimated Creatinine Clearance 64.5 mL/min (>60); Globulin 2.5 gm/dL (2.3-3.5); Glucose 161 mg/dL (74-106); Magnesium 2.2 mg/dL (1.6-2.6); Osmolality,Calculated 287 (275-295); Phosphorous 2.6 mg/dL (2.4-5.1); Potassium 3.3 mMol/L (3.4-5.1); Sodium 140 mMol/L (136-145); Total Protein 5.6 gm/dL (5.7-8.2); eGFR > 60 See Note
--- NOTE | 2025-01-07 08:12 | ECHO_ITS ---
Patient Info Name: Julio Johnson Age: 84 years : 1940 Gender: Male Ht: 168 cm Wt: 88 kg BSA: 2.05 m2 BP: 113 / 82 mmHg Heart Rhythm: Sinus Arrhythmia Exam Date: 01/07/2025 8:35 AM Admit Date: 01/05/2025 Site: [facility] Patient Status: I Technical Quality: Other Exam Type: CA echo doppler complete Collet Gluer: Angie Mayen Ordering Physician: Power Araiza Study Info Indications atrial fib - Primary Location: S2NX Left Ventricular Outflow Tract Name Value Normal LVOT 2D LVOT Diameter 1.9 cm LVOT Doppler LVOT Peak Velocity 67 cm/s LVOT Mean Gradient 1 mmHg LVOT VTI 12 cm LVOT VTI/AV VTI Ratio 0.9 LVOT Stroke Volume 35 ml Mitral Valve Name Value Normal MV Annular TDI MV Septal e' Velocity 8.1 cm/s MV Lateral e' Velocity 12.0 cm/s MV e' Average 10.03 cm/s Tricuspid Valve Name Value Normal Estimated PAP/RSVP RA Pressure 8 mmHg <=5 Aortic Valve Name Value Normal AV Doppler AV Peak Velocity 72 cm/s AV Mean Gradient 1 mmHg AV VTI 13 cm AV Area (Cont Eq VTI) 2.6 cm2 >=3.0 AV Area (Cont Eq Jose Luis) 2.6 cm2 AV DI (Jose Luis) 0.93 AV Regurgitation 2D LVOT Area 2.8 cm2 Ventricles Name Value Normal LV Dimensions 2D/MM LVOT Diameter 1.9 cm LV Fractional Shortening/Ejection Fraction 2D/MM LV Diastolic Volume (4C MOD) 57 ml LV EF (4C MOD) 55 % LV Diastolic Volume (2C MOD) 48 ml LV EF (2C MOD) 55 % LV Diastolic Volume (BP MOD) 54 ml 62-150 LV Diastolic Volume Index (BP MOD) 26 ml/m2 34-74 LV Systolic Volume (BP MOD) 33 ml 21-61 LV Systolic Volume Index (BP MOD) 16 ml/m2 11-31 LV EF (BP MOD) 38 % 52-72 LV Diastolic Length (4C) 6.9 cm LV Systolic Length (4C) 6.5 cm LV Stroke Volume (4C MOD) 23 ml Atria Name Value Normal LA Dimensions LA Volume (4C A-L) 27 ml LA Volume (BP A-L) 35 ml Left Ventricle Left ventricular chamber dimension is normal. Left ventricular systolic function is normal with visually estimated ejection fraction of 50-55%. There is mild concentric hypertrophy noted in the left ventricle. Left ventricular segmental wall motion is unable to be assessed secondary to poor endocardial definition. There is indeterminate diastolic function in the left ventricle. Right Ventricle Right ventricular chamber dimension is normal. Right ventricular systolic function is normal. Left Atrium Left atrial chamber dimension is normal. Right Atrium Right atrial chamber dimension is normal. Aortic Valve The aortic valve is trileaflet. There is no aortic valve sclerosis. There is no aortic valve stenosis with a peak velocity of 72 cm/s, mean gradient of 1 mmHg, and aortic valve area of 2.6 cm2. There is no aortic valve regurgitation. Pulmonic Valve The pulmonic valve is not well visualized. There is no pulmonic valve stenosis. There is no pulmonic regurgitation. Mitral Valve The mitral valve has normal leaflets. There is no mitral valve stenosis. There is no mitral valve regurgitation. Tricuspid Valve The tricuspid valve leaflets are normal. There is no tricuspid valve stenosis. There is no tricuspid valve regurgitation. Unable to estimate pulmonary artery systolic pressure due to inadequate tricuspid regurgitant envelope. Pericardium/Pleural The pericardium appears normal. There is no pericardial effusion. No pleural effusion visualized. Inferior Vena Cava Not well visualized inferior vena cava with >50% collapse upon inspiration consistent with normal right atrial pressure, 8 mmHg. Aorta The aortic measurements are indexed to age and body surface area. The aortic root at the sinus of Valsalva is not well visualized. Summary 1. The echocardiogram is normal by two-dimensional, color flow imaging, and Doppler interrogation. 2. Left ventricle size is normal and systolic function is normal. Estimated ejection fraction is 50-55%. There is indeterminate diastolic function. There is mild concentric hypertrophy noted. 3. Right ventricle chamber size is normal and systolic function is normal. Report Signatures Finalized by Power Araiza on 01/07/2025 01:45 PM
--- NOTE | 2025-01-07 08:35 | ESPR_ITS ---
Documentation for date of: 01/07/25 Subjective Subjective Interval history: pt had rapid response for afib with RVR, started on amiodorone drip for rate control. CARDS consulted, who dont reccomend anticoagulation at this time, and plan to transition to PO amiodorone. pt remains afebrile with downtrending wbc, GB percutaneous drain with minimal serosanguenous drainage, difficult to assess patients pain given ?waxing and waning mental status. Will contact pt daughter Sonam blankenship/gene rucker, continue on zosyn, pending gb cultures unlikely that pt will be surgical candidate while in patient on this admission for cholecystectomy pending ECHO Exam Vital Signs Temp Pulse Resp BP Pulse Ox O2 Del Method O2 Flow Rate 97.3 F 91 18 127/82 94 L High Flow Nasal Cannula 24 01/07/25 08:00 01/07/25 08:00 01/07/25 08:00 01/07/25 08:00 01/07/25 08:00 01/07/25 08:00 01/07/25 06:53 FiO2 45 01/07/25 06:53 Narrative Exam GENERAL: no acute distress, A&Ox1 (unable to fully assess orientation 2/2 fatigue vs delerium), fatigued HEENT: Head AT/ NC. Mucous membranes dry. PERRL. NECK: Supple, no lymphadenopathy, no carotid bruits. CARDIOVASCULAR: RRR. Normal S1/S2, No m/r/g. No pitting edema of bilateral LEs. RESPIRATORY: trace bilateral lung base crackles GASTROINTESTINAL: Abdomen soft, non tender no palpable masses. Bowel sounds present, mildly tender in the RUQ, no rebound no guarding. MUSCULOSKELETAL:? No cyanosis or edema, no visible joint swelling. NEUROLOGICAL: unable to assess CN 2/2 patient fatigue . No focal deficits. Sensation intact, symmetric. PSYCHIATRIC: Awake and alert, not agitated, normal mood and affect. SKIN: No obvious rashes, no jaundice, poor turgor. Objective Labs 01/07/25 05:58 01/07/25 15:08 Labs: Laboratory Results - last 24 hr 01/06/25 01/07/25 21:57 05:58 WBC 8.5 RBC 4.73 Hgb 13.5 Hct 41.5 MCV 88 MCH 28.5 MCHC 32.5 RDW Std Deviation 48.5 H Plt Count 221 Neut % (Auto) 86 H Lymph % (Auto) 6 L Frederick % (Auto) 7 Eos % (Auto) 0 Baso % (Auto) 0 Neut # (Auto) 7.3 Lymph # (Auto) 0.5 L Frederick # (Auto) 0.6 Eos # (Auto) 0.0 Baso # (Auto) 0.0 Immature Gran # (Auto) 0.04 H Absolute Nucleated RBC 0.00 Immature Gran % 1 H Nucleated RBC % 0 Sodium 139 140 Potassium 3.3 L 3.3 L Chloride 104 103 Carbon Dioxide 23.2 23.0 Anion Gap 12 14 BUN 21 26 H Creatinine 0.8 0.9 Estim Creat Clear Calc 72.6 64.5 eGFR > 60 > 60 BUN/Creatinine Ratio 26 H 29 H Glucose 129 H 161 H Calculated Osmolality 282 287 Calcium 9.7 9.9 Corrected Calcium 10.6 H Phosphorus 2.6 Magnesium 2.3 2.2 Total Bilirubin 0.5 AST < 8 ALT 10 Alkaline Phosphatase 32 L Troponin I < 0.020 Total Protein 5.6 L Albumin 3.1 L Globulin 2.5 Albumin/Globulin Ratio 1.2 ABG Interpretation ABG results: 01/05/25 20:02 ABG pH 7.38 ABG pCO2 44 ABG pO2 73 L ABG HCO3 26 ABG O2 Saturation 95 ABG Base Excess 0 Quality Measures Quality Measures VTE prophylaxis Advance care planning discussed with:: patient and child Assessment & Plan Assessment Current Active Medications: Generic Name Dose Route Start Last Admin Trade Name Freq PRN Reason Stop Dose Admin Acetaminophen 650 mg 01/05/25 16:48 Acetaminophen 325 Mg Tablet PO 02/04/25 16:47 Q6H PRN PAIN SCALE 1-3 (mild Hydrocodone Bitart/Acetaminophen 1 tab 01/06/25 17:09 Hydrocodone/Apap 5/325 Tablet PO 01/11/25 15:56 Q6HR PRN PAIN SCALE 6-7 Dextrose 25 ml 01/05/25 16:55 Dextrose 50%-Water Inj 50 Ml Syringe IV 02/04/25 16:54 Q15MIN PRN BG 50-70 responsive npo pt Dextrose 50 ml 01/05/25 16:55 Dextrose 50%-Water Inj 50 Ml Syringe IV 02/04/25 16:54 Q15MIN PRN BG <50 OR BG <70 & pt unresponsive Famotidine 20 mg 01/05/25 21:00 01/06/25 21:07 Famotidine 20 Mg Tablet PO 02/04/25 20:59 20 mg HS PORFIRIO Administration Glucagon 1 mg 01/05/25 16:55 Glucagon Inj 1 Mg Vial IM Q15MIN PRN BG <70, and no IV access Piperacillin/Tazobactam/Dextrose 3.375 gm in 50 mls @ 100 mls/hr 01/04/25 14:00 01/07/25 05:53 Zosyn IV 01/11/25 13:59 100 mls/hr Q8HR PORFIRIO Administration Protocol Vancomycin HCl 250 mls @ 120 mls/hr 01/06/25 10:00 01/06/25 09:39 Vancomycin/Water 1250 Mg Ivpb IV 01/13/25 09:59 120 mls/hr QDAY@1000 PORFIRIO Administration Amiodarone HCl/Dextrose 360 mg in 200 mls @ 16.667 mls/hr 01/06/25 21:37 01/07/25 04:48 Nexterone Ivpb IV 01/07/25 21:36 16.667 mls/hr .Q12H PORFIRIO Administration Insulin Human Lispro 0 unit 01/06/25 17:00 01/07/25 07:40 Insulin Lispro (Admelog) 1 Unit/0.01 Ml Unit SC 02/05/25 16:59 Not Given ACHS [facility] Protocol Ketorolac Tromethamine 15 mg 01/06/25 17:01 01/06/25 17:26 Ketorolac Inj 30 Mg/Ml Vial IVP 01/11/25 17:00 15 mg Q6HR PRN Administration pain 4-5 Morphine Sulfate 0.5 mg 01/06/25 17:09 Morphine Sulf Inj 4 Mg/Ml Vial IV 01/11/25 08:37 Q4HR PRN Pain Scale 8-10 Ondansetron HCl 4 mg 01/05/25 16:48 Ondansetron Inj 2 Mg/Ml Inj 2 Ml IVP 02/04/25 16:47 Q6H PRN NAUSEA OR VOMITING Protocol Pantoprazole Sodium 40 mg 01/06/25 09:00 01/06/25 09:39 Pantoprazole Inj 40 Mg Vial IVP 02/05/25 08:59 40 mg QDAY PORFIRIO Administration Pharmacy Consult 1 each 01/05/25 20:00 01/06/25 08:45 Vancomycin Pharmacy To Dose 1 Each Each IV 02/04/25 19:59 Not Given QDAY PORFIRIO Plan Mr. Johnson is a 84-year-old gentleman with history of CAD with hx of CABG (on asa and plavix) hypertension,? 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 pending echo and cards evaluation Sepsis 2/2 -resolving Acute Cholecystitis Malaise and fatigue Dx - CTAP with Atelectasis versus mild pneumonia at the lung bases Acute acalculous cholecystitis, - GB US with obvious thickening and edema involving the gallbladder wall Common bile duct is enlarged 0.9 cm no stones Pancreatic head is enlarged 3.8 cm - MRCP Cholecystitis pattern, gallbladder sludge ball versus stone Extrahepatic biliary tract dilatation without definite common hepatic or common bile duct stones and Mild acute pancreatitis with benign-appearing cystic change in the pancreatic head - Surgery consulted (Dr. Ponce), appreciate recs, no surgery indicated at this time, IV ABx continue - CARDS consulted given need for cardiac clearance if pt were to proceed with surgery outpatient potentially. Tx - IV Vanco (01/05- 01/07) - IV Zosyn 3.375 q8hr (01/05- - IV Fluids, LR 85 cc/hr - held 2/2 increased O2 requirements - Zofran 4 mg IV PRN - Morphine 0.5 mg q4h PRN - APAP 650 mg PO prn - Delirium precautions, pt with waxing and waning mentation, noted to be more alert and oriented in the evening. - s/p IR biliary drainage, 01/06 Afib with RVR pt had rapid response overnight with afib with rvr Plan Cards consulted, do not recc anticoagulation at this time Started on amiodorone drip with improvement in his rate from 130s to 90s plan to transition from iv to PO as per cardiac recs once rate controlled and stable Acute hypoxic respiratory failure pt with labored belly breathing, pt had rapid [id number] for hypotension, appears dry to euvolemic on exam. was tachycardic Plan - highflow o2 PRN - ABG - CXR - See abx as above Mild Pancreatitis pt presented with hx of nausea and vomiting. no stones on imaging, no dilation of CBD, noted to have some enlargement of the pancreatic head Plan - IV Fluids LR 85 cc/hr - held 2/2 increased O2 requirements - IV Morphine 0.5 mg q4hr - APAP 650 for mild pain PRN - clear liquid diet, advance as tolerated UTI Acute Urinary Retention BPH per patient daughter, pt is typically able to void without difficulty, he typically wears a diaper Dx - UA with Leukesterase + - Ucx pending Plan - cont tamsulosin 0.4 mg qd - paredes catheter placed at 0500 01/05 in the ED T2DM - well controlled A1c 6.9 (2024) Home Meds - Metformin 500 mg BID Plan - ISS step one ACHS - Bedside Glucose Checks ACHS CAD w hx CABG HFpEF (EF 50-55%- 10/2024) HTN Grade I diastolic dysfunction Plan - CARDS consulted, Dr. Dick - metoprolol 100 mg qd - held 2/2 hypotension - sacubitril-valsartan 2 tab PO BID - held 2/2 hypotension - hold ASA 81 in setting of perc drain placement - hold Plavix 75 mg PO qd in setting of perc drain placement GERD Plan - famotidine 20 mg qhs Anxiety Depression Plan - cont home sertraline 50 mg po QAM Unspecified symptoms and signs involving the nervous system ?Parkinson's s/p benign intracranial tumor excision Plan pt will continue rehab at facility PT Consult, rec pt return to rehab for continued pt Electrolytes derangements -will replete as indicated Constipation - x1 lactulose 30 01/07 Checklist: Dispo: Med tele, s/p perc IR drain of GBwith scant drainage in accordion drain, on IV abx, d/c vanc, cont zosyn and iv fluids, Diet: clears advance as tolerated (pt uses weighted utensils, Daughter sonam has some at home that she can bring for when pt is able to feed himself) Typically eats chopped diet , mech 2 at the rehab facility Bowel Reg: colace qd VTE ppx: SCD GI ppx: famotidine 20 mg qd Code status: dnr/dni Plan discussed with my attending Dr. Grace Duncan MD PGY1 Attending Provider Attestation/Addendum 84-year-old male patient status post cholecystostomy placement with minimal output. The patient developed atrial fibrillation last night current heart rate in the 90s. The patient denies chest pain he is not short of breath he does not feel dizzy. Will continue current treatment. Cardio consult requested earlier. No anticoagulation recommended. I discussed with and supervised the resident physician who took care of this patient. I agree with the assessment and plan as above.
[2025-01-07] MEDS: POTASSIUM CHLORIDE 10% 20 MEQ/15 ML UDC 40 MEQ PO (09:05)
--- NOTE | 2025-01-07 09:29 | ESCONSULT_ITS ---
RE: JULIO JOHNSON : 1940 DATE OF CONSULTATION: 01/07/2025 REFERRING PHYSICIAN: The hospitalist. HISTORY OF PRESENT ILLNESS: Mr. Julio Johnson is an 84-year-old gentleman who is known to have history of multiple problems of arterial sclerotic heart disease requiring coronary artery bypass graft surgery and aortic valve replacement in 2010, history of chronic hypertension, history of diabetes mellitus, history of hyperlipidemia, history of brain tumor requiring surgery in 2013, history of renal calculi. The patient also has a history of hip surgery in the past. The patient has been in the [facility] and started having symptoms of diarrhea. Last week, the patient was given some medication for the diarrhea, though the patient became constipated and started also having vomiting about 4 days ago. The symptoms persisted and the patient was brought in over to the emergency room and was noted to have cholecystitis and cholelithiasis. The patient also was noted to have urinary tract infection. The patient was on the medical floor and last night, the patient went into atrial fibrillation with fast ventricular response. The patient was transferred over to the telemetry unit and presently the patient is on IV amiodarone drip. The patient presently is in sinus rhythm. The patient did not complain of any symptoms of chest pain. Denied any complaint of fever or chills. PAST MEDICAL HISTORY: Significant for history of coronary artery bypass graft surgery and aortic valve replacement in 2010, history of chronic hypertension for the last several years, history of diabetes mellitus for the last several years, history of hyperlipidemia for the last several years, history of brain tumor requiring surgery in 2013, history of renal calculi requiring hospitalization in 1983 and 1984 and again in 2014, history of left hip surgery in 2005, history of rotator cuff shoulder surgery in 2002, history of hip surgery again in 2022. PERSONAL HISTORY: The patient is a nonsmoker, nonalcoholic. There is no history of drug abuse. FAMILY HISTORY: Significant for history of coronary artery disease in the patient's mother. PHYSICAL EXAMINATION: VITAL SIGNS: The patient's blood pressure is 113/82. The pulse rate is 108 per minute. Temperature is 96.7. Respiratory rate is 24 on oxygen and the patient's oximetry saturation is 95% on high-flow nasal cannula oxygen. HEAD AND NECK: Unremarkable. JVP is not elevated. Carotid pulsations are palpable on both the sides. No carotid bruits heard. HEART: No cardiomegaly clinically. S1 and S2 are normal. Grade 1/6 short ejection systolic murmur best heard at the base. No gallop is appreciated. LUNGS: Show slightly decreased breath sounds at the bases. No active wheezing or rales are heard. ABDOMEN: Distended. EXTREMITIES: No pedal edema is noted. Peripheral pulses in the feet are palpable. NEUROLOGIC: The patient is drowsy at the present time and is poorly responsive to verbal command. DIAGNOSTIC DATA: The patient's electrocardiogram done last night showed atrial fibrillation with fast ventricular response and possible old inferior wall myocardial infarction. The patient's chest x-ray done on 01/05/2025 showed possible bilateral pneumonia. LABORATORY DATA: WBC count of 16,200 on 01/04/2025, hemoglobin 13.3 with a hematocrit of 41.4. Today, WBC count is down to 8500, hemoglobin is 13.5 with hematocrit of 41.5. The prothrombin time on admission was 12.3 with INR of 1.2 and PTT of 31.7 seconds. BUN today is 26, creatinine 0.9, potassium level is 3.3, glucose is 161. Troponin level yesterday was less than 0.02. CLINICAL IMPRESSION: 1. Acute onset atrial fibrillation with fast ventricular response, though the patient presently is back in sinus rhythm on intravenous amiodarone drip. 2. Acute cholecystitis and cholelithiasis. 3. Possible bilateral pneumonia. 4. Arteriosclerotic heart disease with previous history of coronary artery bypass graft surgery. 5. Previous history of aortic valve replacement for aortic stenosis. 6. Chronic hypertension. 7. Hyperlipidemia per history. 8. Previous history of brain surgery for brain tumor. SUGGESTIONS: I agree with present plan of management of the patient of close monitoring of the patient on telemetry unit and continuing the patient on antibiotic therapy. The patient is also on insulin therapy, which will be continued. The patient is also on amiodarone drip, which will be continued and once the patient is able to tolerate p.o. medications, the amiodarone will be changed over to p.o. amiodarone. The anticoagulant therapy should be withheld. The patient is being considered for abdominal surgery for cholecystectomy, though presently the patient's condition is not stable enough to undergo the procedure. Cardiac echo Doppler study is ordered. I highly, thank you very much for letting me participate in the care of the patient. DT: 08::22 TT: 09:28:00 Ref: [id number] - TID: [id number] [email or web address]
[2025-01-07] MEDS: VANCOMYCIN/WATER 1250 MG IVPB 250 ML 120 MG IV (10:24)
[2025-01-07] MEDS: POTASSIUM CHLORIDE 10% 20 MEQ/15 ML UDC PO (10:25)
[2025-01-07] MEDS: INSULIN LISPRO (AdmeLOG) 1 UNIT/0.01 ML UNIT SC ×2 (11:59→17:18)
[2025-01-07] MEDS: ACETAMINOPHEN 325 MG TABLET 650 MG PO (12:00)
[2025-01-07] MEDS: LACTULOSE SYRUP 20 GM/30 ML UDC 30 GM PO (12:00)
--- NOTE | 2025-01-07 15:10 | PC.SS ---
rounding note: Patient had a rapid response due to tachy. [facility].
[2025-01-07 15:37] LABS: Albumin, Serum 3.3 gm/dL (3.4-4.8); Anion Gap 11 (7-16); BUN/Creatinine Ratio 25 Ratio (12-20); Blood Urea Nitrogen 27 mg/dL (9-23); Calcium 9.6 mg/dL (8.3-10.6); Calcium (Corrected) 10.2 mg/dL (8.5-10.1); Carbon Dioxide 23.8 mMol/L (20.0-31.0); Chloride 104 mMol/L (98-107); Creatinine (Component) 1.1 mg/dL (0.6-1.3); Estimated Creatinine Clearance 52.8 mL/min (>60); Glucose 200 mg/dL (74-106); Osmolality,Calculated 288 (275-295); Phosphorous 2.0 mg/dL (2.4-5.1); Potassium 3.5 mMol/L (3.4-5.1); Sodium 139 mMol/L (136-145); eGFR > 60 See Note
[2025-01-07] MEDS: KETOROLAC INJ 30 MG/ML VIAL 15 MG IVP (17:15)
[2025-01-07] MEDS: FAMOTIDINE 20 MG TABLET PO (20:30)
[2025-01-08] VITALS (15 sets, daily range): BP systolic 96–132; BP diastolic 53–89; PULSE 71–85; RESP 23–27; TEMP 36.1–37.1; O2SAT 9–97
[2025-01-08] MEDS: PIPER/TAZO 3.375 GM PREMIX 3.375 GM/50 ML BAG IV (05:13)
[2025-01-08 06:08] LABS: Basophils # (Auto) 0.0 Thou/mm3 (0.0-0.2); Basophils % (Auto) 0 % (0-2.5); Eosinophils # (Auto) 0.0 Thou/mm3 (0.0-0.5); Eosinophils % (Auto) 0 % (0-10); Hematocrit 35.6 % (41.0-53.0); Hemoglobin 11.5 g/dL (13.5-16.0); Immature Granulocytes Auto 0.06 Thou/mm3 (0.00-0.00); Lymphocytes # (Auto) 0.7 Thou/mm3 (1.0-4.8); Lymphocytes % (Auto) 7 % (10-50); Mean Corpuscular HGB Conc 32.3 g/dl (31.0-37.0); Mean Corpuscular Hemoglobin 28.3 pg (25.0-35.0); Mean Corpuscular Volume 88 fL (80-100); Monocytes # (Auto) 0.6 Thou/mm3 (0.0-0.8); Monocytes % (Auto) 6 % (0-12); Neutrophils # (Auto) 8.9 Thou/mm3 (1.8-7.7); Neutrophils % (Auto) 86 % (37-80); Nucleated Red Blood Cell # 0.00 Thou/mm3 (0.00-0.00); Nucleated Red Blood Cell % 0 /100 WBC (0); Platelet Count 229 Thou/mm3 (140-440); RDW Standard Deviation 49.1 fL (35.1-43.9); Red Blood Count 4.06 Miln/mm3 (4.50-5.90); White Blood Count 10.3 Thou/mm3 (3.8-10.6)
[2025-01-08 06:50] LABS: Alanine Aminotransferase 10 U/L (10-49); Albumin, Serum 2.9 gm/dL (3.4-4.8); Albumin/Globulin Ratio 1.3 (1.2-2.2); Alkaline Phosphatase 33 U/L (46-116); Anion Gap 10 (7-16); Aspartate Amino Transferase 19 U/L (0-34); BUN/Creatinine Ratio 27 Ratio (12-20); Bilirubin,Total 0.4 mg/dL (0.3-1.2); Blood Urea Nitrogen 35 mg/dL (9-23); Calcium 9.4 mg/dL (8.3-10.6); Calcium (Corrected) 10.3 mg/dL (8.5-10.1); Carbon Dioxide 27.4 mMol/L (20.0-31.0); Chloride 104 mMol/L (98-107); Creatinine (Component) 1.3 mg/dL (0.6-1.3); Estimated Creatinine Clearance 44.7 mL/min (>60); Globulin 2.3 gm/dL (2.3-3.5); Glucose 155 mg/dL (74-106); Magnesium 2.1 mg/dL (1.6-2.6); Osmolality,Calculated 292 (275-295); Phosphorous 1.9 mg/dL (2.4-5.1); Potassium 3.4 mMol/L (3.4-5.1); Sodium 141 mMol/L (136-145); Total Protein 5.2 gm/dL (5.7-8.2); eGFR 55 See Note
--- NOTE | 2025-01-08 08:04 | ESPR_ITS ---
<Statement entered by Bela Sales MD - 01/08/25 12:49> Pt is seen at bedside, daughter is at bedside. Pt is more alert and awake, is able to engage in answering question. Pt is currently on HFNC, tachypnic. Pt does complain of abdominal pain, and there is tenderson on palpation in the RUQ. WBC is with in normal limit. Fluid culture from the percutaneous drainage grew klebsiella oxytoca which is sensitive to cipro therefore will dc zosyn and start Ciprofloxacin. Pt MRSA nare is positive, will order muporocin ointment. Will continue to monitor symtoms and wean him off the HFNC. Patient was seen and examined by me personally. I have directly supervised and reviewed documentation by the team resident and agree with its findings. ------- Plan of care was discussed with the attending, Dr. Grace Sales, PGY-2 Documentation for date of: 01/08/25 Subjective Subjective Interval history: NAEO. Patient's daughter, Sonam, at bedside, states that patient is more awake and alert this AM. Patient reports continued RUQ pain, one episode of nonbloody nonbilious vomiting this AM. Has Zofran on board. Nurse reported growth on underside of penile shaft, unknown chronicity. Exam Vital Signs Temp Pulse Resp BP Pulse Ox O2 Del Method O2 Flow Rate 97.0 F 77 26 H 116/68 94 L High Flow Nasal Cannula 01/08/25 04:00 01/08/25 07:00 01/08/25 07:00 01/08/25 04:00 01/08/25 07:00 01/08/25 04:00 01/08/25 07:00 FiO2 35 01/08/25 07:00 Narrative Exam GENERAL: no acute distress, A&Ox1 (unable to fully assess orientation 2/2 fatigue vs delerium), fatigued HEENT: Head AT/ NC. Mucous membranes dry. PERRL. NECK: Supple, no lymphadenopathy, no carotid bruits. CARDIOVASCULAR: RRR. Normal S1/S2, No m/r/g. No pitting edema of bilateral LEs. RESPIRATORY: trace bilateral lung base crackles GASTROINTESTINAL: Abdomen soft, no palpable masses. Bowel sounds present, mildly tender in the RUQ, no rebound no guarding. GENITOURINARY: Extra skin on underside of penile shaft below frenulum, no erythema, no edema, no TTP MUSCULOSKELETAL:? No cyanosis or edema, no visible joint swelling. NEUROLOGICAL: unable to assess CN 2/2 patient fatigue . No focal deficits. Sensation intact, symmetric. PSYCHIATRIC: Awake and alert, not agitated, normal mood and affect. SKIN: No obvious rashes, no jaundice, poor turgor. Objective Labs 01/08/25 05:11 01/08/25 05:11 Labs: Laboratory Results - last 24 hr 01/07/25 01/08/25 15:08 05:11 WBC 10.3 RBC 4.06 L Hgb 11.5 L D Hct 35.6 L MCV 88 MCH 28.3 MCHC 32.3 RDW Std Deviation 49.1 H Plt Count 229 Neut % (Auto) 86 H Lymph % (Auto) 7 L [place] % (Auto) 6 Eos % (Auto) 0 Baso % (Auto) 0 Neut # (Auto) 8.9 H Lymph # (Auto) 0.7 L [place] # (Auto) 0.6 Eos # (Auto) 0.0 Baso # (Auto) 0.0 Immature Gran # (Auto) 0.06 H Absolute Nucleated RBC 0.00 Immature Gran % 1 H Nucleated RBC % 0 Sodium 139 141 Potassium 3.5 3.4 Chloride 104 104 Carbon Dioxide 23.8 27.4 Anion Gap 11 10 BUN 27 H 35 H Creatinine 1.1 1.3 Estim Creat Clear Calc 52.8 L 44.7 L eGFR > 60 55 L BUN/Creatinine Ratio 25 H 27 H Glucose 200 H 155 H Calculated Osmolality 288 292 Calcium 9.6 9.4 Corrected Calcium 10.2 H 10.3 H Phosphorus 2.0 L 1.9 L Magnesium 2.1 Total Bilirubin 0.4 AST 19 ALT 10 Alkaline Phosphatase 33 L Total Protein 5.2 L Albumin 3.3 L 2.9 L Globulin 2.3 Albumin/Globulin Ratio 1.3 ABG Interpretation ABG results: 01/05/25 20:02 ABG pH 7.38 ABG pCO2 44 ABG pO2 73 L ABG HCO3 26 ABG O2 Saturation 95 ABG Base Excess 0 Quality Measures Quality Measures VTE prophylaxis Advance care planning discussed with:: patient and child Assessment & Plan Assessment Current Active Medications: Generic Name Dose Route Start Last Admin Trade Name Freq PRN Reason Stop Dose Admin Acetaminophen 650 mg 01/05/25 16:48 Acetaminophen 325 Mg Tablet PO 02/04/25 16:47 Q6H PRN PAIN SCALE 1-3 (mild Hydrocodone Bitart/Acetaminophen 1 tab 01/06/25 17:09 Hydrocodone/Apap 5/325 Tablet PO 01/11/25 15:56 Q6HR PRN PAIN SCALE 6-7 Amiodarone HCl 200 mg 01/08/25 09:00 Amiodarone Hcl 200 Mg Tablet PO 02/07/25 08:59 BID KENJI Dextrose 25 ml 01/05/25 16:55 Dextrose 50%-Water Inj 50 Ml Syringe IV 02/04/25 16:54 Q15MIN PRN BG 50-70 responsive npo pt Dextrose 50 ml 01/05/25 16:55 Dextrose 50%-Water Inj 50 Ml Syringe IV 02/04/25 16:54 Q15MIN PRN BG <50 OR BG <70 & pt unresponsive Famotidine 20 mg 01/05/25 21:00 01/07/25 20:30 Famotidine 20 Mg Tablet PO 02/04/25 20:59 20 mg HS KENJI Administration Glucagon 1 mg 01/05/25 16:55 Glucagon Inj 1 Mg Vial IM Q15MIN PRN BG <70, and no IV access Piperacillin/Tazobactam/Dextrose 3.375 gm in 50 mls @ 100 mls/hr 01/04/25 14:00 01/08/25 05:13 Zosyn IV 01/11/25 13:59 100 mls/hr Q8HR KENJI Administration Protocol Insulin Human Lispro 0 unit 01/06/25 17:00 01/07/25 20:31 Insulin Lispro (Admelog) 1 Unit/0.01 Ml Unit SC 02/05/25 16:59 Not Given ACHS [facility] Protocol Ketorolac Tromethamine 15 mg 01/06/25 17:01 01/07/25 17:15 Ketorolac Inj 30 Mg/Ml Vial IVP 01/11/25 17:00 15 mg Q6HR PRN Administration pain 4-5 Morphine Sulfate 0.5 mg 01/06/25 17:09 Morphine Sulf Inj 4 Mg/Ml Vial IV 01/11/25 08:37 Q4HR PRN Pain Scale 8-10 Ondansetron HCl 4 mg 01/05/25 16:48 Ondansetron Inj 2 Mg/Ml Inj 2 Ml IVP 02/04/25 16:47 Q6H PRN NAUSEA OR VOMITING Protocol Pantoprazole Sodium 40 mg 01/06/25 09:00 01/07/25 09:04 Pantoprazole Inj 40 Mg Vial IVP 02/05/25 08:59 40 mg QDAY KENJI Administration Plan Mr. Johnson is a 84-year-old gentleman with history of CAD with hx of CABG (on asa and plavix) hypertension,? 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 pending echo and cards evaluation Sepsis 2/2 -resolving Acute Cholecystitis Malaise and fatigue Dx - CTAP with Atelectasis versus mild pneumonia at the lung bases Acute acalculous cholecystitis, - GB US with obvious thickening and edema involving the gallbladder wall Common bile duct is enlarged 0.9 cm no stones Pancreatic head is enlarged 3.8 cm - MRCP Cholecystitis pattern, gallbladder sludge ball versus stone Extrahepatic biliary tract dilatation without definite common hepatic or common bile duct stones and Mild acute pancreatitis with benign-appearing cystic change in the pancreatic head - Surgery consulted (Dr. Ponce), appreciate recs, no surgery indicated at this time, IV ABx continue - CARDS consulted given need for cardiac clearance if pt were to proceed with surgery outpatient potentially. - Gallbladder fluid cx: Klebsiella oxytoca, sensitive to Ciprofloxacin - Blood cx and Urine cx NGTD Tx - IV Vanco (01/05- 01/07) - IV Zosyn 3.375 q8hr (01/05-01/08) - IV Ciprofloxacin 400 mg IV BID (01/08-); can be d/c on PO cipro 500 mg IV BID - Mupirocin TID for +MRSA nares - IV Fluids, LR 85 cc/hr - held 2/2 increased O2 requirements - Zofran 4 mg IV PRN - Morphine 0.5 mg q4h PRN - APAP 650 mg PO prn - Delirium precautions, pt with waxing and waning mentation, noted to be more alert and oriented in the evening. - s/p IR biliary drainage, 01/06 Afib with RVR pt had rapid response overnight with afib with rvr Plan Cards consulted, do not recc anticoagulation at this time Started on amiodorone drip with improvement in his rate from 130s to 90s --> t ransitioned to amiodarone 200 mg PO BID Acute hypoxic respiratory failure pt with labored belly breathing, pt had rapid [id number] for hypotension, appears dry to euvolemic on exam. was tachycardic Plan - highflow o2 PRN - See abx as above Mild Pancreatitis pt presented with hx of nausea and vomiting. no stones on imaging, no dilation of CBD, noted to have some enlargement of the pancreatic head Plan - IV Fluids LR 85 cc/hr - held 2/2 increased O2 requirements - IV Morphine 0.5 mg q4hr - APAP 650 for mild pain PRN - cardiac, dysphagia 2 diet UTI - r/o Acute Urinary Retention BPH per patient daughter, pt is typically able to void without difficulty, he typically wears a diaper Dx - UA with Leukesterase + - Ucx NGTD Plan - cont tamsulosin 0.4 mg qd - paredes catheter placed at 0500 01/05 in the ED T2DM - well controlled A1c 6.9 (2024) Home Meds - Metformin 500 mg BID Plan - ISS step one ACHS - Bedside Glucose Checks ACHS CAD w hx CABG s/p Aortic valve replacement for aortic stenosis HFpEF (EF 50-55%- 10/2024) HTN Grade I diastolic dysfunction Plan - CARDS consulted, Dr. Dick - continue tele monitoring - hold anticoagulation - pt condition NOT stable enough for cholecystectomy - will f/u outpatient - metoprolol 100 mg qd - held 2/2 hypotension - sacubitril-valsartan 2 tab PO BID - held 2/2 hypotension - hold ASA 81 - hold Plavix 75 mg PO qd GERD Plan - famotidine 20 mg qhs Anxiety Depression Plan - cont home sertraline 50 mg po QAM Unspecified symptoms and signs involving the nervous system ?Parkinson's s/p benign intracranial tumor excision Plan pt will continue rehab at facility PT Consult, rec pt return to rehab for continued pt Electrolytes derangements -will replete as indicated Constipation - x1 lactulose 30 01/07 - lactulose 20 daily kenji Checklist: Dispo: Med tele, s/p perc IR drain of GBwith scant drainage in accordion drain, on IV abx, d/c vanc, cont zosyn and iv fluids Diet: Cardiac, dysphagia 2 mech alter (pt uses weighted utensils, Daughter sonam has some at home that she can bring for when pt is able to feed himself) Bowel Reg: colace qd VTE ppx: SCD GI ppx: famotidine 20 mg qd Code status: dnr/dni Plan discussed with my Dr. Chayito Sales and Dr. Grace Roldan MD PGY1 Attending Provider Attestation/Addendum Patient seen and examined. He is arousable but still very weak. He remains on high flow nasal cannula. The patient has normal echocardiogram, normal ejection fraction and this was relayed to her daughter. Fluid culture growing Klebsiella oxytoca. The patient's been afebrile. He has cholecystostomy I discussed with and supervised the resident physician who took care of this patient. I agree with the assessment and plan as above.
[2025-01-08] MEDS: AMIODARONE HCL 200 MG TABLET PO ×2 (09:02→20:31)
[2025-01-08] MEDS: POT PHOS 15 mMol in NS 250 ML 15 MMOL/250 ML BAG 62.5 MMOL IV ×4 (09:03→21:06)
[2025-01-08] MEDS: CIPROFLOXACIN/D5w 400 MG IVPB 400 MG/200 ML BAG 200 MG IV ×2 (09:03→20:34)
--- NOTE | 2025-01-08 09:39 | PCS.ST ---
Recommend Dysphagia 2 (minced) diet when cleared to advance.
[2025-01-08] MEDS: MUPIROCIN OINT 2% 15 GM TUBE TOP ×3 (09:55→22:09)
[2025-01-08 10:21] LABS: Vancomycin,Trough 18.8 mcg/mL (5.0-10.0)
[2025-01-08] MEDS: INSULIN LISPRO (AdmeLOG) 1 UNIT/0.01 ML UNIT SC (12:23)
[2025-01-08] MEDS: KETOROLAC INJ 30 MG/ML VIAL 15 MG IVP ×2 (14:40→20:58)
[2025-01-08] MEDS: FAMOTIDINE 20 MG TABLET PO (20:34)
[2025-01-09] VITALS (14 sets, daily range): BP systolic 123–136; BP diastolic 62–86; PULSE 66–80; RESP 15–26; TEMP 36–36.3; O2SAT 93–98
[2025-01-09] MEDS: MUPIROCIN OINT 2% 15 GM TUBE TOP ×3 (05:18→21:17)
[2025-01-09 05:43] LABS: Basophils # (Auto) 0.0 Thou/mm3 (0.0-0.2); Basophils % (Auto) 0 % (0-2.5); Eosinophils # (Auto) 0.2 Thou/mm3 (0.0-0.5); Eosinophils % (Auto) 2 % (0-10); Hematocrit 33.2 % (41.0-53.0); Hemoglobin 10.7 g/dL (13.5-16.0); Immature Granulocytes Auto 0.24 Thou/mm3 (0.00-0.00); Lymphocytes # (Auto) 0.8 Thou/mm3 (1.0-4.8); Lymphocytes % (Auto) 9 % (10-50); Mean Corpuscular HGB Conc 32.2 g/dl (31.0-37.0); Mean Corpuscular Hemoglobin 28.1 pg (25.0-35.0); Mean Corpuscular Volume 87 fL (80-100); Monocytes # (Auto) 0.5 Thou/mm3 (0.0-0.8); Monocytes % (Auto) 6 % (0-12); Neutrophils # (Auto) 7.5 Thou/mm3 (1.8-7.7); Neutrophils % (Auto) 81 % (37-80); Nucleated Red Blood Cell # 0.00 Thou/mm3 (0.00-0.00); Nucleated Red Blood Cell % 0 /100 WBC (0); Platelet Count 205 Thou/mm3 (140-440); RDW Standard Deviation 48.5 fL (35.1-43.9); Red Blood Count 3.81 Miln/mm3 (4.50-5.90); White Blood Count 9.3 Thou/mm3 (3.8-10.6)
[2025-01-09 06:25] LABS: Alanine Aminotransferase 8 U/L (10-49); Albumin, Serum 2.9 gm/dL (3.4-4.8); Albumin/Globulin Ratio 1.5 (1.2-2.2); Alkaline Phosphatase 39 U/L (46-116); Anion Gap 11 (7-16); Aspartate Amino Transferase 19 U/L (0-34); BUN/Creatinine Ratio 33 Ratio (12-20); Bilirubin,Total 0.8 mg/dL (0.3-1.2); Blood Urea Nitrogen 36 mg/dL (9-23); Calcium 9.1 mg/dL (8.3-10.6); Calcium (Corrected) 10.0 mg/dL (8.5-10.1); Carbon Dioxide 27.2 mMol/L (20.0-31.0); Chloride 105 mMol/L (98-107); Creatinine (Component) 1.1 mg/dL (0.6-1.3); Estimated Creatinine Clearance 52.9 mL/min (>60); Globulin 2.0 gm/dL (2.3-3.5); Glucose 127 mg/dL (74-106); Magnesium 2.0 mg/dL (1.6-2.6); Osmolality,Calculated 295 (275-295); Phosphorous 4.3 mg/dL (2.4-5.1); Potassium 3.7 mMol/L (3.4-5.1); Sodium 143 mMol/L (136-145); Total Protein 4.9 gm/dL (5.7-8.2); eGFR > 60 See Note
--- NOTE | 2025-01-09 07:37 | ESPR_ITS ---
<Statement entered by Bela Sales MD - 01/09/25 19:50> Pt is seen at bedside, saturating on 30L O2 via HFNC, both daughters are bedside, updated of the plan. Pt pain in the RUQ is improving, leukocyte count has downtrended to normal. Pt has remained afebrile. Pt is more alert and awake today. Goal is to wean off HFNC to <3L via NC and then anticipate discharge. Patient was seen and examined by me personally. I have directly supervised and reviewed documentation by the team resident and agree with its findings. ------- Plan of care was discussed with the attending, Dr. Odilon Sales, PGY-2 Documentation for date of: 01/09/25 Subjective Subjective Interval history: Patient seen and examined at bedside. His daughters Sonam and jono are present pt is more alert and able to respond to questions. Still indicating that he has RUQ pain GB drain with scant output, plan to have ir d/c tomorrow Starting bladder training today with plan to d/c paredes WBC normalized. He continues on high flow o2, 35L at 40% with plan to wean (at baseline he uses 2-3 L NC) Exam Vital Signs Temp Pulse Resp BP Pulse Ox O2 Del Method O2 Flow Rate 96.8 F 68 24 H 135/73 H 95 High Flow Nasal Cannula 35 01/09/25 04:00 01/09/25 07:28 01/09/25 07:11 01/09/25 04:00 01/09/25 07:11 01/09/25 04:00 01/09/25 07:11 FiO2 40 01/09/25 07:11 Narrative Exam GENERAL: no acute distress, A&Ox3, more alert than previously noted (some waxing and waning mentation) HEENT: Head AT/ NC. Mucous membranes dry. PERRL. NECK: Supple, no lymphadenopathy, no carotid bruits. CARDIOVASCULAR: RRR. Normal S1/S2, No m/r/g. No pitting edema of bilateral LEs. RESPIRATORY: trace bilateral lung base crackles on HF nc 35L at 40 % Fio2 GASTROINTESTINAL: Abdomen soft, no palpable masses. Bowel sounds present, mildly tender in the RUQ, no rebound no guarding. Accordian drain in place with serosanguenous output, scant GENITOURINARY: Extra skin on underside of penile shaft below frenulum, no erythema, no edema, no TTP MUSCULOSKELETAL:? No cyanosis or edema, no visible joint swelling. NEUROLOGICAL: CN grossly intact No focal deficits. Sensation intact, symmetric. PSYCHIATRIC: Awake and alert, not agitated, normal mood and affect. SKIN: No obvious rashes, no jaundice, poor turgor. Objective Labs 01/10/25 05:23 01/10/25 05:23 Labs: Laboratory Results - last 24 hr 01/08/25 01/09/25 09:36 04:46 WBC 9.3 RBC 3.81 L Hgb 10.7 L Hct 33.2 L MCV 87 MCH 28.1 MCHC 32.2 RDW Std Deviation 48.5 H Plt Count 205 Neut % (Auto) 81 H Lymph % (Auto) 9 L [place] % (Auto) 6 Eos % (Auto) 2 Baso % (Auto) 0 Neut # (Auto) 7.5 Lymph # (Auto) 0.8 L [place] # (Auto) 0.5 Eos # (Auto) 0.2 Baso # (Auto) 0.0 Immature Gran # (Auto) 0.24 H Absolute Nucleated RBC 0.00 Immature Gran % 3 H Nucleated RBC % 0 Sodium 143 Potassium 3.7 Chloride 105 Carbon Dioxide 27.2 Anion Gap 11 BUN 36 H Creatinine 1.1 Estim Creat Clear Calc 52.9 L eGFR > 60 BUN/Creatinine Ratio 33 H Glucose 127 H Calculated Osmolality 295 Calcium 9.1 Corrected Calcium 10.0 Phosphorus 4.3 Magnesium 2.0 Total Bilirubin 0.8 AST 19 ALT 8 L Alkaline Phosphatase 39 L Total Protein 4.9 L Albumin 2.9 L Globulin 2.0 L Albumin/Globulin Ratio 1.5 Vancomycin Trough 18.8 H ABG Interpretation ABG results: 01/05/25 20:02 ABG pH 7.38 ABG pCO2 44 ABG pO2 73 L ABG HCO3 26 ABG O2 Saturation 95 ABG Base Excess 0 Quality Measures Quality Measures VTE prophylaxis Advance care planning discussed with:: patient and child Assessment & Plan Assessment Current Active Medications: Generic Name Dose Route Start Last Admin Trade Name Freq PRN Reason Stop Dose Admin Acetaminophen 650 mg 01/05/25 16:48 Acetaminophen 325 Mg Tablet PO 02/04/25 16:47 Q6H PRN PAIN SCALE 1-3 (mild Hydrocodone Bitart/Acetaminophen 1 tab 01/06/25 17:09 Hydrocodone/Apap 5/325 Tablet PO 01/11/25 15:56 Q6HR PRN PAIN SCALE 6-7 Amiodarone HCl 200 mg 01/08/25 09:00 01/08/25 20:31 Amiodarone Hcl 200 Mg Tablet PO 02/07/25 08:59 200 mg BID KENJI Administration Dextrose 25 ml 01/05/25 16:55 Dextrose 50%-Water Inj 50 Ml Syringe IV 02/04/25 16:54 Q15MIN PRN BG 50-70 responsive npo pt Dextrose 50 ml 01/05/25 16:55 Dextrose 50%-Water Inj 50 Ml Syringe IV 02/04/25 16:54 Q15MIN PRN BG <50 OR BG <70 & pt unresponsive Famotidine 20 mg 01/05/25 21:00 01/08/25 20:34 Famotidine 20 Mg Tablet PO 02/04/25 20:59 20 mg HS KENJI Administration Glucagon 1 mg 01/05/25 16:55 Glucagon Inj 1 Mg Vial IM Q15MIN PRN BG <70, and no IV access Ciprofloxacin/Dextrose 400 mg in 200 mls @ 200 mls/hr 01/08/25 09:00 01/08/25 20:34 Cipro Ivpb IV 01/15/25 08:59 200 mls/hr Q12HR KENJI Administration Insulin Human Lispro 0 unit 01/06/25 17:00 01/08/25 20:34 Insulin Lispro (Admelog) 1 Unit/0.01 Ml Unit SC 02/05/25 16:59 Not Given ACHS [facility] Protocol Ketorolac Tromethamine 15 mg 01/06/25 17:01 01/08/25 20:58 Ketorolac Inj 30 Mg/Ml Vial IVP 01/11/25 17:00 15 mg Q6HR PRN Administration pain 4-5 Lactulose 20 gm 01/08/25 09:00 01/08/25 09:10 Lactulose Syrup 20 Gm/30 Ml Udc PO 02/07/25 08:59 Not Given DAILY [facility] Protocol Morphine Sulfate 0.5 mg 01/06/25 17:09 Morphine Sulf Inj 4 Mg/Ml Vial IV 01/11/25 08:37 Q4HR PRN Pain Scale 8-10 Mupirocin 0 gm 01/08/25 08:15 01/09/25 05:18 Mupirocin Oint 2% 15 Gm Tube TOP 01/15/25 08:14 1 applicatio TID KENJI Administration Ondansetron HCl 4 mg 01/05/25 16:48 Ondansetron Inj 2 Mg/Ml Inj 2 Ml IVP 02/04/25 16:47 Q6H PRN NAUSEA OR VOMITING Protocol Pantoprazole Sodium 40 mg 01/06/25 09:00 01/08/25 09:02 Pantoprazole Inj 40 Mg Vial IVP 02/05/25 08:59 40 mg QDAY KENJI Administration Plan Mr. Johnson is a 84-year-old gentleman with history of CAD with hx of CABG (on asa and plavix) hypertension,? 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 pending echo and cards evaluation Sepsis 2/2 -resolving Acute Cholecystitis -resolving Malaise and fatigue- improved Dx - CTAP with Atelectasis versus mild pneumonia at the lung bases Acute acalculous cholecystitis, - GB US with obvious thickening and edema involving the gallbladder wall Common bile duct is enlarged 0.9 cm no stones Pancreatic head is enlarged 3.8 cm - MRCP Cholecystitis pattern, gallbladder sludge ball versus stone Extrahepatic biliary tract dilatation without definite common hepatic or common bile duct stones and Mild acute pancreatitis with benign-appearing cystic change in the pancreatic head - Surgery consulted (Dr. Ponce), appreciate recs, no surgery indicated at this time, IV ABx continue - CARDS consulted given need for cardiac clearance if pt were to proceed with surgery outpatient potentially. - Gallbladder fluid cx: Klebsiella oxytoca, sensitive to Ciprofloxacin - Blood cx and Urine cx NGTD Tx - IV Vanco (01/05- 01/07) - IV Zosyn 3.375 q8hr (01/05-01/08) - IV Ciprofloxacin 400 mg IV BID (01/08-); can be d/c on PO cipro 500 mg IV BID - Mupirocin TID for +MRSA nares - IV Fluids, LR 85 cc/hr - held 2/2 increased O2 requirements - Zofran 4 mg IV PRN - APAP IV 2 bags - Delirium precautions, pt with waxing and waning mentation, noted to be more alert and oriented in the evening. - s/p IR biliary drainage, 01/06 - d/c percutaneous drain 01/10 Afib with RVR pt had rapid response overnight with afib with rvr rate wnl, with some irregular rhythm overnight Plan Cards consulted, do not recc anticoagulation at this time Started on amiodorone drip with improvement in his rate from 130s to 90s --> t ransitioned to amiodarone 200 mg PO BID Acute hypoxic respiratory failure pt with labored belly breathing, pt had rapid [id number] for hypotension, appears dry to euvolemic on exam. was tachycardic Plan - wean highflow o2 as tolerated - See abx as above Mild Pancreatitis pt presented with hx of nausea and vomiting. no stones on imaging, no dilation of CBD, noted to have some enlargement of the pancreatic head Plan - IV Fluids LR 85 cc/hr - held 2/2 increased O2 requirements - IV Morphine 0.5 mg q4hr (family and patient hesitant to give opioids given c/f over sedation and confusion) - APAP IV - cardiac, dysphagia 2 diet UTI - r/o Acute Urinary Retention BPH per patient daughter, pt is typically able to void without difficulty, he typically wears a diaper Dx - UA with Leukesterase + - Ucx NGTD Plan - cont tamsulosin 0.4 mg qd - paredes catheter placed at 0500 01/05 in the ED - Bladder training initiated 01/09 T2DM - well controlled A1c 6.9 (2024) Home Meds - Metformin 500 mg BID Plan - ISS step one ACHS - Bedside Glucose Checks ACHS CAD w hx CABG s/p Aortic valve replacement for aortic stenosis HFpEF (EF 50-55%- 10/2024) HTN Grade I diastolic dysfunction Plan - CARDS consulted, Dr. Dick - continue tele monitoring - hold anticoagulation - pt condition NOT stable enough for cholecystectomy - will f/u outpatient - metoprolol 100 mg qd - held 2/2 hypotension - sacubitril-valsartan 2 tab PO BID - held 2/2 hypotension - hold ASA 81 - hold Plavix 75 mg PO qd GERD Plan - famotidine 20 mg qhs Anxiety Depression Plan - cont home sertraline 50 mg po QAM Unspecified symptoms and signs involving the nervous system ?Parkinson's s/p benign intracranial tumor excision Plan pt will continue rehab at facility PT Consult, rec pt return to rehab for continued pt Electrolytes derangements -will replete as indicated Constipation - lactulose 20 daily kenji- hold for loose stools Checklist: Dispo: Med tele, s/p perc IR drain of GBwith scant drainage in accordion drain, on IV abx, d/c vanc, d/c zosyn and narrowed abx to IV ciproflox and iv fluids, plan to d/c gb drain tomorrow 01/10 Diet: Cardiac, dysphagia 2 mech alter (pt uses weighted utensils, Daughter sonam has some at home that she can bring for when pt is able to feed himself) he really likes icecream Bowel Reg: colace qd VTE ppx: SCD GI ppx: famotidine 20 mg qd Code status: dnr/dni Plan discussed with my attending Dr. Donald and my senior Dr. Henrry Duncan MD PGY1 Attending Provider Attestation/Addendum I have examined the patient, reviewed labs and imaging findings, discussed the case with the resident(s), and reviewed entered orders. I agree with the plan of care as outlined in this note, with these additional summaries/recommendations: Patient continues to be on high flow nasal cannula with significant oxygen requirements. Will attempt to continue with diet as tolerated and encourage patient to use incentive spirometer to prevent atelectasis and subsequent development of respiratory infection. Continue to wean O2 as able. Devin Donald MD
[2025-01-09] MEDS: CIPROFLOXACIN/D5w 400 MG IVPB 400 MG/200 ML BAG 200 MG IV ×2 (08:53→20:49)
[2025-01-09] MEDS: AMIODARONE HCL 200 MG TABLET PO ×2 (08:54→20:49)
[2025-01-09] MEDS: POTASSIUM CHLORIDE 10% 20 MEQ/15 ML UDC 40 MEQ PO (08:55)
[2025-01-09] MEDS: ACETAMINOPHEN IVPB 1,000 MG/100 ML VIAL 250 MG IV ×2 (10:11→17:01)
[2025-01-09] MEDS: INSULIN LISPRO (AdmeLOG) 1 UNIT/0.01 ML UNIT SC (11:22)
--- NOTE | 2025-01-09 11:51 | PC.SS ---
rounding: Patient is on high flow 02 and is being weaned down. Baseline at facility is between 2-3L
[2025-01-09] MEDS: ALBUTEROL/IPRATROPIUM (Duoneb) RT SOL 3 ML NEBU INH (18:19)
[2025-01-09] MEDS: FAMOTIDINE 20 MG TABLET PO (20:49)
[2025-01-09] MEDS: ONDANSETRON INJ 2 MG/ML INJ 2 ML 4 MG IVP (20:55)
[2025-01-10] VITALS (18 sets, daily range): BP systolic 137–158; BP diastolic 55–85; PULSE 65–95; RESP 16–27; TEMP 36.1–36.3; O2SAT 94–99
[2025-01-10] MEDS: ALBUTEROL/IPRATROPIUM (Duoneb) RT SOL 3 ML NEBU INH ×4 (00:02→18:27)
[2025-01-10] MEDS: MUPIROCIN OINT 2% 15 GM TUBE TOP ×3 (05:28→21:37)
[2025-01-10 06:10] LABS: Basophils # (Auto) 0.0 Thou/mm3 (0.0-0.2); Basophils % (Auto) 0 % (0-2.5); Eosinophils # (Auto) 0.2 Thou/mm3 (0.0-0.5); Eosinophils % (Auto) 2 % (0-10); Hematocrit 34.0 % (41.0-53.0); Hemoglobin 10.9 g/dL (13.5-16.0); Immature Granulocytes Auto 0.50 Thou/mm3 (0.00-0.00); Lymphocytes # (Auto) 1.0 Thou/mm3 (1.0-4.8); Lymphocytes % (Auto) 11 % (10-50); Mean Corpuscular HGB Conc 32.1 g/dl (31.0-37.0); Mean Corpuscular Hemoglobin 28.5 pg (25.0-35.0); Mean Corpuscular Volume 89 fL (80-100); Monocytes # (Auto) 0.6 Thou/mm3 (0.0-0.8); Monocytes % (Auto) 6 % (0-12); Neutrophils # (Auto) 7.1 Thou/mm3 (1.8-7.7); Neutrophils % (Auto) 76 % (37-80); Nucleated Red Blood Cell # 0.02 Thou/mm3 (0.00-0.00); Nucleated Red Blood Cell % 0 /100 WBC (0); Platelet Count 230 Thou/mm3 (140-440); RDW Standard Deviation 50.4 fL (35.1-43.9); Red Blood Count 3.83 Miln/mm3 (4.50-5.90); White Blood Count 9.4 Thou/mm3 (3.8-10.6)
[2025-01-10 06:51] LABS: Alanine Aminotransferase 10 U/L (10-49); Albumin, Serum 2.9 gm/dL (3.4-4.8); Albumin/Globulin Ratio 1.3 (1.2-2.2); Alkaline Phosphatase 47 U/L (46-116); Anion Gap 6 (7-16); Aspartate Amino Transferase 23 U/L (0-34); BUN/Creatinine Ratio 35 Ratio (12-20); Bilirubin,Total 0.7 mg/dL (0.3-1.2); Blood Urea Nitrogen 35 mg/dL (9-23); Calcium 9.3 mg/dL (8.3-10.6); Calcium (Corrected) 10.2 mg/dL (8.5-10.1); Carbon Dioxide 28.8 mMol/L (20.0-31.0); Chloride 106 mMol/L (98-107); Creatinine (Component) 1.0 mg/dL (0.6-1.3); Estimated Creatinine Clearance 58.2 mL/min (>60); Globulin 2.2 gm/dL (2.3-3.5); Glucose 154 mg/dL (74-106); Magnesium 1.9 mg/dL (1.6-2.6); Osmolality,Calculated 292 (275-295); Phosphorous 3.3 mg/dL (2.4-5.1); Potassium 4.0 mMol/L (3.4-5.1); Sodium 141 mMol/L (136-145); Total Protein 5.1 gm/dL (5.7-8.2); eGFR > 60 See Note
[2025-01-10] MEDS: CIPROFLOXACIN/D5w 400 MG IVPB 400 MG/200 ML BAG 200 MG IV (08:05)
[2025-01-10] MEDS: AMIODARONE HCL 200 MG TABLET PO ×2 (08:05→21:37)
--- NOTE | 2025-01-10 08:31 | ESPR_ITS ---
<Statement entered by Bela Sales MD - 01/10/25 21:00> Patient is seen at bedside, patient is alert awake and oriented. Patient is engaging in conversation currently saturating on 33 L of oxygen via nasal cannula. Patient is complaining of productive cough. Repeat chest x-ray showed pneumonia in the left lung therefore we will start cefepime and discontinue ciprofloxacin. Will continue to work on weaning patient off of HFNC and is encouraged to use incentive spirometry. Per surgery will discharge the patient on LINDA drain which he will follow-up outpatient with surgery to remove after 1 week. After discharge patient will need to be reevaluated by cardiology and surgery for cholecystectomy. As of right now patient is not clear from cardiology for surgery. Patient was seen and examined by me personally. I have directly supervised and reviewed documentation by the team resident and agree with its findings. ------- Plan of care was discussed with the attending, Dr. Odilon Sales, PGY-2 Documentation for date of: 01/10/25 Subjective Subjective Interval history: patient seen and examined at bedside daughter rc present patient is more alert and oriented than prior and able to discuss his care cxr with left pna, started on cefepime and dc cipro, pt remains on high flow plan to wean as tolerated to 2-4L NC will keep gb drain and will follow up with surgery outpatient. Exam Vital Signs Temp Pulse Resp BP Pulse Ox O2 Del Method O2 Flow Rate 97.0 F 95 27 H 144/55 H 94 L High Flow Nasal Cannula 33 01/10/25 04:00 01/10/25 08:05 01/10/25 06:45 01/10/25 08:05 01/10/25 06:45 01/10/25 04:00 01/10/25 06:45 FiO2 35 01/10/25 06:45 Narrative Exam GENERAL: no acute distress, A&Ox3, more alert than previously noted HEENT: Head AT/ NC. Mucous membranes dry. PERRL. NECK: Supple, no lymphadenopathy, no carotid bruits. CARDIOVASCULAR: RRR. Normal S1/S2, No m/r/g. No pitting edema of bilateral LEs. RESPIRATORY: trace bilateral lung base crackles and L>R crackles to the mid lung field on HF nc 35L at 40 % Fio2 GASTROINTESTINAL: Abdomen soft, no palpable masses. Bowel sounds present, no rebound no guarding. Accordion drain in place with serosanguenous output, scant GENITOURINARY: Extra skin on underside of penile shaft below frenulum, no erythema, no edema, no TTP MUSCULOSKELETAL:? No cyanosis or edema, no visible joint swelling. NEUROLOGICAL: CN grossly intact No focal deficits. Sensation intact, symmetric. PSYCHIATRIC: Awake and alert, not agitated, normal mood and affect. SKIN: No obvious rashes, no jaundice, poor turgor. Objective Labs 01/16/25 05:22 01/16/25 05:22 Labs: Laboratory Results - last 24 hr 01/10/25 05:23 WBC 9.4 RBC 3.83 L Hgb 10.9 L Hct 34.0 L MCV 89 MCH 28.5 MCHC 32.1 RDW Std Deviation 50.4 H Plt Count 230 Neut % (Auto) 76 Lymph % (Auto) 11 [place] % (Auto) 6 Eos % (Auto) 2 Baso % (Auto) 0 Neut # (Auto) 7.1 Lymph # (Auto) 1.0 [place] # (Auto) 0.6 Eos # (Auto) 0.2 Baso # (Auto) 0.0 Immature Gran # (Auto) 0.50 H Absolute Nucleated RBC 0.02 H Immature Gran % 5 H Nucleated RBC % 0 Sodium 141 Potassium 4.0 Chloride 106 Carbon Dioxide 28.8 Anion Gap 6 L BUN 35 H Creatinine 1.0 Estim Creat Clear Calc 58.2 L eGFR > 60 BUN/Creatinine Ratio 35 H Glucose 154 H Calculated Osmolality 292 Calcium 9.3 Corrected Calcium 10.2 H Phosphorus 3.3 Magnesium 1.9 Total Bilirubin 0.7 AST 23 ALT 10 Alkaline Phosphatase 47 D Total Protein 5.1 L Albumin 2.9 L Globulin 2.2 L Albumin/Globulin Ratio 1.3 ABG Interpretation ABG results: 01/05/25 20:02 ABG pH 7.38 ABG pCO2 44 ABG pO2 73 L ABG HCO3 26 ABG O2 Saturation 95 ABG Base Excess 0 Quality Measures Quality Measures VTE prophylaxis and none Advance care planning discussed with:: patient and child Assessment & Plan Assessment Current Active Medications: Generic Name Dose Route Start Last Admin Trade Name Freq PRN Reason Stop Dose Admin Acetaminophen 650 mg 01/05/25 16:48 Acetaminophen 325 Mg Tablet PO 02/04/25 16:47 On Hold: 01/09/25 09:41 Q6H PRN Comment: IV APAP ORDER PLACED PAIN SCALE 1-3 (mild Hydrocodone Bitart/Acetaminophen 1 tab 01/06/25 17:09 Hydrocodone/Apap 5/325 Tablet PO 01/11/25 15:56 On Hold: 01/09/25 09:41 Q6HR PRN Comment: IV APAP ORDER PLACED PAIN SCALE 6-7 Albuterol/Ipratropium 3 ml 01/09/25 19:00 01/10/25 06:45 Albuterol/Ipratropium (Duoneb) Rt Zuleima 3 Ml Nebu INH 02/08/25 18:59 3 ml Q6HRRT KENJI Administration Amiodarone HCl 200 mg 01/08/25 09:00 01/10/25 08:05 Amiodarone Hcl 200 Mg Tablet PO 02/07/25 08:59 200 mg BID KENJI Administration Dextrose 25 ml 01/05/25 16:55 Dextrose 50%-Water Inj 50 Ml Syringe IV 02/04/25 16:54 Q15MIN PRN BG 50-70 responsive npo pt Dextrose 50 ml 01/05/25 16:55 Dextrose 50%-Water Inj 50 Ml Syringe IV 02/04/25 16:54 Q15MIN PRN BG <50 OR BG <70 & pt unresponsive Famotidine 20 mg 01/05/25 21:00 01/09/25 20:49 Famotidine 20 Mg Tablet PO 02/04/25 20:59 20 mg HS KENJI Administration Glucagon 1 mg 01/05/25 16:55 Glucagon Inj 1 Mg Vial IM Q15MIN PRN BG <70, and no IV access Ciprofloxacin/Dextrose 400 mg in 200 mls @ 200 mls/hr 01/08/25 09:00 01/10/25 08:05 Cipro Ivpb IV 01/15/25 08:59 200 mls/hr Q12HR KENJI Administration Insulin Human Lispro 0 unit 01/06/25 17:00 01/10/25 08:00 Insulin Lispro (Admelog) 1 Unit/0.01 Ml Unit SC 02/05/25 16:59 Not Given ACHS KENJI Protocol Ketorolac Tromethamine 15 mg 01/06/25 17:01 01/08/25 20:58 Ketorolac Inj 30 Mg/Ml Vial IVP 01/11/25 17:00 15 mg Q6HR PRN Administration pain 4-5 Morphine Sulfate 0.5 mg 01/06/25 17:09 Morphine Sulf Inj 4 Mg/Ml Vial IV 01/11/25 08:37 Q4HR PRN Pain Scale 8-10 Mupirocin 0 gm 01/08/25 08:15 01/10/25 05:28 Mupirocin Oint 2% 15 Gm Tube TOP 01/15/25 08:14 1 applicatio TID KENJI Administration Ondansetron HCl 4 mg 01/05/25 16:48 01/09/25 20:55 Ondansetron Inj 2 Mg/Ml Inj 2 Ml IVP 02/04/25 16:47 4 mg Q6H PRN Administration NAUSEA OR VOMITING Protocol Pantoprazole Sodium 40 mg 01/06/25 09:00 01/10/25 08:05 Pantoprazole Inj 40 Mg Vial IVP 02/05/25 08:59 40 mg QDAY KENJI Administration Plan Mr. Johnson is a 84-year-old gentleman with history of CAD with hx of CABG (on asa and plavix) hypertension,? 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 found to have left pna, modified antibiotics d/c cipro and start cefipime iv Acute hypoxic respiratory failure 2/2 CAP w possible overlapping pleural effusion consider atelectesis patient remains on HF satting well, it has been slow to wean likely 2/2 to bed bound and deconditioning from acute cholecystitis infection (see below), patient endorses productive cough with yellowish sputum Dx - CXR with Significant left lung pneumonia and ? overlapping pleural effusion Tx - IV Cefepime 2gm q12hr (01/10- ) - On high flow, plan to wean as tolerated - Chest PT (percussion) - Guafenecin 100mg TID to help break up secretions - Incentive spirometry Sepsis 2/2 -resolving Acute Cholecystitis -resolving Malaise and fatigue- improved Dx - CTAP with Atelectasis versus mild pneumonia at the lung bases Acute acalculous cholecystitis, - GB US with obvious thickening and edema involving the gallbladder wall Common bile duct is enlarged 0.9 cm no stones Pancreatic head is enlarged 3.8 cm - MRCP Cholecystitis pattern, gallbladder sludge ball versus stone Extrahepatic biliary tract dilatation without definite common hepatic or common bile duct stones and Mild acute pancreatitis with benign-appearing cystic change in the pancreatic head - Surgery consulted (Dr. Ponce), appreciate recs, no surgery indicated at this time, IV ABx continue - CARDS consulted given need for cardiac clearance if pt were to proceed with surgery outpatient potentially. - Gallbladder fluid cx: Klebsiella oxytoca, sensitive to Ciprofloxacin - Blood cx and Urine cx NGTD Tx - s/p IR biliary drainage, 01/06, plan for outpatient removal of GB drain with Dr. Ponce in clinic. - IV Cefepime 2gm q12hr (01/10- ) - d/c IV Vanco (01/05- 01/07) - d/c IV Zosyn 3.375 q8hr (01/05-01/08) - d/c IV Ciprofloxacin 400 mg IV BID (01/08-01/10) - Mupirocin TID for +MRSA nares - IV Fluids, LR 85 cc/hr - held 2/2 increased O2 requirements - Zofran 4 mg IV PRN - APAP IV scheduled for pain q6hr, lfts stable - Delirium precautions, pt with waxing and waning mentation, noted to be more alert and oriented in the evening. Afib with RVR - rate controlled pt had rapid response overnight with afib with rvr rate wnl, EKG with qtc 475 (per cardiology goal to maintain qtc <490) be sure to consider whether medications are qtc prolonging agents Plan Cards consulted, do not recc anticoagulation at this time Started on amiodorone drip with improvement in his rate from 130s to 90s --> t ransitioned to amiodarone 200 mg PO BID Acute hypoxic respiratory failure pt with labored belly breathing, pt had rapid /12 for hypotension, appears dry to euvolemic on exam. was tachycardic Plan - wean highflow o2 as tolerated - See abx as above Mild Pancreatitis pt presented with hx of nausea and vomiting. no stones on imaging, no dilation of CBD, noted to have some enlargement of the pancreatic head Plan - IV Fluids LR 85 cc/hr - held 2/2 increased O2 requirements - IV Morphine 0.5 mg q4hr (family and patient hesitant to give opioids given c/f over sedation and confusion) - APAP IV - cardiac, dysphagia 2 diet UTI - r/o Acute Urinary Retention BPH per patient daughter, pt is typically able to void without difficulty, he typically wears a diaper Dx - UA with Leukesterase + - Ucx NGTD Plan - cont tamsulosin 0.4 mg qd - paredes catheter placed at 0500 01/05 in the ED - Bladder training initiated 01/09 T2DM - well controlled A1c 6.9 (2024) Home Meds - Metformin 500 mg BID Plan - ISS step one ACHS - Bedside Glucose Checks ACHS CAD w hx CABG s/p Aortic valve replacement for aortic stenosis HFpEF (EF 50-55%- 10/2024) HTN Grade I diastolic dysfunction Plan - CARDS consulted, Dr. Dick - continue tele monitoring - hold anticoagulation - pt condition NOT stable enough for cholecystectomy - will f/u outpatient - metoprolol 100 mg qd - held 2/2 hypotension - sacubitril-valsartan 2 tab PO BID - held 2/2 hypotension - hold ASA 81 - hold Plavix 75 mg PO qd GERD Plan - famotidine 20 mg qhs Anxiety Depression Plan - cont home sertraline 50 mg po QAM Unspecified symptoms and signs involving the nervous system ?Parkinson's s/p benign intracranial tumor excision Plan pt will continue rehab at facility PT Consult, rec pt return to rehab for continued pt Electrolytes derangements -will replete as indicated Constipation - lactulose 20 daily kenji- hold for loose stools Checklist: Dispo: Med tele, s/p perc IR drain of GBwith scant drainage in accordion drain, on IV abx, d/c vanc, d/c zosyn and d/c cipro continue iv fluids,drain in place, changed abx from cipro to cefepime. found to have PNA. Diet: Cardiac, dysphagia 2 mech alter (pt uses weighted utensils, Daughter rc has some at home that she can bring for when pt is able to feed himself) he really likes icecream Bowel Reg: colace qd VTE ppx: SCD GI ppx: famotidine 20 mg qd Code status: dnr/dni Plan discussed with my attending Dr. Donald and my senior Dr. Henrry Duncan MD PGY1 Attending Provider Attestation/Addendum Patient seen and examined at bedside with resident. Agree with assessment and plan as documented above. Devin Donald MD
--- NOTE | 2025-01-10 10:54 | XR_ITS ---
EXAMINATION: AP chest single view TECHNIQUE: AP portable upright chest single view Date and time: January 10, 2025, 1127 hours, comparison January 05, 2025 INDICATIONS: Coughing congestion this week. FINDINGS: Significant left lung pneumonia Possible layered left pleural fluid CABG Mild prominence left ventricle IMPRESSION: Significant left lung pneumonia
[2025-01-10] MEDS: ACETAMINOPHEN IVPB 1,000 MG/100 ML VIAL 250 MG IV ×3 (11:13→23:21)
--- NOTE | 2025-01-10 11:30 | PC.PT ---
Patient was approached for PT treatment at 1130. Patient continues to be on high flow O2. Patient requested to hold PT today and try tomorrow due to feeling SOB and unable to catch his breath while laying supine. Will re-attempt PT treatment at another time. RN made aware.
[2025-01-10] MEDS: INSULIN LISPRO (AdmeLOG) 1 UNIT/0.01 ML UNIT SC (11:45)
--- NOTE | 2025-01-10 12:00 | PC.SS ---
Update: Patient remains on high flow oxygen, 33L.
[2025-01-10] MEDS: guaiFENesin SYRUP 200 MG/10 ML UDC 100 MG PO ×2 (14:01→21:36)
--- NOTE | 2025-01-10 14:17 | EKG_ITS ---
[facility] Test Date: 2025-01-10 Pat Name: URVASHI RAMSEY [facility] Gender: Male [employer] Demonstrator: SHERRI : 1940 Requested By: Grecia Duncan Order Number: [id number] Reading MD: Grecia Duncan Measurements Intervals [place] Rate: 69 P: 8 ME: 224 QRS: -8 QRSD: 126 T: 53 QT: 441 QTc: 475 Interpretive Statements SINUS RHYTHM WITH FIRST DEGREE AV BLOCK MODERATE INTRAVENTRICULAR CONDUCTION DELAY NONSPECIFIC T-WAVE ABNORMALITY PROLONGED QT INTERVAL Compared to ECG 01/06/2025 21:27:45 First degree AV block now present Intraventricular conduction delay now present T-wave abnormality now present Prolonged QT interval now present Atrial fibrillation no longer present Myocardial infarct finding no longer present /store/S0/[id number]
[2025-01-10] MEDS: CEFEPIME INJ 2 GM in SODIUM CHLORIDE 0.9% (Popper) 50 ML IV (14:47)
[2025-01-10] MEDS: FAMOTIDINE 20 MG TABLET PO (21:37)
[2025-01-11] VITALS (14 sets, daily range): BP systolic 139–158; BP diastolic 80–99; PULSE 64–94; RESP 17–26; TEMP 36.1–36.6; O2SAT 91–98; BMI 12.0
[2025-01-11] MEDS: ALBUTEROL/IPRATROPIUM (Duoneb) RT SOL 3 ML NEBU INH ×4 (01:42→18:36)
[2025-01-11] MEDS: ACETAMINOPHEN IVPB 1,000 MG/100 ML VIAL 250 MG IV (05:16)
[2025-01-11] MEDS: MUPIROCIN OINT 2% 15 GM TUBE TOP ×2 (05:17→21:32)
[2025-01-11 05:41] LABS: Basophils # (Auto) 0.1 Thou/mm3 (0.0-0.2); Basophils % (Auto) 1 % (0-2.5); Eosinophils # (Auto) 0.2 Thou/mm3 (0.0-0.5); Eosinophils % (Auto) 3 % (0-10); Hematocrit 35.2 % (41.0-53.0); Hemoglobin 11.3 g/dL (13.5-16.0); Immature Granulocytes Auto 0.38 Thou/mm3 (0.00-0.00); Lymphocytes # (Auto) 1.0 Thou/mm3 (1.0-4.8); Lymphocytes % (Auto) 13 % (10-50); Mean Corpuscular HGB Conc 32.1 g/dl (31.0-37.0); Mean Corpuscular Hemoglobin 28.3 pg (25.0-35.0); Mean Corpuscular Volume 88 fL (80-100); Monocytes # (Auto) 0.7 Thou/mm3 (0.0-0.8); Monocytes % (Auto) 8 % (0-12); Neutrophils # (Auto) 5.9 Thou/mm3 (1.8-7.7); Neutrophils % (Auto) 71 % (37-80); Nucleated Red Blood Cell # 0.00 Thou/mm3 (0.00-0.00); Nucleated Red Blood Cell % 0 /100 WBC (0); Platelet Count 251 Thou/mm3 (140-440); RDW Standard Deviation 49.8 fL (35.1-43.9); Red Blood Count 3.99 Miln/mm3 (4.50-5.90); White Blood Count 8.3 Thou/mm3 (3.8-10.6)
[2025-01-11] MEDS: guaiFENesin SYRUP 200 MG/10 ML UDC 100 MG PO ×2 (05:46→21:16)
[2025-01-11 06:10] LABS: Alanine Aminotransferase 13 U/L (10-49); Albumin, Serum 3.0 gm/dL (3.4-4.8); Albumin/Globulin Ratio 1.2 (1.2-2.2); Alkaline Phosphatase 51 U/L (46-116); Anion Gap 7 (7-16); Aspartate Amino Transferase 23 U/L (0-34); BUN/Creatinine Ratio 32 Ratio (12-20); Bilirubin,Total 0.7 mg/dL (0.3-1.2); Blood Urea Nitrogen 29 mg/dL (9-23); Calcium 9.4 mg/dL (8.3-10.6); Calcium (Corrected) 10.2 mg/dL (8.5-10.1); Carbon Dioxide 30.4 mMol/L (20.0-31.0); Chloride 104 mMol/L (98-107); Creatinine (Component) 0.9 mg/dL (0.6-1.3); Estimated Creatinine Clearance 64.6 mL/min (>60); Globulin 2.6 gm/dL (2.3-3.5); Glucose 121 mg/dL (74-106); Magnesium 1.8 mg/dL (1.6-2.6); Osmolality,Calculated 288 (275-295); Phosphorous 3.6 mg/dL (2.4-5.1); Potassium 4.2 mMol/L (3.4-5.1); Sodium 141 mMol/L (136-145); Total Protein 5.6 gm/dL (5.7-8.2); eGFR > 60 See Note
--- NOTE | 2025-01-11 07:58 | ESPR_ITS ---
<Statement entered by Zachariah Orta MD - 01/17/25 15:18> I reviewed above note and agree with findings and plans. I have also personally examined the patient with medicine team and went over assessment and plan with medical team including journalism intern and resident physician. <Statement entered by Bela Sales MD - 01/12/25 16:33> Pt is seen at bedside, continues to be on HFNS 20L. Pt is encouraged to use IS. There is no output from accordian drain. Goal is to wean him off HFNC and transition to <3L of O2 via NC. Patient was seen and examined by me personally. I have directly supervised and reviewed documentation by the team resident and agree with its findings. ------- Plan of care was discussed with the attending, Dr. Marivel Sales, PGY-2 Documentation for date of: 01/11/25 Subjective Subjective Interval history: patient seen and examined at bedside sleeping while on high flow plan to wean high flow continues to get iv cefepime Exam Vital Signs Temp Pulse Resp BP Pulse Ox O2 Del Method O2 Flow Rate 96.9 F 69 24 H 139/83 H 97 High Flow Nasal Cannula 25 01/11/25 04:00 01/11/25 06:46 01/11/25 06:46 01/11/25 04:00 01/11/25 06:46 01/11/25 04:00 01/11/25 06:46 FiO2 35 01/11/25 06:46 Narrative Exam GENERAL: no acute distress, A&Ox3, more alert than previously noted HEENT: Head AT/ NC. Mucous membranes dry. PERRL. NECK: Supple, no lymphadenopathy, no carotid bruits. CARDIOVASCULAR: RRR. Normal S1/S2, No m/r/g. No pitting edema of bilateral LEs. RESPIRATORY: trace bilateral lung base crackles and L>R crackles to the mid lung field on HF nc 25 at 35 % Fio2 GASTROINTESTINAL: Abdomen soft, no palpable masses. Bowel sounds present, no rebound no guarding. Accordion drain in place with serosanguenous output, scant GENITOURINARY: Extra skin on underside of penile shaft below frenulum, no erythema, no edema, no TTP MUSCULOSKELETAL:? No cyanosis or edema, no visible joint swelling. NEUROLOGICAL: CN grossly intact No focal deficits. Sensation intact, symmetric. PSYCHIATRIC: Awake and alert, not agitated, normal mood and affect. SKIN: No obvious rashes, no jaundice, poor turgor. Objective Labs 01/11/25 05:04 01/11/25 05:04 Labs: Laboratory Results - last 24 hr 01/11/25 05:04 WBC 8.3 RBC 3.99 L Hgb 11.3 L Hct 35.2 L MCV 88 MCH 28.3 MCHC 32.1 RDW Std Deviation 49.8 H Plt Count 251 Neut % (Auto) 71 Lymph % (Auto) 13 [place] % (Auto) 8 Eos % (Auto) 3 Baso % (Auto) 1 Neut # (Auto) 5.9 Lymph # (Auto) 1.0 [place] # (Auto) 0.7 Eos # (Auto) 0.2 Baso # (Auto) 0.1 Immature Gran # (Auto) 0.38 H Absolute Nucleated RBC 0.00 Immature Gran % 5 H Nucleated RBC % 0 Sodium 141 Potassium 4.2 Chloride 104 Carbon Dioxide 30.4 Anion Gap 7 BUN 29 H Creatinine 0.9 Estim Creat Clear Calc 64.6 eGFR > 60 BUN/Creatinine Ratio 32 H Glucose 121 H Calculated Osmolality 288 Calcium 9.4 Corrected Calcium 10.2 H Phosphorus 3.6 Magnesium 1.8 Total Bilirubin 0.7 AST 23 ALT 13 Alkaline Phosphatase 51 Total Protein 5.6 L Albumin 3.0 L Globulin 2.6 Albumin/Globulin Ratio 1.2 ABG Interpretation ABG results: 01/05/25 20:02 ABG pH 7.38 ABG pCO2 44 ABG pO2 73 L ABG HCO3 26 ABG O2 Saturation 95 ABG Base Excess 0 Quality Measures Quality Measures VTE prophylaxis Advance care planning discussed with:: patient Assessment & Plan Assessment Current Active Medications: Generic Name Dose Route Start Last Admin Trade Name Freq PRN Reason Stop Dose Admin Acetaminophen 650 mg 01/05/25 16:48 Acetaminophen 325 Mg Tablet PO 02/04/25 16:47 On Hold: 01/09/25 09:41 Q6H PRN Comment: IV APAP ORDER PLACED PAIN SCALE 1-3 (mild Hydrocodone Bitart/Acetaminophen 1 tab 01/06/25 17:09 Hydrocodone/Apap 5/325 Tablet PO 01/11/25 15:56 On Hold: 01/09/25 09:41 Q6HR PRN Comment: IV APAP ORDER PLACED PAIN SCALE 6-7 Albuterol/Ipratropium 3 ml 01/09/25 19:00 01/11/25 06:46 Albuterol/Ipratropium (Duoneb) Rt Zuleima 3 Ml Nebu INH 02/08/25 18:59 3 ml Q6HRRT KENJI Administration Amiodarone HCl 200 mg 01/08/25 09:00 01/10/25 21:37 Amiodarone Hcl 200 Mg Tablet PO 02/07/25 08:59 200 mg BID KENJI Administration Dextrose 25 ml 01/05/25 16:55 Dextrose 50%-Water Inj 50 Ml Syringe IV 02/04/25 16:54 Q15MIN PRN BG 50-70 responsive npo pt Dextrose 50 ml 01/05/25 16:55 Dextrose 50%-Water Inj 50 Ml Syringe IV 02/04/25 16:54 Q15MIN PRN BG <50 OR BG <70 & pt unresponsive Famotidine 20 mg 01/05/25 21:00 01/10/25 21:37 Famotidine 20 Mg Tablet PO 02/04/25 20:59 20 mg HS KENJI Administration Glucagon 1 mg 01/05/25 16:55 Glucagon Inj 1 Mg Vial IM Q15MIN PRN BG <70, and no IV access Guaifenesin 100 mg 01/10/25 14:00 01/11/25 05:46 Guaifenesin Syrup 200 Mg/10 Ml Udc PO 02/09/25 13:59 100 mg TID KENJI Administration Protocol Cefepime HCl 2 gm/ Sodium 50 mls @ 100 mls/hr 01/10/25 15:00 01/10/25 14:47 Chloride IV 01/14/25 14:59 100 mls/hr Q12HR KENJI Administration Insulin Human Lispro 0 unit 01/06/25 17:00 01/11/25 07:32 Insulin Lispro (Admelog) 1 Unit/0.01 Ml Unit SC 02/05/25 16:59 Not Given ACHS KENJI Protocol Ketorolac Tromethamine 15 mg 01/06/25 17:01 01/08/25 20:58 Ketorolac Inj 30 Mg/Ml Vial IVP 01/11/25 17:00 15 mg Q6HR PRN Administration pain 4-5 Morphine Sulfate 0.5 mg 01/06/25 17:09 Morphine Sulf Inj 4 Mg/Ml Vial IV 01/11/25 08:37 Q4HR PRN Pain Scale 8-10 Mupirocin 0 gm 01/08/25 08:15 01/11/25 05:17 Mupirocin Oint 2% 15 Gm Tube TOP 01/15/25 08:14 1 applicatio TID KENJI Administration Ondansetron HCl 4 mg 01/05/25 16:48 01/09/25 20:55 Ondansetron Inj 2 Mg/Ml Inj 2 Ml IVP 02/04/25 16:47 4 mg Q6H PRN Administration NAUSEA OR VOMITING Protocol Pantoprazole Sodium 40 mg 01/06/25 09:00 01/10/25 08:05 Pantoprazole Inj 40 Mg Vial IVP 02/05/25 08:59 40 mg QDAY KENJI Administration Plan Mr. Johnson is a 84-year-old gentleman with history of CAD with hx of CABG (on asa and plavix) hypertension,? 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 found to have left pna, modified antibiotics d/c cipro and start cefipime iv Acute hypoxic respiratory failure 2/2 CAP w possible overlapping pleural effusion consider atelectesis patient remains on HF satting well, it has been slow to wean likely 2/2 to bed bound and deconditioning from acute cholecystitis infection (see below), patient endorses productive cough with yellowish sputum Dx - CXR with Significant left lung pneumonia and ? overlapping pleural effusion Tx - IV Cefepime 2gm q12hr (01/10- ) - On high flow, plan to wean as tolerated - Chest PT (percussion) - Guafenecin 100mg TID to help break up secretions - Incentive spirometry Sepsis 2/2 -resolving Acute Cholecystitis -resolving Malaise and fatigue- improved Dx - CTAP with Atelectasis versus mild pneumonia at the lung bases Acute acalculous cholecystitis, - GB US with obvious thickening and edema involving the gallbladder wall Common bile duct is enlarged 0.9 cm no stones Pancreatic head is enlarged 3.8 cm - MRCP Cholecystitis pattern, gallbladder sludge ball versus stone Extrahepatic biliary tract dilatation without definite common hepatic or common bile duct stones and Mild acute pancreatitis with benign-appearing cystic change in the pancreatic head - Surgery consulted (Dr. Ponce), appreciate recs, no surgery indicated at this time, IV ABx continue - CARDS consulted given need for cardiac clearance if pt were to proceed with surgery outpatient potentially. - Gallbladder fluid cx: Klebsiella oxytoca, sensitive to Ciprofloxacin - Blood cx and Urine cx NGTD Tx - s/p IR biliary drainage, 01/06, plan for outpatient removal of GB drain with Dr. Ponce in clinic. - IV Cefepime 2gm q12hr (01/10- ) - d/c IV Vanco (01/05- 01/07) - d/c IV Zosyn 3.375 q8hr (01/05-01/08) - d/c IV Ciprofloxacin 400 mg IV BID (01/08-01/10) - Mupirocin TID for +MRSA nares - IV Fluids, LR 85 cc/hr - held 2/2 increased O2 requirements - Zofran 4 mg IV PRN - APAP IV scheduled for pain q6hr, lfts stable - Delirium precautions, pt with waxing and waning mentation, noted to be more alert and oriented in the evening. Afib with RVR - rate controlled pt had rapid response overnight with afib with rvr rate wnl, EKG with qtc 475 (per cardiology goal to maintain qtc <490) be sure to consider whether medications are qtc prolonging agents Plan Cards consulted, do not recc anticoagulation at this time Started on amiodorone drip with improvement in his rate from 130s to 90s --> t ransitioned to amiodarone 200 mg PO BID Acute hypoxic respiratory failure pt with labored belly breathing, pt had rapid [id number] for hypotension, appears dry to euvolemic on exam. was tachycardic Plan - wean highflow o2 as tolerated - See abx as above Mild Pancreatitis pt presented with hx of nausea and vomiting. no stones on imaging, no dilation of CBD, noted to have some enlargement of the pancreatic head Plan - IV Fluids LR 85 cc/hr - held 2/2 increased O2 requirements - IV Morphine 0.5 mg q4hr (family and patient hesitant to give opioids given c/f over sedation and confusion) - APAP IV - cardiac, dysphagia 2 diet UTI - r/o Acute Urinary Retention BPH per patient daughter, pt is typically able to void without difficulty, he typically wears a diaper Dx - UA with Leukesterase + - Ucx NGTD Plan - cont tamsulosin 0.4 mg qd - paredes catheter placed at 0500 01/05 in the ED - Bladder training initiated 01/09 T2DM - well controlled A1c 6.9 (2024) Home Meds - Metformin 500 mg BID Plan - ISS step one ACHS - Bedside Glucose Checks ACHS CAD w hx CABG s/p Aortic valve replacement for aortic stenosis HFpEF (EF 50-55%- 10/2024) HTN Grade I diastolic dysfunction Plan - CARDS consulted, Dr. Dick - continue tele monitoring - hold anticoagulation - pt condition NOT stable enough for cholecystectomy - will f/u outpatient - metoprolol 100 mg qd - held 2/2 hypotension - sacubitril-valsartan 2 tab PO BID - held 2/2 hypotension - hold ASA 81 - hold Plavix 75 mg PO qd GERD Plan - famotidine 20 mg qhs Anxiety Depression Plan - cont home sertraline 50 mg po QAM Unspecified symptoms and signs involving the nervous system ?Parkinson's s/p benign intracranial tumor excision Plan pt will continue rehab at facility PT Consult, rec pt return to rehab for continued pt Electrolytes derangements -will replete as indicated Constipation - lactulose 20 daily kenji- hold for loose stools Checklist: Dispo: Med tele, s/p perc IR drain of GBwith scant drainage in accordion drain, on IV abx, d/c vanc, d/c zosyn and d/c cipro continue iv fluids,drain in place, changed abx from cipro to cefepime. found to have PNA. Diet: Cardiac, dysphagia 2 mech alter (pt uses weighted utensils, Daughter rc has some at home that she can bring for when pt is able to feed himself) he really likes icecream Bowel Reg: colace qd VTE ppx: SCD GI ppx: famotidine 20 mg qd Code status: dnr/dni Plan discussed with my attending Dr. Orta and my senior Dr. Henrry Duncan MD PGY1
[2025-01-11] MEDS: AMIODARONE HCL 200 MG TABLET PO ×2 (08:52→21:17)
[2025-01-11] MEDS: CEFEPIME INJ 2 GM in SODIUM CHLORIDE 0.9% (Popper) 50 ML IV ×2 (08:52→21:17)
[2025-01-11] MEDS: Magnesium Sulfate 4 GM Ivpb 4 GM/50 ML BAG IV (10:14)
[2025-01-11] MEDS: DOXYCYCLINE 100 MG TABLET PO ×2 (12:12→21:16)
[2025-01-11] MEDS: KETOROLAC INJ 30 MG/ML VIAL 15 MG IVP (12:26)
--- NOTE | 2025-01-11 14:30 | PC.SS ---
Rounding Note: Patient receiving IV antibiotics, plan to transition to oral. Continue to wean oxygen. Patient is possession of J-tube.
[2025-01-11] MEDS: FAMOTIDINE 20 MG TABLET PO (21:17)
[2025-01-12] VITALS (17 sets, daily range): BP systolic 145–171; BP diastolic 74–98; PULSE 71–89; RESP 17–35; TEMP 36.1–36.9; O2SAT 91–99; BMI 30.4
[2025-01-12] MEDS: ALBUTEROL/IPRATROPIUM (Duoneb) RT SOL 3 ML NEBU INH ×4 (00:01→19:30)
[2025-01-12 05:07] LABS: Basophils # (Auto) 0.1 Thou/mm3 (0.0-0.2); Basophils % (Auto) 1 % (0-2.5); Eosinophils # (Auto) 0.1 Thou/mm3 (0.0-0.5); Eosinophils % (Auto) 1 % (0-10); Hematocrit 34.1 % (41.0-53.0); Hemoglobin 11.0 g/dL (13.5-16.0); Immature Granulocytes Auto 0.57 Thou/mm3 (0.00-0.00); Lymphocytes # (Auto) 1.2 Thou/mm3 (1.0-4.8); Lymphocytes % (Auto) 12 % (10-50); Mean Corpuscular HGB Conc 32.3 g/dl (31.0-37.0); Mean Corpuscular Hemoglobin 28.2 pg (25.0-35.0); Mean Corpuscular Volume 87 fL (80-100); Monocytes # (Auto) 0.9 Thou/mm3 (0.0-0.8); Monocytes % (Auto) 8 % (0-12); Neutrophils # (Auto) 7.7 Thou/mm3 (1.8-7.7); Neutrophils % (Auto) 73 % (37-80); Nucleated Red Blood Cell # 0.00 Thou/mm3 (0.00-0.00); Nucleated Red Blood Cell % 0 /100 WBC (0); Platelet Count 250 Thou/mm3 (140-440); RDW Standard Deviation 49.1 fL (35.1-43.9); Red Blood Count 3.90 Miln/mm3 (4.50-5.90); White Blood Count 10.6 Thou/mm3 (3.8-10.6)
[2025-01-12] MEDS: MUPIROCIN OINT 2% 15 GM TUBE TOP ×2 (05:31→21:47)
[2025-01-12] MEDS: guaiFENesin SYRUP 200 MG/10 ML UDC 100 MG PO ×3 (05:31→20:30)
[2025-01-12 05:38] LABS: Alanine Aminotransferase 12 U/L (10-49); Albumin, Serum 3.2 gm/dL (3.4-4.8); Albumin/Globulin Ratio 1.3 (1.2-2.2); Alkaline Phosphatase 59 U/L (46-116); Anion Gap 10 (7-16); Aspartate Amino Transferase 30 U/L (0-34); BUN/Creatinine Ratio 34 Ratio (12-20); Bilirubin,Total 0.6 mg/dL (0.3-1.2); Blood Urea Nitrogen 31 mg/dL (9-23); Calcium 8.9 mg/dL (8.3-10.6); Calcium (Corrected) 9.5 mg/dL (8.5-10.1); Carbon Dioxide 27.0 mMol/L (20.0-31.0); Chloride 104 mMol/L (98-107); Creatinine (Component) 0.9 mg/dL (0.6-1.3); Estimated Creatinine Clearance 64.6 mL/min (>60); Globulin 2.5 gm/dL (2.3-3.5); Glucose 148 mg/dL (74-106); Magnesium 2.4 mg/dL (1.6-2.6); Osmolality,Calculated 290 (275-295); Phosphorous 2.9 mg/dL (2.4-5.1); Potassium 4.8 mMol/L (3.4-5.1); Sodium 141 mMol/L (136-145); Total Protein 5.7 gm/dL (5.7-8.2); eGFR > 60 See Note
--- NOTE | 2025-01-12 07:49 | ESPR_ITS ---
<Statement entered by Zachariah Orta MD - 01/17/25 15:20> I reviewed above note and agree with findings and plans. I have also personally examined the patient with medicine team and went over assessment and plan with medical team including editing intern and resident physician. <Statement entered by Bela Sales MD - 01/12/25 21:55> Pt is seen at bedside, currently saturating on 20L HFNC. Pt complains of epigastric and LUQ abdominal pain. accordian drain have no output. Will order abdomen/Pelvis CT with contrast to rule out abscess. Patient was seen and examined by me personally. I have directly supervised and reviewed documentation by the team resident and agree with its findings. ------- Plan of care was discussed with the attending, Dr. Marivel Sales, PGY-2 Documentation for date of: 01/12/25 Subjective Subjective Interval history: Continues on high flow, with plan to wean c/o abdominal pain in the epigastrum that radiates the the back lipase 200 , and MRCP from earlier on admission did not some mild pancreatitis. gave iv apap pending ct chest abdomen pelvis w and wo contrast. some concern for pleural effusion of the L lung Exam Vital Signs Temp Pulse Resp BP Pulse Ox O2 Del Method O2 Flow Rate 97.3 F 78 27 H 146/81 H 96 High Flow Nasal Cannula 20 01/12/25 04:00 01/12/25 06:41 01/12/25 06:41 01/12/25 04:00 01/12/25 06:41 01/12/25 04:00 01/12/25 06:41 FiO2 30 01/12/25 06:41 Narrative Exam GENERAL: no acute distress, A&Ox3, more alert than previously noted HEENT: Head AT/ NC. Mucous membranes dry. PERRL. NECK: Supple, no lymphadenopathy, no carotid bruits. CARDIOVASCULAR: RRR. Normal S1/S2, No m/r/g. No pitting edema of bilateral LEs. RESPIRATORY: trace bilateral lung base crackles and L>R crackles to the mid lung field on HF nc 20 at 30 % Fio2 (pt endorses increased work of breathing) GASTROINTESTINAL: Abdomen soft, no palpable masses. Bowel sounds present, no rebound no guarding. Accordion drain in place with serosanguenous output, scant, some epigastric and LUQ and RUQ tenderness GENITOURINARY: Extra skin on underside of penile shaft below frenulum, no erythema, no edema, no TTP MUSCULOSKELETAL:? No cyanosis or edema, no visible joint swelling. NEUROLOGICAL: CN grossly intact No focal deficits. Sensation intact, symmetric. PSYCHIATRIC: Awake and alert, not agitated, normal mood and affect. SKIN: No obvious rashes, no jaundice, poor turgor. Objective Labs 01/12/25 04:08 01/12/25 04:08 Labs: Laboratory Results - last 24 hr 01/12/25 04:08 WBC 10.6 RBC 3.90 L Hgb 11.0 L Hct 34.1 L MCV 87 MCH 28.2 MCHC 32.3 RDW Std Deviation 49.1 H Plt Count 250 Neut % (Auto) 73 Lymph % (Auto) 12 [place] % (Auto) 8 Eos % (Auto) 1 Baso % (Auto) 1 Neut # (Auto) 7.7 Lymph # (Auto) 1.2 [place] # (Auto) 0.9 H Eos # (Auto) 0.1 Baso # (Auto) 0.1 Immature Gran # (Auto) 0.57 H Absolute Nucleated RBC 0.00 Immature Gran % 5 H Nucleated RBC % 0 Sodium 141 Potassium 4.8 D Chloride 104 Carbon Dioxide 27.0 Anion Gap 10 BUN 31 H Creatinine 0.9 Estim Creat Clear Calc 64.6 eGFR > 60 BUN/Creatinine Ratio 34 H Glucose 148 H Calculated Osmolality 290 Calcium 8.9 Corrected Calcium 9.5 Phosphorus 2.9 Magnesium 2.4 Total Bilirubin 0.6 AST 30 ALT 12 Alkaline Phosphatase 59 Total Protein 5.7 Albumin 3.2 L Globulin 2.5 Albumin/Globulin Ratio 1.3 ABG Interpretation ABG results: 01/05/25 20:02 ABG pH 7.38 ABG pCO2 44 ABG pO2 73 L ABG HCO3 26 ABG O2 Saturation 95 ABG Base Excess 0 Quality Measures Quality Measures VTE prophylaxis Advance care planning discussed with:: patient Assessment & Plan Assessment Current Active Medications: Generic Name Dose Route Start Last Admin Trade Name Freq PRN Reason Stop Dose Admin Acetaminophen 650 mg 01/05/25 16:48 Acetaminophen 325 Mg Tablet PO 02/04/25 16:47 On Hold: 01/09/25 09:41 Q6H PRN Comment: IV APAP ORDER PLACED PAIN SCALE 1-3 (mild Albuterol/Ipratropium 3 ml 01/09/25 19:00 01/12/25 06:39 Albuterol/Ipratropium (Duoneb) Rt Zuleima 3 Ml Nebu INH 02/08/25 18:59 3 ml Q6HRRT KENJI Administration Amiodarone HCl 200 mg 01/08/25 09:00 01/11/25 21:17 Amiodarone Hcl 200 Mg Tablet PO 02/07/25 08:59 200 mg BID KENJI Administration Dextrose 25 ml 01/05/25 16:55 Dextrose 50%-Water Inj 50 Ml Syringe IV 02/04/25 16:54 Q15MIN PRN BG 50-70 responsive npo pt Dextrose 50 ml 01/05/25 16:55 Dextrose 50%-Water Inj 50 Ml Syringe IV 02/04/25 16:54 Q15MIN PRN BG <50 OR BG <70 & pt unresponsive Doxycycline Hyclate 100 mg 01/11/25 10:45 01/11/25 21:16 Doxycycline 100 Mg Tablet PO 01/18/25 10:44 100 mg BID KENJI Administration Famotidine 20 mg 01/05/25 21:00 01/11/25 21:17 Famotidine 20 Mg Tablet PO 02/04/25 20:59 20 mg HS KENJI Administration Glucagon 1 mg 01/05/25 16:55 Glucagon Inj 1 Mg Vial IM Q15MIN PRN BG <70, and no IV access Guaifenesin 100 mg 01/10/25 14:00 01/12/25 05:31 Guaifenesin Syrup 200 Mg/10 Ml Udc PO 02/09/25 13:59 100 mg TID KENJI Administration Protocol Cefepime HCl 2 gm/ Sodium 50 mls @ 100 mls/hr 01/10/25 15:00 01/11/25 21:50 Chloride IV 01/14/25 14:59 Infused Q12HR KENJI Infusion Insulin Human Lispro 0 unit 01/06/25 17:00 01/11/25 21:33 Insulin Lispro (Admelog) 1 Unit/0.01 Ml Unit SC 02/05/25 16:59 Not Given ACHS KENJI Protocol Mupirocin 0 gm 01/08/25 08:15 01/12/25 05:31 Mupirocin Oint 2% 15 Gm Tube TOP 01/15/25 08:14 1 applicatio TID KENJI Administration Ondansetron HCl 4 mg 01/05/25 16:48 01/09/25 20:55 Ondansetron Inj 2 Mg/Ml Inj 2 Ml IVP 02/04/25 16:47 4 mg Q6H PRN Administration NAUSEA OR VOMITING Protocol Pantoprazole Sodium 40 mg 01/06/25 09:00 01/11/25 08:51 Pantoprazole Inj 40 Mg Vial IVP 02/05/25 08:59 40 mg QDAY KENJI Administration Plan Mr. Johnson is a 84-year-old gentleman with history of CAD with hx of CABG (on asa and plavix) hypertension,? 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 found to have left pna, modified antibiotics d/c cipro and start cefipime iv. suspect pancreatitis continue with supportive management Acute hypoxic respiratory failure 2/2 CAP w possible overlapping moderate to large pleural effusion consider atelectesis patient remains on HF satting well, it has been slow to wean likely 2/2 to bed bound and deconditioning from acute cholecystitis infection (see below), patient endorses productive cough with yellowish sputum Dx - CXR with Significant left lung pneumonia and ? overlapping pleural effusion Tx - IV Cefepime 2gm q12hr (01/10- ) minimum 5 days - On high flow, plan to wean as tolerated - Chest PT (percussion) - Guafenecin 100mg TID to help break up secretions - Incentive spirometry - pending ct chest abdomen/pelvis w and wo contrast, will consider US guided thoracentesis if indicated Mild Pancreatitis Lipase 200, pt reports epigastric pain that radiates to the back, mrcp with acute pancreatitis Plan - pending ct chest ap w and wo con - supportive managment, careful with iv fluids given PNA (see above) and some vascular congestion on CXR. Sepsis 2/2 -resolving Acute Cholecystitis -resolving Malaise and fatigue- improved Dx - CTAP with Atelectasis versus mild pneumonia at the lung bases Acute acalculous cholecystitis, - GB US with obvious thickening and edema involving the gallbladder wall Common bile duct is enlarged 0.9 cm no stones Pancreatic head is enlarged 3.8 cm - MRCP Cholecystitis pattern, gallbladder sludge ball versus stone Extrahepatic biliary tract dilatation without definite common hepatic or common bile duct stones and Mild acute pancreatitis with benign-appearing cystic change in the pancreatic head - Surgery consulted (Dr. Ponce), appreciate recs, no surgery indicated at this time, IV ABx continue - CARDS consulted given need for cardiac clearance if pt were to proceed with surgery outpatient potentially. - Gallbladder fluid cx: Klebsiella oxytoca, sensitive to Ciprofloxacin - Blood cx and Urine cx NGTD Tx - s/p IR biliary drainage, 01/06, plan for outpatient removal of GB drain with Dr. Ponce in clinic. - IV Cefepime 2gm q12hr (01/10- ) - d/c IV Vanco (01/05- 01/07) - d/c IV Zosyn 3.375 q8hr (01/05-01/08) - d/c IV Ciprofloxacin 400 mg IV BID (01/08-01/10) - Mupirocin TID for +MRSA nares - IV Fluids, LR 85 cc/hr - held 2/2 increased O2 requirements - Zofran 4 mg IV PRN - APAP IV scheduled for pain q6hr, lfts stable - Delirium precautions, pt with waxing and waning mentation, noted to be more alert and oriented in the evening. Afib with RVR - rate controlled pt had rapid response overnight with afib with rvr rate wnl, EKG with qtc 475 (per cardiology goal to maintain qtc <490) be sure to consider whether medications are qtc prolonging agents Plan Cards consulted, do not recc anticoagulation at this time Started on amiodorone drip with improvement in his rate from 130s to 90s --> t ransitioned to amiodarone 200 mg PO BID Acute hypoxic respiratory failure pt with labored belly breathing, pt had rapid [id number]/12 for hypotension, appears dry to euvolemic on exam. was tachycardic Plan - wean highflow o2 as tolerated - See abx as above Mild Pancreatitis pt presented with hx of nausea and vomiting. no stones on imaging, no dilation of CBD, noted to have some enlargement of the pancreatic head Plan - IV Fluids LR 85 cc/hr - held 2/2 increased O2 requirements - IV Morphine 0.5 mg q4hr (family and patient hesitant to give opioids given c/f over sedation and confusion) - APAP IV - cardiac, dysphagia 2 diet UTI - r/o Acute Urinary Retention BPH per patient daughter, pt is typically able to void without difficulty, he typically wears a diaper Dx - UA with Leukesterase + - Ucx NGTD Plan - cont tamsulosin 0.4 mg qd - paredes catheter placed at 0500 01/05 in the ED - Bladder training initiated 01/09 T2DM - well controlled A1c 6.9 (2024) Home Meds - Metformin 500 mg BID Plan - ISS step one ACHS - Bedside Glucose Checks ACHS CAD w hx CABG s/p Aortic valve replacement for aortic stenosis HFpEF (EF 50-55%- 10/2024) HTN Grade I diastolic dysfunction Plan - CARDS consulted, Dr. Dick - continue tele monitoring - hold anticoagulation - pt condition NOT stable enough for cholecystectomy - will f/u outpatient - metoprolol 100 mg qd - held 2/2 hypotension - sacubitril-valsartan 2 tab PO BID - held 2/2 hypotension - hold ASA 81 - hold Plavix 75 mg PO qd GERD Plan - famotidine 20 mg qhs Anxiety Depression Plan - cont home sertraline 50 mg po QAM Unspecified symptoms and signs involving the nervous system ?Parkinson's s/p benign intracranial tumor excision Plan pt will continue rehab at facility PT Consult, rec pt return to rehab for continued pt Electrolytes derangements -will replete as indicated Constipation - resolved - lactulose 20 daily kenji- hold for loose stools Checklist: Dispo: Med tele, s/p perc IR drain of GBwith scant drainage in accordion drain, on IV abx,cefepime. today with epigastric abdominal pain radiating to back and elevated lipase, c/f pancreatitis. Diet: Cardiac, dysphagia 2 mech alter (pt uses weighted utensils, Daughter rc has some at home that she can bring for when pt is able to feed himself) he really likes icecream Bowel Reg: colace qd VTE ppx: SCD GI ppx: famotidine 20 mg qd Code status: dnr/dni Plan discussed with my attending Dr. Orta and my senior Dr. Henrry Duncan MD PGY1
--- NOTE | 2025-01-12 08:24 | PC.SS ---
DERRICK BOAT LEVERMAN confirmed with bedside nurse that patient remains on high flow oxygen 20L.
--- NOTE | 2025-01-12 09:07 | PC.RT ---
Discussed HFNC titratration with Dr. Ny, agreed to hold off at this time due to Patient pain and complaints of SOB due to pain, but will revisit after pain med administration.
[2025-01-12] MEDS: AMIODARONE HCL 200 MG TABLET PO ×2 (09:26→20:31)
[2025-01-12] MEDS: CEFEPIME INJ 2 GM in SODIUM CHLORIDE 0.9% (Popper) 50 ML IV ×2 (09:29→20:31)
[2025-01-12] MEDS: DOXYCYCLINE 100 MG TABLET PO ×2 (09:29→20:31)
--- NOTE | 2025-01-12 09:29 | XR_ITS ---
EXAMINATION: AP chest single view TECHNIQUE: AP portable semiupright chest single view Date and time: January 12, 2025, 0953 hours, comparison January 10, 2025 MEDICATIONS: Difficulty breathing this week, significant left lung pneumonia on chest film January 10, 2025. FINDINGS: Left basilar pneumonia Moderate vascular congestion CABG Moderate to large left pleural effusion Prominent osteopenia IMPRESSION: Significant left basilar pneumonia Moderate vascular congestion Moderate to large left pleural effusion
--- NOTE | 2025-01-12 09:29 | EKG_ITS ---
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
--- NOTE | 2025-01-12 09:48 | PC.SS ---
Updated clinicals submitted to [facility] on [facility].
[2025-01-12] MEDS: ACETAMINOPHEN IVPB 1,000 MG/100 ML VIAL 250 MG IV ×2 (10:05→12:03)
[2025-01-12 10:06] LABS: Lipase 201 U/L (12-53)
--- NOTE | 2025-01-12 11:10 | XR_ITS ---
Examination: CT chest with intravenous contrast CT abdomen with intravenous contrast CT pelvis with intravenous contrast CT chest without intravenous contrast CT abdomen without intravenous contrast CT pelvis without intravenous contrast 2-D coronal and sagittal reconstructions Time of exam: January 12, 2025, 1816 hours INDICATIONS: Chest pain abdominal pain, pancreatitis, status post acute cholecystitis with placement of percutaneous gallbladder drainage catheter January 06, 2025 CTDI: vol (mGy) : 39.8 DLP: (mGycm): 3343 Technique: Multiple axial images of the chest, abdomen and pelvis with intravenous contrast, 3.0 mm slice thickness. Images obtained post intravenous injection Isovue 370 60 cc. 2-D sagittal and coronal reconstructions. Low dose protocols were performed. One or more of the following dose reduction techniques were used; automated exposure control, adjustment of the mA and/or KV according to patient size, use of iterative reconstruction technique. Findings: No thoracic aortic aneurysmal dilatation Very heavy calcification left anterior descending coronary artery No pulmonary artery filling defects Bibasilar pneumonia with mild heart failure, vascular congestion and mild right moderate left pleural effusions The patient's gallbladder drainage catheter has been pulled out The gallbladder is distended and the gallbladder wall appears thickened Liver is irregular in contour with mild to moderate ascites No pancreatic or adrenal mass No hydronephrosis Aortic calcification No bowel obstruction Normal appendix Colonic diverticulosis, assessment for diverticulitis is difficult with the patient's ascites Air in the urinary bladder Abundant stool in the rectum Pelvic detail is reduced because of the hip arthroplasties Severe osteopenia IMPRESSION: Mild heart failure Bibasilar pneumonia Mild right moderate left pleural effusions The patient's gallbladder drainage catheter has been pulled out and the gallbladder is distended and the wall is thickened Cirrhosis Mild to moderate ascites Normal appendix No bowel obstruction
[2025-01-12] MEDS: INSULIN LISPRO (AdmeLOG) 1 UNIT/0.01 ML UNIT SC (11:50)
--- NOTE | 2025-01-12 15:59 | PC.SS ---
Rounding Note: CT abdomen is pendiing.
[2025-01-12] MEDS: ACETAMINOPHEN 325 MG TABLET 650 MG PO (20:31)
[2025-01-12] MEDS: FAMOTIDINE 20 MG TABLET PO (20:31)
[2025-01-13] VITALS (21 sets, daily range): BP systolic 114–161; BP diastolic 73–103; PULSE 72–95; RESP 12–28; TEMP 36.2–36.7; O2SAT 92–100
[2025-01-13] MEDS: guaiFENesin SYRUP 200 MG/10 ML UDC 100 MG PO (04:49)
[2025-01-13] MEDS: MUPIROCIN OINT 2% 15 GM TUBE TOP ×3 (04:50→22:05)
[2025-01-13 05:56] LABS: Basophils # (Auto) 0.1 Thou/mm3 (0.0-0.2); Basophils % (Auto) 0 % (0-2.5); Eosinophils # (Auto) 0.2 Thou/mm3 (0.0-0.5); Eosinophils % (Auto) 1 % (0-10); Hematocrit 33.4 % (41.0-53.0); Hemoglobin 10.6 g/dL (13.5-16.0); Immature Granulocytes Auto 0.56 Thou/mm3 (0.00-0.00); Lymphocytes # (Auto) 1.3 Thou/mm3 (1.0-4.8); Lymphocytes % (Auto) 9 % (10-50); Mean Corpuscular HGB Conc 31.7 g/dl (31.0-37.0); Mean Corpuscular Hemoglobin 27.9 pg (25.0-35.0); Mean Corpuscular Volume 88 fL (80-100); Monocytes # (Auto) 1.2 Thou/mm3 (0.0-0.8); Monocytes % (Auto) 9 % (0-12); Neutrophils # (Auto) 10.4 Thou/mm3 (1.8-7.7); Neutrophils % (Auto) 76 % (37-80); Nucleated Red Blood Cell # 0.00 Thou/mm3 (0.00-0.00); Nucleated Red Blood Cell % 0 /100 WBC (0); Platelet Count 237 Thou/mm3 (140-440); RDW Standard Deviation 49.1 fL (35.1-43.9); Red Blood Count 3.80 Miln/mm3 (4.50-5.90); White Blood Count 13.7 Thou/mm3 (3.8-10.6)
[2025-01-13 06:12] LABS: Alanine Aminotransferase 11 U/L (10-49); Albumin, Serum 3.0 gm/dL (3.4-4.8); Albumin/Globulin Ratio 1.2 (1.2-2.2); Alkaline Phosphatase 59 U/L (46-116); Anion Gap 7 (7-16); Aspartate Amino Transferase 23 U/L (0-34); BUN/Creatinine Ratio 33 Ratio (12-20); Bilirubin,Total 0.6 mg/dL (0.3-1.2); Blood Urea Nitrogen 23 mg/dL (9-23); Calcium 9.1 mg/dL (8.3-10.6); Calcium (Corrected) 9.9 mg/dL (8.5-10.1); Carbon Dioxide 28.0 mMol/L (20.0-31.0); Chloride 105 mMol/L (98-107); Creatinine (Component) 0.7 mg/dL (0.6-1.3); Estimated Creatinine Clearance 83.1 mL/min (>60); Globulin 2.5 gm/dL (2.3-3.5); Glucose 119 mg/dL (74-106); Magnesium 2.0 mg/dL (1.6-2.6); Osmolality,Calculated 284 (275-295); Phosphorous 2.5 mg/dL (2.4-5.1); Potassium 4.4 mMol/L (3.4-5.1); Sodium 140 mMol/L (136-145); Total Protein 5.5 gm/dL (5.7-8.2); eGFR > 60 See Note
[2025-01-13] MEDS: ALBUTEROL/IPRATROPIUM (Duoneb) RT SOL 3 ML NEBU INH ×4 (06:15→20:00)
--- NOTE | 2025-01-13 08:03 | ESPR_ITS ---
<Statement entered by Zachariah Orta MD - 01/17/25 15:24> I reviewed above note and agree with findings and plans. I have also personally examined the patient with medicine team and went over assessment and plan with medical team including industrial engineering intern and resident physician. Documentation for date of: 01/13/25 Subjective Subjective Interval history: patient seen and examined at bedside moderate to large effusion on the L lung on ct chest pt continues to report pain with inspiration and need HFNC WBC increase 13 from 10 CTchestAP with percutaneous GB drain not in place gave 40 lasix IV had rapid response called for blood in the stool VSS lactate wnl, repeat cbc with stable hgb Exam Vital Signs Temp Pulse Resp BP Pulse Ox O2 Del Method O2 Flow Rate 97.5 F 72 26 H 159/84 H 95 High Flow Nasal Cannula 15 01/13/25 04:00 01/13/25 06:15 01/13/25 06:15 01/13/25 04:00 01/13/25 06:15 01/13/25 04:00 01/13/25 06:15 FiO2 30 01/13/25 06:15 Narrative Exam GENERAL: no acute distress, A&Ox3, HEENT: Head AT/ NC. Mucous membranes dry. PERRL. NECK: Supple, no lymphadenopathy, no carotid bruits. CARDIOVASCULAR: RRR. Normal S1/S2, No m/r/g. No pitting edema of bilateral LEs. RESPIRATORY: trace bilateral lung base crackles and L>R crackles to the mid lung field on HF nc 15 at 30 % Fio2 (pt endorses increased work of breathing and pleruitic chest pain worse with inspiration) GASTROINTESTINAL: Abdomen soft, no palpable masses. Bowel sounds present, no rebound no guarding. Accordion drain in place with serosanguenous output, scant, some epigastric and LUQ and RUQ tenderness GENITOURINARY: Extra skin on underside of penile shaft below frenulum, no erythema, no edema, no TTP MUSCULOSKELETAL:? No cyanosis or edema, no visible joint swelling. NEUROLOGICAL: CN grossly intact No focal deficits. Sensation intact, symmetric. PSYCHIATRIC: Awake and alert, not agitated, normal mood and affect. SKIN: No obvious rashes, no jaundice, poor turgor. Objective Labs 01/13/25 11:00 01/13/25 05:34 Labs: Laboratory Results - last 24 hr 01/12/25 01/13/25 04:08 05:34 WBC 13.7 H RBC 3.80 L Hgb 10.6 L Hct 33.4 L MCV 88 MCH 27.9 MCHC 31.7 RDW Std Deviation 49.1 H Plt Count 237 Neut % (Auto) 76 Lymph % (Auto) 9 L [place] % (Auto) 9 Eos % (Auto) 1 Baso % (Auto) 0 Neut # (Auto) 10.4 H Lymph # (Auto) 1.3 [place] # (Auto) 1.2 H Eos # (Auto) 0.2 Baso # (Auto) 0.1 Immature Gran # (Auto) 0.56 H Absolute Nucleated RBC 0.00 Immature Gran % 4 H Nucleated RBC % 0 Sodium 140 Potassium 4.4 Chloride 105 Carbon Dioxide 28.0 Anion Gap 7 BUN 23 Creatinine 0.7 Estim Creat Clear Calc 83.1 eGFR > 60 BUN/Creatinine Ratio 33 H Glucose 119 H Calculated Osmolality 284 Calcium 9.1 Corrected Calcium 9.9 Phosphorus 2.5 Magnesium 2.0 Total Bilirubin 0.6 AST 23 ALT 11 Alkaline Phosphatase 59 Total Protein 5.5 L Albumin 3.0 L Globulin 2.5 Albumin/Globulin Ratio 1.2 Lipase 201 H ABG Interpretation ABG results: 01/05/25 20:02 ABG pH 7.38 ABG pCO2 44 ABG pO2 73 L ABG HCO3 26 ABG O2 Saturation 95 ABG Base Excess 0 Quality Measures Quality Measures VTE prophylaxis Advance care planning discussed with:: patient and child Assessment & Plan Assessment Current Active Medications: Generic Name Dose Route Start Last Admin Trade Name Freq PRN Reason Stop Dose Admin Acetaminophen 650 mg 01/12/25 08:39 01/12/25 20:31 Acetaminophen 325 Mg Tablet PO 02/04/25 16:47 650 mg Q6H PRN Administration fever > 100.3 and Pain Albuterol/Ipratropium 3 ml 01/09/25 19:00 01/13/25 06:15 Albuterol/Ipratropium (Duoneb) Rt Zuleima 3 Ml Nebu INH 02/08/25 18:59 3 ml Q6HRRT KENJI Administration Amiodarone HCl 200 mg 01/08/25 09:00 01/12/25 20:31 Amiodarone Hcl 200 Mg Tablet PO 02/07/25 08:59 200 mg BID KENJI Administration Dextrose 25 ml 01/05/25 16:55 Dextrose 50%-Water Inj 50 Ml Syringe IV 02/04/25 16:54 Q15MIN PRN BG 50-70 responsive npo pt Dextrose 50 ml 01/05/25 16:55 Dextrose 50%-Water Inj 50 Ml Syringe IV 02/04/25 16:54 Q15MIN PRN BG <50 OR BG <70 & pt unresponsive Doxycycline Hyclate 100 mg 01/11/25 10:45 01/12/25 20:31 Doxycycline 100 Mg Tablet PO 01/18/25 10:44 100 mg BID KENJI Administration Famotidine 20 mg 01/05/25 21:00 01/12/25 20:31 Famotidine 20 Mg Tablet PO 02/04/25 20:59 20 mg HS KENJI Administration Glucagon 1 mg 01/05/25 16:55 Glucagon Inj 1 Mg Vial IM Q15MIN PRN BG <70, and no IV access Guaifenesin 100 mg 01/10/25 14:00 01/13/25 04:49 Guaifenesin Syrup 200 Mg/10 Ml Udc PO 02/09/25 13:59 100 mg TID KENJI Administration Protocol Cefepime HCl 2 gm/ Sodium 50 mls @ 100 mls/hr 01/10/25 15:00 01/12/25 20:31 Chloride IV 01/14/25 14:59 100 mls/hr Q12HR KENJI Administration Acetaminophen 1,000 mg in 100 mls @ 250 mls/hr 01/13/25 08:00 Ofirmev Inj IV 01/14/25 00:23 Q6HR [facility] Insulin Human Lispro 0 unit 01/06/25 17:00 01/13/25 07:38 Insulin Lispro (Admelog) 1 Unit/0.01 Ml Unit SC 02/05/25 16:59 Not Given ACHS [facility] Protocol Mupirocin 0 gm 01/08/25 08:15 01/13/25 04:50 Mupirocin Oint 2% 15 Gm Tube TOP 01/15/25 08:14 15 applicatio TID KENJI Administration Ondansetron HCl 4 mg 01/05/25 16:48 01/09/25 20:55 Ondansetron Inj 2 Mg/Ml Inj 2 Ml IVP 02/04/25 16:47 4 mg Q6H PRN Administration NAUSEA OR VOMITING Protocol Pantoprazole Sodium 40 mg 01/06/25 09:00 01/12/25 09:27 Pantoprazole Inj 40 Mg Vial IVP 02/05/25 08:59 40 mg QDAY KENJI Administration Plan Mr. Johnson is a 84-year-old gentleman with history of CAD with hx of CABG (on asa and plavix) hypertension,? 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 found to have left pna, modified antibiotics d/c cipro and start cefipime iv. pending thoracentesis for moderate to large Left pleural effusion. Acute hypoxic respiratory failure 2/2 CAP w possible overlapping moderate to large pleural effusion consider atelectesis patient remains on HF satting well, it has been slow to wean likely 2/2 to bed bound and deconditioning from acute cholecystitis infection (see below), patient endorses productive cough with yellowish sputum 01.13 pt continues to endorse having pleuritic chest pain, worse with inspiration, continues on high flow. pt amenable to thoracentesis . Dx - CXR with Significant left lung pneumonia and ? overlapping pleural effusion - ct chest abdomen/pelvis w and wo contrast, with BL pleural effusions L>R - followup cytology for pleural fluid Tx - Lasix 40 mg IV x1 - IV Cefepime 2gm q12hr (01/10- ) minimum 5 days - Chest PT (percussion) - Guafenecin 100mg TID to help break up secretions - Incentive spirometry - US guided thoracentesis ordered 01/13 - On high flow, plan to wean as tolerated Pain Mgmt - Morphine 1mg x1 given for pain unrelieved with IV APAP q6 scheduled, and keterolac 15 mg IV q6hr try to avoid opioids given age and prior concerns for delerium and oversedation, pt is very sensitive to opioids. - keterolac 15 mg IV q6hr prn (per pharmacy, do not give keterolac for greater than total of 5 days given increased risk of bleeding) (01/13- )max last day 01/18 - IV APAP q6hr scheduled Hematachezia pt had rapid response called 01/13 for blood noted in his stool. pt vss, nl lactic acid, hgb stable at 10. no dizziness no lightheaded ness. pt does report fatigue pt reports that he has had colonoscopy in the past - q8hr H and H - type and screen done - transfuse if Hgb <7 - consider GI consult if hgb drops for colonoscopy, be sure to ask patient if it is within his goals of care. Sepsis 2/2 -resolving Acute Cholecystitis -resolving Malaise and fatigue- improved Dx - CTAP with Atelectasis versus mild pneumonia at the lung bases Acute acalculous cholecystitis, - GB US with obvious thickening and edema involving the gallbladder wall Common bile duct is enlarged 0.9 cm no stones Pancreatic head is enlarged 3.8 cm - MRCP Cholecystitis pattern, gallbladder sludge ball versus stone Extrahepatic biliary tract dilatation without definite common hepatic or common bile duct stones and Mild acute pancreatitis with benign-appearing cystic change in the pancreatic head - Surgery consulted (Dr. Ponce), appreciate recs, no surgery indicated at this time, IV ABx continue - CARDS consulted given need for cardiac clearance if pt were to proceed with surgery outpatient potentially. - Gallbladder fluid cx: Klebsiella oxytoca, sensitive to Ciprofloxacin - Blood cx and Urine cx NGTD - 01/12 CTAP shows drain is not in the GB, consider ct guided abscess drainage for replacing the tube in the appropriate position, WBC with slight increase 10-->13. pt continues to have RUQ tenderness Tx - Consider ct guided abscess drainage again to reposition the tube after US thora for #pleural effusions, see above - s/p IR biliary drainage, 01/06, plan for outpatient removal of GB drain with Dr. Ponce in clinic. - IV Cefepime 2gm q12hr (01/10- ) - d/c IV Vanco (01/05- 01/07) - d/c IV Zosyn 3.375 q8hr (01/05-01/08) - d/c IV Ciprofloxacin 400 mg IV BID (01/08-01/10) - Mupirocin TID for +MRSA nares - IV Fluids, LR 85 cc/hr - held 2/2 increased O2 requirements - Zofran 4 mg IV PRN - APAP IV scheduled for pain q6hr, lfts stable - Delirium precautions, pt with waxing and waning mentation, noted to be more alert and oriented in the evening. Afib with RVR - rate controlled pt had rapid response overnight with afib with rvr rate wnl, EKG with qtc 475 (per cardiology goal to maintain qtc <490) be sure to consider whether medications are qtc prolonging agents Plan Cards consulted, do not recc anticoagulation at this time Started on amiodorone drip with improvement in his rate from 130s to 90s --> t ransitioned to amiodarone 200 mg PO BID Mild Pancreatitis- ruled out pt presented with hx of nausea and vomiting. no stones on imaging, no dilation of CBD, noted to have some enlargement of the pancreatic head CTAP on 01/13 with nl pancreas Plan - IV Fluids LR 85 cc/hr - held 2/2 increased O2 requirements - IV Morphine 0.5 mg q4hr (family and patient hesitant to give opioids given c/f over sedation and confusion) - APAP IV - cardiac, dysphagia 2 diet UTI - r/o Acute Urinary Retention BPH per patient daughter, pt is typically able to void without difficulty, he typically wears a diaper Dx - UA with Leukesterase + - Ucx NGTD Plan - cont tamsulosin 0.4 mg qd - paredes catheter placed at 0500 01/05 in the ED - Bladder training initiated 01/09 T2DM - well controlled A1c 6.9 (2024) Home Meds - Metformin 500 mg BID Plan - ISS step one ACHS - Bedside Glucose Checks ACHS CAD w hx CABG s/p Aortic valve replacement for aortic stenosis HFpEF (EF 50-55%- 10/2024) HTN Grade I diastolic dysfunction Plan - CARDS consulted, Dr. Dick - continue tele monitoring - hold anticoagulation - pt condition NOT stable enough for cholecystectomy - will f/u outpatient - metoprolol 100 mg qd - held 2/2 hypotension - sacubitril-valsartan 2 tab PO BID - held 2/2 hypotension - hold ASA 81 - hold Plavix 75 mg PO qd GERD Plan - famotidine 20 mg qhs Anxiety Depression Plan - cont home sertraline 50 mg po QAM Unspecified symptoms and signs involving the nervous system ?Parkinson's s/p benign intracranial tumor excision Plan pt will continue rehab at facility PT Consult, rec pt return to rehab for continued pt Electrolytes derangements -will replete as indicated Constipation - resolved - lactulose 20 daily kenji- hold for loose stools Checklist: Dispo: Med tele, s/p perc IR drain of GBwith scant drainage in accordion drain, found to be out of place on ct imaging. continues on IV abx,cefepime. today with hematechezia, hgb stable pending US guided thoracentesis Diet: Cardiac, dysphagia 2 mech alter (pt uses weighted utensils, Daughter rc has some at home that she can bring for when pt is able to feed himself) he really likes icecream Bowel Reg: colace qd VTE ppx: SCD GI ppx: famotidine 20 mg qd Code status: dnr/dni Plan discussed with my attending Dr. Marivel Duncan MD PGY1
[2025-01-13] MEDS: CEFEPIME INJ 2 GM in SODIUM CHLORIDE 0.9% (Popper) 50 ML IV ×2 (08:55→22:00)
[2025-01-13] MEDS: AMIODARONE HCL 200 MG TABLET PO ×2 (08:55→22:04)
[2025-01-13] MEDS: DOXYCYCLINE 100 MG TABLET PO ×2 (08:55→22:00)
[2025-01-13] MEDS: ACETAMINOPHEN IVPB 1,000 MG/100 ML VIAL 250 MG IV ×3 (08:56→22:05)
[2025-01-13] MEDS: KETOROLAC INJ 30 MG/ML VIAL 15 MG IVP (09:53)
[2025-01-13] MEDS: FUROSEMIDE INJ 10 MG/ML 4ML VIAL 40 MG IVP (10:48)
--- NOTE | 2025-01-13 11:02 | XR_ITS ---
EXAMINATION: Ultrasound left hemithorax TECHNIQUE: Grayscale sonographic images left hemithorax Date and time: January 13, 2025, 1400 hours INDICATIONS: Difficulty breathing this week, pleural fluid on the left on CT chest study yesterday FINDINGS: Mild left pleural fluid, lung surface near the pleural surface in all images IMPRESSION: No safe site sonographically for ultrasound-guided thoracentesis
[2025-01-13 11:27] LABS: Lactate (Lactic Acid) 1.4 mMol/L (0.4-2.0)
[2025-01-13 11:34] LABS: Basophils # (Auto) 0.1 Thou/mm3 (0.0-0.2); Basophils % (Auto) 0 % (0-2.5); Eosinophils # (Auto) 0.1 Thou/mm3 (0.0-0.5); Eosinophils % (Auto) 1 % (0-10); Hematocrit 32.0 % (41.0-53.0); Hemoglobin 10.1 g/dL (13.5-16.0); Immature Granulocytes Auto 0.57 Thou/mm3 (0.00-0.00); Lymphocytes # (Auto) 1.3 Thou/mm3 (1.0-4.8); Lymphocytes % (Auto) 9 % (10-50); Mean Corpuscular HGB Conc 31.6 g/dl (31.0-37.0); Mean Corpuscular Hemoglobin 27.9 pg (25.0-35.0); Mean Corpuscular Volume 88 fL (80-100); Monocytes # (Auto) 1.1 Thou/mm3 (0.0-0.8); Monocytes % (Auto) 7 % (0-12); Neutrophils # (Auto) 11.4 Thou/mm3 (1.8-7.7); Neutrophils % (Auto) 79 % (37-80); Nucleated Red Blood Cell # 0.00 Thou/mm3 (0.00-0.00); Nucleated Red Blood Cell % 0 /100 WBC (0); Platelet Count 248 Thou/mm3 (140-440); RDW Standard Deviation 49.5 fL (35.1-43.9); Red Blood Count 3.62 Miln/mm3 (4.50-5.90); White Blood Count 14.5 Thou/mm3 (3.8-10.6)
[2025-01-13] MEDS: MORPHINE SULF INJ 4 MG/ML VIAL 1 MG IVP (11:50)
[2025-01-13 12:08] LABS: INR 1.1 (0.9-1.3); Partial Thromboplastin Time 32.5 Seconds (22.0-36.0); Prothrombin Time 11.9 Seconds (9.0-12.2)
[2025-01-13 12:10] LABS: LDH (Lactate Dehydrogenase) 371 U/L (120-246)
--- NOTE | 2025-01-13 14:18 | PD.RESEVENT ---
Documentation for date of: 01/13/25 Event Note Event Note: Rapid response called at ~1100. for large amounts of bloody gelatenous stool (bright red). He continued to be alert and oriented. noting severe abdominal pain, localized to his RUQ. VSS stable: afebrile, normotensive 130/89, HR 90, satting 94 on HFNC 15 L 30%FIo2. Ordered CBC, lactic acid, lactate dehydrogenase Tx x1 lasix iv 40mg x1 morphine iv 1mg VSS at the end of rapid, pt remained on the same amount of high flow and blood sugars with in the 180s. Plan discussed with my attending Dr. Marivel Duncan MD PGY1
[2025-01-13] MEDS: LIDOCAINE INJ PF 1% 30 ML VIAL 5 ML INFL (14:20)
--- NOTE | 2025-01-13 14:21 | XR_ITS ---
Examination: CT-guided percutaneous placement drainage catheter in the gallbladder fossa CT abdomen without intravenous contrast Date and time of procedure: January 13, 2025, 1433 hours INDICATIONS: History gallbladder fossa abscess, drainage catheter pulled out on CT examination yesterday Informed consent provided. A timeout was completed verifying correct patient, procedure, site and positioning. Technique: Axial 3 mm sections were obtained for localization of the abscess in the gallbladder fossa Appropriate area is marked. The patient's site was prepped and draped in sterile fashion Maximal sterile barrier technique utilized, including hand hygiene Local anesthesia was obtained with 1% lidocaine. Low dose protocols were performed. One or more of the following dose reduction techniques were used; automated exposure control, adjustment of the mA and/or KV according to patient size, use of iterative reconstruction technique. Utilizing CT fluoroscopic guidance 5 Dutch catheter placed in the gallbladder fossa abscess 0.35 , Dilators and finally an 8 Dutch pigtail catheter placed over the wire guided into the abscess collection in satisfactory position Patient appears in stable condition during this procedure. At completion of the procedure, the patient is in satisfactory condition. Estimated blood loss 3 cc Complete culture and sensitivity report to follow. Impression: Successful CT-guided percutaneous placement drainage catheter in the gallbladder fossa
[2025-01-13] MEDS: fentaNYL CIT INJ 50 mCg/ML AMP 2ML 25 MCG IVP (14:40)
[2025-01-13] MEDS: ONDANSETRON INJ 2 MG/ML INJ 2 ML 4 MG IVP (15:28)
--- NOTE | 2025-01-13 15:44 | PC.SS ---
follow up note: Patient remains on high flow 02. Alert. Patient is a short term resident at [facility]. SS spoke to daughter, Sonam and she is agreeable to a goals of care meeting for Friday at 11a.m. with physician team.
[2025-01-13] MEDS: FAMOTIDINE 20 MG TABLET PO (22:00)
[2025-01-14] VITALS (17 sets, daily range): BP systolic 105–157; BP diastolic 54–87; PULSE 68–86; RESP 17–29; TEMP 36.1–36.8; O2SAT 87–100
[2025-01-14] MEDS: ALBUTEROL/IPRATROPIUM (Duoneb) RT SOL 3 ML NEBU INH ×4 (01:15→19:41)
[2025-01-14] MEDS: KETOROLAC INJ 30 MG/ML VIAL 15 MG IVP (03:07)
[2025-01-14] MEDS: ACETAMINOPHEN IVPB 1,000 MG/100 ML VIAL 250 MG IV ×2 (04:40→16:54)
[2025-01-14 06:12] LABS: Basophils # (Auto) 0.0 Thou/mm3 (0.0-0.2); Basophils % (Auto) 0 % (0-2.5); Eosinophils # (Auto) 0.1 Thou/mm3 (0.0-0.5); Eosinophils % (Auto) 1 % (0-10); Hematocrit 28.2 % (41.0-53.0); Immature Granulocytes Auto 0.72 Thou/mm3 (0.00-0.00); Lymphocytes # (Auto) 1.4 Thou/mm3 (1.0-4.8); Lymphocytes % (Auto) 9 % (10-50); Mean Corpuscular HGB Conc 31.2 g/dl (31.0-37.0); Mean Corpuscular Hemoglobin 28.1 pg (25.0-35.0); Mean Corpuscular Volume 90 fL (80-100); Monocytes # (Auto) 1.5 Thou/mm3 (0.0-0.8); Monocytes % (Auto) 10 % (0-12); Neutrophils # (Auto) 11.6 Thou/mm3 (1.8-7.7); Neutrophils % (Auto) 76 % (37-80); Nucleated Red Blood Cell # 0.00 Thou/mm3 (0.00-0.00); Nucleated Red Blood Cell % 0 /100 WBC (0); Platelet Count 235 Thou/mm3 (140-440); RDW Standard Deviation 49.7 fL (35.1-43.9); Red Blood Count 3.13 Miln/mm3 (4.50-5.90); White Blood Count 15.3 Thou/mm3 (3.8-10.6)
[2025-01-14 06:17] LABS: Hemoglobin 8.8 g/dL (13.5-16.0)
[2025-01-14] MEDS: MUPIROCIN OINT 2% 15 GM TUBE TOP ×2 (06:28→21:14)
[2025-01-14 06:35] LABS: Alanine Aminotransferase < 7 U/L (10-49); Albumin, Serum 2.8 gm/dL (3.4-4.8); Albumin/Globulin Ratio 1.1 (1.2-2.2); Alkaline Phosphatase 48 U/L (46-116); Anion Gap 7 (7-16); Aspartate Amino Transferase 20 U/L (0-34); BUN/Creatinine Ratio 28 Ratio (12-20); Bilirubin,Total 0.5 mg/dL (0.3-1.2); Blood Urea Nitrogen 22 mg/dL (9-23); Calcium 9.2 mg/dL (8.3-10.6); Calcium (Corrected) 10.2 mg/dL (8.5-10.1); Carbon Dioxide 30.0 mMol/L (20.0-31.0); Chloride 104 mMol/L (98-107); Creatinine (Component) 0.8 mg/dL (0.6-1.3); Estimated Creatinine Clearance 72.7 mL/min (>60); Globulin 2.6 gm/dL (2.3-3.5); Glucose 110 mg/dL (74-106); Magnesium 1.8 mg/dL (1.6-2.6); Osmolality,Calculated 285 (275-295); Phosphorous 3.0 mg/dL (2.4-5.1); Potassium 4.4 mMol/L (3.4-5.1); Sodium 141 mMol/L (136-145); Total Protein 5.4 gm/dL (5.7-8.2); eGFR > 60 See Note
--- NOTE | 2025-01-14 07:52 | ESPR_ITS ---
<Statement entered by Zachariah Orta MD - 01/25/25 08:30> I reviewed above note and agree with findings and plans. I have also personally examined the patient with medicine team and went over assessment and plan with medical team including international manager and resident physician. Documentation for date of: 01/14/25 Subjective Subjective Interval history: Patient seen and examined at bedside [facility] meeting had today at 11AM with patient, daughter rc, and younger sister Dea, social work present Carlito, and Nurse Edith, and medicine team pt and family to discuss their options, considering hospice pt recieved 40 IV lasix for BL pleural effusions. he remains on high flow O2 , wbc uptrending to 15 from 13, could be reactive vs infective given cholecystitis Hgb drop 8.8 from 10.1 (concern for upper vs lower gi bleed, > suspician for lower given BRBPR) Exam Vital Signs Temp Pulse Resp BP Pulse Ox O2 Del Method O2 Flow Rate 97.9 F 68 24 H 133/76 H 98 High Flow Nasal Cannula 15 01/14/25 04:00 01/14/25 06:45 01/14/25 06:45 01/14/25 04:00 01/14/25 06:45 01/14/25 04:00 01/14/25 06:45 FiO2 30 01/14/25 06:45 Narrative Exam GENERAL: no acute distress, A&Ox3, HEENT: Head AT/ NC. Mucous membranes dry. PERRL. NECK: Supple, no lymphadenopathy, no carotid bruits. CARDIOVASCULAR: RRR. Normal S1/S2, No m/r/g. No pitting edema of bilateral LEs. RESPIRATORY: bilateral lung base diminished breath sounds and crackles and L>R crackles to the mid lung field on HF nc 15 at 30 % Fio2 (pt endorses increased work of breathing and pleruitic chest pain worse with inspiration) GASTROINTESTINAL: Abdomen soft, no palpable masses. Bowel sounds present, no rebound no guarding. Accordion drain in place with serosanguenous output, scant, some epigastric and LUQ and RUQ tenderness GENITOURINARY: Extra skin on underside of penile shaft below frenulum, no erythema, no edema, no TTP MUSCULOSKELETAL:? No cyanosis or edema, no visible joint swelling. NEUROLOGICAL: CN grossly intact No focal deficits. Sensation intact, symmetric. PSYCHIATRIC: Awake and alert, not agitated, normal mood and affect. SKIN: No obvious rashes, no jaundice, poor turgor. Objective Labs 01/14/25 05:12 01/14/25 05:12 Labs: Laboratory Results - last 24 hr 01/13/25 01/13/25 01/14/25 10:55 11:00 05:12 WBC 14.5 H 15.3 H RBC 3.62 L 3.13 L Hgb 10.1 L 8.8 L Hct 32.0 L 28.2 L MCV 88 90 MCH 27.9 28.1 MCHC 31.6 31.2 RDW Std Deviation 49.5 H 49.7 H Plt Count 248 235 Neut % (Auto) 79 76 Lymph % (Auto) 9 L 9 L Cochran % (Auto) 7 10 Eos % (Auto) 1 1 Baso % (Auto) 0 0 Neut # (Auto) 11.4 H 11.6 H Lymph # (Auto) 1.3 1.4 Cochran # (Auto) 1.1 H 1.5 H Eos # (Auto) 0.1 0.1 Baso # (Auto) 0.1 0.0 Immature Gran # (Auto) 0.57 H 0.72 H Absolute Nucleated RBC 0.00 0.00 Immature Gran % 4 H 5 H Nucleated RBC % 0 0 PT 11.9 INR 1.1 APTT 32.5 Sodium 141 Potassium 4.4 Chloride 104 Carbon Dioxide 30.0 Anion Gap 7 BUN 22 Creatinine 0.8 Estim Creat Clear Calc 72.7 eGFR > 60 BUN/Creatinine Ratio 28 H Glucose 110 H Calculated Osmolality 285 Lactic Acid 1.4 Calcium 9.2 Corrected Calcium 10.2 H Phosphorus 3.0 Magnesium 1.8 Total Bilirubin 0.5 AST 20 ALT < 7 L Alkaline Phosphatase 48 Lactate Dehydrogenase 371 H Total Protein 5.4 L Albumin 2.8 L Globulin 2.6 Albumin/Globulin Ratio 1.1 L Blood Type O Positive Antibody Screen NEGATIVE Blood Bank Wristband ID Yes ABG Interpretation ABG results: 01/05/25 20:02 ABG pH 7.38 ABG pCO2 44 ABG pO2 73 L ABG HCO3 26 ABG O2 Saturation 95 ABG Base Excess 0 Quality Measures Quality Measures VTE prophylaxis Advance care planning discussed with:: patient, child and sibling Assessment & Plan Assessment Current Active Medications: Generic Name Dose Route Start Last Admin Trade Name Freq PRN Reason Stop Dose Admin Acetaminophen 650 mg 01/12/25 08:39 01/12/25 20:31 Acetaminophen 325 Mg Tablet PO 02/04/25 16:47 650 mg On Hold: 01/13/25 09:06 Q6H PRN Administration Comment: SCHEDULED APAP ACTIVE fever > 100.3 and Pain Albuterol/Ipratropium 3 ml 01/09/25 19:00 01/14/25 06:45 Albuterol/Ipratropium (Duoneb) Rt Zuleima 3 Ml Nebu INH 02/08/25 18:59 3 ml Q6HRRT KENJI Administration Amiodarone HCl 200 mg 01/08/25 09:00 01/13/25 22:04 Amiodarone Hcl 200 Mg Tablet PO 02/07/25 08:59 200 mg BID KENJI Administration Dextrose 25 ml 01/05/25 16:55 Dextrose 50%-Water Inj 50 Ml Syringe IV 02/04/25 16:54 Q15MIN PRN BG 50-70 responsive npo pt Dextrose 50 ml 01/05/25 16:55 Dextrose 50%-Water Inj 50 Ml Syringe IV 02/04/25 16:54 Q15MIN PRN BG <50 OR BG <70 & pt unresponsive Doxycycline Hyclate 100 mg 01/11/25 10:45 01/13/25 22:00 Doxycycline 100 Mg Tablet PO 01/18/25 10:44 100 mg BID KENJI Administration Famotidine 20 mg 01/05/25 21:00 01/13/25 22:00 Famotidine 20 Mg Tablet PO 02/04/25 20:59 20 mg HS KENJI Administration Glucagon 1 mg 01/05/25 16:55 Glucagon Inj 1 Mg Vial IM Q15MIN PRN BG <70, and no IV access Guaifenesin 100 mg 01/10/25 14:00 01/14/25 05:11 Guaifenesin Syrup 200 Mg/10 Ml Udc PO 02/09/25 13:59 Not Given TID [facility] Protocol Cefepime HCl 2 gm/ Sodium 50 mls @ 100 mls/hr 01/10/25 15:00 01/13/25 22:00 Chloride IV 01/14/25 14:59 100 mls/hr Q12HR KENJI Administration Insulin Human Lispro 0 unit 01/06/25 17:00 01/13/25 22:27 Insulin Lispro (Admelog) 1 Unit/0.01 Ml Unit SC 02/05/25 16:59 Not Given ACHS KENJI Protocol Ketorolac Tromethamine 15 mg 01/13/25 10:27 01/14/25 03:07 Ketorolac Inj 30 Mg/Ml Vial IVP 01/18/25 10:26 15 mg Q6HR PRN Administration PAIN SCALE 4-10(Mod-Sev Mupirocin 0 gm 01/08/25 08:15 01/14/25 06:28 Mupirocin Oint 2% 15 Gm Tube TOP 01/15/25 08:14 1 applicatio TID KENJI Administration Ondansetron HCl 4 mg 01/05/25 16:48 01/13/25 15:28 Ondansetron Inj 2 Mg/Ml Inj 2 Ml IVP 02/04/25 16:47 4 mg Q6H PRN Administration NAUSEA OR VOMITING Protocol Pantoprazole Sodium 40 mg 01/06/25 09:00 01/13/25 08:56 Pantoprazole Inj 40 Mg Vial IVP 02/05/25 08:59 40 mg QDAY KENJI Administration Plan Mr. Johnson is a 84-year-old gentleman with history of CAD with hx of CABG (on asa and plavix) hypertension,? 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 found to have left pna, modified antibiotics d/c cipro and start cefipime iv (has completed 5 days, but gb drain was out of place so will continue iv abx for for systemic control and simultaneous source control now that the drain has better output. BL pleural effusions L>R was not amenable to thoracentesis given no clear pocket for needle to be placed without risk of puncturing the lung. 01/13 [facility] meeting with patient, his daughter rc, and sister dea, and , nursing and medicine team, pt and family are considering their options and considering hospice given patient may not return to his functional baseline prior to presenting to the ED for acute cholecystitis. Acute hypoxic respiratory failure 2/2 CAP w overlapping moderate to large pleural effusion atelectesis patient remains on HF satting well, it has been slow to wean likely 2/2 to bed bound and deconditioning from acute cholecystitis infection (see below), patient endorses productive cough with yellowish sputum 01.13 pt continues to endorse having pleuritic chest pain, worse with inspiration, continues on high flow. pt amenable to thoracentesis, however no clear pocket of fluid without lung tissue in view, so no thoracentesis was performed. 01/14 pt continues on High flow, Dx - CXR with Significant left lung pneumonia and ? overlapping pleural effusion - ct chest abdomen/pelvis w and wo contrast, with BL pleural effusions L>R Tx - US guided thoracentesis attempted 01/13, unable to perform - Lasix 40 mg IV QD. - IV Cefepime 2gm q12hr (01/10- ) minimum 5 days - doxycycline 100 mg BID 01/11- ) 01/15 (5 day minimum) - Chest PT (percussion) - Guafenecin 100mg TID to help break up secretions - Incentive spirometry - On high flow, plan to wean as tolerated Pain Mgmt - Morphine 1mg x1 given for pain unrelieved with IV APAP q6 scheduled, and keterolac 15 mg IV q6hr try to avoid opioids given age and prior concerns for delerium and oversedation, pt is very sensitive to opioids. - d/c given hgb drop and concern for possible lower gi bleed keterolac 15 mg IV q6hr prn (per pharmacy, do not give keterolac for greater than total of 5 days given increased risk of bleeding) (01/13- ) - IV APAP q6hr scheduled - given x1 toradol 01/13 overnight Hematachezia Concern for Lower GI bleed Hgb downtrending, Acute on Chronic normocytic anemia pt had rapid response called 01/13 for blood noted in his stool. pt vss, nl lactic acid, hgb stable at 10. no dizziness no lightheadedness. pt does report fatigue pt reports that he has had colonoscopy in the past 01/14 Hgb 8.8 from 10.1 - ask patient if blood transfusion is within his goals of care. - type and screen done - transfuse if Hgb <7 - consider GI consult if hgb drops for colonoscopy, be sure to ask patient if it is within his goals of care. Sepsis 2/2 -resolving Acute Cholecystitis- persisists Malaise and fatigue Dx - CTAP with Atelectasis versus mild pneumonia at the lung bases Acute acalculous cholecystitis, - GB US with obvious thickening and edema involving the gallbladder wall Common bile duct is enlarged 0.9 cm no stones Pancreatic head is enlarged 3.8 cm - MRCP Cholecystitis pattern, gallbladder sludge ball versus stone Extrahepatic biliary tract dilatation without definite common hepatic or common bile duct stones and Mild acute pancreatitis with benign-appearing cystic change in the pancreatic head - Surgery consulted (Dr. Ponce), appreciate recs, no surgery indicated at this time, IV ABx continue - CARDS consulted given need for cardiac clearance if pt were to proceed with surgery outpatient potentially. - Gallbladder fluid cx: Klebsiella oxytoca, sensitive to Ciprofloxacin - Blood cx and Urine cx NGTD - 01/12 CTAP shows drain is not in the GB, consider ct guided abscess drainage for replacing the tube in the appropriate position, WBC with slight increase 10-->13. pt continues to have RUQ tenderness Tx - s/p IR biliary drainage, 01/06, plan for outpatient removal of GB drain with Dr. Ponce in clinic. - 01/13 ct guided abscess drainage again to reposition the tube after US thora for #pleural effusions, see above - IV Cefepime 2gm q12hr (01/10- ) 5 days typically the duration if there was good source control ie cholecystectomy. given pt is not a good surgical candidate, and patient had poor source control with initial percutaneous drain that was initally placed but was subsequently displaced and repositioned on 01/13 (leukocytosis was uptrending) - d/c IV Vanco (01/05- 01/07) - d/c IV Zosyn 3.375 q8hr (01/05-01/08) - d/c IV Ciprofloxacin 400 mg IV BID (01/08-01/10) - Mupirocin TID for +MRSA nares - IV Fluids, LR 85 cc/hr - held 2/2 increased O2 requirements - Zofran 4 mg IV PRN - APAP IV scheduled for pain q6hr, lfts stable - Delirium precautions, pt with waxing and waning mentation, noted to be more alert and oriented in the evening. Afib with RVR - rate controlled pt had rapid response overnight with afib with rvr rate wnl, EKG with qtc 475 (per cardiology goal to maintain qtc <490) be sure to consider whether medications are qtc prolonging agents Plan Cards consulted, do not recc anticoagulation at this time Started on amiodorone drip with improvement in his rate from 130s to 90s --> t ransitioned to amiodarone 200 mg PO BID Mild Pancreatitis- ruled out pt presented with hx of nausea and vomiting. no stones on imaging, no dilation of CBD, noted to have some enlargement of the pancreatic head CTAP on 01/13 with nl pancreas Plan - IV Fluids LR 85 cc/hr - held 2/2 increased O2 requirements - IV Morphine 0.5 mg q4hr (family and patient hesitant to give opioids given c/f over sedation and confusion) - APAP IV - cardiac, dysphagia 2 diet UTI - r/o Acute Urinary Retention BPH per patient daughter, pt is typically able to void without difficulty, he typically wears a diaper Dx - UA with Leukesterase + - Ucx NGTD Plan - cont tamsulosin 0.4 mg qd - paredes catheter placed at 0500 01/05 in the ED - Bladder training initiated 01/09 T2DM - well controlled A1c 6.9 (2024) Home Meds - Metformin 500 mg BID Plan - ISS step one ACHS - Bedside Glucose Checks ACHS CAD w hx CABG s/p Aortic valve replacement for aortic stenosis HFpEF (EF 50-55%- 10/2024) HTN Grade I diastolic dysfunction Plan - CARDS consulted, Dr. Dick - continue tele monitoring - hold anticoagulation - pt condition NOT stable enough for cholecystectomy - will f/u outpatient - metoprolol 100 mg qd - held 2/2 hypotension - sacubitril-valsartan 2 tab PO BID - held 2/2 hypotension - hold ASA 81 - hold Plavix 75 mg PO qd GERD Plan - famotidine 20 mg qhs Anxiety Depression Plan - cont home sertraline 50 mg po QAM Unspecified symptoms and signs involving the nervous system ?Parkinson's s/p benign intracranial tumor excision Plan pt will continue rehab at facility PT Consult, rec pt return to rehab for continued pt Electrolytes derangements -will replete as indicated Constipation - resolved - lactulose 20 daily kenji- hold for loose stools Checklist: Dispo: Med tele, s/p perc IR drain of GBwith scant drainage in accordion drain, found to be out of place on ct imaging, tube was replaced with better drain output. continues on IV abx,cefepime. hgb 8.8 from 10, [facility] discussion 01/13. Diet: Cardiac, dysphagia 2 mech alter (pt uses weighted utensils, Daughter rc has some at home that she brought for when pt ) he really likes ice cream Bowel Reg: colace qd VTE ppx: SCD GI ppx: famotidine 20 mg qd Code status: dnr/dni Plan discussed with my attending Dr. Marivel Duncan MD PGY1
[2025-01-14] MEDS: AMIODARONE HCL 200 MG TABLET PO ×2 (09:13→20:33)
[2025-01-14] MEDS: CEFEPIME INJ 2 GM in SODIUM CHLORIDE 0.9% (Popper) 50 ML IV (09:14)
[2025-01-14] MEDS: Magnesium Sulfate 4 GM Ivpb 4 GM/50 ML BAG IV (09:14)
[2025-01-14] MEDS: FUROSEMIDE INJ 10 MG/ML 4ML VIAL 40 MG IVP (12:03)
--- NOTE | 2025-01-14 15:09 | PC.SS ---
Goals of care discussion conducted with patient, patient's daughter (Sonam) and patient's sister (Dea). Attending and resident team provided overview on patient's condition, treatment plan and prognosis. Resident team informed patient and family of patient's current conditions: infection, PNA, AFIB, fluid in the lungs and high flow oxygen requirement. Patient informed that he is not a candidate for gall bladder procedure or fluid removal due to conditions. Resident team discussed with the patient hospice services. GENERATOR REPAIRER informed patient and family that transition plan to return to SNF with hospice dependent on patient possessing coverage for both. If patient does not possess coverage for hospice, comfort care might be an option if SNF willing to accept patient back with comfort care measures. GENERATOR REPAIRER to follow up with SNF.
--- NOTE | 2025-01-14 15:11 | PC.SS ---
MOBILE EQUIPMENT OPERATOR confirmed with [facility] staff that facility will only accept patient back to facility only if patient pays for room and board. Patient does not possess coverage for both room/board and hospice. MOBILE EQUIPMENT OPERATOR to update family.
--- NOTE | 2025-01-14 15:27 | PC.SS ---
REGISTERED HEALTH NURSE informed patient's daughter, Sonam; that [facility] will only accept patient back under comfort care measures if patient's family covers room and board fee. Per [facility] staff approximately $7000.00 for room and board. Patient's daughter informed REGISTERED HEALTH NURSE that comfort care decision remains pending. If family decides to transition patient to comfort care daughter requesting submittal to other SNF's to determine if there is a facility receptive to receiving the patient with comfort care measures without family being responsible for room and board fee.
--- NOTE | 2025-01-14 16:06 | EVENTNT_ITS ---
Documentation for date of: 01/14/25 Goals of care meeting conducted today Attendees: Dr. Duncan, Dr. Orta, Dr Moura, Nurse Edith, JOEY Esteban, Daughter Sonam, Sister Dea, Patient Julio Patient Mr. Johnson provided permission to have this conversation regarding goals of care with the people present at bedside. Meeting was scheduled at 11 AM on 01/14. Patient was alert and oriented x 3. Mr. Johnson expressed an understanding of his current medical problems including the pleural effusion in his left lung that was unable to be tapped due to the position of his lung which obscured the ability to safely proceed with thoracentesis, and the infection in his gallbladder and that the percutaneous drain was dislodged and subsequently repositioned. He expressed understanding that both the sales support manager and his sales support manager do not think that he would be a good surgical candidate given his comorbidities and current condition. He expressed understanding that he had experienced bleeding duirng a bowel movement and that there is concern that he may be bleeding from his lower GI tract and that further evaluation of the possible bleed would involve a colonoscopy. I expressed to Mr Johnson, my professional opinion that it is unlikely that he will recover from this completely and be able to return to his baseline functional status and that symptom managment and comfort may be within his goals of care based on what he has expressed on separate occasions, stating i dont know how much more of this I (patient) have to do - referring to the thoracentesis and repositioning of the percutaneous gb drain. Patient stated that ideally his goal would be to return to his prior functional status when he was at [facility] and able to engage with physical therapy. He worries about his daughter Sonam, and worries about what it means if he does not get better. He has a strong support system with his daughter Sonam who frequently visits him while in the hospital and his heavily engaged in his care and his sister Dea, who has recently experineced some new health concerns including a fractured ankle and a who is in the hospital recovering from a hip fracture. Mr. Johnson states that his sister Dea is typically the one who cares and looks after him and that she is typically very active but is newly limited by her ankle injury. Mr Johnson values not being in pain, expressess some desire to continue with medical therapies that reduce pain and discomfort and therapies that could improve his overall condition and potentially get him back to his baseline. Family is aware and supportive of Mr. Johnson's wishes and desire to have internal discussion about how they would like to proceed and what next steps are withing Mr. Johnson's goals of care. Hospice was briefly introduced as an option to the patient and his family as a possible option. Family expressed desire to have more information about hospice care that he would be eligible for with his insurance. SW indicated that they will be able to provide more information about the services provided by hospice. Plan to discuss with patient and family again tomorrow regarding their thoughts on the discussion had today. Plan discussed with my attending Dr. Marivel Duncan MD PGY1 Event Note Event Note: Set-Up: Permission given by client? Yes / No Client?s illness understanding: Amount of information desired:? Medical history/prognosis explained by health care team: Boss Topics:? Goals/priorities if sicker: Fears/worries about future: Sources of strength: Critical abilities not wanting to lose: Trade-offs willing to go through: Family awareness of above wishes: Summary/ Recommendations: Boss points important to client (list below): Boss recommendations given to client (list below):
--- NOTE | 2025-01-14 16:37 | PC.NURSE ---
Cathflo infusion started on left leg as ordered, baseline picture and measurements were taken and placed in the chart. Left thigh measuring 26in, left knee 20.5in, left calf 16in, left ankle 12in. will continue to assess for signs of infiltration or bleeding.
[2025-01-14] MEDS: DOXYCYCLINE 100 MG TABLET PO (20:34)
[2025-01-15] VITALS (19 sets, daily range): BP systolic 119–144; BP diastolic 60–92; PULSE 66–92; RESP 18–24; TEMP 36.1–36.9; O2SAT 93–99
[2025-01-15] MEDS: ACETAMINOPHEN IVPB 1,000 MG/100 ML VIAL 250 MG IV ×4 (00:03→17:43)
[2025-01-15] MEDS: ALBUTEROL/IPRATROPIUM (Duoneb) RT SOL 3 ML NEBU INH ×4 (00:38→20:15)
[2025-01-15] MEDS: MUPIROCIN OINT 2% 15 GM TUBE TOP (05:08)
[2025-01-15 06:13] LABS: Basophils # (Auto) 0.0 Thou/mm3 (0.0-0.2); Basophils % (Auto) 0 % (0-2.5); Eosinophils # (Auto) 0.2 Thou/mm3 (0.0-0.5); Eosinophils % (Auto) 1 % (0-10); Hematocrit 28.8 % (41.0-53.0); Hemoglobin 9.1 g/dL (13.5-16.0); Immature Granulocytes Auto 0.48 Thou/mm3 (0.00-0.00); Lymphocytes # (Auto) 1.6 Thou/mm3 (1.0-4.8); Lymphocytes % (Auto) 11 % (10-50); Mean Corpuscular HGB Conc 31.6 g/dl (31.0-37.0); Mean Corpuscular Hemoglobin 28.4 pg (25.0-35.0); Mean Corpuscular Volume 90 fL (80-100); Monocytes # (Auto) 1.4 Thou/mm3 (0.0-0.8); Monocytes % (Auto) 10 % (0-12); Neutrophils # (Auto) 10.7 Thou/mm3 (1.8-7.7); Neutrophils % (Auto) 74 % (37-80); Nucleated Red Blood Cell # 0.00 Thou/mm3 (0.00-0.00); Nucleated Red Blood Cell % 0 /100 WBC (0); Platelet Count 261 Thou/mm3 (140-440); RDW Standard Deviation 49.2 fL (35.1-43.9); Red Blood Count 3.20 Miln/mm3 (4.50-5.90); White Blood Count 14.5 Thou/mm3 (3.8-10.6)
[2025-01-15 06:50] LABS: Alanine Aminotransferase 10 U/L (10-49); Albumin, Serum 3.1 gm/dL (3.4-4.8); Albumin/Globulin Ratio 1.1 (1.2-2.2); Alkaline Phosphatase 53 U/L (46-116); Anion Gap 9 (7-16); Aspartate Amino Transferase 22 U/L (0-34); BUN/Creatinine Ratio 25 Ratio (12-20); Bilirubin,Total 0.4 mg/dL (0.3-1.2); Blood Urea Nitrogen 20 mg/dL (9-23); Calcium 9.0 mg/dL (8.3-10.6); Calcium (Corrected) 9.7 mg/dL (8.5-10.1); Carbon Dioxide 28.0 mMol/L (20.0-31.0); Chloride 102 mMol/L (98-107); Creatinine (Component) 0.8 mg/dL (0.6-1.3); Estimated Creatinine Clearance 72.7 mL/min (>60); Globulin 2.9 gm/dL (2.3-3.5); Glucose 95 mg/dL (74-106); Magnesium 2.2 mg/dL (1.6-2.6); Osmolality,Calculated 280 (275-295); Phosphorous 3.2 mg/dL (2.4-5.1); Potassium 4.6 mMol/L (3.4-5.1); Sodium 139 mMol/L (136-145); Total Protein 6.0 gm/dL (5.7-8.2); eGFR > 60 See Note
[2025-01-15] MEDS: FUROSEMIDE INJ 10 MG/ML 4ML VIAL 40 MG IVP ×2 (08:32→17:45)
[2025-01-15] MEDS: DOXYCYCLINE 100 MG TABLET PO (08:33)
[2025-01-15] MEDS: AMIODARONE HCL 200 MG TABLET PO ×2 (08:33→20:50)
[2025-01-15] MEDS: PANTOPRAZOLE 40 MG TABLET PO (08:36)
--- NOTE | 2025-01-15 08:53 | XR_ITS ---
EXAMINATION: AP chest single view TECHNIQUE: AP portable semiupright chest single view Date and time: January 15, 2025, 0920 hours, comparison January 12, 2025 INDICATION: Shortness of breath this week, history large left pleural effusion FINDINGS: Mild enlargement cardiac contour. CABG. Prominent vascular congestion. Large left pleural effusion Prominent osteopenia Reverse left shoulder arthroplasty IMPRESSION: Prominent vascular congestion Large left pleural effusion
--- NOTE | 2025-01-15 08:54 | ESPR_ITS ---
<Statement entered by Zachariah Orta MD - 01/25/25 08:32> I reviewed above note and agree with findings and plans. I have also personally examined the patient with medicine team and went over assessment and plan with medical team including actuarial internship and resident physician. <Statement entered by Bela Sales MD - 01/15/25 17:14> Patient is seen at bedside currently saturating on 15 L of high flow nasal cannula. Although patient denies shortness of breath or chest pain repeat chest x-ray shows large left pleural effusion. Will get ICU team to do a bedside ultrasound to determine if there is a pocket where thoracentesis can be performed. In the meantime we will increase Lasix 40 to twice daily. Will touch base with daughter regarding previous goals of care discussion tomorrow. Patient was seen and examined by me personally. I have directly supervised and reviewed documentation by the team resident and agree with its findings. ------- Plan of care was discussed with the attending, Dr. Marivel Sales, PGY-2 Documentation for date of: 01/15/25 Subjective Subjective Interval history: patient seen and examined at bedside was sleeping comfortably on 15 L high flow, plan for bid diuresis with lasix 40 IV CXR today with large L pleural effusion Exam Vital Signs Temp Pulse Resp BP Pulse Ox O2 Del Method O2 Flow Rate 98.4 F 66 21 H 138/80 H 99 High Flow Nasal Cannula 10 01/15/25 08:00 01/15/25 08:33 01/15/25 08:00 01/15/25 08:33 01/15/25 08:00 01/15/25 08:00 01/15/25 08:00 FiO2 30 01/15/25 08:00 Narrative Exam GENERAL: no acute distress, A&Ox3, HEENT: Head AT/ NC. Mucous membranes dry. PERRL. NECK: Supple, no lymphadenopathy, no carotid bruits. CARDIOVASCULAR: RRR. Normal S1/S2, No m/r/g. No pitting edema of bilateral LEs. RESPIRATORY: bilateral lung base diminished breath sounds and crackles and L>R crackles to the mid lung field on HF nc 15 at 30 % Fio2 GASTROINTESTINAL: Abdomen soft, no palpable masses. Bowel sounds present, no rebound no guarding. Accordion drain in place with serosanguenous output,~20 cc output since replaced. GENITOURINARY: Extra skin on underside of penile shaft below frenulum, no erythema, no edema, no TTP MUSCULOSKELETAL:? No cyanosis or edema, no visible joint swelling. NEUROLOGICAL: CN grossly intact No focal deficits. Sensation intact, symmetric. PSYCHIATRIC: Awake and alert, not agitated, normal mood and affect. SKIN: No obvious rashes, no jaundice, poor turgor. Objective Labs 01/15/25 04:52 01/15/25 04:52 Labs: Laboratory Results - last 24 hr 01/15/25 04:52 WBC 14.5 H RBC 3.20 L Hgb 9.1 L Hct 28.8 L MCV 90 MCH 28.4 MCHC 31.6 RDW Std Deviation 49.2 H Plt Count 261 Neut % (Auto) 74 Lymph % (Auto) 11 Morrison % (Auto) 10 Eos % (Auto) 1 Baso % (Auto) 0 Neut # (Auto) 10.7 H Lymph # (Auto) 1.6 Morrison # (Auto) 1.4 H Eos # (Auto) 0.2 Baso # (Auto) 0.0 Immature Gran # (Auto) 0.48 H Absolute Nucleated RBC 0.00 Immature Gran % 3 H Nucleated RBC % 0 Sodium 139 Potassium 4.6 Chloride 102 Carbon Dioxide 28.0 Anion Gap 9 BUN 20 Creatinine 0.8 Estim Creat Clear Calc 72.7 eGFR > 60 BUN/Creatinine Ratio 25 H Glucose 95 Calculated Osmolality 280 Calcium 9.0 Corrected Calcium 9.7 Phosphorus 3.2 Magnesium 2.2 Total Bilirubin 0.4 AST 22 ALT 10 Alkaline Phosphatase 53 Total Protein 6.0 Albumin 3.1 L Globulin 2.9 Albumin/Globulin Ratio 1.1 L ABG Interpretation ABG results: 01/05/25 20:02 ABG pH 7.38 ABG pCO2 44 ABG pO2 73 L ABG HCO3 26 ABG O2 Saturation 95 ABG Base Excess 0 Quality Measures Quality Measures VTE prophylaxis Advance care planning discussed with:: patient and child Assessment & Plan Assessment Current Active Medications: Generic Name Dose Route Start Last Admin Trade Name Freq PRN Reason Stop Dose Admin Acetaminophen 650 mg 01/12/25 08:39 01/12/25 20:31 Acetaminophen 325 Mg Tablet PO 02/04/25 16:47 650 mg On Hold: 01/13/25 09:06 Q6H PRN Administration Comment: SCHEDULED APAP ACTIVE fever > 100.3 and Pain Albuterol/Ipratropium 3 ml 01/09/25 19:00 01/15/25 06:32 Albuterol/Ipratropium (Duoneb) Rt Zuleima 3 Ml Nebu INH 02/08/25 18:59 3 ml Q6HRRT KENJI Administration Amiodarone HCl 200 mg 01/08/25 09:00 01/15/25 08:33 Amiodarone Hcl 200 Mg Tablet PO 02/07/25 08:59 200 mg BID KENJI Administration Benzonatate 100 mg 01/15/25 08:35 Benzonatate 100 Mg Capsule PO 02/14/25 08:34 Q8HR PRN COUGH Protocol Dextrose 25 ml 01/05/25 16:55 Dextrose 50%-Water Inj 50 Ml Syringe IV 02/04/25 16:54 Q15MIN PRN BG 50-70 responsive npo pt Dextrose 50 ml 01/05/25 16:55 Dextrose 50%-Water Inj 50 Ml Syringe IV 02/04/25 16:54 Q15MIN PRN BG <50 OR BG <70 & pt unresponsive Doxycycline Hyclate 100 mg 01/11/25 10:45 01/15/25 08:33 Doxycycline 100 Mg Tablet PO 01/18/25 10:44 100 mg BID KENJI Administration Furosemide 40 mg 01/15/25 09:00 01/15/25 08:32 Furosemide Inj 10 Mg/Ml 4ml Vial IVP 02/14/25 08:59 40 mg QDAY KENJI Administration Glucagon 1 mg 01/05/25 16:55 Glucagon Inj 1 Mg Vial IM Q15MIN PRN BG <70, and no IV access Acetaminophen 1,000 mg in 100 mls @ 250 mls/hr 01/15/25 00:00 01/15/25 05:51 Ofirmev Inj IV 01/15/25 12:23 Infused Q6HR KENJI Infusion Insulin Human Lispro 0 unit 01/06/25 17:00 01/15/25 08:25 Insulin Lispro (Admelog) 1 Unit/0.01 Ml Unit SC 02/05/25 16:59 Not Given ACHS KENJI Protocol Ondansetron HCl 4 mg 01/05/25 16:48 01/13/25 15:28 Ondansetron Inj 2 Mg/Ml Inj 2 Ml IVP 02/04/25 16:47 4 mg Q6H PRN Administration NAUSEA OR VOMITING Protocol Pantoprazole Sodium 40 mg 01/14/25 09:00 01/15/25 08:36 Pantoprazole 40 Mg Tablet PO 02/13/25 08:59 40 mg QDAY KENJI Administration Tramadol HCl 50 mg 01/14/25 16:01 01/14/25 20:34 Tramadol Hcl 50 Mg Tablet PO 01/19/25 16:00 50 mg Q6HR PRN Administration moderat to severe pain 6-10 Plan Mr. Johnson is a 84-year-old gentleman with history of CAD with hx of CABG (on asa and plavix) hypertension,? 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 found to have left pna, modified antibiotics d/c cipro and start cefipime iv (has completed 5 days, but gb drain was out of place so will continue iv abx for for systemic control and simultaneous source control now that the drain has better output. BL pleural effusions L>R was not amenable to thoracentesis given no clear pocket for needle to be placed without risk of puncturing the lung. 01/13 [facility] meeting with patient, his daughter rc, and sister migdalia, and SW, nursing and medicine team, pt and family are considering their options and considering hospice given patient may not return to his functional baseline prior to presenting to the ED for acute cholecystitis. Acute hypoxic respiratory failure 2/2 CAP w Large pleural effusion atelectesis patient remains on HF satting well, it has been slow to wean likely 2/2 to bed bound and deconditioning from acute cholecystitis infection (see below), patient endorses productive cough with yellowish sputum 01.13 pt continues to endorse having pleuritic chest pain, worse with inspiration, continues on high flow. pt amenable to thoracentesis, however no clear pocket of fluid without lung tissue in view, so no thoracentesis was performed. pt continues on High flow, Dx - CXR with Significant left lung pneumonia and ? overlapping pleural effusion - ct chest abdomen/pelvis w and wo contrast, with BL pleural effusions L>R - 01/15 repeat cxr with large L effusion and prominent vascular congestion Tx - US guided thoracentesis attempted 01/13, unable to perform - Lasix 40 mg IV BID. - IV Cefepime 2gm q12hr (01/10- ) minimum 5 days - completed doxycycline 100 mg BID 01/11- 01/15) (5 day minimum) - Chest PT (percussion) - d/c Guafenecin 100mg TID, pt does not want to take - Incentive spirometry - On high flow, plan to wean as tolerated, on 10-15 L 30 fiO2 Pain Mgmt - Morphine 1mg x1 given for pain unrelieved with IV APAP q6 scheduled, and keterolac 15 mg IV q6hr try to avoid opioids given age and prior concerns for delerium and oversedation, pt is very sensitive to opioids. - d/c given hgb drop and concern for possible lower gi bleed keterolac 15 mg IV q6hr prn (per pharmacy, do not give keterolac for greater than total of 5 days given increased risk of bleeding) (01/13- ) - IV APAP q6hr scheduled Hematachezia X1 Concern for Lower GI bleed Hgb stable ,Chronic normocytic anemia pt had rapid response called 01/13 for blood noted in his stool. pt vss, nl lactic acid, hgb stable at 10. no dizziness no lightheadedness. pt does report fatigue pt reports that he has had colonoscopy in the past 01/14 Hgb 8.8 from 10.1, stable at 9 - type and screen done - transfuse if Hgb <7 - consider GI consult if hgb drops for colonoscopy, be sure to ask patient if it is within his goals of care. Sepsis 2/2 -resolving Acute Cholecystitis- source control Malaise and fatigue- improved Dx - CTAP with Atelectasis versus mild pneumonia at the lung bases Acute acalculous cholecystitis, - GB US with obvious thickening and edema involving the gallbladder wall Common bile duct is enlarged 0.9 cm no stones Pancreatic head is enlarged 3.8 cm - MRCP Cholecystitis pattern, gallbladder sludge ball versus stone Extrahepatic biliary tract dilatation without definite common hepatic or common bile duct stones and Mild acute pancreatitis with benign-appearing cystic change in the pancreatic head - Surgery consulted (Dr. Ponce), appreciate recs, no surgery indicated at this time, IV ABx continue - CARDS consulted given need for cardiac clearance if pt were to proceed with surgery outpatient potentially. - Gallbladder fluid cx: Klebsiella oxytoca, sensitive to Ciprofloxacin - Blood cx and Urine cx NGTD - 01/12 CTAP shows drain is not in the GB, consider ct guided abscess drainage for replacing the tube in the appropriate position, WBC with slight increase 10-->13. pt continues to have RUQ tenderness Tx - s/p IR biliary drainage, 01/06, plan for outpatient removal of GB drain with Dr. Ponce in clinic. - 01/13 ct guided abscess drainage again to reposition the tube after US thora for #pleural effusions, see above - IV Cefepime 2gm q12hr (01/10- ) 5 days typically the duration if there was good source control ie cholecystectomy. given pt is not a good surgical candidate, and patient had poor source control with initial percutaneous drain that was initally placed but was subsequently displaced and repositioned on 01/13 (leukocytosis was uptrending) - d/c IV Vanco (01/05- 01/07) - d/c IV Zosyn 3.375 q8hr (01/05-01/08) - d/c IV Ciprofloxacin 400 mg IV BID (01/08-01/10) - Mupirocin TID for +MRSA nares - IV Fluids, LR 85 cc/hr - held 2/2 increased O2 requirements - Zofran 4 mg IV PRN - APAP IV scheduled for pain q6hr, lfts stable - Delirium precautions, pt with waxing and waning mentation, noted to be more alert and oriented in the evening. Afib with RVR - rate controlled pt had rapid response overnight with afib with rvr rate wnl, EKG with qtc 475 (per cardiology goal to maintain qtc <490) be sure to consider whether medications are qtc prolonging agents Plan Cards consulted, do not recc anticoagulation at this time Started on amiodorone drip with improvement in his rate from 130s to 90s --> t ransitioned to amiodarone 200 mg PO BID Mild Pancreatitis- ruled out pt presented with hx of nausea and vomiting. no stones on imaging, no dilation of CBD, noted to have some enlargement of the pancreatic head CTAP on 01/13 with nl pancreas Plan - IV Fluids LR 85 cc/hr - held 2/2 increased O2 requirements - IV Morphine 0.5 mg q4hr (family and patient hesitant to give opioids given c/f over sedation and confusion) - APAP IV - cardiac, dysphagia 2 diet UTI - r/o Acute Urinary Retention BPH per patient daughter, pt is typically able to void without difficulty, he typically wears a diaper Dx - UA with Leukesterase + - Ucx NGTD Plan - cont tamsulosin 0.4 mg qd - paredes catheter placed at 0500 01/05 in the ED - Bladder training initiated 01/09 T2DM - well controlled A1c 6.9 (2024) Home Meds - Metformin 500 mg BID Plan - ISS step one ACHS - Bedside Glucose Checks ACHS CAD w hx CABG s/p Aortic valve replacement for aortic stenosis HFpEF (EF 50-55%- 10/2024) HTN Grade I diastolic dysfunction Plan - CARDS consulted, Dr. Dick - continue tele monitoring - hold anticoagulation - pt condition NOT stable enough for cholecystectomy - will f/u outpatient - metoprolol 100 mg qd - held 2/2 hypotension - sacubitril-valsartan 2 tab PO BID - held 2/2 hypotension - hold ASA 81 - hold Plavix 75 mg PO qd GERD Plan - famotidine 20 mg qhs Anxiety Depression Plan - cont home sertraline 50 mg po QAM Unspecified symptoms and signs involving the nervous system ?Parkinson's s/p benign intracranial tumor excision Plan pt will continue rehab at facility PT Consult, rec pt return to rehab for continued pt Electrolytes derangements -will replete as indicated Constipation - resolved - lactulose 20 daily kenji- hold for loose stools Checklist: Dispo: Med tele, s/p perc IR drain of GBwith scant drainage in accordion drain, found to be out of place on ct imaging, tube was replaced with better drain output. continues on IV abx,cefepime. hgb stable GOC discussion 01/13. Diet: Cardiac, dysphagia 2 mech alter (pt uses weighted utensils, Daughter rc has some at home that she brought for when pt ) he really likes ice cream and orange sherbert Bowel Reg: colace qd VTE ppx: SCD GI ppx: famotidine 20 mg qd Code status: dnr/dni Plan discussed with my attending Dr. Marivel Duncan MD PGY1
--- NOTE | 2025-01-15 14:32 | PC.SS ---
Rounding: on 10L O2, Plan for GOC with dtr
[2025-01-16] VITALS (15 sets, daily range): BP systolic 114–141; BP diastolic 64–90; PULSE 71–88; RESP 17–28; TEMP 36.1–36.9; O2SAT 90–100
[2025-01-16] MEDS: ACETAMINOPHEN IVPB 1,000 MG/100 ML VIAL 250 MG IV ×3 (00:03→12:20)
[2025-01-16] MEDS: ALBUTEROL/IPRATROPIUM (Duoneb) RT SOL 3 ML NEBU INH ×3 (01:25→18:46)
[2025-01-16 05:41] LABS: Basophils # (Auto) 0.1 Thou/mm3 (0.0-0.2); Basophils % (Auto) 0 % (0-2.5); Eosinophils # (Auto) 0.1 Thou/mm3 (0.0-0.5); Eosinophils % (Auto) 1 % (0-10); Hematocrit 29.2 % (41.0-53.0); Hemoglobin 9.0 g/dL (13.5-16.0); Immature Granulocytes Auto 0.36 Thou/mm3 (0.00-0.00); Lymphocytes # (Auto) 1.4 Thou/mm3 (1.0-4.8); Lymphocytes % (Auto) 9 % (10-50); Mean Corpuscular HGB Conc 30.8 g/dl (31.0-37.0); Mean Corpuscular Hemoglobin 27.6 pg (25.0-35.0); Mean Corpuscular Volume 90 fL (80-100); Monocytes # (Auto) 1.3 Thou/mm3 (0.0-0.8); Monocytes % (Auto) 8 % (0-12); Neutrophils # (Auto) 12.4 Thou/mm3 (1.8-7.7); Neutrophils % (Auto) 80 % (37-80); Nucleated Red Blood Cell # 0.00 Thou/mm3 (0.00-0.00); Nucleated Red Blood Cell % 0 /100 WBC (0); Platelet Count 320 Thou/mm3 (140-440); RDW Standard Deviation 48.1 fL (35.1-43.9); Red Blood Count 3.26 Miln/mm3 (4.50-5.90); White Blood Count 15.5 Thou/mm3 (3.8-10.6)
[2025-01-16 06:22] LABS: Alanine Aminotransferase 10 U/L (10-49); Albumin, Serum 3.2 gm/dL (3.4-4.8); Albumin/Globulin Ratio 1.0 (1.2-2.2); Alkaline Phosphatase 59 U/L (46-116); Anion Gap 9 (7-16); Aspartate Amino Transferase 23 U/L (0-34); BUN/Creatinine Ratio 25 Ratio (12-20); Bilirubin,Total 0.5 mg/dL (0.3-1.2); Blood Urea Nitrogen 20 mg/dL (9-23); Calcium 9.1 mg/dL (8.3-10.6); Calcium (Corrected) 9.7 mg/dL (8.5-10.1); Carbon Dioxide 30.5 mMol/L (20.0-31.0); Chloride 100 mMol/L (98-107); Creatinine (Component) 0.8 mg/dL (0.6-1.3); Estimated Creatinine Clearance 72.7 mL/min (>60); Globulin 3.2 gm/dL (2.3-3.5); Glucose 97 mg/dL (74-106); Magnesium 1.9 mg/dL (1.6-2.6); Osmolality,Calculated 280 (275-295); Phosphorous 3.8 mg/dL (2.4-5.1); Potassium 4.3 mMol/L (3.4-5.1); Sodium 139 mMol/L (136-145); Total Protein 6.4 gm/dL (5.7-8.2); eGFR > 60 See Note
--- NOTE | 2025-01-16 07:49 | ESPR_ITS ---
<Statement entered by Zachariah Orta MD - 01/25/25 08:39> I reviewed above note and agree with findings and plans. I have also personally examined the patient with medicine team and went over assessment and plan with medical team including internet marketing strategist and resident physician. <Statement entered by Bela Sales MD - 01/16/25 15:59> Pt is seen this morning, saturating on 10L O via HFNC. Pt expressed that he feels tired and wants to no longer be excessively poked and doesn't want to be in pain. Pt wants to be comfortable and not in the hospital. Pt reports SOB and abdominal pain. Informed the pt about moderate pleural effusions which likely contributes to his pain and SOB. Pt is agreeable for thoracentehsis. Pt is seen again s/p thoracenthesis, 600 cc of serosanguineous output sent to pleural fluid analysis and cytology. Post thora pt is saturating 98% on 2L O2. Patient was seen and examined by me personally. I have directly supervised and reviewed documentation by the team resident and agree with its findings. ------- Plan of care was discussed with the attending, Dr. Marivel Sales, PGY-2 Documentation for date of: 01/16/25 Subjective Subjective Interval history: NAEO. Spo2 95% on 10L 25% FiO2. Patient reports continued difficulty wtih taking deep breaths and pleuritic chest pain. After discussing the risks and benefits, patient agreed to a left thoracentesis to improve patient's comfortabilty. Exam Vital Signs Temp Pulse Resp BP Pulse Ox O2 Del Method O2 Flow Rate 97.8 F 71 18 121/70 91 L Nasal Cannula 10 01/16/25 04:00 01/16/25 06:45 01/16/25 06:45 01/16/25 04:00 01/16/25 06:45 01/16/25 04:00 01/16/25 06:45 FiO2 01/16/25 06:45 Narrative Exam GENERAL: no acute distress, A&Ox3, HEENT: Head AT/ NC. Mucous membranes dry. PERRL. NECK: Supple, no lymphadenopathy, no carotid bruits. CARDIOVASCULAR: RRR. Normal S1/S2, No m/r/g. No pitting edema of bilateral LEs. RESPIRATORY: bilateral lung base diminished breath sounds and crackles and L>R crackles to the mid lung field on HF nc 10 at 25% Fio2 GASTROINTESTINAL: Abdomen soft, no palpable masses. Bowel sounds present, no rebound no guarding. Accordion drain in place with minimal output GENITOURINARY: Extra skin on underside of penile shaft below frenulum, no erythema, no edema, no TTP MUSCULOSKELETAL:? No cyanosis or edema, no visible joint swelling. NEUROLOGICAL: CN grossly intact No focal deficits. Sensation intact, symmetric. PSYCHIATRIC: Awake and alert, not agitated, normal mood and affect. SKIN: No obvious rashes, no jaundice, poor turgor. Objective Labs 01/16/25 05:22 01/16/25 05:22 Labs: Laboratory Results - last 24 hr 01/16/25 05:22 WBC 15.5 H RBC 3.26 L Hgb 9.0 L Hct 29.2 L MCV 90 MCH 27.6 MCHC 30.8 L RDW Std Deviation 48.1 H Plt Count 320 D Neut % (Auto) 80 Lymph % (Auto) 9 L [place] % (Auto) 8 Eos % (Auto) 1 Baso % (Auto) 0 Neut # (Auto) 12.4 H Lymph # (Auto) 1.4 [place] # (Auto) 1.3 H Eos # (Auto) 0.1 Baso # (Auto) 0.1 Immature Gran # (Auto) 0.36 H Absolute Nucleated RBC 0.00 Immature Gran % 2 H Nucleated RBC % 0 Sodium 139 Potassium 4.3 Chloride 100 Carbon Dioxide 30.5 Anion Gap 9 BUN 20 Creatinine 0.8 Estim Creat Clear Calc 72.7 eGFR > 60 BUN/Creatinine Ratio 25 H Glucose 97 Calculated Osmolality 280 Calcium 9.1 Corrected Calcium 9.7 Phosphorus 3.8 Magnesium 1.9 Total Bilirubin 0.5 AST 23 ALT 10 Alkaline Phosphatase 59 Total Protein 6.4 Albumin 3.2 L Globulin 3.2 Albumin/Globulin Ratio 1.0 L ABG Interpretation ABG results: 01/05/25 20:02 ABG pH 7.38 ABG pCO2 44 ABG pO2 73 L ABG HCO3 26 ABG O2 Saturation 95 ABG Base Excess 0 Quality Measures Quality Measures VTE prophylaxis Advance care planning discussed with:: patient and child Assessment & Plan Assessment Current Active Medications: Generic Name Dose Route Start Last Admin Trade Name Freq PRN Reason Stop Dose Admin Acetaminophen 650 mg 01/12/25 08:39 11/19/25 20:31 Acetaminophen 325 Mg Tablet PO 02/04/25 16:47 650 mg On Hold: 01/13/25 09:06 Q6H PRN Administration Comment: SCHEDULED APAP ACTIVE fever > 100.3 and Pain Albuterol/Ipratropium 3 ml 01/09/25 19:00 01/16/25 06:44 Albuterol/Ipratropium (Duoneb) Rt Zuleima 3 Ml Nebu INH 02/08/25 18:59 Not Given Q6HRRT KENJI Amiodarone HCl 200 mg 01/08/25 09:00 01/15/25 20:50 Amiodarone Hcl 200 Mg Tablet PO 02/07/25 08:59 200 mg BID KENJI Administration Benzonatate 100 mg 01/15/25 08:35 Benzonatate 100 Mg Capsule PO 02/14/25 08:34 Q8HR PRN COUGH Protocol Dextrose 25 ml 01/05/25 16:55 Dextrose 50%-Water Inj 50 Ml Syringe IV 02/04/25 16:54 Q15MIN PRN BG 50-70 responsive npo pt Dextrose 50 ml 01/05/25 16:55 Dextrose 50%-Water Inj 50 Ml Syringe IV 02/04/25 16:54 Q15MIN PRN BG <50 OR BG <70 & pt unresponsive Furosemide 40 mg 01/15/25 09:00 01/15/25 08:32 Furosemide Inj 10 Mg/Ml 4ml Vial IVP 02/14/25 08:59 40 mg QDAY KENJI Administration Glucagon 1 mg 01/05/25 16:55 Glucagon Inj 1 Mg Vial IM Q15MIN PRN BG <70, and no IV access Acetaminophen 1,000 mg in 100 mls @ 250 mls/hr 01/15/25 18:00 01/16/25 05:45 Ofirmev Inj IV 01/16/25 12:23 Infused Q6H KENJI Infusion Insulin Human Lispro 0 unit 01/06/25 17:00 01/15/25 20:51 Insulin Lispro (Admelog) 1 Unit/0.01 Ml Unit SC 02/05/25 16:59 Not Given ACHS [facility] Protocol Ondansetron HCl 4 mg 01/05/25 16:48 01/13/25 15:28 Ondansetron Inj 2 Mg/Ml Inj 2 Ml IVP 02/04/25 16:47 4 mg Q6H PRN Administration NAUSEA OR VOMITING Protocol Pantoprazole Sodium 40 mg 01/14/25 09:00 01/15/25 08:36 Pantoprazole 40 Mg Tablet PO 02/13/25 08:59 40 mg QDAY KENJI Administration Tramadol HCl 50 mg 01/14/25 16:01 01/14/25 20:34 Tramadol Hcl 50 Mg Tablet PO 01/19/25 16:00 50 mg Q6HR PRN Administration moderat to severe pain 6-10 Plan Mr. Johnson is a 84-year-old gentleman with history of CAD with hx of CABG (on asa and plavix) hypertension,? 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 found to have left pna, modified antibiotics d/c cipro and start cefipime iv (has completed 5 days, but gb drain was out of place so will continue iv abx for for systemic control and simultaneous source control now that the drain has better output. BL pleural effusions L>R was not amenable to thoracentesis given no clear pocket for needle to be placed without risk of puncturing the lung. 01/13 [facility] meeting with patient, his daughter rc, and sister migdalia, and , nursing and medicine team, pt and family are considering their options and considering hospice given patient may not return to his functional baseline prior to presenting to the ED for acute cholecystitis. Acute hypoxic respiratory failure 2/2 CAP w Large pleural effusion atelectesis patient remains on HF satting well, it has been slow to wean likely 2/2 to bed bound and deconditioning from acute cholecystitis infection (see below), patient endorses productive cough with yellowish sputum 01.13 pt continues to endorse having pleuritic chest pain, worse with inspiration, continues on high flow. pt amenable to thoracentesis, however no clear pocket of fluid without lung tissue in view, so no thoracentesis was performed. pt continues on High flow, Dx - CXR with Significant left lung pneumonia and ? overlapping pleural effusion - ct chest abdomen/pelvis w and wo contrast, with BL pleural effusions L>R - 01/15 repeat cxr with large L effusion and prominent vascular congestion Tx - US guided thoracentesis attempted 01/13, unable to perform - Lasix 40 mg IV BID. - IV Cefepime 2gm q12hr (01/10- ) minimum 5 days - completed doxycycline 100 mg BID 01/11- 01/15) (5 day minimum) - Chest PT (percussion) - d/c Guafenecin 100mg TID, pt does not want to take - Incentive spirometry - On high flow, plan to wean as tolerated, on 10-15 L 30 fiO2 - s/p left thoracentesis (600 cc) 01/16. Pending fluid analysis Pain Mgmt - Morphine 1mg x1 given for pain unrelieved with IV APAP q6 scheduled, and keterolac 15 mg IV q6hr try to avoid opioids given age and prior concerns for delerium and oversedation, pt is very sensitive to opioids. - d/c given hgb drop and concern for possible lower gi bleed keterolac 15 mg IV q6hr prn (per pharmacy, do not give keterolac for greater than total of 5 days given increased risk of bleeding) (01/13- ) - IV APAP q6hr scheduled Hematachezia X1 Concern for Lower GI bleed Hgb stable ,Chronic normocytic anemia pt had rapid response called 01/13 for blood noted in his stool. pt vss, nl lactic acid, hgb stable at 10. no dizziness no lightheadedness. pt does report fatigue pt reports that he has had colonoscopy in the past 01/14 Hgb 8.8 from 10.1, stable at 9 - type and screen done - transfuse if Hgb <7 - consider GI consult if hgb drops for colonoscopy, be sure to ask patient if it is within his goals of care. Sepsis 2/2 -resolving Acute Cholecystitis- source control Malaise and fatigue- improved Dx - CTAP with Atelectasis versus mild pneumonia at the lung bases Acute acalculous cholecystitis, - GB US with obvious thickening and edema involving the gallbladder wall Common bile duct is enlarged 0.9 cm no stones Pancreatic head is enlarged 3.8 cm - MRCP Cholecystitis pattern, gallbladder sludge ball versus stone Extrahepatic biliary tract dilatation without definite common hepatic or common bile duct stones and Mild acute pancreatitis with benign-appearing cystic change in the pancreatic head - Surgery consulted (Dr. Ponce), appreciate recs, no surgery indicated at this time, IV ABx continue - CARDS consulted given need for cardiac clearance if pt were to proceed with surgery outpatient potentially. - Gallbladder fluid cx: Klebsiella oxytoca, sensitive to Ciprofloxacin - Blood cx and Urine cx NGTD - 01/12 CTAP shows drain is not in the GB, consider ct guided abscess drainage for replacing the tube in the appropriate position, WBC with slight increase 10-->13. pt continues to have RUQ tenderness Tx - s/p IR biliary drainage, 01/06, plan for outpatient removal of GB drain with Dr. Ponce in clinic. - 01/13 ct guided abscess drainage again to reposition the tube after US thora for #pleural effusions, see above - IV Cefepime 2gm q12hr (01/10- ) 5 days typically the duration if there was good source control ie cholecystectomy. given pt is not a good surgical candidate, and patient had poor source control with initial percutaneous drain that was initally placed but was subsequently displaced and repositioned on 01/13 (leukocytosis was uptrending) - d/c IV Vanco (01/05- 01/07) - d/c IV Zosyn 3.375 q8hr (01/05-01/08) - d/c IV Ciprofloxacin 400 mg IV BID (01/08-01/10) - Mupirocin TID for +MRSA nares - IV Fluids, LR 85 cc/hr - held 2/2 increased O2 requirements - Zofran 4 mg IV PRN - APAP IV scheduled for pain q6hr, lfts stable - Delirium precautions, pt with waxing and waning mentation, noted to be more alert and oriented in the evening. Afib with RVR - rate controlled pt had rapid response overnight with afib with rvr rate wnl, EKG with qtc 475 (per cardiology goal to maintain qtc <490) be sure to consider whether medications are qtc prolonging agents Plan Cards consulted, do not recc anticoagulation at this time Started on amiodorone drip with improvement in his rate from 130s to 90s --> t ransitioned to amiodarone 200 mg PO BID Mild Pancreatitis- ruled out pt presented with hx of nausea and vomiting. no stones on imaging, no dilation of CBD, noted to have some enlargement of the pancreatic head CTAP on 01/13 with nl pancreas Plan - IV Fluids LR 85 cc/hr - held 2/2 increased O2 requirements - IV Morphine 0.5 mg q4hr (family and patient hesitant to give opioids given c/f over sedation and confusion) - APAP IV - cardiac, dysphagia 2 diet UTI - r/o Acute Urinary Retention BPH per patient daughter, pt is typically able to void without difficulty, he typically wears a diaper Dx - UA with Leukesterase + - Ucx NGTD Plan - cont tamsulosin 0.4 mg qd - paredes catheter placed at 0500 01/05 in the ED - Bladder training initiated 01/09 T2DM - well controlled A1c 6.9 (2024) Home Meds - Metformin 500 mg BID Plan - ISS step one ACHS - Bedside Glucose Checks ACHS CAD w hx CABG s/p Aortic valve replacement for aortic stenosis HFpEF (EF 50-55%- 10/2024) HTN Grade I diastolic dysfunction Plan - CARDS consulted, Dr. Dick - continue tele monitoring - hold anticoagulation - pt condition NOT stable enough for cholecystectomy - will f/u outpatient - metoprolol 100 mg qd - held 2/2 hypotension - sacubitril-valsartan 2 tab PO BID - held 2/2 hypotension - hold ASA 81 - hold Plavix 75 mg PO qd GERD Plan - famotidine 20 mg qhs Anxiety Depression Plan - cont home sertraline 50 mg po QAM Unspecified symptoms and signs involving the nervous system ?Parkinson's s/p benign intracranial tumor excision Plan pt will continue rehab at facility PT Consult, rec pt return to rehab for continued pt Electrolytes derangements -will replete as indicated Constipation - resolved - lactulose 20 daily kenji- hold for loose stools Checklist: Dispo: Med tele, s/p perc IR drain of GBwith scant drainage in accordion drain, found to be out of place on ct imaging, tube was replaced with better drain output. continues on IV abx,cefepime. hgb stable GOC discussion 01/13. Diet: Cardiac, dysphagia 2 mech alter (pt uses weighted utensils, Daughter rc has some at home that she brought for when pt ) he really likes ice cream and orange sherbert Bowel Reg: colace qd VTE ppx: SCD GI ppx: famotidine 20 mg qd Code status: dnr/dni Plan discussed with Dr. Chayito Sales and Dr. Marivel Roldan MD PGY1
[2025-01-16] MEDS: PANTOPRAZOLE 40 MG TABLET PO (09:39)
[2025-01-16] MEDS: AMIODARONE HCL 200 MG TABLET PO ×2 (09:39→20:28)
[2025-01-16] MEDS: FUROSEMIDE INJ 10 MG/ML 4ML VIAL 40 MG IVP (09:40)
--- NOTE | 2025-01-16 13:29 | XR_ITS ---
EXAMINATION: AP chest single view TECHNIQUE: AP portable semiupright chest single view Date and time: January 16, 2025, 1354 hours INDICATIONS: Post thoracentesis. FINDINGS: No pneumothorax post thoracentesis Moderate left pleural fluid Minor prominence left ventricle CABG Significant vascular congestion IMPRESSION: No pneumothorax post thoracentesis Significant vascular congestion
--- NOTE | 2025-01-16 13:36 | PD.RESPROC ---
PROCEDURES: Procedure Date / Time 01/16/25 1321 Procedural Time Out Time out performed: 1321 Thoracentesis Indication(s): symptomatic Pleural Effusion Informed consent obtained from: patient Time out done, and the following verified: correct patient, side and site, procedure and patient position Ultrasound used: Yes Procedure location: lt. post pleual space Amount pleural fluid removed (ml): 600 EBL(ml): 0 Procedure comment: Procedure: Thoracentesis Performed by: Sara Roldan MD PGY1 Supervised by: Dr. Stormy Sweeney Indication: Symptomatic left pleural effusion Consent: Informed consent was obtained. Risks and benefits were discussed with patient, and patient signed consent form. Procedure: Patient was positioned sitting upright. Left thorax was prepped and draped in sterile fashion. Ultrasound guidance was used to identify an appropriate fluid pocket in the left post pleural space. Local anesthesia was achieved with 8 cc lidocaine. A thoracentesis catheter was advanced into the pleural space, and red-blown pleural fluid was aspirated. The catheter was connected to vacuum bottles for drainage. A total of 600 mL of pleural fluid was removed. The catheter was withdrawn and a sterile dressing was applied. BP, HR, and spO2 were monitored throughout the procedure, and patient remained hemodynamically stable. No immediate complications were noted, and patient tolerated the procedure well. Post-thoracentesis CXR showed improved left pleural effusion, no pneumothorax. Specimens: Pleural fluid sent for cell count/differential, albumin, total protein, LDH, gram stain and culture Estimated blood loss: Minimal Complications: None Disposition: Patient tolerated the procedure well. Post-procedure vitals were stable. Sara Roldan MD PGY1
[2025-01-16 13:51] LABS: LDH (Lactate Dehydrogenase) 227 U/L (120-246)
[2025-01-16 15:38] LABS: Pleural Fluid Appearance Cloudy; Pleural Fluid Color Red
[2025-01-16 15:39] LABS: Pleural Fluid Polynuclear 51 %; Pleural Fluid RBC 18000 /cmm; Pleural Fluid WBC 1636 /cmm
[2025-01-16 15:40] LABS: Pleural Fluid Mononuclear 49 %
[2025-01-16 15:43] LABS: Amylase,Pleural Fluid 73 IU/L; Glucose,Pleural Fluid 142 mg/dL; LDH,Pleural Fluid 346 IU/L; Protein Total,Pleural Fluid 3.4 g/dL
[2025-01-16 16:05] LABS: pH,Body Fluid 7.5
--- NOTE | 2025-01-16 16:45 | PC.SS ---
Discharge round: Pending daughter's decision for SN[facility] on hospice with paying 4K Medi[employer] share of cost, back to [facility] with no hospice. On room air. Per daughter, the patient has Med[employer] with a 4K share of cost. Patient's income is 6K a month.
[2025-01-16] MEDS: KETOROLAC INJ 30 MG/ML VIAL 15 MG IVP (18:18)
[2025-01-16] MEDS: ACETAMINOPHEN 500 MG TABLET 1000 MG PO (18:25)
[2025-01-17] VITALS (9 sets, daily range): BP systolic 122–158; BP diastolic 67–86; PULSE 75–90; RESP 18–28; TEMP 36–36.3; O2SAT 96–100
[2025-01-17] MEDS: ALBUTEROL/IPRATROPIUM (Duoneb) RT SOL 3 ML NEBU INH ×3 (00:07→12:43)
[2025-01-17] MEDS: ACETAMINOPHEN 500 MG TABLET 1000 MG PO ×3 (00:30→13:05)
--- NOTE | 2025-01-17 08:03 | PD.RESPRO ---
Documentation for date of: 01/17/25 Subjective Subjective Interval history: RR 18-28 Has maintained >95% on 2L NC after thoracentesis yesterday Exam Vital Signs Temp Pulse Resp BP Pulse Ox O2 Del Method O2 Flow Rate 96.9 F 85 28 H 131/67 H 100 Nasal Cannula 2 01/17/25 04:00 01/17/25 06:26 01/17/25 06:26 01/17/25 04:00 01/17/25 06:26 01/17/25 04:00 01/17/25 06:26 FiO2 25 01/16/25 13:42 Narrative Exam General: No acute distress, fatigued Eye: PERRL, EOMI, normal conjunctiva, no scleral icterus HENT: Normocephalic, atraumatic, normal hearing, moist oral mucosa Neck: Supple, non-tender, no JVD, no lymphadenopathy Lungs: bilateral lung base diminished breath sounds and crackles and L>R crackles to the mid lung field on HF nc 10 at 25% Fio2 Heart: Normal S1 and S2, no S3 or S4 appreciated. Normal rate and regular rhythm, no murmurs, rubs gallops, or edema. Peripheral pulses intact bilaterally, capillary refill brisk distally Abdomen: Soft, non-tender, non-distended, normal bowel sounds. No guarding or rebound tenderness. Musculoskeletal: Normal range of motion and strength, no tenderness or swelling Skin: Skin is warm, dry, no rashes or lesions. Neurologic: Alert, awake and oriented x3. CN II-XII grossly intact. No focal neuro deficits. No signs of meningeal irritation noted. Psychiatric: Cooperative, appropriate mood and affect Objective Labs 01/16/25 05:22 01/16/25 05:22 Labs: Laboratory Results - last 24 hr 01/16/25 01/16/25 05:22 13:00 Lactate Dehydrogenase 227 Fluid pH 7.5 Pleural Color Red Pleural Appearance Cloudy Pleural WBC 1636 Pleural RBC 86916 Pleural Polynuclear WBC 51 Pleural Mononuclear WBC 49 Pleural Total Protein 3.4 Pleural LDH 346 Pleural Glucose 142 Pleural Amylase 73 ABG Interpretation ABG results: 01/05/25 20:02 ABG pH 7.38 ABG pCO2 44 ABG pO2 73 L ABG HCO3 26 ABG O2 Saturation 95 ABG Base Excess 0 Quality Measures Quality Measures VTE prophylaxis Assessment & Plan Assessment Current Active Medications: Generic Name Dose Route Start Last Admin Trade Name Zion PRN Reason Stop Dose Admin Acetaminophen 650 mg 01/12/25 08:39 01/12/25 20:31 Acetaminophen 325 Mg Tablet PO 02/04/25 16:47 650 mg On Hold: 01/13/25 09:06 Q6H PRN Administration Comment: SCHEDULED APAP ACTIVE fever > 100.3 and Pain Acetaminophen 1,000 mg 01/16/25 18:00 01/17/25 06:04 Acetaminophen 500 Mg Tablet PO 02/15/25 17:59 1,000 mg Q6HR KENJI Administration Albuterol/Ipratropium 3 ml 01/09/25 19:00 01/17/25 06:22 Albuterol/Ipratropium (Duoneb) Rt Zuleima 3 Ml Nebu INH 02/08/25 18:59 3 ml Q6HRRT KENJI Administration Amiodarone HCl 200 mg 01/08/25 09:00 01/16/25 20:28 Amiodarone Hcl 200 Mg Tablet PO 02/07/25 08:59 200 mg BID KENJI Administration Benzonatate 100 mg 01/15/25 08:35 Benzonatate 100 Mg Capsule PO 02/14/25 08:34 Q8HR PRN COUGH Protocol Dextrose 25 ml 01/05/25 16:55 Dextrose 50%-Water Inj 50 Ml Syringe IV 02/04/25 16:54 Q15MIN PRN BG 50-70 responsive npo pt Dextrose 50 ml 01/05/25 16:55 Dextrose 50%-Water Inj 50 Ml Syringe IV 02/04/25 16:54 Q15MIN PRN BG <50 OR BG <70 & pt unresponsive Furosemide 40 mg 01/15/25 09:00 01/16/25 09:40 Furosemide Inj 10 Mg/Ml 4ml Vial IVP 02/14/25 08:59 40 mg QDAY KENJI Administration Glucagon 1 mg 01/05/25 16:55 Glucagon Inj 1 Mg Vial IM Q15MIN PRN BG <70, and no IV access Insulin Human Lispro 0 unit 01/06/25 17:00 01/17/25 07:57 Insulin Lispro (Admelog) 1 Unit/0.01 Ml Unit SC 02/05/25 16:59 Not Given ACHS KENJI Protocol Ondansetron HCl 4 mg 01/05/25 16:48 01/13/25 15:28 Ondansetron Inj 2 Mg/Ml Inj 2 Ml IVP 02/04/25 16:47 4 mg Q6H PRN Administration NAUSEA OR VOMITING Protocol Pantoprazole Sodium 40 mg 01/14/25 09:00 01/16/25 09:39 Pantoprazole 40 Mg Tablet PO 02/13/25 08:59 40 mg QDAY KENJI Administration Tramadol HCl 50 mg 01/16/25 17:43 01/17/25 03:08 Tramadol Hcl 50 Mg Tablet PO 01/19/25 16:00 50 mg Q6HR PRN Administration PAIN SCALE 4-10(Mod-Sev Plan Mr. Johnson is a 84-year-old gentleman with history of CAD with hx of CABG (on asa and plavix) hypertension,? 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 found to have left pna, modified antibiotics d/c cipro and start cefipime iv (has completed 5 days, but gb drain was out of place so will continue iv abx for for systemic control and simultaneous source control now that the drain has better output. BL pleural effusions L>R was not amenable to thoracentesis given no clear pocket for needle to be placed without risk of puncturing the lung. 01/13 [facility] meeting with patient, his daughter rc, and sister migdalia, and , nursing and medicine team, pt and family are considering their options and considering hospice given patient may not return to his functional baseline prior to presenting to the ED for acute cholecystitis. Acute hypoxic respiratory failure 2/2 CAP w Large pleural effusion atelectesis patient remains on HF satting well, it has been slow to wean likely 2/2 to bed bound and deconditioning from acute cholecystitis infection (see below), patient endorses productive cough with yellowish sputum 01.13 pt continues to endorse having pleuritic chest pain, worse with inspiration, continues on high flow. pt amenable to thoracentesis, however no clear pocket of fluid without lung tissue in view, so no thoracentesis was performed. pt continues on High flow, Dx - CXR with Significant left lung pneumonia and ? overlapping pleural effusion - ct chest abdomen/pelvis w and wo contrast, with BL pleural effusions L>R - 01/15 repeat cxr with large L effusion and prominent vascular congestion Tx - US guided thoracentesis attempted 01/13, unable to perform - Lasix 40 mg IV BID. - IV Cefepime 2gm q12hr (01/10- ) minimum 5 days - completed doxycycline 100 mg BID 01/11- 01/15) (5 day minimum) - Chest PT (percussion) - d/c Guafenecin 100mg TID, pt does not want to take - Incentive spirometry - On high flow, plan to wean as tolerated, on 10-15 L 30 fiO2 - s/p left thoracentesis (600 cc) 01/16. Pending fluid analysis Pain Mgmt - Morphine 1mg x1 given for pain unrelieved with IV APAP q6 scheduled, and keterolac 15 mg IV q6hr try to avoid opioids given age and prior concerns for delerium and oversedation, pt is very sensitive to opioids. - d/c given hgb drop and concern for possible lower gi bleed keterolac 15 mg IV q6hr prn (per pharmacy, do not give keterolac for greater than total of 5 days given increased risk of bleeding) (01/13- ) - IV APAP q6hr scheduled Hematachezia X1 Concern for Lower GI bleed Hgb stable ,Chronic normocytic anemia pt had rapid response called 01/13 for blood noted in his stool. pt vss, nl lactic acid, hgb stable at 10. no dizziness no lightheadedness. pt does report fatigue pt reports that he has had colonoscopy in the past 01/14 Hgb 8.8 from 10.1, stable at 9 - type and screen done - transfuse if Hgb <7 - consider GI consult if hgb drops for colonoscopy, be sure to ask patient if it is within his goals of care. Sepsis 2/2 -resolving Acute Cholecystitis- source control Malaise and fatigue- improved Dx - CTAP with Atelectasis versus mild pneumonia at the lung bases Acute acalculous cholecystitis, - GB US with obvious thickening and edema involving the gallbladder wall Common bile duct is enlarged 0.9 cm no stones Pancreatic head is enlarged 3.8 cm - MRCP Cholecystitis pattern, gallbladder sludge ball versus stone Extrahepatic biliary tract dilatation without definite common hepatic or common bile duct stones and Mild acute pancreatitis with benign-appearing cystic change in the pancreatic head - Surgery consulted (Dr. Ponce), appreciate recs, no surgery indicated at this time, IV ABx continue - CARDS consulted given need for cardiac clearance if pt were to proceed with surgery outpatient potentially. - Gallbladder fluid cx: Klebsiella oxytoca, sensitive to Ciprofloxacin - Blood cx and Urine cx NGTD - 01/12 CTAP shows drain is not in the GB, consider ct guided abscess drainage for replacing the tube in the appropriate position, WBC with slight increase 10-->13. pt continues to have RUQ tenderness Tx - s/p IR biliary drainage, 01/06, plan for outpatient removal of GB drain with Dr. Ponce in clinic. - 01/13 ct guided abscess drainage again to reposition the tube after US thora for #pleural effusions, see above - IV Cefepime 2gm q12hr (01/10- ) 5 days typically the duration if there was good source control ie cholecystectomy. given pt is not a good surgical candidate, and patient had poor source control with initial percutaneous drain that was initally placed but was subsequently displaced and repositioned on 01/13 (leukocytosis was uptrending) - d/c IV Vanco (01/05- 01/07) - d/c IV Zosyn 3.375 q8hr (01/05-01/08) - d/c IV Ciprofloxacin 400 mg IV BID (01/08-01/10) - Mupirocin TID for +MRSA nares - IV Fluids, LR 85 cc/hr - held 2/2 increased O2 requirements - Zofran 4 mg IV PRN - APAP IV scheduled for pain q6hr, lfts stable - Delirium precautions, pt with waxing and waning mentation, noted to be more alert and oriented in the evening. Afib with RVR - rate controlled pt had rapid response overnight with afib with rvr rate wnl, EKG with qtc 475 (per cardiology goal to maintain qtc <490) be sure to consider whether medications are qtc prolonging agents Plan Cards consulted, do not recc anticoagulation at this time Started on amiodorone drip with improvement in his rate from 130s to 90s --> transitioned to amiodarone 200 mg PO BID Mild Pancreatitis- ruled out pt presented with hx of nausea and vomiting. no stones on imaging, no dilation of CBD, noted to have some enlargement of the pancreatic head CTAP on 01/13 with nl pancreas Plan - IV Fluids LR 85 cc/hr - held 2/2 increased O2 requirements - IV Morphine 0.5 mg q4hr (family and patient hesitant to give opioids given c/f over sedation and confusion) - APAP IV - cardiac, dysphagia 2 diet UTI - r/o Acute Urinary Retention BPH per patient daughter, pt is typically able to void without difficulty, he typically wears a diaper Dx - UA with Leukesterase + - Ucx NGTD Plan - cont tamsulosin 0.4 mg qd - paredes catheter placed at 0500 01/05 in the ED - Bladder training initiated 01/09 T2DM - well controlled A1c 6.9 (2024) Home Meds - Metformin 500 mg BID Plan - ISS step one ACHS - Bedside Glucose Checks ACHS CAD w hx CABG s/p Aortic valve replacement for aortic stenosis HFpEF (EF 50-55%- 10/2024) HTN Grade I diastolic dysfunction Plan - CARDS consulted, Dr. Dick - continue tele monitoring - hold anticoagulation - pt condition NOT stable enough for cholecystectomy - will f/u outpatient - metoprolol 100 mg qd - held 2/2 hypotension - sacubitril-valsartan 2 tab PO BID - held 2/2 hypotension - hold ASA 81 - hold Plavix 75 mg PO qd GERD Plan - famotidine 20 mg qhs Anxiety Depression Plan - cont home sertraline 50 mg po QAM Unspecified symptoms and signs involving the nervous system ?Parkinson's s/p benign intracranial tumor excision Plan pt will continue rehab at facility PT Consult, rec pt return to rehab for continued pt Electrolytes derangements -will replete as indicated Constipation - resolved - lactulose 20 daily kenji- hold for loose stools Checklist: Dispo: Med tele, s/p perc IR drain of GBwith scant drainage in accordion drain, found to be out of place on ct imaging, tube was replaced with better drain output. continues on IV abx,cefepime. hgb stable GOC discussion 01/13. Diet: Cardiac, dysphagia 2 mech alter (pt uses weighted utensils, Daughter rc has some at home that she brought for when pt ) he really likes ice cream and orange sherbert Bowel Reg: colace qd VTE ppx: SCD GI ppx: famotidine 20 mg qd Code status: dnr/dni Plan discussed with Dr. Chayito Sales and Dr. Marivel Roldan MD PGY1
[2025-01-17] MEDS: AMIODARONE HCL 200 MG TABLET PO (08:09)
[2025-01-17] MEDS: PANTOPRAZOLE 40 MG TABLET PO (08:09)
[2025-01-17] MEDS: FUROSEMIDE INJ 10 MG/ML 4ML VIAL 40 MG IVP (08:09)
--- NOTE | 2025-01-17 09:07 | PC.SS ---
DIRECTOR COMMERCIAL SALES submitted SNF referrals on [facility]. Patient to d/c to SNF with comfort measures.
--- NOTE | 2025-01-17 10:47 | ESDS_ITS ---
<Statement entered by Zachariah Orta MD - 01/25/25 08:40> I reviewed above note and agree with findings and plans. I have also personally examined the patient with medicine team and went over assessment and plan with medical team including direct marketing intern and resident physician. Planned Discharge Date 01/17/25 DS: Providers Provider Date of admission: 01/05/25 17:01 Primary care physician: Damon Ann MD Admitting Provider: Abraham Hargrove MD Attending Provider on Admission: Zachariah Orta MD Consults: 01/05/25 18:14 Referral Physical Therapy Routine Comment: Physician Instructions: Instructions: has some neuro deficits, but was in rehab. 01/05/25 19:08 Referral Respiratory Therapy Stat Comment: Instructions: please start on high flow, titrate as indicated 01/05/25 19:47 Referral Registered Dietitian Routine Comment: 01/05/25 23:02 Referral Speech Therapy Routine Comment: 01/06/25 13:45 Consult to Cardiology Routine Comment: Pre-op cardiac clearance Consulting Provider: Power Araiza 01/13/25 09:21 Referral Wound Care Routine Comment: sacral wound, bed bound 01/13/25 14:06 Referral Nutritional Services Routine Comment: DTI to coccyx Attending Provider on DC: Dr. Zachariah Orta Discharging Provider: Sara Roldan MD DS: Diagnosis Problem List Completed Was Problem List Reviewed/Reconciled?: Yes Hospital Course Hospital Course Hospital course: Hospital Course Mr. Johnson is an 84 y/o male with PMH CAD s/p CABG (follows with Dr. Araiza), HTN, HFpEF, and Parkinsonian like symptoms who presented to the ED on 01/05 with nausea, vomiting, and diarrhea for 3 days. Associated with RUQ tenderness, fatigue, and diffuse weakness. Gallbladder US and MRCP findings were consistent with acalculous cholecystits and mild pancreatitis, no definitive choledocholithiasis. Surgery was consulted, but patient was deemed a poor surgical candidate given his comorbidities. Patient was started on IV fluids and IV antibiotics (IV Zosyn), and a percutaneous accordion drain was placed on 01/06 with readjustment of placement 01/13. Gallbladder fluid cultures grew Klebsiella oxytoca, and IV abx were switched to ciprofoxacin. Blood and urine cx NGTD. Patient was found to have acute hypoxic respiratory failure secondary to community acquired pneumonia. IV fluids were held due to increasing oxygen req uirements, and patient was placed on high flow nasal cannula. Throughout hospitalization, patient developed b/l pleural effusions and IV cefepime was started in addition to supportive measures including incentive spirometry, guaifenesin, and percussive chest PT. IV Doxycycline was later added for atypical coverage given uptrending leukocytosis. Repeat imaging showed worsening pleural effusion L>R. Patient had worsening pleuritic pain with inspiration and was unable to wean off HFNC. IV Lasix was given for pleural effusions and vascular congestion seen in imaging. Ultrasound guided thoracentesis was performed on 01/16, draining 600 cc of serosanguinous fluid. After this procedure patient was able to be weaned off of HFNC and maintained an appropriate spO2 on 2L NC. Pleural fluid analysis skewed due to IV lasix administration, Light's criteria positive for exudative effusion, but characteristics of fluid analysis most consistent with diuretic-concentrated pseudo-exudate/transudative effusion. Pending cytology. On 01/07 patient had a rapid response for atrial fibrillation with RVR. Amiodarone drip was started for rate control and subsequently transitioned on PO amiodarone. Amiodarone was successful in controlling rate. Cardiology was consulted, and did not recommend starting anticoagulation at that time. Aspirin and plavix were held throughout hospitalization, per cardiology recs. On 01/13 patient had a rapid response for hematochezia. Vitals and hemoglobin remained stable. After goals of care discussion on 01/14 with patient and patient's daughter, Sonam, patient decided that he did not want to proceed with colonoscopy. He expressed that he wanted the focus of his care to be on comfort rather than diagnostic and therapeutic approach to management. Pt also expressed that he does not want to return to the hospital for any interventions including thoracenthesis. Patient hemodynamically stable, spO2 appropriate on 2L NC. Labs reviewed and stable. Patient stable and medically cleared for discharge to SNF. Patient to follow up with general surgeon Dr. Chayito Quesada to remove GB accordion drain. Diagnoses Acute acalculous cholecystitis s/p accordion drain placement 01/06 Acute hypoxic respiratory failure CAP Large pleural effusion L>R - improved Hematachezia c/f lower GI bleed Chronic normocytic anemia Afib with RVR - rate controlled Acute pancreatitis - resolved T2DM - well controlled CAD w hx CABG Aortic stenosis s/p aortic valve replacement HFpEF (EF 50-55%- 10/2024) HTN BPH GERD Anxiety Depression Parkinson like symptoms Hx Benign intracranial tumor s/p excision Electrolytes derangements - resolved Constipation - resolved Discharge Instructions - Patient to be discharged to SNF - F/U with Dr. Ponce for GB accordion drain - Hold Aspirin and Plavix - Continue taking amiodarone 200 mg twice daily for afib Sara Roldan MD PGY1 Time Spent with Patient Time attestation: Total time spent providing and/or coordinating discharge services: Time spent: Greater than 30 minutes Exam Vital Signs Temp Pulse Resp BP Pulse Ox O2 Del Method O2 Flow Rate 96.8 F 86 24 H 122/86 H 96 Nasal Cannula 3 01/17/25 08:00 01/17/25 08:09 01/17/25 08:00 01/17/25 08:09 01/17/25 08:00 01/17/25 08:00 01/17/25 08:00 FiO2 25 01/16/25 13:42 Narrative Exam GENERAL: no acute distress, A&Ox3, HEENT: Head AT/ NC. Mucous membranes dry. PERRL. NECK: Supple, no lymphadenopathy, no carotid bruits. CARDIOVASCULAR: RRR. Normal S1/S2, No m/r/g. No pitting edema of bilateral LEs. RESPIRATORY: bilateral lung base diminished breath sounds, spO2 96% on 2L NC GASTROINTESTINAL: Abdomen soft, no palpable masses. Bowel sounds present, no rebound no guarding. Accordion drain in place with minimal output GENITOURINARY: Extra skin on underside of penile shaft below frenulum, no erythema, no edema, no TTP MUSCULOSKELETAL:? No cyanosis or edema, no visible joint swelling. NEUROLOGICAL: CN grossly intact No focal deficits. Sensation intact, symmetric. PSYCHIATRIC: Awake and alert, not agitated, normal mood and affect. SKIN: No obvious rashes, no jaundice, poor turgor. Discharge Plan Plan Patient Disposition: Xfer Skilled Nsg Fac ([facility]) Patient condition on transfer: Stable Care Plan Goals: - Patient to be discharged to SNF - Follow up with Dr. Ponce for gallbladder accordion drain - Hold Aspirin and Plavix - Continue taking amiodarone 200 mg twice daily for afib Prescriptions/Referrals Prescriptions/Med Rec: New furosemide [Lasix] 20 mg tablet 20 mg PO QDAY Qty: 30 0RF Continued acetaminophen 325 mg Tablet 650 mg PO Q6H PRN (Reason: fever or pain) 90 Days Qty: 90 0RF atorvastatin 20 mg Tablet 20 mg PO HS 90 Days Qty: 90 3RF lidocaine 5 % adhesive patch,medicated 1 patch topical QDAY 30 Days Qty: 30 1RF Rx Instructions: leave on most painful area for up to 12 hrs folic acid 1 MG tablet 1 mg PO QPM 90 Days Qty: 90 3RF sertraline 50 mg tablet 50 mg PO QAM Qty: 90 0RF C Complex 1,000 mg tablet extended release 1,000 mg PO QDAY 90 Days Qty: 90 3RF Rx Instructions: Take with iron pill famotidine 20 mg Tablet 20 mg PO QPM Qty: 90 3RF metformin 500 mg tablet 500 mg PO BID 90 Days Qty: 180 2RF Rx Instructions: Take with larger meals. tamsulosin 0.4 mg Capsule 0.4 mg PO QDAY 90 Days Qty: 90 0RF primidone 50 mg Tablet 50 mg PO QPM metoprolol succinate 100 mg tablet extended release 24 hr 100 mg PO QDAY Rx Instructions: hold if SBP<100, DBP<60, HR <60 ondansetron 4 mg tablet,disintegrating 4 mg PO Q8H PRN (Reason: nausea and vomiting) Rx Instructions: do not exceed 3 doses per day magnesium hydroxide [Milk of Magnesia] 400 mg/5 mL suspension 30 ml PO QDAY PRN (Reason: constipation) Rx Instructions: give if no BM for 3 days, bisacodyl [Dulcolax (bisacodyl)] 10 mg suppository 10 mg [place] QDAY PRN (Reason: constipation) Rx Instructions: if no BM in 3 days and MOM not effective ascorbic acid (vitamin C) [C-500] 500 mg tablet 1,000 mg PO QDAY Changed ferrous sulfate 325 mg (65 mg iron) Tablet,Delayed Release (Dr/Ec) 325 mg PO Q OTHER DAY 90 Days Qty: 45 3RF Rx Instructions: Must take with Vitamin C Held aspirin [Ecotrin Low Strength] 81 mg tablet,delayed release (DR/EC) 81 mg PO QDAY 90 Days Qty: 90 3RF Hold Instructions: Resume on 02/02/25. Hold until you see your PCP due to blood in your stool clopidogrel 75 mg Tablet 75 mg PO QPM 90 Days Qty: 90 0RF Hold Instructions: Resume on 02/02/25. Please hold until you see PCP, due to blood in your stool sacubitril-valsartan [Entresto] 24-26 mg Tablet 2 tab PO BID Hold Instructions: Resume on 02/02/25. Hold until you see PCP Rx Instructions: hold if SBP<100, DBP<60, HR <60 Discontinued bisacodyl 5 mg Tablet,Delayed Release (Dr/Ec) 10 mg PO QDAY PRN (Reason: Constipation) 90 Days Qty: 90 3RF Referrals: Damon Ann MD [Primary Care Provider, Family Practice] Patient/Caregiver Discharge Instructions Education Materials: Thoracentesis Dc Print Language: Serbian Stand Alone Forms: Edith Award Info., Patient Portal Info Letter Discharge Order Discharge Orders: Discharge (Routine); Ordered 01/17/25 Ordered By: Sara Roldan Quality Discharge Quality Measures VTE prophylaxis
--- NOTE | 2025-01-17 14:17 | PC.SS ---
RAILCAR SWITCHMAN confirmed with patient's daughter and sister that discharge plan is for the patient to transition to SNF with comfort care measures. [facility] has accepted the patient for placement. Patient's family in agreement with SNF. RAILCAR SWITCHMAN updated bedside nurse and resident.
--- NOTE | 2025-01-17 14:41 | PC.SS ---
Transport scheduled for 05:00 pm. [facility] L[facility]ER updated SNF, bedside nurse and patient's family.
== END 2025-01-17 17:15 | disposition skilled nursing facility (03) | DRG 871 ==
LOC: SERX 01-05 15:00 → SERHOLD 01-05 17:03 → S3NX 01-05 17:58 → S2NX 01-06 22:14
PROVIDERS: Radiology Diagnostic Radiology; Registered Nurse General Practice; Student in an Organized Health Care Education/Training Program; Admitting Provider Student in an Organized Health Care Education/Training Program; Emergency Provider Family Medicine; PCP Specialist; Visit Provider Internal Medicine
DX: A41.9 Sepsis, unspecified organism (principal); J15.0 Pneumonia due to Klebsiella pneumoniae; J96.01 Acute respiratory failure with hypoxia; K85.90 Acute pancreatitis without necrosis or infection, unspecified; I50.32 Chronic diastolic (congestive) heart failure; K80.00 Calculus of gallbladder with acute cholecystitis without obstruction; N39.0 Urinary tract infection, site not specified; J91.8 Pleural effusion in other conditions classified elsewhere; K80.12 Calculus of gallbladder with acute and chronic cholecystitis without obstruction; J98.11 Atelectasis; I25.10 Atherosclerotic heart disease of native coronary artery without angina pectoris; Z95.1 Presence of aortocoronary bypass graft; I95.9 Hypotension, unspecified; N40.0 Benign prostatic hyperplasia without lower urinary tract symptoms; E11.9 Type 2 diabetes mellitus without complications; I11.0 Hypertensive heart disease with heart failure; K21.9 Gastro-esophageal reflux disease without esophagitis; F41.9 Anxiety disorder, unspecified; T50.1X5A Adverse effect of loop [high-ceiling] diuretics, initial encounter; F32.A Depression, unspecified; E78.5 Hyperlipidemia, unspecified; G20.A1 Parkinson's disease without dyskinesia, without mention of fluctuations; I48.91 Unspecified atrial fibrillation; R62.7 Adult failure to thrive; Z79.01 Long term (current) use of anticoagulants; Z87.891 Personal history of nicotine dependence; Z51.5 Encounter for palliative care; K59.00 Constipation, unspecified; I35.0 Nonrheumatic aortic (valve) stenosis; Z66 Do not resuscitate; Z74.01 Bed confinement status; D64.9 Anemia, unspecified; Z79.84 Long term (current) use of oral hypoglycemic drugs; Z95.2 Presence of prosthetic heart valve; Z87.442 Personal history of urinary calculi; Z96.649 Presence of unspecified artificial hip joint
CPT/HCPCS: 36415; 36600; 51702; 71045; 71270; 74176; 74178; 74181; 75989; 76705; 76999; 80048; 80053; 80069; 80202; 80307; 81001; 82150; 82803; 82945; 83605; 83615; 83690; 83735; 83880; 83986; 84100; 84145; 84157; 84484; 85025; 85610; 85730; 86850; 86900; 86901; 87040; 87070; 87075; 87077; 87081; 87086; 87186; 87205; 87502; 87651; 89051; 92526; 92610; 93005; 93225; 93306; 94640; 94664; 94667; 96361; 96365; 96366; 96375; 96376; 97161; 99285; A4314; A4649; A9270; C1729; C1769; J0131; J0283; J0692; J0744; J1815; J1885; J1938; J2270; J2405; J2470; J2543; J3010; J3373; J3375; J3475; J3490; J7050; J7120; J7999; Q9967